=== PATIENT | female | born 1960 ===

== ENCOUNTER 2017-11-20 23:50 | Inpatient (IN) | payer MEDICARE, MEDICAID ==
[2017-11-21 00:01] VITALS: BMI 23.4
--- NOTE | 2017-11-21 01:02 | ED PDOC ---
Arrival/HPI - General Chief Complaint: Back Pain Time Seen by Provider: 11/21/17 00:35 Historian: Patient EM Caveat: Acuity of Condition - History of Present Illness Narrative History of Present Illness (Text): 11/21/17 00:51 57 yo F with PMH of high cholesterol, hypothyroidism, and hepatitis C (known, untreated), presents complaining of back pain x2 days. She reports right sided back pain, 10/10 in severity, started two days ago, woke her up from sleep, radiates to back of right leg to the knee, worsening since onset. Patient reports she has never had this pain before. [place] [facility] [place] she received "a shot and two tylenol" which did not help. Patient has difficulty walking due to the pain. She denies focal weakness/numbness, urinary incontinence, bowel incontinence. No particular exacerbating or remitting factors. Time/Duration: < week Symptom Onset: Sudden Symptom Course: Worsening Quality: Other ("feels like it is going to pop out") Severity Level: 10 Activities at Onset: Rest Past Medical History - Provider Review Nursing Documentation Reviewed: Yes - Travel History Have you recently traveled outside [place] w/in the past 3 mons?: No - Patient History Narrative Patient History: High cholesterol Hypothyroidism Prior intranasal heroin use, now on methadone with [facility] Hepatitis C, known untreated 2 years ago, patient was admitted somewhere where she received a blood transfusion, "then had kidney failure, then was in a coma for 3 days" - Infectious Disease Hx of Infectious Diseases: None - Tetanus Immunization Tetanus Immunization: Unknown - Cardiac Hx Cardiac Disorders: No Hx Hyperlipemia: Yes - Pulmonary Hx Respiratory Disorders: No - Neurological Hx Neurological Disorder: No - HEENT Hx HEENT Disorder: No - Renal Hx Renal Disorder: Yes - Hematological/Oncological Hx Hepatitis C: Yes (untreated) - Integumentary Hx Dermatological Disorder: No - Musculoskeletal/Rheumatological Hx Back Pain: No - Gastrointestinal Other/Comment: abdominal hernia - Genitourinary/Gynecological Hx Genitourinary Disorders: No - Psychiatric Hx Psychophysiologic Disorder: No Hx Substance Use: Yes (currently takes methadone) - Surgical History Hx Abdominal Aortic Aneurysm Repair: No Family/Social History - Physician Review Nursing Documentation Reviewed: Yes Family/Social History: Unknown Family HX Smoking Status: Light Smoker < 10 Cigarettes Daily Hx Alcohol Use: Yes Frequency of alcohol use: Socially Hx Substance Use: Yes (currently takes methadone) Allergies/Home Meds Allergies/Adverse Reactions: Allergies No Known Allergies Allergy (Verified 11/21/17 00:08) Home Medications: Home Meds Medication Instructions Recorded Confirmed Unobtainable 11/21/17 11/21/17 Review of Systems - Physician Review All systems were reviewed & negative as marked: Yes - Review of Systems Systems not reviewed;Unavailable: Acuity of Condition Constitutional: Normal Eyes: Normal ENT: Normal Respiratory: Normal Cardiovascular: Normal Gastrointestinal: Normal. absent: Stool Changes, Constipation, Diarrhea Genitourinary Female: Normal Musculoskeletal: Back Pain Skin: Normal Neurological: Normal. absent: Focal Weakness Endocrine: Normal Hemo/Lymphatic: Normal Psychiatric: Normal Physical Exam - Physical Exam Physical Exam Limitations: Clinical Condition Vital Signs Reviewed: Yes Vital Signs Temp Pulse Resp BP Pulse Ox 11/21/17 04:22 88 18 122/88 98 11/21/17 00:09 97.9 F 76 16 183/97 H 98 Temperature: Afebrile Blood Pressure: Hypertensive Pulse: Regular Respiratory Rate: Normal Appearance: Positive for: Non-Toxic, Unkept, Uncomfortable Pain Distress: Severe Mental Status: Positive for: Alert and Oriented X 3 - Systems Exam Head: Present: Atraumatic, Normocephalic Pupils: Present: PERRL Extroacular Muscles: Present: EOMI Conjunctiva: Present: Normal Mouth: Present: Moist Mucous Membranes Neck: Present: Normal Range of Motion Respiratory/Chest: Present: Clear to Auscultation, Good Air Exchange. No: Respiratory Distress Cardiovascular: Present: Regular Rate and Rhythm, Normal S1, S2 Abdomen: Present: Distention, Mass/Organomegaly. No: Tenderness, Peritoneal Signs, Rebound, Guarding Back: Present: Normal Inspection, Paraspinal Tenderness, Pain with Leg Raise. No: CVA Tenderness, Midline Tenderness Upper Extremity: Present: Normal Inspection. No: Cyanosis, Edema Lower Extremity: Present: Normal Inspection, Neurovascularly Intact. No: Edema , CALF TENDERNESS Neurological: Present: GCS=15, CN II-XII Intact, Motor Func Grossly Intact, Normal Sensory Function Skin: Present: Warm, Dry, Normal Color Psychiatric: Present: Alert, Oriented x 3, Anxious, Agitated Medical Decision Making ED Course and Treatment: 11/21/17 01:12 Impression: Low back pain Differential Diagnosis included but are not limited to: musculoskeletal low back pain, disc herniation, epidural abscess, fracture Plan: -- Labs -- Flexeril and tylenol for pain; pending labs -- Patient reportedly takes methadone 35mg daily; on [place] [employer], patient noted to take Zolpidem, no other controlled substances on record -- CT lumbar and sacral spine -- Reassess and disposition Prior Visits: None Progress Notes: 11/21/17 02:40 Labs unremarkable, no renal impairment. Ordered toradol 30mg IVP once. No improvement in pain. Patient moaning and shouting constantly, crying, though not tearful. Denies abdominal pain. Cross sectional imaging shows no significant abnormalities of the lumbar/sacral spine or hips to explain current symptoms; remarkable for ascites and mild stranding in anterior and posterior abdominal wall. Patient afebrile, no leukocytosis. Ordered Urinalysis and UDS Ordered percocet 5/325 PO once 11/21/17 04:22 UDS positive for methadone, otherwise negative Called [facility] patient's recent visit. Patient was at [facility] at approximately 0135, with similar complaint. She had received NSAIDs with apparent improvement in her symptoms, and was discharged with PO tylenol. Patient's prior presentation at [facility] [place], for an ultrasound procedure. Patient is not a known frequent visitor to that hospital. Patient continues to complain of severe pain, despite narcotic analgesic. Ordered morphine 4mg IVP once. Will reassess. Urinalysis pending to r/o pyelonephritis. 11/21/17 05:52 Urinalysis significant for trace ketones and large blood. No UTI. Patient continues to have pain, despite morphine administration, though slightly improved; patient slightly more comfortable. Called Dr. Maryam Gustafson for admission for intractable back pain; Dr. Gustafson accepts patient to hospitalist service Reassessment Condition: Re-examined, Worse - Lab Interpretations Lab Results: 11/21/17 00:55 11/21/17 00:55 Lab Results 11/21/17 03:00: Urine Opiates Screen Negative, Urine Methadone Screen Positive H , Ur Barbiturates Screen Negative, Ur Phencyclidine Scrn Negative, Ur Amphetamines Screen Negative, U Benzodiazepines Scrn Negative, U Oth Cocaine Metabols Negative, U Cannabinoids Screen Negative 11/21/17 03:00: Urine Color Yellow, Urine Appearance Sl cloudy, Urine pH 6.0, Ur Specific [place] 1.020, Urine Protein Negative, Urine Glucose (UA) Negative, Urine Ketones Trace H, Urine Blood Large H, Urine Nitrate Negative, Urine Bilirubin Negative, Urine Urobilinogen 0.2, Ur Leukocyte Esterase Negative, Urine RBC 2 - 5, Urine WBC 1 - 3, Ur Epithelial Cells 1 - 3, Urine Bacteria Few 11/21/17 00:55: Sodium 134, Potassium 4.0, Chloride 97 L, Carbon Dioxide 31, Anion Gap 10, BUN 10, Creatinine 0.8, Est GFR ( Amer) > 60, Est GFR (Non- Af Amer) > 60, Random Glucose 107, Calcium 8.0 L, Total Bilirubin 1.5 H, AST 47 H, ALT 17, Alkaline Phosphatase 169 H, Total Protein 7.8, Albumin 2.7 L, Globulin 5.1, Albumin/Globulin Ratio 0.5 L 11/21/17 00:55: PT 18.5 H, INR 1.61 H, APTT 35.6 11/21/17 00:55: WBC 4.6, RBC 4.30, Hgb 12.3, Hct 36.7, MCV 85.3, MCH 28.6, MCHC 33.5, RDW 18.1 H, Plt Count 40 L*, Gran % 65.2, Lymph % (Auto) 21.6 L, [place] % ( Auto) 11.0 H, Eos % (Auto) 1.1 L, Baso % (Auto) 1.1, Gran # 3.03, Lymph # (Auto ) 1.0 L, [place] # (Auto) 0.5, Eos # (Auto) 0.1, Baso # (Auto) 0.05 I have reviewed the lab results: Yes Interpretation: Abnormal lab values - RAD Interpretation Radiology Orders: 11/21/17 00:46 LUMBAR SPINE W/O CONTRAST [CT] Stat PELVIS W/O PO OR IV CONTRAST [CT] Stat - Medication Orders Current Medication Orders: Discontinued Medications Acetaminophen (Tylenol 325mg Tab) 975 mg PO STAT STA Stop: 11/21/17 00:47 Last Admin: 11/21/17 00:56 Dose: 975 mg Cyclobenzaprine HCl (Flexeril) 10 mg PO STAT STA Stop: 11/21/17 00:47 Last Admin: 11/21/17 00:56 Dose: 10 mg Ketorolac Tromethamine (Toradol) 30 mg IVP STAT STA Stop: 11/21/17 01:50 Last Admin: 11/21/17 01:56 Dose: 30 mg MAR Pain Assessment Document 11/21/17 01:56 IT (Rec: 11/21/17 01:58 IT [facility] [id number]) Pain Reassessment Is this a pain reassessment? No Sleep Is patient sleeping during reassessment? No Presence of Pain Presence of Pain Yes Pain Scale Used Pain Scale Used Numeric IVP Administration Document 11/21/17 01:56 IT (Rec: 11/21/17 01:58 IT [id number]) Charges for Administration # of IVP Administrations 1 Morphine Sulfate (Morphine) 4 mg IVP STAT STA Stop: 11/21/17 04:06 Last Admin: 11/21/17 04:21 Dose: 4 mg MAR Pain Assessment Document 11/21/17 04:21 IT (Rec: 11/21/17 04:21 IT [id number]) Pain Reassessment Is this a pain reassessment? No Sleep Is patient sleeping during reassessment? No Presence of Pain Presence of Pain Yes Pain Scale Used Pain Scale Used Numeric IVP Administration Document 11/21/17 04:21 IT (Rec: 11/21/17 04:21 IT [id number]) Charges for Administration # of IVP Administrations 1 Oxycodone/Acetaminophen (Percocet 5/325 Mg Tab) 1 tab PO STAT STA Stop: 11/21/17 02:29 Last Admin: 11/21/17 02:45 Dose: 1 tab MAR Pain Assessment Document 11/21/17 02:45 IT (Rec: 11/21/17 02:46 IT [id number]) Pain Reassessment Is this a pain reassessment? No Sleep Is patient sleeping during reassessment? No Presence of Pain Presence of Pain Yes Pain Scale Used Pain Scale Used Numeric Location Left, Right or Bilateral Bilateral Pain Location Body Site Back Description Description Constant Intensity of Pain at present 9 Disposition/Present on Arrival - Present on Arrival Any Indicators Present on Arrival: No History of DVT/PE: No History of Uncontrolled Diabetes: No Urinary Catheter: No History of Decub. Ulcer: No History Surgical Site Infection Following: None - Disposition Have Diagnosis and Disposition been Completed?: Yes Diagnosis: Intractable back pain, Ascites, Hematuria Disposition: HOSPITALIZED Disposition Time: 06:00 Patient Plan: Observation Condition: STABLE Forms: [employer] ([place])
[2017-11-21 01:10] LABS: BASO # 0.05 K/mm3 (0.0-2.0); BASO % 1.1 % (0.0-3.0); EOS # 0.1 (0.0-0.7); EOS % 1.1 % (1.5-5.0); GRAN # 3.03 (1.4-6.5); GRAN % 65.2 % (50.0-68.0); HEMOGLOBIN 12.3 g/dL (12.0-16.0); LYMPH % 21.6 % (22.0-35.0); MEAN CELL VOLUME 85.3 fl (80.0-105.0); MEAN CORPUSCULAR HEMOGLOBIN 28.6 pg (25.0-35.0); MEAN CORPUSCULAR HGB CONC 33.5 g/dl (31.0-37.0); MONO # 0.5 (0.1-0.6); PLATELET COUNT 40 10^3/uL (120.0-450.0); RED CELL DISTRIBUTION WIDTH 18.1 % (11.5-14.5); WHITE BLOOD COUNT 4.6 10^3/ul (4.5-11.0)
[2017-11-21 01:15] LABS: INR 1.61 (0.93-1.08); PARTIAL THROMBOPLASTIN TIME 35.6 Seconds (25.1-36.5); PROTHROMBIN TIME 18.5 SECONDS (9.4-12.5)
[2017-11-21 01:35] LABS: ALB/GLOB RATIO 0.5 (1.1-1.8); ALBUMIN 2.7 g/dL (3.0-4.8); ALT/SGPT 17 U/L (7-56); AST/SGOT 47 U/L (14-36); BLOOD UREA NITROGEN 10 mg/dL (7-21); GFR AFRICAN-AMERICAN > 60; GFR NON-AFRICAN AMERICAN > 60
--- NOTE | 2017-11-21 02:15 | CT ---
EXAM: CT Abdomen Without Intravenous Contrast EXAM DATE/TIME: 11/21/2017 12:46 AM CLINICAL HISTORY: 57 years old, female; Pain; Low back pain; Additional info: Right sided back pain TECHNIQUE: Axial computed tomography images of the abdomen without intravenous contrast. All CT scans at this facility use one or more dose reduction techniques, viz.: automated exposure control; ma/kV adjustment per patient size (including targeted exams where dose is matched to indication; i.e. head); or iterative reconstruction technique. COMPARISON: No relevant prior studies available. FINDINGS: Liver: Dome of liver not imaged. Lobulated hepatic contour. Gallbladder and bile ducts: Multiple small gallstones. No ductal dilation. Pancreas: Unremarkable. No ductal dilation. Spleen: Splenomegaly despite incomplete imaging of the dome. Adrenals: Unremarkable. No mass. Kidneys and ureters: Unremarkable. No obstructing stones. No hydronephrosis. Stomach and bowel: Unremarkable. No obstruction. No mucosal thickening. Appendix: No findings to suggest acute appendicitis. Intraperitoneal space: Moderate-sized ascites. No free air. Bones/joints: No acute fracture. No dislocation. Soft tissues: Small umbilical hernia containing ascitic fluid. Soft tissue edema. 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 Gastric, esophageal and splenic varices. No abdominal aortic aneurysm. Lymph nodes: Unremarkable. No enlarged lymph nodes. IMPRESSION: 1. Cholelithiasis, no evidence of acute cholecystitis. 2. Cirrhosis and stigmata of portal venous hypertension. Moderate ascites.
--- NOTE | 2017-11-21 02:20 | CT ---
EXAM: CT Pelvis Without Intravenous Contrast CLINICAL HISTORY: 57 years old, female; Pain; Hip pain; Right hip; Additional info: To assess sacral spine (si joints) - back pain TECHNIQUE: Axial computed tomography images of the pelvis without intravenous contrast. All CT scans at this facility use one or more dose reduction techniques, viz.: automated exposure control; ma/kV adjustment per patient size (including targeted exams where dose is matched to indication; i.e. head); or iterative reconstruction technique. Coronal and sagittal reformatted images were created and reviewed. COMPARISON: No relevant prior studies available. FINDINGS: Bones/joints: No acute fracture. Mild degenerative changes of pubic symphysis. Mild facet osteoarthrosis within lower lumbar spine. No dislocation. Soft tissues: Mild skin thickening of anterior abdominal wall. Moderate to extensive stranding within subcutaneous tissues of anterior abdominal wall. Mild stranding within subcutaneous tissues of posterior abdominal wall. Minimal skin thickening of thighs. Mild stranding within subcutaneous tissues of thighs. Vasculature: Mild atherosclerotic disease. Intraperitoneal space: Large amount of free fluid within visualized lower abdomen and pelvis. Reproductive: Probable nabothian cyst. IMPRESSION: 1. No fracture. If hip pain persists, consider MRI to exclude occult fracture/internal derangement. 2. Ascites. Recommend dedicated contrast enhanced abdomen/pelvis CT. 3. Incidental/non-acute findings are described above.
[2017-11-21] MEDS ORDERED: Oxycodone/Acetaminophen 5/325 mg Tab PO STA (02:28)
[2017-11-21 03:34] LABS: PHENCYCLIDINE, UR NEGATIVE (NEGATIVE)
[2017-11-21 03:39] LABS: URINE BILIRUBIN NEGATIVE (NEGATIVE); URINE BLOOD LARGE (NEGATIVE); URINE GLUCOSE (UA) NEGATIVE (NEGATIVE); URINE LEUKOCYTE ESTERASE NEGATIVE Leu/uL (NEGATIVE); URINE PROTEIN NEGATIVE mg/dL (<30 mg/dL); URINE UROBILINOGEN 0.2 E.U./dL (<1 E.U./dL)
[2017-11-21 03:55] LABS: BARBITURATES, UR NEGATIVE (NEGATIVE); BENZODIAZEPINES, UR NEGATIVE (NEGATIVE); OPIATES, UR NEGATIVE (NEGATIVE)
[2017-11-21 04:03] LABS: URINE APPEARANCE SL CLOUDY (CLEAR); URINE COLOR YELLOW (YELLOW)
[2017-11-21 04:04] LABS: URINE BACTERIA FEW (NEG)
--- NOTE | 2017-11-21 07:08 | CP.PCM.HP ---
<Ricki Moreno - Last Filed: 11/21/17 07:01> History of Present Illness - History of Present Illness History of Present Illness: Medicine H/P: Dr. Maryam Gustafson Chief Complaint: Back Pain HPI: 57 year old Female with past medical history of high cholesterol, hypothyroidism , and hepatitis C (known, untreated), presents complaining of back pain x 2 days. She reports right sided back pain, 10/10 in severity, started two days ago , woke her up from sleep, radiates to back of right leg to the knee. Patient reports she has never had this pain before. Per ER physicians Dr. Love and Dr. Rodriguez, she went to [facility] [place], where she received "a shot and two tylenol" which did not help. Patient has difficulty walking due to the pain. Patient denies injury and states that the pain started without any precipitating factors. She denies focal weakness/numbness, urinary incontinence, bowel incontinence. Review of Systems: 12 point ROS obtained and negative except as per HPI Surgical History: Patient denies Medical History: Hyperlipidemia, Hypothyroidism, Hep C untreated Allergies: NKDA Social History: Smokes 1 cigarette a day, quit drinking, quit heroin Home Meds: Patient denies PMD: Patient denies Present on Admission - Present on Admission Any Indicators Present on Admission: No Past Patient History - Infectious Disease Hx of Infectious Diseases: None - Tetanus Immunizations Tetanus Immunization: Unknown - Past Social History Smoking Status: Light Smoker < 10 Cigarettes Daily - CARDIAC Hx Cardiac Disorders: No - PULMONARY Hx Respiratory Disorders: No - NEUROLOGICAL Hx Neurological Disorder: No - HEENT Hx HEENT Problems: No - RENAL Hx Chronic Kidney Disease: Yes - HEMATOLOGICAL/ONCOLOGICAL Hx Hepatitis C: Yes (untreated) - INTEGUMENTARY Hx Dermatological Problems: No - MUSCULOSKELETAL/RHEUMATOLOGICAL Hx Back Pain: No - GASTROINTESTINAL Other/Comment: abdominal hernia - GENITOURINARY/GYNECOLOGICAL Hx Genitourinary Disorders: No - PSYCHIATRIC Hx Psychophysiologic Disorder: No Hx Substance Use: Yes (currently takes methadone) - SURGICAL HISTORY Hx Abdominal Aortic Aneurysm Repair: No Meds Allergies/Adverse Reactions: Allergies Allergy/AdvReac Type Severity Reaction Status Date / Time No Known Allergies Allergy Verified 11/21/17 00:08 Physical Exam - Constitutional Appears: Well - Head Exam Head Exam: ATRAUMATIC, NORMAL INSPECTION, NORMOCEPHALIC - Eye Exam Eye Exam: EOMI, Normal appearance, PERRL Pupil Exam: NORMAL ACCOMODATION, PERRL - ENT Exam ENT Exam: Mucous Membranes Moist, Normal Exam - Neck Exam Neck exam: Positive for: Normal Inspection - Respiratory Exam Respiratory Exam: Clear to Auscultation Bilateral, NORMAL BREATHING PATTERN - Cardiovascular Exam Cardiovascular Exam: REGULAR RHYTHM - GI/Abdominal Exam GI & Abdominal Exam: Normal Bowel Sounds, Soft. absent: Tenderness Additional comments: Non-tender Grossly distended abdomen, no fluid wave - Extremities Exam Extremities exam: Positive for: normal inspection - Back Exam Back exam: NORMAL INSPECTION Additional comments: Straight leg test positive Lumbosacral tenderness - Neurological Exam Neurological exam: Alert, CN II-XII Intact, Normal Gait, Oriented x3, Reflexes Normal - Psychiatric Exam Psychiatric exam: Normal Affect, Normal Mood - Skin Skin Exam: Dry, Intact, Normal Color, Warm Results - Vital Signs Recent Vital Signs: Last Vital Signs Temp 98.1 F 11/21/17 06:37 Pulse 71 11/21/17 06:37 Resp 18 11/21/17 06:37 BP 128/72 11/21/17 06:37 Pulse Ox 98 11/21/17 06:37 - Labs Result Diagrams: 11/21/17 00:55 11/21/17 00:55 Assessment & Plan - Assessment and Plan (Free Text) Assessment: 57 year old female with past medical history pertinent for Hep C presents with back pain that radiates down her right leg of two days' duration. CT Pelvis was obtained as well as CT of the spine in the ED, both of which were unremarkable. UA did show large blood, nephrolithiasis is in the differential. Patient's pain was alleviated only with Percocet, which she got at 2:30 A, and Morphine, which she got at 4A. Patient had been given ACEP, Flexeril, and Toradol up to that point. Patient's abdomen is distended and she has a history of untreated hep C. LFT's mildly elevated with T Bili mildly elevated as well. Patient also has hypothyroidism and hyperlipidemia, self reported. Plan: Intractible Back Pain - Toradol PRN; Consider Flexeril - CT Abdomen, MRI Lumbar Spine, CT R Hip ordered; CT Knee ordered History of Hep C - AFP, Liver ultrasound - GI Consult: Dr. Alvarenga - Hold hepatotoxic medications Transaminitis, likely 2/2 Hep C - as above History of Hypothyroidism - TSH, T3, T4 - Hold levothyroid until labs back History of Hyperlipidemia - Lipid panel - Hold statin 2/2 hepatotoxicity GI/DVT Prophylaxis - Protonix/SCD Diet: Heart Healthy <GustafsonUsha Delano - Last Filed: 11/22/17 05:23> Results - Vital Signs Recent Vital Signs: Last Vital Signs Temp 97.8 F 11/21/17 21:50 Pulse 94 H 11/22/17 01:27 Resp 20 11/21/17 21:50 BP 158/98 H 11/22/17 01:27 Pulse Ox 96 11/21/17 21:50 - Labs Result Diagrams: 11/21/17 00:55 11/21/17 00:55 Labs: Laboratory Results - last 24 hr 11/21/17 11/21/17 11/21/17 07:00 07:00 07:00 Iron TIBC % Saturation Ferritin 53.9 Total Creatine Kinase Triglycerides Cholesterol LDL Cholesterol Direct HDL Cholesterol IgG 3399.8 H IgA 891.9 H IgM 291.4 H Hepatitis A IgM Ab Negative Hep Bs Antigen Negative Hep B Core IgM Ab Negative Hepatitis C Antibody Reactive 11/21/17 11/21/17 11/21/17 07:00 07:45 07:45 Iron 53 TIBC 338 % Saturation 16 L Ferritin Total Creatine Kinase 32 L Triglycerides 79 Cholesterol 105 L LDL Cholesterol Direct 48 HDL Cholesterol 19 L IgG IgA IgM Hepatitis A IgM Ab Hep Bs Antigen Hep B Core IgM Ab Hepatitis C Antibody
[2017-11-21 08:15] LABS: HDL CHOLESTEROL 19 mg/dL (29-60)
[2017-11-21 08:15] LABS: T4 5.4 ug/dL (5.5-11.0)
[2017-11-21 08:25] LABS: LDL CHOLESTEROL 48 mg/dL (0-129)
[2017-11-21 08:29] LABS: T3 0.94 ng/mL (0.97-1.69)
[2017-11-21] MEDS ORDERED: Pneumococcal 23-Valent Vaccine IM ONE (08:39)
[2017-11-21] MEDS: Lidocaine 5% Patch TD SCH (09:36)
--- NOTE | 2017-11-21 11:50 | US ---
HISTORY: history of hep c COMPARISON: None. TECHNIQUE: Sonographic evaluation of the abdomen. FINDINGS: LIVER: Measures 17.1 cm. Diffusely increased echogenicity of the liver parenchyma. Nodular contour. No mass. No intrahepatic biliary dilatation. Findings consistent with hepatic cirrhosis. GALLBLADDER: Cholelithiasis. Minimal nonspecific gallbladder wall thickening. Negative sonographic Xiong sign. COMMON BILE DUCT: Measures 14 mm. This is enlarged. No evidence of choledocholithiasis. PANCREAS: Unremarkable as visualized. No mass. No ductal dilatation. RIGHT KIDNEY: Measures 10.8cm. Normal echogenicity. No calculus, mass, or hydronephrosis. LEFT KIDNEY: Measures 10.1cm. Normal echogenicity. No calculus, mass, or hydronephrosis. SPLEEN: Minimal splenomegaly. AORTA: No aneurysmal dilatation. IVC: Unremarkable. OTHER FINDINGS: Extensive ascites IMPRESSION: Hepatic cirrhosis. Ascites. Cholelithiasis without evidence of cholecystitis. Dilated common bile duct without associated intrahepatic biliary dilatation. Cannot rule out choledocholithiasis. Please correlate with clinical and laboratory evaluation. Mild splenomegaly.
--- NOTE | 2017-11-21 13:30 | CP.PCM.CON ---
<Lucia Golden - Last Filed: 11/21/17 13:22> History of Present Illness - History of Present Illness History of Present Illness: GI Fellow PGY4 Consult Note This is a 57 year old Female with past medical history of high cholesterol, hypothyroidism, and hepatitis C treatment naive presenting with complaints of back pain x 2 days and distended abdomen. She reports right sided back pain, 10/ 10 in severity, started two days ago, woke her up from sleep, radiates to back of right leg to the knee. Patient reports she has never had this pain before. Pt reports she was diagnosed with hep c many years ago but never followed up for treatment. This is the first time her abdomen is distended and she reports epeisodes of confusion at home. She has more than 2BM daily. No prior hx of GI Bleed, EGD/Colonoscopy. ROS: 12 point ROS obtained and negative except as per HPI PMH: As stated in HPI PSH:Patient denies SH: Smokes 1 cigarette a day, quit drinking a few months ago was a heavy drinking, quit heroin a few years ago on methadone FH: Denies fhx of colon cancer Past Patient History - Infectious Disease Hx of Infectious Diseases: None - Tetanus Immunizations Tetanus Immunization: Unknown - Past Social History Smoking Status: Former Smoker - CARDIAC Hx Cardiac Disorders: No - PULMONARY Hx Pneumonia: Yes - NEUROLOGICAL Hx Neurological Disorder: No - HEENT Hx HEENT Problems: No - RENAL Hx Chronic Kidney Disease: Yes - HEMATOLOGICAL/ONCOLOGICAL Hx Hepatitis C: Yes - INTEGUMENTARY Hx Dermatological Problems: No - MUSCULOSKELETAL/RHEUMATOLOGICAL Hx Falls: No - GASTROINTESTINAL Other/Comment: abdominal hernia - GENITOURINARY/GYNECOLOGICAL Hx Genitourinary Disorders: No - PSYCHIATRIC Other/Comment: substance abuse heroin years ago stated by patient. Alchol use last drank one week ago - SURGICAL HISTORY Hx Abdominal Aortic Aneurysm Repair: No Meds Allergies/Adverse Reactions: Allergies Allergy/AdvReac Type Severity Reaction Status Date / Time No Known Allergies Allergy Verified 11/21/17 00:08 - Medications Medications: Current Medications Furosemide (Lasix) 40 mg PO DAILY [facility] Hydralazine HCl (Apresoline) 10 mg IVP Q6 PRN PRN Reason: SBP > 180 and DBP > 100 Ketorolac Tromethamine (Toradol) 30 mg IVP Q6H PRN PRN Reason: Pain, severe (8-10) Last Admin: 11/21/17 09:36 Dose: 30 mg Lactulose (Enulose) 20 gm PO BID [facility] Lidocaine (Lidoderm) 1 ea TD DAILY JOSE J Last Admin: 11/21/17 09:36 Dose: 1 ea Methadone HCl (Methadone) 35 mg PO DAILY [facility] Pantoprazole Sodium (Protonix Ec Tab) 40 mg PO 0600 [facility] Spironolactone (Aldactone) 100 mg PO DAILY [facility] Physical Exam - Constitutional Appears: Non-toxic, No Acute Distress, Cachectic, Chronically Ill - Head Exam Head Exam: ATRAUMATIC, NORMAL INSPECTION, NORMOCEPHALIC - Eye Exam Eye Exam: EOMI, Normal appearance, PERRL Pupil Exam: PERRL - ENT Exam ENT Exam: Mucous Membranes Moist, Normal Exam - Neck Exam Neck exam: Positive for: Full Rom, Normal Inspection - Respiratory Exam Respiratory Exam: Decreased Breath Sounds, Wheezes - Cardiovascular Exam Cardiovascular Exam: REGULAR RHYTHM, +S1, +S2 - GI/Abdominal Exam GI & Abdominal Exam: Distended, Firm, Hypoactive Bowel Sounds, Tenderness Additional comments: ascites - Rectal Exam Rectal Exam: Deferred - Extremities Exam Extremities exam: Positive for: full ROM, normal inspection - Back Exam Back exam: NORMAL INSPECTION - Neurological Exam Neurological exam: Alert, Oriented x3 - Psychiatric Exam Psychiatric exam: Anxious, Normal Affect, Normal Mood - Skin Skin Exam: Dry, Intact, Normal Color, Warm Results - Vital Signs Recent Vital Signs: Last Vital Signs Temp 97.8 F 11/21/17 08:07 Pulse 72 11/21/17 08:07 Resp 20 11/21/17 08:07 BP 162/79 H 11/21/17 10:41 Pulse Ox 98 11/21/17 06:37 - Labs Result Diagrams: 11/21/17 00:55 11/21/17 00:55 Labs: Laboratory Results - last 24 hr 11/21/17 11/21/17 07:45 07:45 Total Creatine Kinase 32 L Triglycerides 79 Cholesterol 105 L LDL Cholesterol Direct 48 HDL Cholesterol 19 L Assessment & Plan - Assessment and Plan (Free Text) Assessment: This is a 57yF presenting with back and abdominal pain and distention. 1. Ascites 2. Hx of Hep C 3. Hx of etoh abuse 4. r/o Cirrhosis 5. Thrombocytopenia 6. Elevated LFTs Plan: -Continue supportive care with pain control and anti-emetics -Avoid narcotics with possible cirrhosis -Clinical and chemical picture of cirrhosis with MELD 16, will order CT Liver Protocol and Abd US duplex to evaluate portal vein patency -Hepatitis and autoimmune serologies pending -Will order diagnostic and therapeutic paracentesis, peritoneal fluid studies ordered to r/o SBP -Will start lasix and spironolactone -Lactulose bid to titrate for 2 BM daily -Pt will need outpt EGD/Colonoscopy as an outpt -Will continue to follow closely <Pratik Alvarenga - Last Filed: 11/21/17 16:16> Meds - Medications Medications: Current Medications Furosemide (Lasix) 40 mg PO DAILY [facility] Last Admin: 11/21/17 14:46 Dose: 40 mg Hydralazine HCl (Apresoline) 10 mg IVP Q6 PRN PRN Reason: SBP > 180 and DBP > 100 Ketorolac Tromethamine (Toradol) 30 mg IVP Q6H PRN PRN Reason: Pain, severe (8-10) Last Admin: 11/21/17 09:36 Dose: 30 mg Lactulose (Enulose) 20 gm PO BID [facility] Lidocaine (Lidoderm) 1 ea TD DAILY [facility] Last Admin: 11/21/17 09:36 Dose: 1 ea Methadone HCl (Methadone) 35 mg PO DAILY [facility] Last Admin: 11/21/17 14:45 Dose: 35 mg Pantoprazole Sodium (Protonix Ec Tab) 40 mg PO 0600 [facility] Spironolactone (Aldactone) 100 mg PO DAILY [facility] Last Admin: 11/21/17 14:46 Dose: 100 mg Results - Vital Signs Recent Vital Signs: Last Vital Signs Temp 97.8 F 11/21/17 08:07 Pulse 72 11/21/17 08:07 Resp 20 11/21/17 08:07 BP 167/87 H 11/21/17 14:46 Pulse Ox 98 11/21/17 06:37 - Labs Result Diagrams: 11/21/17 00:55 11/21/17 00:55 Labs: Laboratory Results - last 24 hr 11/21/17 11/21/17 11/21/17 07:00 07:45 07:45 Iron 53 TIBC 338 % Saturation 16 L Total Creatine Kinase 32 L Triglycerides 79 Cholesterol 105 L LDL Cholesterol Direct 48 HDL Cholesterol 19 L Attending/Attestation - Attestation I have personally seen and examined this patient.: Yes I have fully participated in the care of the patient.: Yes I have reviewed all pertinent clinical information: Yes Notes (Text): 11/21/17 16:05 This is a 57 year old F presenting with back and abdominal pain and new onset abdominal distention in setting of ascites. She states she was told she had HCV few years ago but was treatment naive. She was recently admitted to outside facility. Never had EGD/ colonoscopy. Has history of alcohol abuse and heroin snorting both which she has discontinued. We do not have hepatitis serologies. Will schedule diagnostic and therapeutic tap with IR in am and CTAP with triple phase and abdominal sonogram with dopplers. -Continue supportive care with pain control and anti-emetics -Avoid narcotics with possible cirrhosis MELD 16 -Hepatitis and autoimmune serologies pending -Will start lasix and spironolactone -Lactulose bid to titrate for 2 BM daily -Pt will need outpt EGD/Colonoscopy as an outpt and HCV treatment - low salt diet -Will continue to follow closely
[2017-11-21 14:32] LABS: IRON 53 ug/dL (45-180)
[2017-11-21 14:42] LABS: % IRON SATURATION 16 % (20-55); TOTAL IRON BINDING CAPACITY 338 ug/dL (265-497)
[2017-11-21 17:06] LABS: IMMUNOGLOBULIN M 291.4 mg/dL (40.0-230.0)
[2017-11-21 18:01] LABS: IMMUNOGLOBULIN A 891.9 mg/dL (70.0-400.0); IMMUNOGLOBULIN G 3399.8 mg/dL (700.0-1600.0)
[2017-11-21 18:02] LABS: HEPATITIS B SURFACE AG Negative (NEGATIVE)
[2017-11-21 18:08] LABS: HEPATITIS A IGM NEGATIVE (NEGATIVE); HEPATITIS B CORE AB NEGATIVE (NEGATIVE)
--- NOTE | 2017-11-21 19:54 | CT ---
EXAM: CT Abdomen and Pelvis Without and With Intravenous Contrast EXAM DATE/TIME: 11/21/2017 10:55 AM CLINICAL HISTORY: The patient age is 57 years old and is female; Condition or disease; Ascites Facility exam id and description: Ct liver liver protocol triple phase TECHNIQUE: Axial computed tomography images of the abdomen and pelvis without and with intravenous contrast. All CT scans at this facility use one or more dose reduction techniques, viz.: automated exposure control; ma/kV adjustment per patient size (including targeted exams where dose is matched to indication; i.e. head); or iterative reconstruction technique. CONTRAST: 141 mL of OMNI 350 administered intravenously. COMPARISON: CT - PELVIS W/O CONTRAST 2017-11-21 01:32 FINDINGS: Lung bases: Consolidations and increased interstitial markings are identified within both lower lobes and the right middle lobe. ABDOMEN: Liver: There is increased nodularity of the hepatic contour, consistent with hepatocellular dysfunction or cirrhosis. There is hypodense fatty infiltration of the liver. Gallbladder and bile ducts: The gallbladder is distended with multiple gallstones. Pancreas: There is actually of the pancreas. No ductal dilation. Spleen: Borderline splenomegaly. The spleen measures 12.1 cm in length, borderline for splenomegaly. Adrenals: No mass. Kidneys and ureters: Small foci of hypodensity are identified within the renal cortices, right zygoma. This is consistent with small cystic lesions or areas of parenchymal scarring. There is no hydronephrosis bilaterally. Stomach and bowel: No obstruction. No mucosal thickening. Appendix: The appendix is nondistended. PELVIS: Bladder: No mass. No stones. Reproductive: At the level of the cervix, there is a hypodense probable nabothian cyst measuring 1.1 x 0.9 cm. ABDOMEN and PELVIS: Intraperitoneal space: There is a large amount of abdominal and pelvic ascites. Ascites is contained within small ventral abdominal hernias. Varicosities are visualized within the upper abdomen. Bones/joints: A transitional S1 vertebral body is visualized. Soft tissues: See above. Vasculature: There is atherosclerotic calcification of the abdominal aorta. No abdominal aortic aneurysm. Lymph nodes: No enlarged lymph nodes. IMPRESSION: 1. Consolidations and increased interstitial markings are identified within both lower lobes and the right middle lobe. An infectious etiology is considered. 2. There is increased nodularity of the hepatic contour, consistent with hepatocellular dysfunction or cirrhosis. There is hypodense fatty infiltration of the liver. 3. There is a large amount of abdominal and pelvic ascites. Ascites is contained within small ventral abdominal hernias. 4. The gallbladder is distended with multiple gallstones. Pericholecystic fluid is visualized, likely contributed ascites. Clinical correlation is recommended. 5. At the level of the cervix, there is a stable probable nabothian cyst measuring 1.1 x 0.9 cm. This can be further evaluated with ultrasound. 6. Borderline splenomegaly. Varicosities are visualized within the upper abdomen. 7. Additional CT findings described above.
[2017-11-21 19:58] LABS: HEPATITIS C ANTIBODY REACTIVE (NEGATIVE)
--- NOTE | 2017-11-21 22:47 | CT ---
EXAM: CT Right Lower Extremity Without Intravenous Contrast, Knee EXAM DATE/TIME: 11/21/2017 8:09 PM CLINICAL HISTORY: The patient age is 57 years old and is female; Pain; Knee; Right; Additional info: Right knee pain Facility exam id and description: Ct kneewocnt knee without contrast right TECHNIQUE: Axial computed tomography images of the right knee without intravenous contrast. All CT scans at this facility use one or more dose reduction techniques, viz.: automated exposure control; ma/kV adjustment per patient size (including targeted exams where dose is matched to indication; i.e. head); or iterative reconstruction technique. Coronal and sagittal reformatted images were created and reviewed. COMPARISON: No relevant prior studies available. FINDINGS: Bones/joints: There is no acute fracture or dislocation of the right knee. Minimal fluid is seen within the patellofemoral joint, without significant effusion. Osteopenia. No significant hypertrophic degenerative spurring. Soft tissues: Soft tissue swelling is visualized, most significant involving the medial right thigh. CT is suboptimal for evaluation of ligaments, tendons, and menisci. A tiny Castro's cyst is identified. IMPRESSION: 1. There is no acute fracture or dislocation of the right knee. 2. Soft tissue swelling is visualized, most significant involving the medial right thigh. 3. Incidental/non-acute findings are described above.
[2017-11-22] MEDS: Pantoprazole 40 mg EC Tab PO SCH ×2 (05:50→09:18)
[2017-11-22 06:50] LABS: BASO # 0.06 K/mm3 (0.0-2.0); EOS # 0.1 (0.0-0.7); EOS % 2.1 % (1.5-5.0); GRAN # 3.36 (1.4-6.5); GRAN % 54.6 % (50.0-68.0); HEMOGLOBIN 11.2 g/dL (12.0-16.0); LYMPH # 1.8 (1.2-3.4); LYMPH % 29.1 % (22.0-35.0); MEAN CELL VOLUME 86.7 fl (80.0-105.0); MEAN CORPUSCULAR HEMOGLOBIN 27.7 pg (25.0-35.0); MEAN CORPUSCULAR HGB CONC 31.9 g/dl (31.0-37.0); MONO # 0.8 (0.1-0.6); MONO % 13.2 % (1.0-6.0); RBC 4.05 10^6/uL (3.5-6.1); RED CELL DISTRIBUTION WIDTH 18.8 % (11.5-14.5); WHITE BLOOD COUNT 6.2 10^3/ul (4.5-11.0)
[2017-11-22 07:25] LABS: ALB/GLOB RATIO 0.6 (1.1-1.8); ALBUMIN 2.7 g/dL (3.0-4.8); ALT/SGPT 23 U/L (7-56); AST/SGOT 36 U/L (14-36); BLOOD UREA NITROGEN 14 mg/dL (7-21); CALCIUM 8.2 mg/dL (8.4-10.5); GFR AFRICAN-AMERICAN > 60; GFR NON-AFRICAN AMERICAN 57
[2017-11-22 07:39] LABS: PLATELET COUNT 36 10^3/uL (120.0-450.0)
--- NOTE | 2017-11-22 07:46 | CP.PCM.PN ---
<Michael Chan - Last Filed: 11/22/17 08:49> Subjective - Date & Time of Evaluation Date of Evaluation: 11/22/17 Time of Evaluation: 07:15 - Subjective Subjective: PGY4 GI follow-up Pt seen and examined bedside Still complaining of lower right LE pain and back pain Denies any nausea or vomiting Denies any BRBPR, melena, or hematemesis ROS: 10 point ROS Conducted, neg other than above Objective - Vital Signs/Intake and Output Vital Signs (last 24 hours): Temp Pulse Resp BP Pulse Ox 97.8 F 94 H 20 158/98 H 96 11/21/17 21:50 11/22/17 01:27 11/21/17 21:50 11/22/17 01:27 11/21/17 21:50 Intake and Output: 11/22/17 11/22/17 06:59 18:59 Intake Total 0 Output Total 500 Balance -500 - Medications Medications: Current Medications Furosemide (Lasix) 40 mg PO DAILY [facility] Last Admin: 11/21/17 14:46 Dose: 40 mg Hydralazine HCl (Apresoline) 10 mg IVP Q6 PRN PRN Reason: SBP > 180 and DBP > 100 Ketorolac Tromethamine (Toradol) 30 mg IVP Q6H PRN PRN Reason: Pain, severe (8-10) Last Admin: 11/22/17 06:00 Dose: 30 mg Lactulose (Enulose) 20 gm PO BID [facility] Last Admin: 11/21/17 17:00 Dose: 20 gm Lidocaine (Lidoderm) 1 ea TD DAILY [facility] Last Admin: 11/21/17 09:36 Dose: 1 ea Methadone HCl (Methadone) 35 mg PO DAILY [facility] Last Admin: 11/21/17 14:45 Dose: 35 mg Pantoprazole Sodium (Protonix Ec Tab) 40 mg PO 0600 [facility] Last Admin: 11/22/17 05:50 Dose: Not Given Spironolactone (Aldactone) 100 mg PO DAILY [facility] Last Admin: 11/21/17 14:46 Dose: 100 mg - Labs Labs: 11/22/17 06:15 11/22/17 06:15 PT 18.5 SECONDS (9.4-12.5) H 11/21/17 00:55 INR 1.61 (0.93-1.08) H 11/21/17 00:55 APTT 35.6 Seconds (25.1-36.5) 11/21/17 00:55 - Constitutional Appears: Well, No Acute Distress, Older Than Stated Age - Head Exam Head Exam: ATRAUMATIC, NORMOCEPHALIC - Eye Exam Eye Exam: Normal appearance - ENT Exam ENT Exam: Mucous Membranes Moist, Normal Exam - Neck Exam Neck Exam: Normal Inspection - Respiratory Exam Respiratory Exam: Clear to Ausculation Bilateral, NORMAL BREATHING PATTERN. absent: Rales, Rhonchi, Wheezes, Respiratory Distress - Cardiovascular Exam Cardiovascular Exam: REGULAR RHYTHM, +S1, +S2 - GI/Abdominal Exam GI & Abdominal Exam: Distended, Normal Bowel Sounds, Organomegaly. absent: Guarding, Rigid, Tenderness, Mass, Pulsatile Mass, Rebound Additional comments: + fluid wave - Extremities Exam Extremities Exam: absent: Joint Swelling, Pedal Edema - Neurological Exam Neurological Exam: Alert, Awake, Oriented x3 - Psychiatric Exam Psychiatric exam: Normal Affect, Normal Mood - Skin Skin Exam: Dry, Intact, Normal Color, Warm Assessment and Plan - Assessment and Plan (Free Text) Assessment: This is a 57yF w/ a hx of Hep C, ETOH abuse who presenting with back and abdominal pain and distention. 1. Ascites 2. Hx of Hep C 3. Hx of etoh abuse 4. r/o Cirrhosis 5. Thrombocytopenia 6. Elevated LFTs 7. Cholelithiasis 8. Dilated CBD Plan: -Continue supportive care with pain control and anti-emetics -Avoid narcotics with possible cirrhosis -Clinical and chemical picture of cirrhosis with MELD 16 11/21/17, -Liver Ct revealed cirrhotic liver, no evidence of HCC -Abd u/s revealed: cholelithiasis w/ dilated CBD w/o sig elevated LFTs or abd pain -autoimmune serologies pending -diagnostic and therapeutic paracentesis, peritoneal fluid studies ordered to r/ o SBP -continue lasix and spironolactone -Lactulose bid to titrate for 2 BM daily -Pt will need outpt EGD/Colonoscopy as an outpt -Will continue to follow closely -Will D/W Dr. Cool <Des Cool Y - Last Filed: 11/22/17 09:37> Objective - Vital Signs/Intake and Output Vital Signs (last 24 hours): Temp Pulse Resp BP Pulse Ox 97.8 F 94 H 20 145/80 96 11/21/17 21:50 11/22/17 01:27 11/21/17 21:50 11/22/17 09:11 11/21/17 21:50 Intake and Output: 11/22/17 11/22/17 06:59 18:59 Intake Total 0 Output Total 500 Balance -500 - Medications Medications: Current Medications Furosemide (Lasix) 40 mg PO DAILY [facility] Last Admin: 11/22/17 09:11 Dose: 40 mg Hydralazine HCl (Apresoline) 10 mg IVP Q6 PRN PRN Reason: SBP > 180 and DBP > 100 Ketorolac Tromethamine (Toradol) 30 mg IVP Q6H PRN PRN Reason: Pain, severe (8-10) Last Admin: 11/22/17 06:00 Dose: 30 mg Lactulose (Enulose) 20 gm PO BID [facility] Last Admin: 11/22/17 09:11 Dose: 20 gm Levothyroxine Sodium (Synthroid) 50 mcg PO DAILY [facility] Last Admin: 11/22/17 09:11 Dose: 50 mcg Lidocaine (Lidoderm) 1 ea TD DAILY [facility] Last Admin: 11/22/17 09:11 Dose: 1 ea Methadone HCl (Methadone) 35 mg PO DAILY [facility] Last Admin: 11/22/17 09:14 Dose: 35 mg Pantoprazole Sodium (Protonix Ec Tab) 40 mg PO 0600 [facility] Last Admin: 11/22/17 09:18 Dose: 40 mg Spironolactone (Aldactone) 100 mg PO DAILY [facility] Last Admin: 11/22/17 09:11 Dose: 100 mg - Labs Labs: 11/22/17 06:15 11/22/17 06:15 PT 18.5 SECONDS (9.4-12.5) H 11/21/17 00:55 INR 1.61 (0.93-1.08) H 11/21/17 00:55 APTT 35.6 Seconds (25.1-36.5) 11/21/17 00:55 Attending/Attestation - Attestation I have personally seen and examined this patient.: Yes I have fully participated in the care of the patient.: Yes I have reviewed all pertinent clinical information, including history, physical exam and plan: Yes Notes (Text): 11/22/17 09:33 I have seen and examined patient with GI fellow. No acute events overnight, she continues to endorse right sided hip pain radiating to buttocks but otherwise denies abdominal pain, nausea, vomiting, fever/chills. Tolerating PO diet without difficulty. HCV/ETOH decompensated cirrhosis Ascites Transaminitis - Low sodium diet as tolerated - Patient scheduled for diagnostic/therapeutic paracentesis today, monitor thrombocytopenia and will await ascitic fluid results - CT liver reviewed by me showing no focal hepatic lesions - Continue with diuretic therapy, monitor electrolytes - Continue with lactulose therapy for HE prevention - Continue to monitor LFTs, awaiting autoimmune panel results - Patient would benefit from elective outpatient endoscopic evaluation following medical optimization and workup of liver disease, will continue to monitor patient clinical course
--- NOTE | 2017-11-22 08:40 | CP.PCM.PN ---
<Milvia Higginbotham - Last Filed: 11/22/17 15:17> Subjective - Date & Time of Evaluation Date of Evaluation: 11/22/17 Time of Evaluation: 08:40 - Subjective Subjective: Internal Medicine Progress Note: Patient seen and examined at bedside. Per nursing no acute events overnight. Patient is NPO for paracentesis this afternoon. States that she his having right leg pain that radiates to the right hip. Denies headaches, dizziness, cp, palpitations, sob, urinary symptoms, changes in bowel habits. Objective - Vital Signs/Intake and Output Vital Signs (last 24 hours): Temp Pulse Resp BP Pulse Ox 97.8 F 94 H 20 158/98 H 96 11/21/17 21:50 11/22/17 01:27 11/21/17 21:50 11/22/17 01:27 11/21/17 21:50 Intake and Output: 11/22/17 11/22/17 06:59 18:59 Intake Total 0 Output Total 500 Balance -500 - Medications Medications: Current Medications Furosemide (Lasix) 40 mg PO DAILY [facility] Last Admin: 11/21/17 14:46 Dose: 40 mg Hydralazine HCl (Apresoline) 10 mg IVP Q6 PRN PRN Reason: SBP > 180 and DBP > 100 Ketorolac Tromethamine (Toradol) 30 mg IVP Q6H PRN PRN Reason: Pain, severe (8-10) Last Admin: 11/22/17 06:00 Dose: 30 mg Lactulose (Enulose) 20 gm PO BID [facility] Last Admin: 11/21/17 17:00 Dose: 20 gm Lidocaine (Lidoderm) 1 ea TD DAILY [facility] Last Admin: 11/21/17 09:36 Dose: 1 ea Methadone HCl (Methadone) 35 mg PO DAILY [facility] Last Admin: 11/21/17 14:45 Dose: 35 mg Pantoprazole Sodium (Protonix Ec Tab) 40 mg PO 0600 [facility] Last Admin: 11/22/17 05:50 Dose: Not Given Spironolactone (Aldactone) 100 mg PO DAILY [facility] Last Admin: 11/21/17 14:46 Dose: 100 mg - Labs Labs: 11/22/17 06:15 11/22/17 06:15 PT 18.5 SECONDS (9.4-12.5) H 11/21/17 00:55 INR 1.61 (0.93-1.08) H 11/21/17 00:55 APTT 35.6 Seconds (25.1-36.5) 11/21/17 00:55 - Constitutional Appears: No Acute Distress, Chronically Ill - Head Exam Head Exam: ATRAUMATIC, NORMAL INSPECTION, NORMOCEPHALIC - Eye Exam Eye Exam: EOMI, Normal appearance - ENT Exam ENT Exam: Mucous Membranes Moist - Respiratory Exam Respiratory Exam: NORMAL BREATHING PATTERN. absent: Rales, Rhonchi, Wheezes - Cardiovascular Exam Cardiovascular Exam: REGULAR RHYTHM, +S1, +S2 - GI/Abdominal Exam GI & Abdominal Exam: Distended, Soft, Normal Bowel Sounds. absent: Rigid - Back Exam Additional comments: Lower extremity edema R>L - Neurological Exam Neurological Exam: Alert, Awake, Oriented x3 - Psychiatric Exam Psychiatric exam: Normal Affect, Normal Mood - Skin Skin Exam: Dry, Normal Color, Warm Assessment and Plan - Assessment and Plan (Free Text) Assessment: 57 year old female with past medical history pertinent for Hep C presents with back pain that radiates down her right leg of two days' duration. CT Pelvis was obtained as well as CT of the spine in the ED, both of which were unremarkable. UA did show large blood, nephrolithiasis is in the differential. Patient's pain was alleviated only with Percocet, which she got at 2:30 A, and Morphine, which she got at 4A. Patient had been given ACEP, Flexeril, and Toradol up to that point. Patient's abdomen is distended and she has a history of untreated hep C. LFT's mildly elevated with T Bili mildly elevated as well. Patient also has hypothyroidism and hyperlipidemia, self reported. Plan: Intractable Back Pain/Right lower extremity pain - Toradol PRN, Lidocaine daily - CT pelvis: ascites, nabothian cyst (see full report) - Knee CT showed soft tissue swelling medial right thigh - Lumbar spine CT showed cholelithiasis/cirrhosis, portal venous HTN, ascites - MRI Lumbar Spine pending - F/U venous dopplers History of Untreated Hep C, ETOH abuse with Liver cirrhoiss/ascites - Hep C reactive (patient states that she did not know she had Hep C) - Last drink was 2 months ago, used to drink 3 beers a day - Patient with thrombocytopenia, platelets 36 today, f/u manual count - Lasix 40mg PO daily, Aldactone 100mg PO daily - Continue Lactulose 20gm PO BID - MELD score 16 - Autoimmune serologies pending - Patient is NPO for diagnostic/therapeutic paracentesis today, peritoneal fluid studies ordered to r/o SBP - Abdominal US: hepatic cirrhosis, cholelithiasis, dilated CBD 14mm without evidence of choleducolithiasis - GI Consult: Dr. Alvarenga, aspen appreciated - Hold hepatotoxic medications - Plan will need outpatient EGD/Colonoscopy Transaminitis, likely 2/2 Hep C - as above History of Hypothyroidism -TSH 5.68, Total T3 0.94, T4 5.4 -Synthroid 50mcg PO daily History of Hypertension -Norvasc 10mg PO daily History of Hyperlipidemia - Lipid panel - Hold statin 2/2 hepatotoxicity History of Methadone use -UTOX positive for methadone -Continue Methadone 35mg PO daily GI/DVT Prophylaxis - Protonix/SCD Diet: Heart Healthy <Nancy Oliveira - Last Filed: 11/25/17 13:21> Objective - Vital Signs/Intake and Output Vital Signs (last 24 hours): Temp Pulse Resp BP Pulse Ox 97.9 F 80 18 117/80 93 L 11/24/17 06:00 11/24/17 06:00 11/24/17 06:00 11/24/17 09:04 11/24/17 06:00 - Labs Labs: 11/24/17 06:45 11/24/17 06:45 PT 18.5 SECONDS (9.4-12.5) H 11/21/17 00:55 INR 1.61 (0.93-1.08) H 11/21/17 00:55 APTT 35.6 Seconds (25.1-36.5) 11/21/17 00:55 Attending/Attestation - Attestation I have personally seen and examined this patient.: Yes I have fully participated in the care of the patient.: Yes I have reviewed all pertinent clinical information, including history, physical exam and plan: Yes Notes (Text): 11/25/17 13:15 Medical record note made by the resident after discussion with my direction and input after the patient was personally seen and examined by me. I have reviewed the chart and agree that the record accurately reflects by personal performance of the history, physical exam, data review, and medical decision-making, in the course for the patient. I have also personally directed the plan of care. 57 years old female with PMH of Hep C , drug abuse on methadone was admitted with intractable back pain that radiates down her right leg , CT Pelvis was obtained as well as CT of the spine in the ED, both of which were unremarkable. Patient is also found to have abdomen is distended . Abdominal USG showed liver cirrhosis and ascites.Patient is scheduled for Paracentesis today. Patient pain is better controlled , she has refused MRI of spine. Physical therapy evaluation is pending. Management plan was discussed in detail with patient. Education was provided 11/25/17 13:19
[2017-11-22] MEDS: Lidocaine 5% Patch TD SCH (09:11)
[2017-11-22] MEDS: Levothyroxine 50 MCG TAB PO SCH (09:11)
[2017-11-22 17:29] LABS: BODY FLUID TYPE PERITONEAL/ASCITES
--- NOTE | 2017-11-22 18:56 | US ---
PROCEDURE: Ultrasound guided paracentesis. HISTORY: Chronic hepatitis C. previous alcohol abuse. Cirrhosis with recent onset ascites. Abdominal pain and distension. Needs paracentesis. PHYSICIAN(S): Manav Garcia MD. TECHNIQUE: The relative risks and indications for the procedure were explained to the patient and informed written consent obtained. Sonography of the abdomen was performed in a supine position. This revealed a moderate amount of non-loculated ascites, greatest in the lower abdomen. A puncture site was selected and the area was prepped and draped in the usual sterile fashion. 1% Xylocaine was used to anesthetize the skin and soft tissues. A 7 Romanian paracentesis catheter was trocared into the lower abdomenand 4800 cc of clear straw-colored fluid aspirated. The appropriate labs were sent IMPRESSION: Ultrasound-guided paracentesis in the lower abdomen. 4800 cc of fluid were aspirated. Labs were sent
[2017-11-22 19:20] LABS: BF GROSS APPEARANCE CLEAR (CLEAR)
--- NOTE | 2017-11-22 19:34 | US ---
HISTORY: Leg pain and swelling. Evaluate for DVT PHYSICIAN(S): Manav Garcia MD. TECHNIQUE: Duplex sonography and color-flow Doppler with graded compression were used to evaluate the deep venous systems of both lower extremities. The exam is limited by edema. FINDINGS: The visualized deep venous systems of both lower extremities are sonographically normal and compressible. Normal wave forms and augmentation are seen. There is no sonographic evidence for deep venous thrombosis in the visualized segments of both lower extremities. IMPRESSION: No sonographic evidence for deep venous thrombosis in the visualized segments of both lower extremities.
--- NOTE | 2017-11-22 19:44 | US ---
PROCEDURE: Portal vein duplex ultrasound. CLINICAL HISTORY: Cirrhosis. Deteriorating liver function. Evaluate for portal vein thrombosis. PHYSICIAN(S): Manav Garcia M.D. FINDINGS: Liver parenchyma is heterogeneous and echogenic, consistent with cirrhosis. No obvious mass is seen on the limited images of the parenchyma The extrahepatic portal vein is patent with hepatopetal flow. No sonographic evidence for thrombus or obstruction is seen. The 3 hepatic veins are visualized centrally and patent. The hepatic artery is hypertrophied. There is a small amount of ascites in the upper abdomen. The spleen is enlarged. IMPRESSION: 1. Patent portal vein with hepatopetal flow.
[2017-11-22 19:54] LABS: BODY FLUID MONO/MACROPHAGE 4 % (0-0); BODY FLUID TOTAL COUNT 100 (0-0)
[2017-11-22 22:40] LABS: BODY FLUID RBC 357.5 /uL (0.0-0.0); BODY FLUID WBC 99.6 /uL (0.0-300.0)
[2017-11-23] MEDS: Pantoprazole 40 mg EC Tab PO SCH (06:00)
[2017-11-23 07:09] LABS: BASO # 0.06 K/mm3 (0.0-2.0); BASO % 1.2 % (0.0-3.0); EOS # 0.1 (0.0-0.7); EOS % 2.5 % (1.5-5.0); GRAN # 2.65 (1.4-6.5); GRAN % 51.6 % (50.0-68.0); LYMPH # 1.6 (1.2-3.4); LYMPH % 30.7 % (22.0-35.0); MEAN CELL VOLUME 86.9 fl (80.0-105.0); MEAN CORPUSCULAR HEMOGLOBIN 27.6 pg (25.0-35.0); MEAN CORPUSCULAR HGB CONC 31.8 g/dl (31.0-37.0); MONO # 0.7 (0.1-0.6); PLATELET COUNT 34 10^3/uL (120.0-450.0); RBC 3.98 10^6/uL (3.5-6.1); WHITE BLOOD COUNT 5.1 10^3/ul (4.5-11.0)
[2017-11-23 07:23] LABS: ALB/GLOB RATIO 0.5 (1.1-1.8); ALBUMIN 2.5 g/dL (3.0-4.8); ALT/SGPT 20 U/L (7-56); AST/SGOT 35 U/L (14-36); BLOOD UREA NITROGEN 16 mg/dL (7-21); GFR AFRICAN-AMERICAN > 60; GFR NON-AFRICAN AMERICAN 57
[2017-11-23] MEDS: Levothyroxine 50 MCG TAB PO SCH (09:42)
[2017-11-23] MEDS: Lidocaine 5% Patch TD SCH (09:46)
[2017-11-23] MEDS ORDERED: oxyCODONE 5 mg Immediate Release Tab PO PRN ×2 (10:24→10:29)
[2017-11-23 11:25] VITALS: RESP 18
--- NOTE | 2017-11-23 12:46 | CP.PCM.PN ---
<Michael Chan - Last Filed: 11/23/17 12:46> Subjective - Date & Time of Evaluation Date of Evaluation: 11/23/17 Time of Evaluation: 07:45 - Subjective Subjective: PGY4 GI Follow-up Pt seen and examined bedside No complained Abd pain improved Denies any fever, chills or diaphoresis +BM ROS: 10 point ROS conducted, neg other than above Objective - Vital Signs/Intake and Output Vital Signs (last 24 hours): Temp Pulse Resp BP Pulse Ox 98.4 F 78 18 122/77 93 L 11/23/17 06:00 11/23/17 06:00 11/23/17 06:00 11/23/17 09:44 11/23/17 06:00 Intake and Output: 11/23/17 11/23/17 06:59 18:59 Intake Total 780 Balance 780 - Medications Medications: Current Medications Amlodipine Besylate (Norvasc) 10 mg PO DAILY [facility] Last Admin: 11/23/17 09:44 Dose: 10 mg Cyclobenzaprine HCl (Flexeril) 5 mg PO HS PRN PRN Reason: Muscle spasm Furosemide (Lasix) 40 mg PO DAILY [facility] Last Admin: 11/23/17 09:42 Dose: 40 mg Gabapentin (Neurontin) 100 mg PO BID [facility] PRN Reason: Protocol Last Admin: 11/23/17 09:42 Dose: 100 mg Hydralazine HCl (Apresoline) 10 mg IVP Q6 PRN PRN Reason: SBP > 180 and DBP > 100 Lactulose (Enulose) 20 gm PO BID [facility] Last Admin: 11/23/17 09:41 Dose: 20 gm Levothyroxine Sodium (Synthroid) 50 mcg PO DAILY [facility] Last Admin: 11/23/17 09:42 Dose: 50 mcg Lidocaine (Lidoderm) 1 ea TD DAILY [facility] Last Admin: 11/23/17 09:46 Dose: 1 ea Methadone HCl (Methadone) 35 mg PO DAILY [facility] Last Admin: 11/23/17 09:44 Dose: 35 mg Oxycodone HCl (Oxycodone Immediate Release Tab) 5 mg PO Q12H PRN PRN Reason: Pain, severe (8-10) Pantoprazole Sodium (Protonix Ec Tab) 40 mg PO 0600 [facility] Last Admin: 11/23/17 06:00 Dose: 40 mg Spironolactone (Aldactone) 100 mg PO DAILY [facility] Last Admin: 11/23/17 09:42 Dose: 100 mg - Labs Labs: 11/23/17 06:20 11/23/17 06:20 PT 18.5 SECONDS (9.4-12.5) H 11/21/17 00:55 INR 1.61 (0.93-1.08) H 11/21/17 00:55 APTT 35.6 Seconds (25.1-36.5) 11/21/17 00:55 - Constitutional Appears: Well, No Acute Distress - Head Exam Head Exam: ATRAUMATIC, NORMOCEPHALIC - Eye Exam Eye Exam: Normal appearance - ENT Exam ENT Exam: Mucous Membranes Moist, Normal Exam - Neck Exam Neck Exam: Normal Inspection - Respiratory Exam Respiratory Exam: Clear to Ausculation Bilateral, NORMAL BREATHING PATTERN. absent: Rales, Rhonchi, Wheezes, Respiratory Distress - Cardiovascular Exam Cardiovascular Exam: REGULAR RHYTHM, +S1, +S2 - GI/Abdominal Exam GI & Abdominal Exam: Soft, Normal Bowel Sounds. absent: Distended, Firm, Guarding, Rigid, Tenderness, Hernia, Hyperactive Bowel Sounds, Organomegaly - Extremities Exam Extremities Exam: absent: Joint Swelling, Pedal Edema - Neurological Exam Neurological Exam: Alert, Awake, Oriented x3 - Psychiatric Exam Psychiatric exam: Normal Affect, Normal Mood - Skin Skin Exam: Dry, Intact, Normal Color, Warm Assessment and Plan - Assessment and Plan (Free Text) Assessment: This is a 57yF w/ a hx of Hep C, ETOH abuse who presenting with back and abdominal pain and distention. 1. Ascites 2. Hx of Hep C 3. Hx of etoh abuse 4. r/o Cirrhosis 5. Thrombocytopenia 6. Elevated LFTs 7. Cholelithiasis 8. Dilated CBD Plan: -Continue supportive care with pain control and anti-emetics -Avoid narcotics with possible cirrhosis -Clinical and chemical picture of cirrhosis with MELD 16 11/21/17, -Liver Ct revealed cirrhotic liver, no evidence of HCC -Abd u/s revealed: cholelithiasis w/ dilated CBD w/o sig elevated LFTs or abd pain -autoimmune serologies pending -s/p IR guided paracentesis; 4.8L removed; no sbp, rest of fluid analysis pending -continue lasix 40mg and spironolactone 100mg daily PO as an oupt -Lactulose bid to titrate for 2 BM daily -Pt will need outpt EGD/Colonoscopy as an outpt -Will sign off -D/W Dr. Roger <Jacky Roger - Last Filed: 11/23/17 12:49> Objective - Vital Signs/Intake and Output Vital Signs (last 24 hours): Temp Pulse Resp BP Pulse Ox 98.4 F 78 18 122/77 93 L 11/23/17 06:00 11/23/17 06:00 11/23/17 06:00 11/23/17 09:44 11/23/17 06:00 Intake and Output: 11/23/17 11/23/17 06:59 18:59 Intake Total 780 Balance 780 - Medications Medications: Current Medications Amlodipine Besylate (Norvasc) 10 mg PO DAILY [facility] Last Admin: 11/23/17 09:44 Dose: 10 mg Cyclobenzaprine HCl (Flexeril) 5 mg PO HS PRN PRN Reason: Muscle spasm Furosemide (Lasix) 40 mg PO DAILY [facility] Last Admin: 11/23/17 09:42 Dose: 40 mg Gabapentin (Neurontin) 100 mg PO BID [facility] PRN Reason: Protocol Last Admin: 11/23/17 09:42 Dose: 100 mg Hydralazine HCl (Apresoline) 10 mg IVP Q6 PRN PRN Reason: SBP > 180 and DBP > 100 Lactulose (Enulose) 20 gm PO BID [facility] Last Admin: 11/23/17 09:41 Dose: 20 gm Levothyroxine Sodium (Synthroid) 50 mcg PO DAILY [facility] Last Admin: 11/23/17 09:42 Dose: 50 mcg Lidocaine (Lidoderm) 1 ea TD DAILY [facility] Last Admin: 11/23/17 09:46 Dose: 1 ea Methadone HCl (Methadone) 35 mg PO DAILY [facility] Last Admin: 11/23/17 09:44 Dose: 35 mg Oxycodone HCl (Oxycodone Immediate Release Tab) 5 mg PO Q12H PRN PRN Reason: Pain, severe (8-10) Pantoprazole Sodium (Protonix Ec Tab) 40 mg PO 0600 [facility] Last Admin: 11/23/17 06:00 Dose: 40 mg Spironolactone (Aldactone) 100 mg PO DAILY [facility] Last Admin: 11/23/17 09:42 Dose: 100 mg - Labs Labs: 11/23/17 06:20 11/23/17 06:20 PT 18.5 SECONDS (9.4-12.5) H 11/21/17 00:55 INR 1.61 (0.93-1.08) H 11/21/17 00:55 APTT 35.6 Seconds (25.1-36.5) 11/21/17 00:55 Attending/Attestation - Attestation I have personally seen and examined this patient.: Yes I have fully participated in the care of the patient.: Yes I have reviewed all pertinent clinical information, including history, physical exam and plan: Yes Notes (Text): 11/23/17 12:49 57 year old female with cirrhosis and ascites. S/P Paracentesis. No sbp. Recommend diuretics. Recommend lactulose. Outpatient follow up for further management of chronic liver disease.
--- NOTE | 2017-11-23 13:29 | CP.PCM.PN ---
<Milvia Higginbotham - Last Filed: 11/23/17 13:32> Subjective - Date & Time of Evaluation Date of Evaluation: 11/23/17 Time of Evaluation: 13:27 - Subjective Subjective: Internal Medicine Progress Note: Patient seen and examined at bedside. Patient s/p paracentesis yesterday. 4.8L of fluid removed, fluid studies pending. Still having right leg pain, 10/10 on pain scale. Lower extremities dopplers negative. Offers no other complaints at this time. Denies headaches, dizziness, cp, palpitations, sob, abdominal pain, urinary symptoms, changes in bowel habits. Objective - Vital Signs/Intake and Output Vital Signs (last 24 hours): Temp Pulse Resp BP Pulse Ox 98.4 F 78 18 122/77 93 L 11/23/17 06:00 11/23/17 06:00 11/23/17 06:00 11/23/17 09:44 11/23/17 06:00 Intake and Output: 11/23/17 11/23/17 06:59 18:59 Intake Total 780 Balance 780 - Medications Medications: Current Medications Amlodipine Besylate (Norvasc) 10 mg PO DAILY [facility] Last Admin: 11/23/17 09:44 Dose: 10 mg Cyclobenzaprine HCl (Flexeril) 5 mg PO HS PRN PRN Reason: Muscle spasm Furosemide (Lasix) 40 mg PO DAILY [facility] Last Admin: 11/23/17 09:42 Dose: 40 mg Gabapentin (Neurontin) 100 mg PO BID [facility] PRN Reason: Protocol Last Admin: 11/23/17 12:52 Dose: 100 mg Hydralazine HCl (Apresoline) 10 mg IVP Q6 PRN PRN Reason: SBP > 180 and DBP > 100 Lactulose (Enulose) 20 gm PO BID [facility] Last Admin: 11/23/17 09:41 Dose: 20 gm Levothyroxine Sodium (Synthroid) 50 mcg PO DAILY [facility] Last Admin: 11/23/17 09:42 Dose: 50 mcg Lidocaine (Lidoderm) 1 ea TD DAILY [facility] Last Admin: 11/23/17 09:46 Dose: 1 ea Methadone HCl (Methadone) 35 mg PO DAILY [facility] Last Admin: 11/23/17 09:44 Dose: 35 mg Pantoprazole Sodium (Protonix Ec Tab) 40 mg PO 0600 [facility] Last Admin: 11/23/17 06:00 Dose: 40 mg Spironolactone (Aldactone) 100 mg PO DAILY [facility] Last Admin: 11/23/17 09:42 Dose: 100 mg - Labs Labs: 11/23/17 06:20 11/23/17 06:20 PT 18.5 SECONDS (9.4-12.5) H 11/21/17 00:55 INR 1.61 (0.93-1.08) H 11/21/17 00:55 APTT 35.6 Seconds (25.1-36.5) 11/21/17 00:55 - Additional Findings Additional findings: - Constitutional Appears: Well, No Acute Distress - Head Exam Head Exam: ATRAUMATIC, NORMOCEPHALIC - Eye Exam Eye Exam: Normal appearance - ENT Exam ENT Exam: Mucous Membranes Moist, Normal Exam - Neck Exam Neck Exam: Normal Inspection - Respiratory Exam Respiratory Exam: Clear to Ausculation Bilateral, NORMAL BREATHING PATTERN. absent: Rales, Rhonchi, Wheezes, Respiratory Distress - Cardiovascular Exam Cardiovascular Exam: REGULAR RHYTHM, +S1, +S2 - GI/Abdominal Exam GI & Abdominal Exam: Soft, Normal Bowel Sounds. Dressing saturated with peritoneal fluid, site is clean, no bleeding, changed dressing at the bedside absent: Distended, Firm, Guarding, Rigid, Tenderness, Hernia, Hyperactive Bowel Sounds, Organomegaly - Extremities Exam Extremities Exam: absent: Joint Swelling, Pedal Edema - Neurological Exam Neurological Exam: Alert, Awake, Oriented x3 - Psychiatric Exam Psychiatric exam: Normal Affect, Normal Mood - Skin Skin Exam: Dry, Intact, Normal Color, Warm Assessment and Plan - Assessment and Plan (Free Text) Assessment: 57 year old female with past medical history pertinent for Hep C presents with back pain that radiates down her right leg of two days' duration. CT Pelvis was obtained as well as CT of the spine in the ED, both of which were unremarkable. UA did show large blood, nephrolithiasis is in the differential. Patient's pain was alleviated only with Percocet, which she got at 2:30 A, and Morphine, which she got at 4A. Patient had been given ACEP, Flexeril, and Toradol up to that point. Patient's abdomen is distended and she has a history of untreated hep C. LFT's mildly elevated with T Bili mildly elevated as well. Patient also has hypothyroidism and hyperlipidemia, self reported. Plan: Intractable Back Pain/Right lower extremity pain - Toradol PRN, Lidocaine daily - Added Oxycodone 5mg PO Q12 prn pain - Gabapentin 100mg PO BID - CT pelvis: ascites, nabothian cyst (see full report) - Knee CT showed soft tissue swelling medial right thigh - Lumbar spine CT showed cholelithiasis/cirrhosis, portal venous HTN, ascites - MRI Lumbar Spine ordered, patient refused to go - Lower extremity dopplers negative for DVT - Physical Therapy ordered History of Untreated Hep C, ETOH abuse with Liver cirrhoiss/ascites - Hep C reactive (patient states that she did not know she had Hep C) - Last drink was 2 months ago, used to drink 3 beers a day - Patient with thrombocytopenia, no active signs of bleeding - Lasix 40mg PO daily, Aldactone 100mg PO daily - Continue Lactulose 20gm PO BID - MELD score 16 - Autoimmune serologies pending - F/U fluid studies - Abdominal US: hepatic cirrhosis, cholelithiasis, dilated CBD 14mm without evidence of choleducolithiasis - GI Consult: Dr. Alvarenga, help appreciated - Hold hepatotoxic medications - Plan will need outpatient EGD/Colonoscopy Transaminitis, likely 2/2 Hep C - as above History of Hypothyroidism -TSH 5.68, Total T3 0.94, T4 5.4 -Synthroid 50mcg PO daily History of Hypertension -Norvasc 10mg PO daily History of Hyperlipidemia - Hold statin 2/2 hepatotoxicity History of Methadone use -UTOX positive for methadone -Continue Methadone 35mg PO daily GI/DVT Prophylaxis - Protonix/SCD Diet: Heart Healthy <Nancy Oliveira - Last Filed: 11/25/17 13:23> Objective - Vital Signs/Intake and Output Vital Signs (last 24 hours): Temp Pulse Resp BP Pulse Ox 97.9 F 80 18 117/80 93 L 11/24/17 06:00 11/24/17 06:00 11/24/17 06:00 11/24/17 09:04 11/24/17 06:00 - Labs Labs: 11/24/17 06:45 11/24/17 06:45 PT 18.5 SECONDS (9.4-12.5) H 11/21/17 00:55 INR 1.61 (0.93-1.08) H 04/15/18 00:55 APTT 35.6 Seconds (25.1-36.5) 11/21/17 00:55 Attending/Attestation - Attestation I have personally seen and examined this patient.: Yes I have fully participated in the care of the patient.: Yes I have reviewed all pertinent clinical information, including history, physical exam and plan: Yes Notes (Text): 11/25/17 13:21 Medical record note made by the resident after discussion with my direction and input after the patient was personally seen and examined by me. I have reviewed the chart and agree that the record accurately reflects by personal performance of the history, physical exam, data review, and medical decision-making, in the course for the patient. I have also personally directed the plan of care. 57 years old female with PMH of Hep C , drug abuse on methadone was admitted with intractable back pain that radiates down her right leg , CT Pelvis was obtained as well as CT of the spine in the ED, both of which were unremarkable. Patient was also found to have abdomen is distended . Abdominal USG showed liver cirrhosis and ascites.Patient is SP Paracentesis yesterday, there is no evidence of SBP.Patient is on lasix and aldactone. Patient pain is better controlled , she has refused MRI of spine.Physical therapy has recommended [facility] Management plan was discussed in detail with patient. Education was provided
[2017-11-24] MEDS: Pantoprazole 40 mg EC Tab PO SCH (05:42)
[2017-11-24 07:09] LABS: BASO # 0.07 K/mm3 (0.0-2.0); BASO % 1.4 % (0.0-3.0); EOS # 0.1 (0.0-0.7); EOS % 2.9 % (1.5-5.0); GRAN # 2.09 (1.4-6.5); GRAN % 43.2 % (50.0-68.0); HEMOGLOBIN 10.7 g/dL (12.0-16.0); LYMPH % 40.3 % (22.0-35.0); MEAN CELL VOLUME 86.8 fl (80.0-105.0); MEAN CORPUSCULAR HEMOGLOBIN 27.6 pg (25.0-35.0); MEAN CORPUSCULAR HGB CONC 31.8 g/dl (31.0-37.0); MONO # 0.6 (0.1-0.6); MONO % 12.2 % (1.0-6.0); RBC 3.87 10^6/uL (3.5-6.1); RED CELL DISTRIBUTION WIDTH 19.1 % (11.5-14.5); WHITE BLOOD COUNT 4.8 10^3/ul (4.5-11.0)
[2017-11-24 07:34] LABS: ALB/GLOB RATIO 0.5 (1.1-1.8); ALBUMIN 2.2 g/dL (3.0-4.8); ALT/SGPT 28 U/L (7-56); AST/SGOT 29 U/L (14-36); BLOOD UREA NITROGEN 15 mg/dL (7-21); CALCIUM 7.9 mg/dL (8.4-10.5); GFR AFRICAN-AMERICAN > 60; GFR NON-AFRICAN AMERICAN 57
[2017-11-24 07:41] LABS: PLATELET COUNT 29 10^3/uL (120.0-450.0)
[2017-11-24 08:25] LABS: CERULOPLASMIN 36 mg/dL (18-53)
[2017-11-24 09:01] VITALS: BP 117/80; PULSE 80; TEMP 97.9; O2SAT 93
[2017-11-24] MEDS: Levothyroxine 50 MCG TAB PO SCH (09:03)
[2017-11-24] MEDS: Lidocaine 5% Patch TD SCH (09:03)
--- NOTE | 2017-11-24 09:50 | CP.PCM.DIS ---
<Milvia Higginbotham - Last Filed: 11/24/17 14:51> Provider - Provider Date of Admission: 11/22/17 08:47 Attending physician: Nancy Oliveira MD Primary care physician: NO PRIMARY CARE PROVIDER Consults: GI: Lyle SCHREIBER: Jose Time Spent in preparation of Discharge (in minutes): 32 Hospital Course - Lab Results Lab Results: Micro Results 11/22/17 17:15 Ascitic Fluid Body Fluid Culture - Preliminary NO GROWTH AFTER 24 HOURS Most Recent Lab Values WBC 4.8 10^3/ul (4.5-11.0) 11/24/17 06:45 RBC 3.87 10^6/uL (3.5-6.1) 11/24/17 06:45 Hgb 10.7 g/dL (12.0-16.0) L 11/24/17 06:45 Hct 33.6 % (36.0-48.0) L 11/24/17 06:45 MCV 86.8 fl (80.0-105.0) 11/24/17 06:45 MCH 27.6 pg (25.0-35.0) 11/24/17 06:45 MCHC 31.8 g/dl (31.0-37.0) 11/24/17 06:45 RDW 19.1 % (11.5-14.5) H 11/24/17 06:45 Plt Count 29 10^3/uL (120.0-450.0) L* 11/24/17 06:45 Manual Plt Count 42 K/mm3 (120-450) L* 11/24/17 07:30 Gran % 43.2 % (50.0-68.0) L 11/24/17 06:45 Lymph % (Auto) 40.3 % (22.0-35.0) H 11/24/17 06:45 [place] % (Auto) 12.2 % (1.0-6.0) H 11/24/17 06:45 Eos % (Auto) 2.9 % (1.5-5.0) 11/24/17 06:45 Baso % (Auto) 1.4 % (0.0-3.0) 11/24/17 06:45 Gran # 2.09 (1.4-6.5) 11/24/17 06:45 Lymph # (Auto) 2.0 (1.2-3.4) 11/24/17 06:45 [place] # (Auto) 0.6 (0.1-0.6) 11/24/17 06:45 Eos # (Auto) 0.1 (0.0-0.7) 11/24/17 06:45 Baso # (Auto) 0.07 K/mm3 (0.0-2.0) 11/24/17 06:45 PT 18.5 SECONDS (9.4-12.5) H 11/21/17 00:55 INR 1.61 (0.93-1.08) H 11/21/17 00:55 APTT 35.6 Seconds (25.1-36.5) 11/21/17 00:55 Sodium 135 mmol/L (132-148) 11/24/17 06:45 Potassium 3.9 mmol/L (3.6-5.0) 11/24/17 06:45 Chloride 103 mmol/L (98-107) 11/24/17 06:45 Carbon Dioxide 29 mmol/L (21-33) 11/24/17 06:45 Anion Gap 7 (10-20) L 11/24/17 06:45 BUN 15 mg/dL (7-21) 11/24/17 06:45 Creatinine 1.0 mg/dl (0.7-1.2) 04 06:45 Est GFR ( Amer) > 60 11/24/17 06:45 Est GFR (Non-Af Amer) 57 11/24/17 06:45 Random Glucose 114 mg/dL (70-110) H 11/24/17 06:45 Calcium 7.9 mg/dL (8.4-10.5) L 11/24/17 06:45 Iron 53 ug/dL (45-180) 11/21/17 07:00 TIBC 338 ug/dL (265-497) 11/21/17 07:00 % Saturation 16 % (20-55) L 11/21/17 07:00 Ferritin 53.9 ng/mL 11/21/17 07:00 Total Bilirubin 1.3 mg/dL (0.2-1.3) 11/24/17 06:45 AST 29 U/L (14-36) 11/24/17 06:45 ALT 28 U/L (7-56) 11/24/17 06:45 Alkaline Phosphatase 99 U/L (38-126) 11/24/17 06:45 Lactate Dehydrogenase 382 U/L (333-699) 11/23/17 06:20 Total Creatine Kinase 32 U/L (35-230) L 11/21/17 07:45 Total Protein 6.4 g/dL (5.8-8.3) 11/24/17 06:45 Albumin 2.2 g/dL (3.0-4.8) L 11/24/17 06:45 Globulin 4.2 gm/dL 11/24/17 06:45 Albumin/Globulin Ratio 0.5 (1.1-1.8) L 11/24/17 06:45 Ceruloplasmin 36 mg/dL (18-53) 11/22/17 06:15 Triglycerides 79 mg/dL (35-160) 11/21/17 07:45 Cholesterol 105 mg/dL (130-200) L 11/21/17 07:45 LDL Cholesterol Direct 48 mg/dL (0-129) 11/21/17 07:45 HDL Cholesterol 19 mg/dL (29-60) L 11/21/17 07:45 Alpha Fetoprotein 1.4 ng/mL (0.0-7.5) 11/21/17 00:55 Thyroxine (T4) 5.4 ug/dL (5.5-11.0) L 11/21/17 01:50 Total T3 0.94 ng/mL (0.97-1.69) L 11/21/17 01:50 TSH 3rd Generation 5.68 mIU/mL (0.46-4.68) H 11/21/17 01:50 Urine Color Yellow (YELLOW) 11/21/17 03:00 Urine Appearance Sl cloudy (CLEAR) 11/21/17 03:00 Urine pH 6.0 (4.7-8.0) 11/21/17 03:00 Ur Specific [place] 1.020 (1.005-1.035) 11/21/17 03:00 Urine Protein Negative mg/dL (<30 mg/dL) 11/21/17 03:00 Urine Glucose (UA) Negative mg/dL (NEGATIVE) 11/21/17 03:00 Urine Ketones Trace mg/dL (NEGATIVE) H 11/21/17 03:00 Urine Blood Large (NEGATIVE) H 11/21/17 03:00 Urine Nitrate Negative (NEGATIVE) 11/21/17 03:00 Urine Bilirubin Negative (NEGATIVE) 11/21/17 03:00 Urine Urobilinogen 0.2 E.U./dL (<1 E.U./dL) 11/21/17 03:00 Ur Leukocyte Esterase Negative Ross/uL (NEGATIVE) 11/21/17 03:00 Urine RBC 2 - 5 /hpf (0-2) 11/21/17 03:00 Urine WBC 1 - 3 /hpf (0-6) 11/21/17 03:00 Ur Epithelial Cells 1 - 3 /hpf (0-5) 11/21/17 03:00 Urine Bacteria Few (NEG) 11/21/17 03:00 Fluid Source Peritoneal/ascites 11/22/17 17:15 Fluid Appearance Clear (CLEAR) 11/22/17 17:15 Fluid WBC 99.6 /uL (0.0-300.0) 11/22/17 17:15 Fluid RBC 357.5 /uL (0.0-0.0) H 11/22/17 17:15 Fluid Tot Cell Count 100 (0-0) H 11/22/17 17:15 Fluid Neutrophils 32.0 % (0-0) H 11/22/17 17:15 Fluid Lymphocytes 64.0 % (0-0) H 11/22/17 17:15 Fld Monocyte/Macrophag 4 % (0-0) H 11/22/17 17:15 Fluid Comment Yellow 11/22/17 17:15 Urine Opiates Screen Negative (NEGATIVE) 11/21/17 03:00 Urine Methadone Screen Positive (NEGATIVE) H 11/21/17 03:00 Ur Barbiturates Screen Negative (NEGATIVE) 11/21/17 03:00 Ur Phencyclidine Scrn Negative (NEGATIVE) 11/21/17 03:00 Ur Amphetamines Screen Negative (NEGATIVE) 11/21/17 03:00 U Benzodiazepines Scrn Negative (NEGATIVE) 11/21/17 03:00 U Oth Cocaine Metabols Negative (NEGATIVE) 11/21/17 03:00 U Cannabinoids Screen Negative (NEGATIVE) 11/21/17 03:00 IgG 3399.8 mg/dL (700.0-1600.0) H 11/21/17 07:00 IgA 891.9 mg/dL (70.0-400.0) H 11/21/17 07:00 IgM 291.4 mg/dL (40.0-230.0) H 11/21/17 07:00 Hepatitis A IgM Ab Negative (NEGATIVE) 11/21/17 07:00 Hep Bs Antigen Negative (NEGATIVE) 11/21/17 07:00 Hep B Core IgM Ab Negative (NEGATIVE) 11/21/17 07:00 Hepatitis C Antibody Reactive (NEGATIVE) 11/21/17 07:00 - Hospital Course Hospital Course: History of Present Illness: Patient is a 57 year old Female with past medical history of high cholesterol, hypothyroidism, and hepatitis C (known, untreated), presents complaining of back pain x 2 days. She reports right sided back pain, 10/10 in severity, started two days ago, woke her up from sleep, radiates to back of right leg to the knee. Patient reports she has never had this pain before. Per ER physicians Dr. Love and Dr. Rodriguez, she went to [facility] yesterday, where she received "a shot and two tylenol" which did not help. Patient has difficulty walking due to the pain. Patient denies injury and states that the pain started without any precipitating factors. She denies focal weakness/numbness, urinary incontinence , bowel incontinence. Hospital Course: Patient was admitted to Med/Surg. Lumbar CT showed cholelithiasis, no evidence of acute cholecytsitis, cirrhosis and stigmata or portal venous hypertension. Moderate ascites. Pelvic CT showed no acute fracture, ascites (see full report) . GI was on consult. CT Liver showed increased nodularity of the hepatic contour , consistent with hepatocellular dysfunction or cirrhosis. Hypodense fatty infiltration. Large amount of pelvic/abdominal ascites. Distended with multiple gallstones. Pericholecystic fluid (see full report). Patient was started on Lasix, Aldactone and lactulose. Abdominal US showed Ascites, cholelithiasis. IR was consulted for paracentesis. 4.8L of straw colored fluid was removed. Patient tolerated the procedure well. Fluid analysis did not show SBP. Autoimmune serologies still pending. Patient with thrombocytopenia, likely secondary to liver disease. For low back pain and right leg pain, MRI was ordered however patient refused this test. She was started on Flexeril with some improvement in symptom. Patient was seen by physical therapy and rehab was recommended to the patient. Patient refused rehab and wants to go home. She has no focal/neurologic deficits. Medically stable, will discharge home at this time. Patient advised that she will need to follow up with PMD and GI upon discharge. She was also advised to obstain from alcohol. Please keep low salt diet with daily fluid restriction (1.5L) and daily weights. Discharge Medications: Lactulose 20gm BID Lasix 40mg PO daily Spironalactone 100mg PO daily Flexeril 5mg PO BID Lidoderm patch 5% daily Discharge Exam - Head Exam Head Exam: ATRAUMATIC, NORMOCEPHALIC - Eye Exam Eye Exam: EOMI, Normal appearance Pupil Exam: NORMAL ACCOMODATION - ENT Exam ENT Exam: Mucous Membranes Moist - Respiratory Exam Respiratory Exam: Clear to PA & Lateral, NORMAL BREATHING PATTERN, UNREMARKABLE. absent: Decreased Breath Sounds, Rales, Rhonchi, Wheezes, Respiratory Distress - Cardiovascular Exam Cardiovascular Exam: REGULAR RHYTHM, +S1, +S2 - GI/Abdominal Exam GI & Abdominal Exam: Distended, Normal Bowel Sounds, Soft. absent: Guarding, Rebound, Rigid Additional comments: dressing with peritoneal drainage - Extremities Exam Extremities exam: normal inspection, pedal pulses present - Neurological Exam Neurological exam: Alert, Oriented x3 - Psychiatric Exam Psychiatric exam: Normal Affect, Normal Mood - Skin Skin Exam: Dry, Normal Color, Warm Discharge Plan - Discharge Medications Prescriptions: Cyclobenzaprine [Flexeril] 5 mg PO BID #20 tab Furosemide [Lasix] 40 mg PO DAILY #30 tab Lactulose [Enulose] 20 gm PO BID 30 Days #1800 ml Lidocaine 5% [Lidoderm] 1 patch TP DAILY PRN #14 patch PRN Reason: Pain, Moderate (4-7) Spironolactone [Aldactone] 100 mg PO DAILY #30 tablet traMADol [Ultram] 25 mg PO BID PRN #10 tab PRN Reason: Pain, Severe (8-10) - Follow Up Plan Condition: STABLE Disposition: HOME/ ROUTINE Instructions: How to Prevent Surgical Site Infections, Drug Abuse and Drug Addiction (DC), Abdominal Paracentesis (DC), Back Pain (GEN) Additional Instructions: 1. Patient is medically cleared for discharge home 2. Please continue medications as prescribed 3. Please follow up with GI and PMD within 1 week 4. You will need EGD/Colonoscopy outpatient 5. Please maintain low salt diet, daily fluid restriction (1.5L), daily weights 6. If having any worsening of symptoms, return to nearest Emergency Dept. Referrals: Pratik Alvarenga MD [Medical Doctor] - PCP,NO [Primary Care Provider] - <Nancy Oliveira - Last Filed: 11/25/17 13:26> Provider - Provider Date of Admission: 11/22/17 08:47 Attending physician: Nancy Oliveira MD Primary care physician: NO PRIMARY CARE PROVIDER Hospital Course - Lab Results Lab Results: Micro Results 11/22/17 17:15 Ascitic Fluid Anaerobic Culture - Final NO ANAEROBES ISOLATED. 11/22/17 17:15 Ascitic Fluid Body Fluid Culture - Preliminary NO GROWTH AFTER 2 DAYS Most Recent Lab Values WBC 4.8 10^3/ul (4.5-11.0) 11/24/17 06:45 RBC 3.87 10^6/uL (3.5-6.1) 11/24/17 06:45 Hgb 10.7 g/dL (12.0-16.0) L 11/24/17 06:45 Hct 33.6 % (36.0-48.0) L 11/24/17 06:45 MCV 86.8 fl (80.0-105.0) 11/24/17 06:45 MCH 27.6 pg (25.0-35.0) 11/24/17 06:45 MCHC 31.8 g/dl (31.0-37.0) 11/24/17 06:45 RDW 19.1 % (11.5-14.5) H 11/24/17 06:45 Plt Count 29 10^3/uL (120.0-450.0) L* 11/24/17 06:45 Manual Plt Count 42 K/mm3 (120-450) L* 11/24/17 07:30 Gran % 43.2 % (50.0-68.0) L 11/24/17 06:45 Lymph % (Auto) 40.3 % (22.0-35.0) H 11/24/17 06:45 [place] % (Auto) 12.2 % (1.0-6.0) H 11/24/17 06:45 Eos % (Auto) 2.9 % (1.5-5.0) 11/24/17 06:45 Baso % (Auto) 1.4 % (0.0-3.0) 11/24/17 06:45 Gran # 2.09 (1.4-6.5) 11/24/17 06:45 Lymph # (Auto) 2.0 (1.2-3.4) 11/24/17 06:45 [place] # (Auto) 0.6 (0.1-0.6) 11/24/17 06:45 Eos # (Auto) 0.1 (0.0-0.7) 11/24/17 06:45 Baso # (Auto) 0.07 K/mm3 (0.0-2.0) 11/24/17 06:45 PT 18.5 SECONDS (9.4-12.5) H 11/21/17 00:55 INR 1.61 (0.93-1.08) H 11/21/17 00:55 APTT 35.6 Seconds (25.1-36.5) 11/21/17 00:55 Sodium 135 mmol/L (132-148) 11/24/17 06:45 Potassium 3.9 mmol/L (3.6-5.0) 11/24/17 06:45 Chloride 103 mmol/L (98-107) 11/24/17 06:45 Carbon Dioxide 29 mmol/L (21-33) 11/24/17 06:45 Anion Gap 7 (10-20) L 11/24/17 06:45 BUN 15 mg/dL (7-21) 11/24/17 06:45 Creatinine 1.0 mg/dl (0.7-1.2) 11/24/17 06:45 Est GFR ( Amer) > 60 11/24/17 06:45 Est GFR (Non-Af Amer) 57 11/24/17 06:45 Random Glucose 114 mg/dL (70-110) H 11/24/17 06:45 Calcium 7.9 mg/dL (8.4-10.5) L 11/24/17 06:45 Iron 53 ug/dL (45-180) 11/21/17 07:00 TIBC 338 ug/dL (265-497) 11/21/17 07:00 % Saturation 16 % (20-55) L 11/21/17 07:00 Ferritin 53.9 ng/mL 11/21/17 07:00 Total Bilirubin 1.3 mg/dL (0.2-1.3) 11/24/17 06:45 AST 29 U/L (14-36) 11/24/17 06:45 ALT 28 U/L (7-56) 11/24/17 06:45 Alkaline Phosphatase 99 U/L (38-126) 11/24/17 06:45 Lactate Dehydrogenase 382 U/L (333-699) 11/23/17 06:20 Total Creatine Kinase 32 U/L (35-230) L 11/21/17 07:45 Total Protein 6.4 g/dL (5.8-8.3) 11/24/17 06:45 Albumin 2.2 g/dL (3.0-4.8) L 11/24/17 06:45 Globulin 4.2 gm/dL 11/24/17 06:45 Albumin/Globulin Ratio 0.5 (1.1-1.8) L 11/24/17 06:45 Ceruloplasmin 36 mg/dL (18-53) 11/22/17 06:15 Triglycerides 79 mg/dL (35-160) 11/21/17 07:45 Cholesterol 105 mg/dL (130-200) L 11/21/17 07:45 LDL Cholesterol Direct 48 mg/dL (0-129) 11/21/17 07:45 HDL Cholesterol 19 mg/dL (29-60) L 11/21/17 07:45 Alpha Fetoprotein 1.4 ng/mL (0.0-7.5) 11/21/17 00:55 Thyroxine (T4) 5.4 ug/dL (5.5-11.0) L 11/21/17 01:50 Total T3 0.94 ng/mL (0.97-1.69) L 11/21/17 01:50 TSH 3rd Generation 5.68 mIU/mL (0.46-4.68) H 11/21/17 01:50 Urine Color Yellow (YELLOW) 11/21/17 03:00 Urine Appearance Sl cloudy (CLEAR) 11/21/17 03:00 Urine pH 6.0 (4.7-8.0) 11/21/17 03:00 Ur Specific [place] 1.020 (1.005-1.035) 11/21/17 03:00 Urine Protein Negative mg/dL (<30 mg/dL) 11/21/17 03:00 Urine Glucose (UA) Negative mg/dL (NEGATIVE) 11/21/17 03:00 Urine Ketones Trace mg/dL (NEGATIVE) H 11/21/17 03:00 Urine Blood Large (NEGATIVE) H 11/21/17 03:00 Urine Nitrate Negative (NEGATIVE) 11/21/17 03:00 Urine Bilirubin Negative (NEGATIVE) 11/21/17 03:00 Urine Urobilinogen 0.2 E.U./dL (<1 E.U./dL) 11/21/17 03:00 Ur Leukocyte Esterase Negative Ross/uL (NEGATIVE) 11/21/17 03:00 Urine RBC 2 - 5 /hpf (0-2) 11/21/17 03:00 Urine WBC 1 - 3 /hpf (0-6) 11/21/17 03:00 Ur Epithelial Cells 1 - 3 /hpf (0-5) 11/21/17 03:00 Urine Bacteria Few (NEG) 11/21/17 03:00 Fluid Source Peritoneal/ascites 11/22/17 17:15 Fluid Appearance Clear (CLEAR) 11/22/17 17:15 Fluid WBC 99.6 /uL (0.0-300.0) 11/22/17 17:15 Fluid RBC 357.5 /uL (0.0-0.0) H 11/22/17 17:15 Fluid Tot Cell Count 100 (0-0) H 11/22/17 17:15 Fluid Neutrophils 32.0 % (0-0) H 11/22/17 17:15 Fluid Lymphocytes 64.0 % (0-0) H 11/22/17 17:15 Fld Monocyte/Macrophag 4 % (0-0) H 11/22/17 17:15 Fluid Comment Yellow 11/22/17 17:15 Urine Opiates Screen Negative (NEGATIVE) 11/21/17 03:00 Urine Methadone Screen Positive (NEGATIVE) H 11/21/17 03:00 Ur Barbiturates Screen Negative (NEGATIVE) 11/21/17 03:00 Ur Phencyclidine Scrn Negative (NEGATIVE) 11/21/17 03:00 Ur Amphetamines Screen Negative (NEGATIVE) 11/21/17 03:00 U Benzodiazepines Scrn Negative (NEGATIVE) 11/21/17 03:00 U Oth Cocaine Metabols Negative (NEGATIVE) 11/21/17 03:00 U Cannabinoids Screen Negative (NEGATIVE) 11/21/17 03:00 IgG 3399.8 mg/dL (700.0-1600.0) H 11/21/17 07:00 IgA 891.9 mg/dL (70.0-400.0) H 11/21/17 07:00 IgM 291.4 mg/dL (40.0-230.0) H 11/21/17 07:00 SMOOTH Screen Negative (Negative) 11/22/17 06:15 SMOOTH Titer TEST NOT PERFORMED 11/22/17 06:15 SMOOTH Titer 2 TEST NOT PERFORMED 11/22/17 06:15 SMOOTH Pattern TEST NOT PERFORMED 11/22/17 06:15 SMOOTH Pattern 2 TEST NOT PERFORMED 11/22/17 06:15 Smooth Muscle Ab Titer 1:20 Titer (< 1:20) H 11/22/17 06:15 Anti-Smooth Muscle Ab Positive (Negative) H 11/22/17 06:15 Liver/Kid Microsomes Ab <=20.0 U (<=20.0) 11/22/17 06:15 Hepatitis A IgM Ab Negative (NEGATIVE) 11/21/17 07:00 Hep Bs Antigen Negative (NEGATIVE) 11/21/17 07:00 Hep B Core IgM Ab Negative (NEGATIVE) 11/21/17 07:00 Hepatitis C Antibody Reactive (NEGATIVE) 11/21/17 07:00 Attending/Attestation - Attestation I have personally seen and examined this patient.: Yes I have fully participated in the care of the patient.: Yes I have reviewed all pertinent clinical information, including history, physical exam and plan: Yes Notes (Text): 11/25/17 13:24 Medical record note made by the resident after discussion with my direction and input after the patient was personally seen and examined by me. I have reviewed the chart and agree that the record accurately reflects by personal performance of the history, physical exam, data review, and medical decision-making, in the course for the patient. I have also personally directed the plan of care. 57 years old female with PMH of Hep C , drug abuse on methadone was admitted with intractable back pain that radiates down her right leg , CT Pelvis was obtained as well as CT of the spine in the ED, both of which were unremarkable. Patient was also found to have abdomen is distended . Abdominal USG showed liver cirrhosis and ascites.Patient is SP Paracentesis , there is no evidence of SBP.Patient is on lasix and aldactone.The need of compliance with medication and fluid and dietary restriction was discussed in detail. Patient pain is better controlled , she has refused MRI of spine.Physical therapy has recommended [facility] but patient has refused to go to [facility].She will be discharged home with home physical therapy . Management plan was discussed in detail with patient. Education was provided DISCHARGE DIAGNOSIS Intractable Back Pain Ascites, Chronic liver disease.
[2017-11-25 17:57] LABS: LDH PERITONEAL FLUID 65 U/L (<63); TOTAL PROTEIN PERITONEAL FLUID <3.0 g/dL
== END 2017-11-24 17:31 | disposition home or self-care (01) | DRG 434 ==
LOC: ED 23:50 → ERH 11-21 06:02 → 5RNO 11-21 07:16 → OBSVTOIN 11-22 08:47
PROVIDERS: ADMIT Internal Medicine; ATTEND Internal Medicine
PROC: 0W9G3ZZ Drainage of Peritoneal Cavity, Percutaneous Approach (ICD-10-PCS; principal; 2017-11-22 15:30)
DX: K70.31 Alcoholic cirrhosis of liver with ascites (principal); E78.00 Pure hypercholesterolemia, unspecified; M54.5 Low back pain; B19.20 Unspecified viral hepatitis C without hepatic coma; F10.10 Alcohol abuse, uncomplicated; E03.9 Hypothyroidism, unspecified; K80.20 Calculus of gallbladder without cholecystitis without obstruction; D69.59 Other secondary thrombocytopenia; M79.604 Pain in right leg; I10 Essential (primary) hypertension; R26.2 Difficulty in walking, not elsewhere classified

== ENCOUNTER 2018-01-17 10:49 | Day surgery (SDC) | payer MEDICARE, MEDICAID ==
[2018-01-14 10:49] VITALS: BMI 21.3
[2018-01-17] MEDS ORDERED: Lidocaine 1% Inj (20ml) ONE (11:51)
[2018-01-17] MEDS ORDERED: Propofol 10 mg/ml Inj (20 ML) ONE (11:51)
[2018-01-17] MEDS ORDERED: Sodium Chloride 0.9% 1,000 ML IV SCH (12:30)
[2018-01-17 13:10] VITALS: BP 140/80; PULSE 78; RESP 19; TEMP 97.5; O2SAT 95
== END 2018-01-17 14:02 | disposition home or self-care (01) ==
LOC: ENDO 10:49
PROVIDERS: ATTEND Internal Medicine Gastroenterology
DX: Z12.11 Encounter for screening for malignant neoplasm of colon (principal); D12.5 Benign neoplasm of sigmoid colon; K64.8 Other hemorrhoids; K74.60 Unspecified cirrhosis of liver; R18.8 Other ascites
CPT/HCPCS: 45380; 88305; J2704; J7030; J7040

== ENCOUNTER 2018-01-20 12:12 | Day surgery (SDC) | payer MEDICARE, MEDICAID ==
[2018-01-14 10:49] VITALS: BMI 21.3
[2018-01-20 12:44] LABS: BASO # 0.06 K/mm3 (0.0-2.0); EOS # 0.2 (0.0-0.7); EOS % 2.6 % (1.5-5.0); GRAN # 3.24 (1.4-6.5); GRAN % 56.3 % (50.0-68.0); HEMOGLOBIN 12.2 g/dL (12.0-16.0); LYMPH # 1.4 (1.2-3.4); LYMPH % 24.5 % (22.0-35.0); MEAN CELL VOLUME 86.4 fl (80.0-105.0); MEAN CORPUSCULAR HEMOGLOBIN 28.6 pg (25.0-35.0); MEAN CORPUSCULAR HGB CONC 33.2 g/dl (31.0-37.0); MONO # 0.9 (0.1-0.6); MONO % 15.6 % (1.0-6.0); RBC 4.26 10^6/uL (3.5-6.1); RED CELL DISTRIBUTION WIDTH 17.2 % (11.5-14.5); WHITE BLOOD COUNT 5.8 10^3/ul (4.5-11.0)
[2018-01-20 12:51] LABS: INR 1.56 (0.93-1.08); PARTIAL THROMBOPLASTIN TIME 34.8 Seconds (25.1-36.5); PROTHROMBIN TIME 18.1 SECONDS (9.4-12.5)
[2018-01-20 12:52] VITALS: RESP 20; O2SAT 92
[2018-01-20 12:53] LABS: PLATELET COUNT 33 10^3/uL (120.0-450.0)
[2018-01-20 12:59] LABS: BLOOD UREA NITROGEN 11 mg/dL (7-21); CALCIUM 8.7 mg/dL (8.4-10.5); GFR AFRICAN-AMERICAN > 60; GFR NON-AFRICAN AMERICAN > 60
[2018-01-20 15:42] VITALS: BP 131/91; PULSE 89; TEMP 98
--- NOTE | 2018-01-20 18:14 | US ---
PROCEDURE: Ultrasound guided paracentesis. HISTORY: Hep C and alcoholic cirrhosis. Recurrent ascites with abdominal pain and distension. Needs therapeutic paracentesis. PHYSICIAN(S): Manav Garcia MD. TECHNIQUE: The relative risks and indications for the procedure were explained to the patient and informed written consent obtained. Sonography of the abdomen was performed in a supine position. This revealed a small to moderate amount of non-loculated ascites, greatest in the lower abdomen. A puncture site was selected and the area was prepped and draped in the usual sterile fashion. 1% Xylocaine was used to anesthetize the skin and soft tissues. A 7 [place] paracentesis catheter was trocared into the lower abdomenand 1700 cc of clear, straw-colored fluid aspirated. No labs were sent IMPRESSION: Ultrasound-guided paracentesis in the lower abdomen. 1700 cc of clear straw-colored fluid were aspirated
== END 2018-01-20 16:20 | disposition home or self-care (01) ==
LOC: OPSURG 12:12
PROVIDERS: ATTEND Radiology Vascular & Interventional Radiology
DX: K70.31 Alcoholic cirrhosis of liver with ascites (principal); B19.20 Unspecified viral hepatitis C without hepatic coma

== ENCOUNTER 2018-01-26 23:07 | Inpatient (IN) | payer MEDICARE, MEDICAID ==
[2018-01-26 23:13] VITALS: BMI 23.4
[2018-01-26] MEDS ORDERED: Morphine 2 mg/ml ISec IVP PRN (23:24)
[2018-01-26] MEDS ORDERED: Sodium Chloride 0.9% 1,000 ML IV SCH (23:30)
--- NOTE | 2018-01-26 23:36 | ED PDOC ---
Arrival/HPI - General Chief Complaint: Abdominal Pain Time Seen by Provider: 01/26/18 23:12 Historian: Patient - History of Present Illness Narrative History of Present Illness (Text): 01/26/18 23:36 57 year old female, with past medical history of high cholesterol, hypothyroidism, and hepatitis C (known, untreated), presents to the Emergency department complaining of generalized abdominal discomfort since 3 pm today. Patient informs worsening pain prompting her to present to the Emergency department. Patient denies similar symptoms in the past or recent change in diet. Patient denies any fever, chills, nausea, vomiting, diarrhea, chest pain, shortness of breath or any other complaints. Patient presents to the Emergency department for medical evaluation. Time/Duration: Other (3pm) Symptom Onset: Gradual Symptom Course: Unchanged Quality: Aching Activities at Onset: Light Context: Home Past Medical History - Provider Review Nursing Documentation Reviewed: Yes - Infectious Disease Hx of Infectious Diseases: None - Tetanus Immunization Tetanus Immunization: Unknown - Cardiac Hx Pacemaker: No - Pulmonary Hx Pneumonia: Yes - Neurological Hx Neurological Disorder: No - HEENT Hx HEENT Disorder: No - Renal Hx Renal Disorder: Yes - Endocrine/Metabolic Hx Hypothyroidism: Yes - Hematological/Oncological Hx Blood Transfusions: Yes Hx Blood Transfusion Reaction: No - Integumentary Hx Dermatological Disorder: No - Musculoskeletal/Rheumatological Hx Musculoskeletal Disorders: No - Gastrointestinal Other/Comment: abdominal hernia - Genitourinary/Gynecological Hx Genitourinary Disorders: No - Psychiatric Hx Emotional Abuse: No Hx Physical Abuse: No Hx Substance Use: Yes (currently takes methadone 35mg) - Surgical History Hx Abdominal Aortic Aneurysm Repair: No - Anesthesia Hx Anesthesia: No Hx Anesthesia Reactions: No Hx Malignant Hyperthermia: No - Suicidal Assessment Feels Threatened In Home Enviroment: No Family/Social History - Physician Review Nursing Documentation Reviewed: Yes Family/Social History: No Known Family HX Smoking Status: Former Smoker Hx Alcohol Use: Yes Hx Substance Use: Yes (currently takes methadone 35mg) Allergies/Home Meds Allergies/Adverse Reactions: Allergies No Known Allergies Allergy (Verified 01/26/18 23:15) Home Medications: Home Meds Medication Instructions Recorded Confirmed Methadone 35 mg PO DAILY 11/21/17 01/26/18 Zolpidem Tartrate [Ambien] 10 mg PO HS PRN 11/22/17 01/26/18 amLODIPine [Norvasc] 10 mg PO DAILY 11/22/17 01/26/18 Lactulose [Enulose] 10 gm PO DAILY 01/10/18 01/26/18 Albuterol 0.083% [Albuterol 0.083% 2.05 mg IH PRN PRN 01/17/18 01/26/18 Inhal Carole (2.5 mg/3 ml) UD] Review of Systems - Physician Review All systems were reviewed & negative as marked: Yes - Review of Systems Constitutional: Normal. absent: Fevers Eyes: Normal ENT: Normal Respiratory: Normal. absent: SOB Cardiovascular: Normal. absent: Chest Pain Gastrointestinal: Abdominal Pain. absent: Diarrhea, Nausea, Vomiting Genitourinary Female: Normal Musculoskeletal: Normal Skin: Normal Neurological: Normal Endocrine: Normal Hemo/Lymphatic: Normal Psychiatric: Normal Physical Exam Vital Signs Reviewed: Yes Vital Signs Temp Pulse Resp BP Pulse Ox 01/27/18 04:40 95 01/27/18 02:28 99 H 28 H 131/70 95 01/27/18 00:02 99.2 F 102 H 18 135/74 96 Temperature: Afebrile Blood Pressure: Normal Pulse: Regular Respiratory Rate: Normal Appearance: Positive for: Well-Appearing, Non-Toxic, Comfortable Pain Distress: None Mental Status: Positive for: Alert and Oriented X 3 - Systems Exam Head: Present: Atraumatic, Normocephalic Pupils: Present: PERRL Extroacular Muscles: Present: EOMI Conjunctiva: Present: Normal Mouth: Present: Moist Mucous Membranes Neck: Present: Normal Range of Motion Respiratory/Chest: Present: Clear to Auscultation, Good Air Exchange. No: Respiratory Distress, Accessory Muscle Use Cardiovascular: Present: Regular Rate and Rhythm, Normal S1, S2. No: Murmurs Abdomen: Present: Tenderness (Tenderness on all four quadrants,), Normal Bowel Sounds. No: Distention, Peritoneal Signs Back: Present: Normal Inspection Upper Extremity: Present: Normal Inspection. No: Cyanosis, Edema Lower Extremity: Present: Normal Inspection. No: Edema Neurological: Present: GCS=15, CN II-XII Intact, Speech Normal Skin: Present: Warm, Dry, Normal Color. No: Rashes Psychiatric: Present: Alert, Oriented x 3, Normal Insight, Normal Concentration Medical Decision Making ED Course and Treatment: 01/26/18 23:23 Impression: 57 year old female presents to the ED for generalized abdominal pain. Plan: --VBG -- CT of Abomen/Pelvis -- Labs -- EKG -- Morphine -- IV Fluids -- Zofran -- Urinalysis -- Reassess and disposition Prior Visits: Notes and results from previous visits were reviewed. Progress Notes: 01/27/18 01:03 CT of Abdomen/Pelvis reviewed by radiologist, shows: IMPRESSION: 1. Bibasilar right middle lobe and lingular nonspecific infiltrates and consolidation are present, consistent with atelectasis or pneumonia versus aspiration pneumonia. 2. Gallbladder distention with multiple calcified gallstones gallbladder wall prominence and pericholecystic fluid. 3. End stage liver disease with ascites varices as described. Correlation with internal medicine /gastroenterology history evaluation and further workup or followup as recommended by patient's clinical data. case discussed with medical records clerk and dr fong - Lab Interpretations Lab Results: 01/26/18 23:34 01/26/18 23:34 Lab Results 01/26/18 23:34: Phosphorus 3.1, Magnesium 1.6 L 01/26/18 23:34: Sodium 129 L, Chloride 95 L, Potassium 4.6, Carbon Dioxide 20 L , Anion Gap 19, BUN 13, Creatinine 0.8, Est GFR ( Amer) > 60, Est GFR ( Non-Af Amer) > 60, Random Glucose 133 H, Calcium 8.2 L, Total Bilirubin 2.3 H, AST 60 H, ALT 28, Alkaline Phosphatase 133 H, Lactate Dehydrogenase 490, Total Creatine Kinase 57, Troponin I < 0.01, Total Protein 8.5 H, Albumin 3.2, Globulin 5.3, Albumin/Globulin Ratio 0.6 L, Amylase 91, Lipase 66 01/26/18 23:34: pO2 75 H, VBG pH 7.35, VBG pCO2 40.0, VBG HCO3 22.1, VBG Total CO2 23.3, VBG O2 Sat (Calc) 97.4 H, VBG Base Excess -3.3 L, VBG Potassium 4.4, Sodium 126.0 L, Chloride 98.0, Glucose 137 H, Lactate 2.5 H, FiO2 21.0, Venous Blood Potassium 4.4 01/26/18 23:34: PT 17.5 H, INR 1.52 H, APTT 30.8 01/26/18 23:34: WBC 15.5 H D, RBC 3.99, Hgb 11.6 L, Hct 34.0 L, MCV 85.2, MCH 29.1, MCHC 34.1, RDW 17.3 H, Plt Count 56 L, Gran % 80.4 H, Lymph % (Auto) 7.5 L , [place] % (Auto) 11.5 H, Eos % (Auto) 0.1 L, Baso % (Auto) 0.5, Gran # 12.48 H, Lymph # (Auto) 1.2, [place] # (Auto) 1.8 H, Eos # (Auto) 0.0, Baso # (Auto) 0.07 - RAD Interpretation Radiology Orders: 01/26/18 23:23 ABD & PELVIS W/O PO OR IV CONT [CT] Stat [employer]: Radiologist - EKG Interpretation EKG Interpretation (Text): 01/27/18 06:25 sinus tachycardia rate 109 n - Medication Orders Current Medication Orders: Amlodipine Besylate (Norvasc) 10 mg PO DAILY JOSE J Furosemide (Lasix) 40 mg PO DAILY JOSE J Sodium Chloride (Sodium Chloride 0.9%) 1,000 mls @ 80 mls/hr IV .[id number] JOSE J Last Admin: 01/27/18 00:30 Dose: 80 mls/hr eMAR Start Stop Document 01/27/18 00:30 SS (Rec: 01/27/18 00:50 SS [id number]) Intravenous Solution Start Date 01/27/18 Start Time 00:30 Ceftriaxone Sodium (Rocephin 2 Gm Ivpb) 2 gm in 100 mls @ 100 mls/hr IVPB DAILY JOSE J PRN Reason: Protocol Methadone HCl (Methadone) 35 mg PO DAILY [facility] Morphine Sulfate (Morphine) 3 mg IVP Q4H PRN PRN Reason: Pain, moderate (4-7) Last Admin: 01/27/18 04:51 Dose: 3 mg MAR Pain Assessment Document 01/27/18 04:51 KOPPS (Rec: 01/27/18 04:51 KOPPS [id number]) Pain Reassessment Is this a pain reassessment? No Sleep Is patient sleeping during reassessment? No Presence of Pain Presence of Pain Yes Pain Scale Used Pain Scale Used Numeric Location Left, Right or Bilateral Bilateral Upper or Lower Upper Pain Location Body Site Abdomen Description Description Constant Intensity of Pain at present 7 Pain Behavior Moaning Crying Guarding Aggravating Factors ADL's Changing Position Exercise/Activity Alleviating Factors/Management Medication Techniques IVP Administration Document 01/27/18 04:51 KOBENJIES (Rec: 01/27/18 04:51 KOPPS [id number]) Charges for Administration # of IVP Administrations 1 Pantoprazole Sodium (Protonix Inj) 40 mg IVP DAILY JOSE J Spironolactone (Aldactone) 100 mg PO DAILY JOSE J Discontinued Medications Albuterol/Ipratropium (Duoneb 3 Mg/0.5 Mg (3 Ml) Ud) 3 ml IH STAT STA Stop: 01/27/18 03:59 Last Admin: 01/27/18 04:10 Dose: 3 ml Metronidazole (Flagyl) 500 mg in 100 mls @ 100 mls/hr IVPB STAT STA PRN Reason: Protocol Stop: 01/27/18 02:43 Last Admin: 01/27/18 01:54 Dose: 100 mls/hr eMAR Start Stop Document 01/27/18 01:54 SS (Rec: 01/27/18 01:55 SS [id number]) Intravenous Solution Start Date 01/27/18 Start Time 01:55 End Date 01/27/18 End time 02:55 Total Infusion Time 60 Ceftriaxone Sodium (Rocephin 2 Gm Ivpb) 2 gm in 100 mls @ 100 mls/hr IVPB DAILY JOSE J PRN Reason: Protocol Morphine Sulfate (Morphine) 2 mg IVP Q4H PRN PRN Reason: Pain, moderate (4-7) Last Admin: 01/26/18 23:42 Dose: 2 mg MAR Pain Assessment Document 01/26/18 23:42 SS (Rec: 01/26/18 23:47 SS [id number]) Pain Reassessment Is this a pain reassessment? No Presence of Pain Presence of Pain Yes Pain Scale Used Pain Scale Used Numeric IVP Administration Document 01/26/18 23:42 SS (Rec: 01/26/18 23:47 SS [id number]) Charges for Administration # of IVP Administrations 1 Morphine Sulfate (Morphine) 1 mg IVP STAT STA Stop: 01/27/18 02:18 Last Admin: 01/27/18 02:26 Dose: 1 mg MAR Pain Assessment Document 01/27/18 02:26 SS (Rec: 01/27/18 02:27 [id number] Pain Reassessment Is this a pain reassessment? Yes Sleep Is patient sleeping during reassessment? No Presence of Pain Presence of Pain Yes Pain Scale Used Pain Scale Used Numeric Location Left, Right or Bilateral Right Pain Location Body Site Abdomen Description Description Constant Intensity of Pain at present 10 IVP Administration Document 01/27/18 02:26 SS (Rec: 01/27/18 02:27 [id number] Charges for Administration # of IVP Administrations 1 Ondansetron HCl (Zofran Inj) 4 mg IVP STAT STA Stop: 01/26/18 23:25 Last Admin: 01/26/18 23:47 Dose: 4 mg IVP Administration Document 01/26/18 23:47 SS (Rec: 01/26/18 23:47 [id number] Charges for Administration # of IVP Administrations 1 Pantoprazole Sodium (Protonix Inj) 40 mg IVP ONCE STA Stop: 01/27/18 00:23 Last Admin: 01/27/18 00:38 Dose: 40 mg IVP Administration Document 01/27/18 00:38 JMR (Rec: 01/27/18 00:38 JMR [id number]) Charges for Administration # of IVP Administrations 1 - Scribe Statement The provider has reviewed the documentation as recorded by the Scribe Nic Lisa. All medical record entries made by the Scribe were at my direction and personally dictated by me. I have reviewed the chart and agree that the record accurately reflects my personal performance of the history, physical exam, medical decision making, and the department course for this patient. I have also personally directed, reviewed, and agree with the discharge instructions and disposition. Disposition/Present on Arrival - Present on Arrival Any Indicators Present on Arrival: No History of DVT/PE: No History of Uncontrolled Diabetes: No Urinary Catheter: No History of Decub. Ulcer: No History Surgical Site Infection Following: None - Disposition Have Diagnosis and Disposition been Completed?: Yes Diagnosis: Ascites Disposition: HOSPITALIZED Disposition Time: 04:00 Condition: FAIR
[2018-01-26 23:47] LABS: VENOUS BLOOD GAS BASE EXCESS -3.3 mmol/L (0.0-2.0); VENOUS BLOOD GAS PO2 75 mm/Hg (30-55); VENOUS BLOOD PH 7.35 (7.32-7.43)
[2018-01-26 23:55] LABS: BASO # 0.07 K/mm3 (0.0-2.0); BASO % 0.5 % (0.0-3.0); EOS % 0.1 % (1.5-5.0); GRAN # 12.48 (1.4-6.5); GRAN % 80.4 % (50.0-68.0); HEMOGLOBIN 11.6 g/dL (12.0-16.0); LYMPH # 1.2 (1.2-3.4); LYMPH % 7.5 % (22.0-35.0); MEAN CELL VOLUME 85.2 fl (80.0-105.0); MEAN CORPUSCULAR HEMOGLOBIN 29.1 pg (25.0-35.0); MEAN CORPUSCULAR HGB CONC 34.1 g/dl (31.0-37.0); MONO # 1.8 (0.1-0.6); MONO % 11.5 % (1.0-6.0); PLATELET COUNT 56 10^3/uL (120.0-450.0); RBC 3.99 10^6/uL (3.5-6.1); RED CELL DISTRIBUTION WIDTH 17.3 % (11.5-14.5); WHITE BLOOD COUNT 15.5 10^3/ul (4.5-11.0)
[2018-01-27 00:01] LABS: ALB/GLOB RATIO 0.6 (1.1-1.8); ALBUMIN 3.2 g/dL (3.0-4.8); ALT/SGPT 28 U/L (7-56); AMYLASE 91 U/L (35-125); AST/SGOT 60 U/L (14-36); BLOOD UREA NITROGEN 13 mg/dL (7-21); CALCIUM 8.2 mg/dL (8.4-10.5); GFR AFRICAN-AMERICAN > 60; GFR NON-AFRICAN AMERICAN > 60; LIPASE 66 U/L (23-300)
[2018-01-27 00:03] LABS: INR 1.52 (0.93-1.08); PARTIAL THROMBOPLASTIN TIME 30.8 Seconds (25.1-36.5); PROTHROMBIN TIME 17.5 SECONDS (9.4-12.5)
[2018-01-27 00:13] LABS: TROPONIN I < 0.01 ng/mL
[2018-01-27] MEDS ORDERED: metroNIDAZOLE IV 500 mg/100 ml 500 MG/100 ML BAG IVPB STA (01:44)
[2018-01-27] MEDS ORDERED: Morphine 2 mg/ml ISec IVP STA ×2 (02:17→11:07)
--- NOTE | 2018-01-27 02:44 | CP.PCM.HP ---
<Jonnathan Villagomez - Last Filed: 01/27/18 02:39> History of Present Illness - History of Present Illness History of Present Illness: 57 year old female with a past medical history of hypercholesterolemia, hypothyroidism, Heaptitis C and liver cirrhosis who comes in for abdominal distention and right upper quadrant pain since 4 pm. this afternoon. She also reports some shortness of breath in conjunction with the abdominal pain. Of note she recently underwent a Paracentesis by Dr. Manav Garcia and 1900 ml of straw colored fluid was removed. She also is being treated for her Hepatitis C in [facility]. She denies any chest pain, lightheadedness, dizziness, syncopal episodes, vomiting, changes in vision, or any other complaints. Past medical history: hypercholesterolemia, hypothyroidism, Hep C, liver cirrhosis Medications: Folic Acid 1 mg Daily, Furosemide 20mg Daily, Amlodipine 5mg PO Daily, Levothyroxine 50mcg Daily, Spironolactone 100mg PO Daily Past surgical history: Denies Allergies: Denies Social: Smokes 1 cigarette daily since she was 13. Former Heroin Abuse. Takes Methadone 35mg PO daily From [facility] in [place] PMD: Dr. Byrd Present on Admission - Present on Admission Any Indicators Present on Admission: No Review of Systems - Constitutional Constitutional: absent: Chills, Daytime Sleepiness, Headache, Snoring, Weakness - EENT Eyes: absent: Blurred Vision, Discharge, Dry Eye, Loss of Peripheral Vision, Sees Flashes, Loss of Vision Nose/Mouth/Throat: absent: Nasal Congestion, Nose Pain, Halitosis, Mouth Pain, Odynophagia, Facial Pain - Cardiovascular Cardiovascular: Leg Edema. absent: Chest Pain, Diaphoresis, Irregular Heart Rhythm, Palpitations - Respiratory Respiratory: absent: Dyspnea, Hemoptysis, Pain on Inspiration, Change in Mucous Color - Gastrointestinal Gastrointestinal: Abdominal Pain, Constipation. absent: Belching, Change in Stool Character, Cramping, Dyspepsia, Excessive Flatus, Hematochezia, Melena, Nausea, Temesmus, Vomiting - Musculoskeletal Musculoskeletal: absent: Arthralgias - Psychiatric Psychiatric: absent: Hopelessness, Panic Attacks - Endocrine Endocrine: absent: Polydipsia, Polyphagia, Polyuria - Hematologic/Lymphatic Hematologic: absent: Easy Bleeding, Easy Bruising Past Patient History - Infectious Disease Hx of Infectious Diseases: None - Tetanus Immunizations Tetanus Immunization: Unknown - Past Social History Smoking Status: Former Smoker - CARDIAC Hx Pacemaker: No - PULMONARY Hx Pneumonia: Yes - NEUROLOGICAL Hx Neurological Disorder: No - HEENT Hx HEENT Problems: No - RENAL Hx Chronic Kidney Disease: Yes - ENDOCRINE/METABOLIC Hx Hypothyroidism: Yes - HEMATOLOGICAL/ONCOLOGICAL Hx Blood Transfusions: Yes Hx Blood Transfusion Reaction: No - INTEGUMENTARY Hx Dermatological Problems: No - MUSCULOSKELETAL/RHEUMATOLOGICAL Hx Musculoskeletal Disorders: No - GASTROINTESTINAL Other/Comment: abdominal hernia - GENITOURINARY/GYNECOLOGICAL Hx Genitourinary Disorders: No - PSYCHIATRIC Hx Emotional Abuse: No Hx Physical Abuse: No Hx Substance Use: Yes (currently takes methadone 35mg) - SURGICAL HISTORY Hx Abdominal Aortic Aneurysm Repair: No - ANESTHESIA Hx Anesthesia: No Hx Anesthesia Reactions: No Hx Malignant Hyperthermia: No Meds Allergies/Adverse Reactions: Allergies Allergy/AdvReac Type Severity Reaction Status Date / Time No Known Allergies Allergy Verified 01/26/18 23:15 Physical Exam - Head Exam Head Exam: ATRAUMATIC, NORMAL INSPECTION, NORMOCEPHALIC - Eye Exam Eye Exam: EOMI, Normal appearance, PERRL Pupil Exam: NORMAL ACCOMODATION - ENT Exam ENT Exam: Mucous Membranes Moist, Normal Exam, Normal Oropharynx - Respiratory Exam Respiratory Exam: Clear to Auscultation Bilateral, NORMAL BREATHING PATTERN. absent: Chest Wall Tenderness, Prolonged Expiratory Phase, Respiratory Distress - Cardiovascular Exam Cardiovascular Exam: REGULAR RHYTHM, +S1, +S2 - GI/Abdominal Exam GI & Abdominal Exam: Distended, Firm, Tenderness. absent: Hypoactive Bowel Sounds, Pulsatile Mass - Back Exam Back exam: NORMAL INSPECTION. absent: CVA tenderness (L), CVA tenderness (R), paraspinal tenderness - Neurological Exam Neurological exam: Alert, CN II-XII Intact, Oriented x3 - Psychiatric Exam Psychiatric exam: Normal Affect, Normal Mood - Skin Skin Exam: Dry, Intact Results - Vital Signs Recent Vital Signs: Last Vital Signs Temp 99.2 F 01/27/18 00:02 Pulse 99 H 01/27/18 02:28 Resp 28 H 01/27/18 02:28 BP 131/70 01/27/18 02:28 Pulse Ox 95 01/27/18 02:28 - Labs Result Diagrams: 01/26/18 23:34 01/26/18 23:34 Labs: Laboratory Results - last 24 hr 01/26/18 01/26/18 01/26/18 23:34 23:34 23:34 WBC 15.5 H D RBC 3.99 Hgb 11.6 L Hct 34.0 L MCV 85.2 MCH 29.1 MCHC 34.1 RDW 17.3 H Plt Count 56 L Gran % 80.4 H Lymph % (Auto) 7.5 L [place] % (Auto) 11.5 H Eos % (Auto) 0.1 L Baso % (Auto) 0.5 Gran # 12.48 H Lymph # (Auto) 1.2 [place] # (Auto) 1.8 H Eos # (Auto) 0.0 Baso # (Auto) 0.07 PT 17.5 H INR 1.52 H APTT 30.8 pO2 75 H VBG pH 7.35 VBG pCO2 40.0 VBG HCO3 22.1 VBG Total CO2 23.3 VBG O2 Sat (Calc) 97.4 H VBG Base Excess -3.3 L VBG Potassium 4.4 Sodium 126.0 L Chloride 98.0 Glucose 137 H Lactate 2.5 H FiO2 21.0 Potassium Carbon Dioxide Anion Gap BUN Creatinine Est GFR ( Amer) Est GFR (Non-Af Amer) Random Glucose Calcium Total Bilirubin AST ALT Alkaline Phosphatase Lactate Dehydrogenase Total Creatine Kinase Troponin I Total Protein Albumin Globulin Albumin/Globulin Ratio Amylase Lipase Venous Blood Potassium 4.4 01/26/18 23:34 WBC RBC Hgb Hct MCV MCH MCHC RDW Plt Count Gran % Lymph % (Auto) [place] % (Auto) Eos % (Auto) Baso % (Auto) Gran # Lymph # (Auto) [place] # (Auto) Eos # (Auto) Baso # (Auto) PT INR APTT pO2 VBG pH VBG pCO2 VBG HCO3 VBG Total CO2 VBG O2 Sat (Calc) VBG Base Excess VBG Potassium Sodium 129 L Chloride 95 L Glucose Lactate FiO2 Potassium 4.6 Carbon Dioxide 20 L Anion Gap 19 BUN 13 Creatinine 0.8 Est GFR ( Amer) > 60 Est GFR (Non-Af Amer) > 60 Random Glucose 133 H Calcium 8.2 L Total Bilirubin 2.3 H AST 60 H ALT 28 Alkaline Phosphatase 133 H Lactate Dehydrogenase 490 Total Creatine Kinase 57 Troponin I < 0.01 Total Protein 8.5 H Albumin 3.2 Globulin 5.3 Albumin/Globulin Ratio 0.6 L Amylase 91 Lipase 66 Venous Blood Potassium Assessment & Plan - Assessment and Plan (Free Text) Assessment: 57 year old female with a past medical history of liver cirrhosis, hep c, hypothyroidism being admitted for abdominal distention. Plan: 1. Abdominal distention SBP vs. constipation vs ascites -Patient recently tapped by Manav Garcia and 1900ml of fluid taken out. -IR consulted. Help appreciated -IV Rocephin and Flagyl -IV morphine for pain management 2. Lower right leg swelling -L/E duplex ordered. Will f/u with results. 3. hx of hypothyroidism -Restart home medications 4. hx of hypercholesterolemia -Confirm name and dosage in the A.M. and restart home medications 5. Hx of Hep C -Being followed by GI specialist in [facility]. PPX Protonix SCD's <Regulo Lindsey - Last Filed: 01/27/18 06:48> Results - Vital Signs Recent Vital Signs: Last Vital Signs Temp 97.8 F 01/27/18 05:56 Pulse 92 H 01/27/18 05:56 Resp 19 01/27/18 05:56 BP 108/51 L 01/27/18 05:56 Pulse Ox 93 L 01/27/18 05:56 - Labs Result Diagrams: 01/26/18 23:34 01/26/18 23:34 Labs: Laboratory Results - last 24 hr 01/27/18 04:08 pO2 234 H VBG pH 7.42 VBG pCO2 32.0 L VBG HCO3 20.8 L VBG Total CO2 21.8 L VBG O2 Sat (Calc) 100.5 H VBG Base Excess -2.8 L VBG Potassium 4.9 Sodium 124.0 L Chloride 96.0 L Glucose 142 H Lactate 2.0 FiO2 21.0 Venous Blood Potassium 4.9 Attending/Attestation - Attestation I have personally seen and examined this patient.: Yes I have fully participated in the care of the patient.: Yes I have reviewed all pertinent clinical information: Yes Notes (Text): Patient seen and examined with the residents. Agree with above. Abdominal pain r/o SBP given her Chronic Hep C and liver disease - started on Rocephin 2g IV IR for abdominal paracentesis and will send for ascitic fluid assessment and SAAG Afebrile, HD stable. Tele monitoring Further diagnostics and/or intervention as hospital course progresses 01/27/18 06:47
[2018-01-27] MEDS ORDERED: Albuterol-Ipratrop 3 mg / 0.5 (3 ml) UD IH STA ×2 (03:58→09:58)
[2018-01-27 04:50] LABS: VENOUS BLOOD GAS BASE EXCESS -2.8 mmol/L (0.0-2.0); VENOUS BLOOD GAS PO2 234 mm/Hg (30-55); VENOUS BLOOD PH 7.42 (7.32-7.43)
[2018-01-27] MEDS: Morphine 4 mg/ml ISec IVP PRN ×5 (04:51→20:14)
[2018-01-27] MEDS: cefTRIAXone 2 GM IN NS 2 GM/100 ML BAG IVPB SCH ×2 (08:52→10:09)
--- NOTE | 2018-01-27 08:52 | CT ---
PROCEDURE: CT Abdomen and Pelvis without intravenous contrast HISTORY: abd pain COMPARISON: None. TECHNIQUE: Without contrast.. Contrast dose: 0 Radiation dose: Total exam DLP = 299.23 mGy-cm. This CT exam was performed using one or more of the following dose reduction techniques: Automated exposure control, adjustment of the mA and/or kV according to patient size, and/or use of iterative reconstruction technique. FINDINGS: LOWER THORAX: Mild patchy opacities in both lower lobes. Nonspecific. Infiltrate versus atelectasis. Subsegmental atelectasis in lingular segment left upper lobe. LIVER: :Liver significant for nodular contour consistent with hepatic cirrhosis. Normal size. No biliary dilatation. GALLBLADDER AND BILE DUCTS: Cholelithiasis. No mural thickening. Mild pericholecystic fluid indistinguishable from generalized ascites. PANCREAS: Unremarkable. No gross lesion or ductal dilatation. SPLEEN: Unremarkable. ADRENALS: Unremarkable. No mass. KIDNEYS AND URETERS: Unremarkable. No hydronephrosis. No solid mass. VASCULATURE: Mild varices left upper quadrant. BOWEL: Unremarkable. No obstruction. No gross mural thickening. APPENDIX: Not identified PERITONEUM: Generalized ascites. No pneumoperitoneum. Two small umbilical/ periumbilical hernias containing only ascites fluid. LYMPH NODES: Unremarkable. No enlarged lymph nodes. BLADDER: Unremarkable. REPRODUCTIVE: Normal uterus BONES: No acute fracture. OTHER FINDINGS: None. IMPRESSION: Hepatic cirrhosis. Generalized ascites. Patchy opacities in both lower lobes possibly pneumonia versus atelectasis. Please correlate clinically. Follow-up advised. Cholelithiasis without definite evidence of cholecystitis. Consider evaluation with ultrasound if clinically warranted. Two small umbilical/ periumbilical hernias containing only ascites fluid. No additional abnormality. Preliminary interpretation of this examination was reported by [employer] [facility] at 1:21 a.m. on 01/27/2018. There is concurrence of this report with the preliminary interpretation.
--- NOTE | 2018-01-27 09:12 | US ---
PROCEDURE: Right lower extremity venous US HISTORY: Leg pain and swelling. Evaluate for DVT. PHYSICIAN(S): Manav Garcia M.D. TECHNIQUE: Duplex sonography and color-flow Doppler with graded compression were used to evaluate the deep venous system of the right lower extremity. FINDINGS: The visualized deep venous system of the right lower extremity is sonographically normal and compressible. Normal waveforms and augmentation are seen. There is no sonographic evidence for deep venous thrombosis in the visualized segments of the right lower extremity. IMPRESSION: 1. No sonographic evidence for deep venous thrombosis in the visualized segments of the right lower extremity.
[2018-01-27 09:13] LABS: PH,URINE 5.5 (4.7-8.0); URINE BILIRUBIN NEGATIVE (NEGATIVE); URINE BLOOD TRACE-INTACT (NEGATIVE); URINE COLOR YELLOW (YELLOW); URINE GLUCOSE (UA) NEGATIVE (NEGATIVE); URINE LEUKOCYTE ESTERASE SMALL Leu/uL (NEGATIVE); URINE PROTEIN NEGATIVE mg/dL (<30 mg/dL)
[2018-01-27 09:14] LABS: URINE APPEARANCE SL CLOUDY (CLEAR)
[2018-01-27 09:17] LABS: URINE BACTERIA MANY (NEG)
[2018-01-27 09:32] LABS: VENOUS BLOOD GAS BASE EXCESS 0.5 mmol/L (0.0-2.0); VENOUS BLOOD GAS PO2 140 mm/Hg (30-55)
[2018-01-27 09:39] LABS: PHENCYCLIDINE, UR NEGATIVE (NEGATIVE)
[2018-01-27 09:46] LABS: BARBITURATES, UR NEGATIVE (NEGATIVE); BENZODIAZEPINES, UR NEGATIVE (NEGATIVE); OPIATES, UR POSITIVE (NEGATIVE)
[2018-01-27] MEDS ORDERED: Albuterol-Ipratrop 3 mg / 0.5 (3 ml) UD IH PRN (09:58)
[2018-01-27] MEDS ORDERED: cefTRIAXone 1 gm 1 GM/100 ML BAG IVPB SCH (10:00)
[2018-01-27] MEDS ORDERED: cefTRIAXone 2 GM IN NS 2 GM/100 ML BAG IVPB SCH (10:00)
--- NOTE | 2018-01-27 10:22 | RAD ---
HISTORY: r/o pna COMPARISON: Earlier CT study FINDINGS: LUNGS: Patchy infiltrates are seen in both lung bases. The upper lung armstrong are clear PLEURA: No significant pleural effusion identified, no pneumothorax apparent. CARDIOVASCULAR: Normal. OSSEOUS STRUCTURES: No significant abnormalities. VISUALIZED UPPER ABDOMEN: Normal. OTHER FINDINGS: None. IMPRESSION: Patchy infiltrates at both lung bases
--- NOTE | 2018-01-27 11:24 | CARD ---
APPROVED REPORT EKG Measurement Heart [id number] <Conclusion> Sinus tachycardia Otherwise normal ECG
[2018-01-27] MEDS ORDERED: Piperacillin/Tazobact 3.375 gm 100 ML IVPB SCH (12:00)
[2018-01-27] MEDS: Albuterol-Ipratrop 3 mg / 0.5 (3 ml) UD IH SCH ×2 (13:09→20:57)
[2018-01-27 13:48] LABS: BASO # 0.05 K/mm3 (0.0-2.0); BASO % 0.3 % (0.0-3.0); EOS % 0.2 % (1.5-5.0); GRAN # 12.15 (1.4-6.5); GRAN % 81.3 % (50.0-68.0); LYMPH % 6.7 % (22.0-35.0); MEAN CELL VOLUME 85.6 fl (80.0-105.0); MEAN CORPUSCULAR HEMOGLOBIN 28.7 pg (25.0-35.0); MEAN CORPUSCULAR HGB CONC 33.5 g/dl (31.0-37.0); MONO # 1.7 (0.1-0.6); MONO % 11.5 % (1.0-6.0); RBC 3.83 10^6/uL (3.5-6.1); RED CELL DISTRIBUTION WIDTH 17.2 % (11.5-14.5)
[2018-01-27 13:57] LABS: ALBUMIN 3.1 g/dL (3.0-4.8); BLOOD UREA NITROGEN 12 mg/dL (7-21); CALCIUM 8.4 mg/dL (8.4-10.5); GFR AFRICAN-AMERICAN > 60; GFR NON-AFRICAN AMERICAN > 60
[2018-01-27 13:58] LABS: ALB/GLOB RATIO 0.7 (1.1-1.8); ALT/SGPT 30 U/L (7-56); AST/SGOT 48 U/L (14-36)
[2018-01-27 14:12] LABS: PLATELET COUNT 39 10^3/uL (120.0-450.0)
--- NOTE | 2018-01-27 14:48 | RAD ---
HISTORY: increased SOB COMPARISON: Earlier same day TECHNIQUE: Chest PA and lateral FINDINGS: LUNGS: Minimal bibasilar infiltrates are seen which partially obscure the diaphragmatic borders. PLEURA: No significant pleural effusion identified. No pneumothorax apparent. CARDIOVASCULAR: Normal. OSSEOUS STRUCTURES: No significant abnormalities. VISUALIZED UPPER ABDOMEN: Normal. OTHER FINDINGS: None. IMPRESSION: Minimal bibasilar infiltrates are seen which partially obscure the diaphragmatic borders.
[2018-01-27] MEDS ORDERED: Albuterol-Ipratrop 3 mg / 0.5 (3 ml) UD IH SCH (15:45)
[2018-01-27] MEDS: metroNIDAZOLE IV 500 mg/100 ml 500 MG/100 ML BAG IVPB SCH ×2 (16:07→22:32)
--- NOTE | 2018-01-27 16:15 | US ---
HISTORY: abdominal distention COMPARISON: None. TECHNIQUE: Sonographic evaluation of the abdomen. FINDINGS: LIVER: Measures 19.2 cm. Diffusely increased echogenicity of the liver parenchyma. Nodular contour consistent with hepatic cirrhosis. No mass. No intrahepatic biliary ductal dilatation. GALLBLADDER: Cholelithiasis. Mural thickening up to 5 mm common nonspecific. No pericholecystic fluid. Negative sonographic Xiong sign. Findings equivocal for cholecystitis. COMMON BILE DUCT: Measures 2 mm. No stones. No dilatation. PANCREAS: Unremarkable as visualized. No mass. No ductal dilatation. RIGHT KIDNEY: Measures 10.8cm. Normal echogenicity. No calculus, mass, or hydronephrosis. LEFT KIDNEY: Measures 10.7cm. Normal echogenicity. No calculus, mass, or hydronephrosis. SPLEEN: Normal in size and contour. No mass. AORTA: No aneurysmal dilatation. IVC: Unremarkable. OTHER FINDINGS: Generalized ascites. IMPRESSION: Fatty infiltration of the liver. Hepatic cirrhosis. Ascites. Cholelithiasis with mural thickening of the gallbladder, nonspecific for cholecystitis.
[2018-01-27 16:45] LABS: BODY FLUID TYPE PERITONEAL/ASCITES
[2018-01-27 17:43] LABS: BODY FLUID TOTAL COUNT 100 (0-0)
[2018-01-27] MEDS: Azithromycin 500MG/NS 250ml 500 MG/250 ML BAG IVPB SCH (17:51)
[2018-01-27] MEDS: POLYETHYLENE GLYCOL 3350 17 GM/Dose PACKET PO SCH (18:01)
[2018-01-27] MEDS: Simethicone 40 mg/0.6 ml Liquid (30 ml) PO SCH (18:01)
[2018-01-27 18:07] LABS: BF GROSS APPEARANCE SL CLOUDY (CLEAR)
[2018-01-28] MEDS: Morphine 4 mg/ml ISec IVP PRN ×6 (00:21→23:06)
[2018-01-28] MEDS: Albuterol-Ipratrop 3 mg / 0.5 (3 ml) UD IH SCH ×5 (02:33→23:11)
[2018-01-28] MEDS: metroNIDAZOLE IV 500 mg/100 ml 500 MG/100 ML BAG IVPB SCH (05:02)
[2018-01-28 06:27] LABS: BASO # 0.02 K/mm3 (0.0-2.0); BASO % 0.1 % (0.0-3.0); EOS # 0.1 (0.0-0.7); EOS % 0.8 % (1.5-5.0); GRAN # 11.68 (1.4-6.5); GRAN % 81.8 % (50.0-68.0); HEMOGLOBIN 10.4 g/dL (12.0-16.0); LYMPH # 1.2 (1.2-3.4); LYMPH % 8.6 % (22.0-35.0); MEAN CELL VOLUME 86.9 fl (80.0-105.0); MEAN CORPUSCULAR HEMOGLOBIN 28.4 pg (25.0-35.0); MEAN CORPUSCULAR HGB CONC 32.7 g/dl (31.0-37.0); MONO # 1.3 (0.1-0.6); MONO % 8.7 % (1.0-6.0); RBC 3.66 10^6/uL (3.5-6.1); RED CELL DISTRIBUTION WIDTH 17.3 % (11.5-14.5); WHITE BLOOD COUNT 14.3 10^3/ul (4.5-11.0)
[2018-01-28 06:49] LABS: PLATELET COUNT 37 10^3/uL (120.0-450.0)
[2018-01-28 06:52] LABS: ALB/GLOB RATIO 0.6 (1.1-1.8); ALBUMIN 2.5 g/dL (3.0-4.8); ALT/SGPT 31 U/L (7-56); AST/SGOT 36 U/L (14-36); BLOOD UREA NITROGEN 13 mg/dL (7-21); CALCIUM 8.3 mg/dL (8.4-10.5); GFR AFRICAN-AMERICAN > 60; GFR NON-AFRICAN AMERICAN > 60
[2018-01-28] MEDS ORDERED: Lactulose 10 gm/15 ml (Rectal Use) PR SCH (10:00)
[2018-01-28] MEDS: cefTRIAXone 2 GM IN NS 2 GM/100 ML BAG IVPB SCH (10:20)
[2018-01-28] MEDS: POLYETHYLENE GLYCOL 3350 17 GM/Dose PACKET PO SCH ×2 (10:22→19:11)
[2018-01-28] MEDS: guaiFENesin 200 mg/10 ml Syrup UD PO PRN ×2 (10:45→20:21)
[2018-01-28] MEDS: Simethicone 40 mg/0.6 ml Liquid (30 ml) PO SCH ×5 (11:39→23:05)
[2018-01-28] MEDS: Azithromycin 500MG/NS 250ml 500 MG/250 ML BAG IVPB SCH (11:40)
--- NOTE | 2018-01-28 12:22 | CP.PCM.PN ---
<Gael Reddy - Last Filed: 01/28/18 12:27> Subjective - Date & Time of Evaluation Date of Evaluation: 01/28/18 Time of Evaluation: 07:00 - Subjective Subjective: Patient seen and examined at bedside in no acute distress. She states she slept the best today than she ever has in a long time. Denies abdominal pain, nausea, vomiting, diarrhea, fevers, chills, chest pain, shortness of breath. Objective - Vital Signs/Intake and Output Vital Signs (last 24 hours): Temp Pulse Resp BP Pulse Ox 97.5 F L 109 H 20 110/70 97 01/28/18 11:42 01/28/18 11:42 01/28/18 11:42 01/28/18 11:42 01/28/18 05:59 Intake and Output: 01/28/18 01/28/18 06:59 18:59 Intake Total 440 Output Total 1450 Balance -1010 - Medications Medications: Current Medications Albuterol/Ipratropium (Duoneb 3 Mg/0.5 Mg (3 Ml) Ud) 3 ml IH Q2H PRN PRN Reason: Shortness of Breath Albuterol/Ipratropium (Duoneb 3 Mg/0.5 Mg (3 Ml) Ud) 3 ml IH [id number] [facility] Amlodipine Besylate (Norvasc) 10 mg PO DAILY [facility] Last Admin: 01/28/18 10:20 Dose: 10 mg Furosemide (Lasix) 40 mg PO DAILY [facility] Last Admin: 01/28/18 10:20 Dose: 40 mg Guaifenesin (Robitussin) 200 mg PO Q4H PRN PRN Reason: Cough and congestion Last Admin: 01/28/18 10:45 Dose: 200 mg Ceftriaxone Sodium (Rocephin 2 Gm Ivpb) 2 gm in 100 mls @ 100 mls/hr IVPB DAILY JOSE J PRN Reason: Protocol Last Admin: 01/28/18 10:20 Dose: 100 mls/hr Azithromycin (Zithromax 500mg In Ns) 500 mg in 250 mls @ 167 mls/hr IVPB DAILY JOSE J PRN Reason: Protocol Last Admin: 01/28/18 11:40 Dose: 167 mls/hr Lactulose (Generlac) 10 gm HI DAILY JOSE J Methadone HCl (Methadone) 35 mg PO DAILY [facility] Last Admin: 01/28/18 10:21 Dose: 35 mg Morphine Sulfate (Morphine) 3 mg IVP Q4H PRN PRN Reason: Pain, moderate (4-7) Last Admin: 01/28/18 08:30 Dose: 3 mg Polyethylene Glycol (Miralax) 17 gm PO BID [facility] Last Admin: 01/28/18 10:22 Dose: Not Given Simethicone (Mylicon Liq) 40 mg PO QID [facility] Last Admin: 01/28/18 11:39 Dose: 40 mg Spironolactone (Aldactone) 100 mg PO DAILY [facility] Last Admin: 01/28/18 10:19 Dose: 100 mg Vitamin B Complex/Vit C/Folic Acid (Nephro-Rimma) 1 tab PO 0800 [facility] - Labs Labs: 01/28/18 05:45 01/28/18 05:45 PT 17.5 SECONDS (9.4-12.5) H 01/26/18 23:34 INR 1.52 (0.93-1.08) H 01/26/18 23:34 APTT 30.8 Seconds (25.1-36.5) 01/26/18 23:34 - Head Exam Head Exam: ATRAUMATIC, NORMAL INSPECTION, NORMOCEPHALIC - Eye Exam Eye Exam: EOMI, Normal appearance - ENT Exam ENT Exam: Mucous Membranes Moist - Respiratory Exam Respiratory Exam: Clear to Ausculation Bilateral, NORMAL BREATHING PATTERN. absent: Rhonchi, Wheezes - Cardiovascular Exam Cardiovascular Exam: REGULAR RHYTHM, +S1, +S2 - GI/Abdominal Exam GI & Abdominal Exam: Soft, Normal Bowel Sounds - Extremities Exam Extremities Exam: Normal Inspection - Back Exam Back Exam: NORMAL INSPECTION - Neurological Exam Neurological Exam: Alert, Awake, Oriented x3 - Psychiatric Exam Psychiatric exam: Normal Affect, Normal Mood - Skin Skin Exam: Normal Color, Warm Assessment and Plan - Assessment and Plan (Free Text) Assessment: 57 year old female with a past medical history of liver cirrhosis, hep c, hypothyroidism being admitted for abdominal distention. Plan: Abdominal distention SBP vs. constipation vs ascites -Parecentesis yesterday relieved 1300ml of fluid. -IV Rocephin and azithromycin -IV morphine for pain management Bibasilar lung infiltrates -Continue with antibiotics -Continue with duonebs Lower right leg swelling -L/E duplex ordered; negative hx of hypothyroidism -Restart home medications hx of hypercholesterolemia -lipid panel ordered for a.m. Methadone use -Confirmed dosage of 35 mg daily with [facility] Hx of Hep C -[place] [facility] [place] PPX Protonix SCD's <ArtiEmile - Last Filed: 01/28/18 16:47> Objective - Vital Signs/Intake and Output Vital Signs (last 24 hours): Temp Pulse Resp BP Pulse Ox 97.5 F L 109 H 20 110/70 97 01/28/18 11:42 01/28/18 11:42 01/28/18 11:42 01/28/18 11:42 01/28/18 05:59 Intake and Output: 01/28/18 01/28/18 06:59 18:59 Intake Total 440 300 Output Total 1450 600 Balance -1010 -300 - Medications Medications: Current Medications Albuterol/Ipratropium (Duoneb 3 Mg/0.5 Mg (3 Ml) Ud) 3 ml IH Q2H PRN PRN Reason: Shortness of Breath Albuterol/Ipratropium (Duoneb 3 Mg/0.5 Mg (3 Ml) Ud) 3 ml IH [id number] [facility] Last Admin: 01/28/18 14:53 Dose: 3 ml Amlodipine Besylate (Norvasc) 10 mg PO DAILY JOSE J Last Admin: 01/28/18 10:20 Dose: 10 mg Furosemide (Lasix) 40 mg PO DAILY JOSE J Last Admin: 01/28/18 10:20 Dose: 40 mg Guaifenesin (Robitussin) 200 mg PO Q4H PRN PRN Reason: Cough and congestion Last Admin: 01/28/18 10:45 Dose: 200 mg Ceftriaxone Sodium (Rocephin 2 Gm Ivpb) 2 gm in 100 mls @ 100 mls/hr IVPB DAILY JOSE J PRN Reason: Protocol Last Admin: 01/28/18 10:20 Dose: 100 mls/hr Azithromycin (Zithromax 500mg In Ns) 500 mg in 250 mls @ 167 mls/hr IVPB DAILY JOSE J PRN Reason: Protocol Last Admin: 01/28/18 11:40 Dose: 167 mls/hr Lactulose (Generlac) 10 gm HI DAILY JOSE J Last Admin: 01/28/18 12:28 Dose: Not Given Methadone HCl (Methadone) 35 mg PO DAILY [facility] Last Admin: 01/28/18 10:21 Dose: 35 mg Morphine Sulfate (Morphine) 3 mg IVP Q4H PRN PRN Reason: Pain, moderate (4-7) Last Admin: 01/28/18 13:16 Dose: 3 mg Polyethylene Glycol (Miralax) 17 gm PO BID [facility] Last Admin: 01/28/18 10:22 Dose: Not Given Simethicone (Mylicon Liq) 40 mg PO QID [facility] Last Admin: 01/28/18 11:39 Dose: 40 mg Spironolactone (Aldactone) 100 mg PO DAILY [facility] Last Admin: 01/28/18 10:19 Dose: 100 mg Vitamin B Complex/Vit C/Folic Acid (Nephro-Rimma) 1 tab PO 0800 [facility] - Labs Labs: 01/28/18 05:45 01/28/18 05:45 PT 17.5 SECONDS (9.4-12.5) H 01/26/18 23:34 INR 1.52 (0.93-1.08) H 01/26/18 23:34 APTT 30.8 Seconds (25.1-36.5) 01/26/18 23:34 Attending/Attestation - Attestation I have personally seen and examined this patient.: Yes I have fully participated in the care of the patient.: Yes I have reviewed all pertinent clinical information, including history, physical exam and plan: Yes Notes (Text): COPD exacerbation Oxygen medically necesary for patients with low oxygen saturation. At risk for readmission and respiratory distress.
--- NOTE | 2018-01-28 17:24 | US ---
PROCEDURE: Ultrasound guided paracentesis. HISTORY: Recurrent ascites with abdominal pain and distension. Needs paracentesis. PHYSICIAN(S): Manav Garcia MD. TECHNIQUE: The relative risks and indications for the procedure were explained to the patient and informed written consent obtained. Sonography of the abdomen was performed in a supine position. This revealed a small amount of non-loculated ascites, greatest in the right lower quadrant. A puncture site was selected and the area was prepped and draped in the usual sterile fashion. 1% Xylocaine was used to anesthetize the skin and soft tissues. A 7 [place] paracentesis catheter was trocared into the right lower quadrantand 1300 cc of kirstin fluid aspirated. Cell count and cultures were sent. IMPRESSION: Ultrasound-guided paracentesis in the right lower quadrant. 1300 cc of fluid were aspirated. Cell count and cultures were sent.
[2018-01-28] MEDS: Multivitamin Vitamin B Complex (Nephro-Vite) Tab PO SCH (19:11)
[2018-01-29] MEDS: Albuterol-Ipratrop 3 mg / 0.5 (3 ml) UD IH SCH ×5 (04:14→19:31)
[2018-01-29] MEDS: Morphine 4 mg/ml ISec IVP PRN ×2 (04:23→15:33)
[2018-01-29] MEDS: guaiFENesin 200 mg/10 ml Syrup UD PO PRN ×3 (04:25→21:46)
[2018-01-29 06:24] VITALS: O2SAT 94
[2018-01-29 06:55] LABS: BASO # 0.05 K/mm3 (0.0-2.0); BASO % 0.5 % (0.0-3.0); EOS # 0.1 (0.0-0.7); EOS % 1.3 % (1.5-5.0); GRAN # 6.14 (1.4-6.5); GRAN % 63.9 % (50.0-68.0); HEMOGLOBIN 10.6 g/dL (12.0-16.0); LYMPH # 1.9 (1.2-3.4); LYMPH % 19.5 % (22.0-35.0); MEAN CELL VOLUME 87.3 fl (80.0-105.0); MEAN CORPUSCULAR HEMOGLOBIN 28.7 pg (25.0-35.0); MEAN CORPUSCULAR HGB CONC 32.9 g/dl (31.0-37.0); MONO # 1.4 (0.1-0.6); MONO % 14.8 % (1.0-6.0); RBC 3.69 10^6/uL (3.5-6.1); RED CELL DISTRIBUTION WIDTH 18.2 % (11.5-14.5); WHITE BLOOD COUNT 9.6 10^3/ul (4.5-11.0)
[2018-01-29 07:09] LABS: HDL CHOLESTEROL 14 mg/dL (29-60)
[2018-01-29 07:19] LABS: LDL CHOLESTEROL 43 mg/dL (0-129)
[2018-01-29 07:20] LABS: ALB/GLOB RATIO 0.6 (1.1-1.8); ALBUMIN 2.6 g/dL (3.0-4.8); ALT/SGPT 30 U/L (7-56); AST/SGOT 39 U/L (14-36); BLOOD UREA NITROGEN 14 mg/dL (7-21); CALCIUM 8.4 mg/dL (8.4-10.5); GFR AFRICAN-AMERICAN > 60; GFR NON-AFRICAN AMERICAN > 60
[2018-01-29 07:43] LABS: PLATELET COUNT 42 10^3/uL (120.0-450.0)
[2018-01-29] MEDS: Multivitamin Vitamin B Complex (Nephro-Vite) Tab PO SCH (08:30)
[2018-01-29] MEDS: POLYETHYLENE GLYCOL 3350 17 GM/Dose PACKET PO SCH ×2 (10:33→17:59)
[2018-01-29] MEDS: Simethicone 40 mg/0.6 ml Liquid (30 ml) PO SCH ×3 (10:33→17:59)
[2018-01-29] MEDS: cefTRIAXone 2 GM IN NS 2 GM/100 ML BAG IVPB SCH (10:34)
[2018-01-29] MEDS: Azithromycin 500MG/NS 250ml 500 MG/250 ML BAG IVPB SCH (10:35)
[2018-01-29 12:29] VITALS: RESP 20; TEMP 98.2
--- NOTE | 2018-01-29 16:47 | CP.PCM.DIS ---
<IvanKj - Last Filed: 01/29/18 21:46> Provider - Provider Date of Admission: 01/27/18 01:45 Attending physician: Nancy Oliveira MD Primary care physician: Oneal Byrd MD Consults: IR Time Spent in preparation of Discharge (in minutes): 75 Diagnosis - Discharge Diagnosis (1) Pneumonia Status: Acute (2) Ascites Status: Acute Hospital Course - Lab Results Lab Results: Micro Results 01/27/18 16:35 Other: Please Indicate Fungal Culture - Preliminary 01/27/18 16:35 Ascitic Fluid Anaerobic Culture - Final NO ANAEROBES ISOLATED. 01/27/18 16:35 Ascitic Fluid Body Fluid Culture - Preliminary NO GROWTH AFTER 2 DAYS 01/27/18 16:49 Sputum Gram Stain - Final 01/27/18 16:49 Sputum Sputum Culture - Final NORMAL SAPROPHYTIC REYNA Most Recent Lab Values WBC 9.6 10^3/ul (4.5-11.0) D 01/29/18 06:00 RBC 3.69 10^6/uL (3.5-6.1) 01/29/18 06:00 Hgb 10.6 g/dL (12.0-16.0) L 01/29/18 06:00 Hct 32.2 % (36.0-48.0) L 01/29/18 06:00 MCV 87.3 fl (80.0-105.0) 01/29/18 06:00 MCH 28.7 pg (25.0-35.0) 01/29/18 06:00 MCHC 32.9 g/dl (31.0-37.0) 01/29/18 06:00 RDW 18.2 % (11.5-14.5) H 01/29/18 06:00 Plt Count 42 10^3/uL (120.0-450.0) L* 01/29/18 06:00 Gran % 63.9 % (50.0-68.0) 01/29/18 06:00 Lymph % (Auto) 19.5 % (22.0-35.0) L 01/29/18 06:00 [place] % (Auto) 14.8 % (1.0-6.0) H 01/29/18 06:00 Eos % (Auto) 1.3 % (1.5-5.0) L 01/29/18 06:00 Baso % (Auto) 0.5 % (0.0-3.0) 01/29/18 06:00 Gran # 6.14 (1.4-6.5) 01/29/18 06:00 Lymph # (Auto) 1.9 (1.2-3.4) 01/29/18 06:00 [place] # (Auto) 1.4 (0.1-0.6) H 01/29/18 06:00 Eos # (Auto) 0.1 (0.0-0.7) 01/29/18 06:00 Baso # (Auto) 0.05 K/mm3 (0.0-2.0) 01/29/18 06:00 PT 17.5 SECONDS (9.4-12.5) H 01/26/18 23:34 INR 1.52 (0.93-1.08) H 01/26/18 23:34 APTT 30.8 Seconds (25.1-36.5) 01/26/18 23:34 pO2 140 mm/Hg (30-55) H 01/27/18 09:15 VBG pH 7.40 (7.32-7.43) 01/27/18 09:15 VBG pCO2 41.0 (40-60) 01/27/18 09:15 VBG HCO3 25.4 mmol/l (21-28) 01/27/18 09:15 VBG Total CO2 26.7 mmol.L (22-28) 01/27/18 09:15 VBG O2 Sat (Calc) 99.9 % (40-65) H 01/27/18 09:15 VBG Base Excess 0.5 mmol/L (0.0-2.0) 01/27/18 09:15 VBG Potassium 4.4 mmol/L (3.6-5.2) 01/27/18 09:15 Sodium 127.0 mmol/L (132-148) L 01/27/18 09:15 Chloride 96.0 mmol/L (98-107) L 01/27/18 09:15 Glucose 154 mg/dl (65-105) H 01/27/18 09:15 Lactate 1.3 mmol/L (0.7-2.1) 01/27/18 09:15 FiO2 21.0 % 01/27/18 09:15 Sodium 134 mmol/L (132-148) 01/29/18 06:00 Potassium 3.9 mmol/L (3.6-5.0) 01/29/18 06:00 Chloride 99 mmol/L (98-107) 01/29/18 06:00 Carbon Dioxide 28 mmol/L (21-33) 01/29/18 06:00 Anion Gap 12 (10-20) 01/29/18 06:00 BUN 14 mg/dL (7-21) 01/29/18 06:00 Creatinine 0.7 mg/dl (0.7-1.2) 01/29/18 06:00 Est GFR ( Amer) > 60 01/29/18 06:00 Est GFR (Non-Af Amer) > 60 01/29/18 06:00 Random Glucose 99 mg/dL (70-110) 01/29/18 06:00 Calcium 8.4 mg/dL (8.4-10.5) 01/29/18 06:00 Phosphorus 3.1 mg/dL (2.5-4.5) 01/26/18 23:34 Magnesium 1.6 mg/dL (1.7-2.2) L 01/26/18 23:34 Total Bilirubin 1.6 mg/dL (0.2-1.3) H 01/29/18 06:00 Direct Bilirubin 0.8 mg/dL (0.0-0.4) H 01/28/18 06:30 AST 39 U/L (14-36) H 01/29/18 06:00 ALT 30 U/L (7-56) 01/29/18 06:00 Alkaline Phosphatase 115 U/L (38-126) 01/29/18 06:00 Lactate Dehydrogenase 490 U/L (333-699) 01/26/18 23:34 Total Creatine Kinase 57 U/L (35-230) 01/26/18 23:34 Troponin I < 0.01 ng/mL 01/26/18 23:34 Total Protein 6.9 g/dL (5.8-8.3) 01/29/18 06:00 Albumin 2.6 g/dL (3.0-4.8) L 01/29/18 06:00 Globulin 4.3 gm/dL 01/29/18 06:00 Albumin/Globulin Ratio 0.6 (1.1-1.8) L 01/29/18 06:00 Triglycerides 58 mg/dL (35-160) 01/29/18 06:00 Cholesterol 79 mg/dL (130-200) L 01/29/18 06:00 LDL Cholesterol Direct 43 mg/dL (0-129) 01/29/18 06:00 HDL Cholesterol 14 mg/dL (29-60) L 01/29/18 06:00 Amylase 91 U/L (35-125) 01/26/18 23:34 Lipase 66 U/L (23-300) 01/26/18 23:34 Venous Blood Potassium 4.4 mmol/L (3.6-5.2) 01/27/18 09:15 Urine Color Yellow (YELLOW) 01/27/18 09:01 Urine Appearance Sl cloudy (CLEAR) 01/27/18 09:01 Urine pH 5.5 (4.7-8.0) 01/27/18 09:01 Ur Specific [place] 1.010 (1.005-1.035) 01/27/18 09:01 Urine Protein Negative mg/dL (<30 mg/dL) 01/27/18 09:01 Urine Glucose (UA) Negative mg/dL (NEGATIVE) 01/27/18 09:01 Urine Ketones Negative mg/dL (NEGATIVE) 01/27/18 09:01 Urine Blood Trace-intact (NEGATIVE) H 01/27/18 09:01 Urine Nitrate Negative (NEGATIVE) 01/27/18 09:01 Urine Bilirubin Negative (NEGATIVE) 01/27/18 09:01 Urine Urobilinogen 1.0 E.U./dL (<1 E.U./dL) H 01/27/18 09:01 Ur Leukocyte Esterase Small Ross/uL (NEGATIVE) H 01/27/18 09:01 Urine RBC 1 - 3 /hpf (0-2) 01/27/18 09:01 Urine WBC 10 - 15 /hpf (0-6) 01/27/18 09:01 Ur Epithelial Cells 1 - 3 /hpf (0-5) 01/27/18 09:01 Urine Bacteria Many (NEG) 01/27/18 09:01 Fluid Source Peritoneal/ascites 01/27/18 16:35 Fluid Appearance Sl cloudy (CLEAR) 01/27/18 16:35 Fluid WBC 333.0 /uL (0.0-300.0) H 01/27/18 16:35 Fluid RBC 968.0 /uL (0.0-0.0) H 01/27/18 16:35 Fluid Tot Cell Count 100 (0-0) H 01/27/18 16:35 Fluid Neutrophils 22.2 % (0-0) H 01/27/18 16:35 Fluid Lymphocytes 77.8 % (0-0) H 01/27/18 16:35 Fld Monocyte/Macrophag TEST NOT PERFORMED 01/27/18 16:35 Fluid Comment Yellow 01/27/18 16:35 Urine Opiates Screen Positive (NEGATIVE) H 01/27/18 09:01 Urine Methadone Screen Positive (NEGATIVE) H 01/27/18 09:01 Ur Barbiturates Screen Negative (NEGATIVE) 01/27/18 09:01 Ur Phencyclidine Scrn Negative (NEGATIVE) 01/27/18 09:01 Ur Amphetamines Screen Negative (NEGATIVE) 01/27/18 09:01 U Benzodiazepines Scrn Negative (NEGATIVE) 01/27/18 09:01 U Oth Cocaine Metabols Negative (NEGATIVE) 01/27/18 09:01 U Cannabinoids Screen Negative (NEGATIVE) 01/27/18 09:01 - Hospital Course Hospital Course: 57 year old female with a past medical history of hypercholesterolemia, hypothyroidism, Heaptitis C and liver cirrhosis who comes in for abdominal distention and right upper quadrant pain since 4 pm. this afternoon. She also reports some shortness of breath in conjunction with the abdominal pain. She was treated for community acquired pneumonia and for ascites. She had a paracentesis with significant improvement in her abdominal pain, as well as her dyspnea. She started a course of antibiotics, and was treated with nebulized breathing treatments. Today, she feels significantly better overall, though still has some shortness of breath. She denies abdominal pain, nausea, vomiting, fever, chills, diarrhea , constipation. She will be given prescription to complete a course of antibiotics. She is to follow up with her PMD and envelope folder. All medications were reviewed. She verbalized understanding and agreement with the plan, and discharged home. Discharge Exam - Head Exam Head Exam: ATRAUMATIC, NORMAL INSPECTION, NORMOCEPHALIC - Eye Exam Eye Exam: EOMI, Normal appearance - ENT Exam ENT Exam: Mucous Membranes Moist - Respiratory Exam Respiratory Exam: Rhonchi (diffuse), Wheezes (diffuse) - Cardiovascular Exam Cardiovascular Exam: Tachycardia, RRR, +S1, +S2 - GI/Abdominal Exam GI & Abdominal Exam: Distended, Soft. absent: Firm, Guarding, Tenderness - Extremities Exam Extremities exam: normal inspection - Neurological Exam Neurological exam: Alert, Oriented x3 - Psychiatric Exam Psychiatric exam: Normal Affect, Normal Mood - Skin Skin Exam: Dry, Intact, Normal Color Discharge Plan - Discharge Medications Prescriptions: Albuterol 0.083% [Albuterol 0.083% Inhal Carole (2.5 mg/3 ml) UD] 2.05 mg IH PRN PRN 30 Days neb PRN Reason: Shortness Of Breath amLODIPine [Norvasc] 10 mg PO DAILY #30 tab Furosemide [Lasix] 40 mg PO DAILY #30 tab Lactulose [Enulose] 20 gm PO DAILY 30 Days solution Moxifloxacin [Avelox] 400 mg PO DAILY #3 tab Spironolactone [Aldactone] 100 mg PO DAILY #30 tablet Vitamin B Complex/Vit C/Folic [Nephro-Rimma] 1 tab PO 0800 #30 tab - Follow Up Plan Condition: FAIR Disposition: HOME/ ROUTINE Instructions: Exacerbation of COPD (DC), Breathing Exercises Additional Instructions: Follow up with your PMD within one week Follow up with your envelope folder Dr. Alvarenga within one week Continue to take the antibiotics for 3 more days, even if you feel better Continue all other medications as prescribed Return to the ER for any new or worsening concerns Referrals: Pratik Alvarenga MD [Medical Doctor] - Oneal Byrd MD [Primary Care Provider] - <Juan J Torres - Last Filed: 01/29/18 23:06> Provider - Provider Date of Admission: 01/27/18 01:45 Attending physician: Nancy Oliveira MD Primary care physician: Oneal Byrd MD Hospital Course - Lab Results Lab Results: Micro Results 01/27/18 16:35 Other: Please Indicate Fungal Culture - Preliminary 01/27/18 16:35 Ascitic Fluid Anaerobic Culture - Final NO ANAEROBES ISOLATED. 01/27/18 16:35 Ascitic Fluid Body Fluid Culture - Preliminary NO GROWTH AFTER 2 DAYS 06/21/18 16:49 Sputum Gram Stain - Final 01/27/18 16:49 Sputum Sputum Culture - Final NORMAL SAPROPHYTIC REYNA Most Recent Lab Values WBC 9.6 10^3/ul (4.5-11.0) D 01/29/18 06:00 RBC 3.69 10^6/uL (3.5-6.1) 01/29/18 06:00 Hgb 10.6 g/dL (12.0-16.0) L 01/29/18 06:00 Hct 32.2 % (36.0-48.0) L 01/29/18 06:00 MCV 87.3 fl (80.0-105.0) 01/29/18 06:00 MCH 28.7 pg (25.0-35.0) 01/29/18 06:00 MCHC 32.9 g/dl (31.0-37.0) 01/29/18 06:00 RDW 18.2 % (11.5-14.5) H 01/29/18 06:00 Plt Count 42 10^3/uL (120.0-450.0) L* 01/29/18 06:00 Gran % 63.9 % (50.0-68.0) 01/29/18 06:00 Lymph % (Auto) 19.5 % (22.0-35.0) L 01/29/18 06:00 [place] % (Auto) 14.8 % (1.0-6.0) H 01/29/18 06:00 Eos % (Auto) 1.3 % (1.5-5.0) L 01/29/18 06:00 Baso % (Auto) 0.5 % (0.0-3.0) 01/29/18 06:00 Gran # 6.14 (1.4-6.5) 01/29/18 06:00 Lymph # (Auto) 1.9 (1.2-3.4) 01/29/18 06:00 [place] # (Auto) 1.4 (0.1-0.6) H 01/29/18 06:00 Eos # (Auto) 0.1 (0.0-0.7) 01/29/18 06:00 Baso # (Auto) 0.05 K/mm3 (0.0-2.0) 01/29/18 06:00 PT 17.5 SECONDS (9.4-12.5) H 01/26/18 23:34 INR 1.52 (0.93-1.08) H 01/26/18 23:34 APTT 30.8 Seconds (25.1-36.5) 01/26/18 23:34 pO2 140 mm/Hg (30-55) H 01/27/18 09:15 VBG pH 7.40 (7.32-7.43) 01/27/18 09:15 VBG pCO2 41.0 (40-60) 01/27/18 09:15 VBG HCO3 25.4 mmol/l (21-28) 01/27/18 09:15 VBG Total CO2 26.7 mmol.L (22-28) 01/27/18 09:15 VBG O2 Sat (Calc) 99.9 % (40-65) H 01/27/18 09:15 VBG Base Excess 0.5 mmol/L (0.0-2.0) 01/27/18 09:15 VBG Potassium 4.4 mmol/L (3.6-5.2) 01/27/18 09:15 Sodium 127.0 mmol/L (132-148) L 01/27/18 09:15 Chloride 96.0 mmol/L (98-107) L 01/27/18 09:15 Glucose 154 mg/dl (65-105) H 01/27/18 09:15 Lactate 1.3 mmol/L (0.7-2.1) 01/27/18 09:15 FiO2 21.0 % 01/27/18 09:15 Sodium 134 mmol/L (132-148) 01/29/18 06:00 Potassium 3.9 mmol/L (3.6-5.0) 01/29/18 06:00 Chloride 99 mmol/L (98-107) 01/29/18 06:00 Carbon Dioxide 28 mmol/L (21-33) 01/29/18 06:00 Anion Gap 12 (10-20) 01/29/18 06:00 BUN 14 mg/dL (7-21) 01/29/18 06:00 Creatinine 0.7 mg/dl (0.7-1.2) 01/29/18 06:00 Est GFR ( Amer) > 60 01/29/18 06:00 Est GFR (Non-Af Amer) > 60 01/29/18 06:00 Random Glucose 99 mg/dL (70-110) 01/29/18 06:00 Calcium 8.4 mg/dL (8.4-10.5) 01/29/18 06:00 Phosphorus 3.1 mg/dL (2.5-4.5) 01/26/18 23:34 Magnesium 1.6 mg/dL (1.7-2.2) L 01/26/18 23:34 Total Bilirubin 1.6 mg/dL (0.2-1.3) H 01/29/18 06:00 Direct Bilirubin 0.8 mg/dL (0.0-0.4) H 01/28/18 06:30 AST 39 U/L (14-36) H 01/29/18 06:00 ALT 30 U/L (7-56) 01/29/18 06:00 Alkaline Phosphatase 115 U/L (38-126) 01/29/18 06:00 Lactate Dehydrogenase 490 U/L (333-699) 01/26/18 23:34 Total Creatine Kinase 57 U/L (35-230) 01/26/18 23:34 Troponin I < 0.01 ng/mL 01/26/18 23:34 Total Protein 6.9 g/dL (5.8-8.3) 01/29/18 06:00 Albumin 2.6 g/dL (3.0-4.8) L 01/29/18 06:00 Globulin 4.3 gm/dL 01/29/18 06:00 Albumin/Globulin Ratio 0.6 (1.1-1.8) L 01/29/18 06:00 Triglycerides 58 mg/dL (35-160) 01/29/18 06:00 Cholesterol 79 mg/dL (130-200) L 01/29/18 06:00 LDL Cholesterol Direct 43 mg/dL (0-129) 01/29/18 06:00 HDL Cholesterol 14 mg/dL (29-60) L 01/29/18 06:00 Amylase 91 U/L (35-125) 01/26/18 23:34 Lipase 66 U/L (23-300) 01/26/18 23:34 Venous Blood Potassium 4.4 mmol/L (3.6-5.2) 01/27/18 09:15 Urine Color Yellow (YELLOW) 01/27/18 09:01 Urine Appearance Sl cloudy (CLEAR) 01/27/18 09:01 Urine pH 5.5 (4.7-8.0) 01/27/18 09:01 Ur Specific [place] 1.010 (1.005-1.035) 01/27/18 09:01 Urine Protein Negative mg/dL (<30 mg/dL) 01/27/18 09:01 Urine Glucose (UA) Negative mg/dL (NEGATIVE) 01/27/18 09:01 Urine Ketones Negative mg/dL (NEGATIVE) 01/27/18 09:01 Urine Blood Trace-intact (NEGATIVE) H 01/27/18 09:01 Urine Nitrate Negative (NEGATIVE) 01/27/18 09:01 Urine Bilirubin Negative (NEGATIVE) 01/27/18 09:01 Urine Urobilinogen 1.0 E.U./dL (<1 E.U./dL) H 01/27/18 09:01 Ur Leukocyte Esterase Small Ross/uL (NEGATIVE) H 01/27/18 09:01 Urine RBC 1 - 3 /hpf (0-2) 01/27/18 09:01 Urine WBC 10 - 15 /hpf (0-6) 01/27/18 09:01 Ur Epithelial Cells 1 - 3 /hpf (0-5) 01/27/18 09:01 Urine Bacteria Many (NEG) 01/27/18 09:01 Fluid Source Peritoneal/ascites 01/27/18 16:35 Fluid Appearance Sl cloudy (CLEAR) 01/27/18 16:35 Fluid WBC 333.0 /uL (0.0-300.0) H 01/27/18 16:35 Fluid RBC 968.0 /uL (0.0-0.0) H 01/27/18 16:35 Fluid Tot Cell Count 100 (0-0) H 01/27/18 16:35 Fluid Neutrophils 22.2 % (0-0) H 01/27/18 16:35 Fluid Lymphocytes 77.8 % (0-0) H 01/27/18 16:35 Fld Monocyte/Macrophag TEST NOT PERFORMED 01/27/18 16:35 Fluid Comment Yellow 01/27/18 16:35 Urine Opiates Screen Positive (NEGATIVE) H 01/27/18 09:01 Urine Methadone Screen Positive (NEGATIVE) H 01/27/18 09:01 Ur Barbiturates Screen Negative (NEGATIVE) 01/27/18 09:01 Ur Phencyclidine Scrn Negative (NEGATIVE) 01/27/18 09:01 Ur Amphetamines Screen Negative (NEGATIVE) 01/27/18 09:01 U Benzodiazepines Scrn Negative (NEGATIVE) 01/27/18 09:01 U Oth Cocaine Metabols Negative (NEGATIVE) 01/27/18 09:01 U Cannabinoids Screen Negative (NEGATIVE) 01/27/18 09:01 Attending/Attestation - Attestation I have personally seen and examined this patient.: Yes I have fully participated in the care of the patient.: Yes I have reviewed all pertinent clinical information, including history, physical exam and plan: Yes
[2018-01-29 17:36] VITALS: BP 149/82
[2018-01-29 18:37] VITALS: PULSE 118
== END 2018-01-29 23:02 | disposition home or self-care (01) | DRG 432 ==
LOC: ED 23:07 → ERH 01-27 01:45 → 2RNO 01-27 04:40
PROVIDERS: ADMIT Internal Medicine; ATTEND Internal Medicine
PROC: 0W9G3ZX Drainage of Peritoneal Cavity, Percutaneous Approach, Diagnostic (ICD-10-PCS; principal; 2018-01-28)
DX: K74.60 Unspecified cirrhosis of liver (principal); J18.9 Pneumonia, unspecified organism; J44.1 Chronic obstructive pulmonary disease with (acute) exacerbation; J44.0 Chronic obstructive pulmonary disease with (acute) lower respiratory infection; R18.8 Other ascites; F11.20 Opioid dependence, uncomplicated; B18.2 Chronic viral hepatitis C; E78.00 Pure hypercholesterolemia, unspecified; E03.9 Hypothyroidism, unspecified; F17.210 Nicotine dependence, cigarettes, uncomplicated

== ENCOUNTER 2018-02-14 11:09 | Day surgery (SDC) | payer MEDICARE, MEDICAID ==
[2018-02-14 11:48] VITALS: BMI 23.4
[2018-02-14] MEDS ORDERED: Propofol 10 mg/ml Inj (20 ML) ONE (14:02)
[2018-02-14] MEDS ORDERED: Sodium Chloride 0.9% 1,000 ML IV SCH (14:30)
[2018-02-14 14:35] VITALS: O2SAT 99
[2018-02-14 15:21] VITALS: BP 132/76; PULSE 77; RESP 18; TEMP 98.3
--- NOTE | 2018-02-17 15:21 | CP.SDSHP ---
Same Day Surgery H & P - History Proposed Procedure: EGD Pre-Op Diagnosis: Dyspepsia - Allergies Allergies: Allergies No Known Allergies Allergy (Verified 01/26/18 23:15) - Physical Exam Mental Status: Alert & Oriented x3 Heart: WNL Lungs: WNL GI: WNL - Impression Impression: proceed with EGD Pt. Evaluated Today:Candidate for Anesthesia & Procedure: Yes Short Stay Discharge - Short Stay Discharge Admitting Diagnosis/Reason for Visit: K74.60 Disposition: HOME/ ROUTINE Referrals: Oneal Byrd MD [Primary Care Provider] -
== END 2018-02-14 14:53 | disposition home or self-care (01) ==
LOC: ENDO 11:09
PROVIDERS: ATTEND Internal Medicine Gastroenterology
DX: K74.60 Unspecified cirrhosis of liver (principal); K20.9 Esophagitis, unspecified; K76.6 Portal hypertension; K31.89 Other diseases of stomach and duodenum; B18.2 Chronic viral hepatitis C; R18.8 Other ascites; K29.50 Unspecified chronic gastritis without bleeding
CPT/HCPCS: 36415; 36430; 43239; 85025; 85610; 85730; 86850; 86900; 88305; 88342; J2001; J2704; J7030; J7040; P9037

== ENCOUNTER 2018-02-20 07:54 | Inpatient (IN) | payer MEDICARE, MEDICAID ==
--- NOTE | 2018-02-20 08:25 | ED PDOC ---
Arrival/HPI - General Historian: Patient - History of Present Illness Time/Duration: 4-6 hours Symptom Onset: Sudden Symptom Course: Unchanged Activities at Onset: Rest Context: Home <Gerardo Artis - Last Filed: 02/20/18 14:55> <Beatris Katz - Last Filed: 02/21/18 07:32> - General Chief Complaint: Abdominal Pain Time Seen by Provider: 02/20/18 07:55 - History of Present Illness Narrative History of Present Illness (Text): 02/20/18 08:21 This is a 57 year old female with PMH of COPD, Hep C, hypothyroidism, liver cirrhosis and ESLD presenting to the ER via EMS for abdominal fluid leakage that began this morning. Patient sates as she got up from bed to use the restroom she noticed fluid coming out of her umbilicus. She denies similar episode in the past. She denies any physical complaint at this time including CP , SOB, fevers, nausea, vomiting, abdominal pain, urinary symptoms, recent travel and sick contacts at home. She states she is compliant with her medications. She has an appointment at the [facility] tomorrow concerning her liver. Endoscopy done last week showed no varices and moderate portal hypertensive gastropathy, and CT abd/pelvis done last month showed ESLD, ascites, and gallbladder distension with calcified gallstones. (Gerardo Artis) Past Medical History - Provider Review Nursing Documentation Reviewed: Yes - Infectious Disease Hx of Infectious Diseases: None - Tetanus Immunization Tetanus Immunization: Unknown - Reproductive Menopause: Yes - Cardiac Hx Pacemaker: No - Pulmonary Hx Pneumonia: Yes - Neurological Hx Neurological Disorder: No - HEENT Hx HEENT Disorder: No - Renal Hx Renal Disorder: Yes - Endocrine/Metabolic Hx Hypothyroidism: Yes - Hematological/Oncological Hx Blood Transfusions: Yes Hx Blood Transfusion Reaction: No - Integumentary Hx Dermatological Disorder: No - Musculoskeletal/Rheumatological Hx Musculoskeletal Disorders: No - Gastrointestinal Other/Comment: abdominal hernia - Genitourinary/Gynecological Hx Genitourinary Disorders: No - Psychiatric Hx Emotional Abuse: No Hx Physical Abuse: No Hx Substance Use: Yes (currently takes methadone 35mg) - Surgical History Other/Comment: paracenthesis - Anesthesia Hx Anesthesia Reactions: No Hx Malignant Hyperthermia: No - Suicidal Assessment Feels Threatened In Home Enviroment: No <Gerardo Artis - Last Filed: 02/20/18 14:55> Family/Social History - Physician Review Nursing Documentation Reviewed: Yes Family/Social History: Unknown Family HX Smoking Status: Former Smoker Hx Alcohol Use: Yes (2 1/2-3 MONTHS AGO) Hx Substance Use: Yes (currently takes methadone 35mg) <Gerardo Artis - Last Filed: 02/20/18 14:55> Allergies/Home Meds <Gerardo Artis - Last Filed: 02/20/18 14:55> <Beatris Katz - Last Filed: 02/21/18 07:32> Allergies/Adverse Reactions: Allergies No Known Allergies Allergy (Verified 01/26/18 23:15) Home Medications: Home Meds Medication Instructions Recorded Confirmed Methadone 35 mg PO DAILY 11/21/17 02/14/18 traMADol [Ultram] 50 mg PO Q8H PRN 02/04/18 02/14/18 Review of Systems - Physician Review All systems were reviewed & negative as marked: Yes - Review of Systems Constitutional: Normal. absent: Fevers Eyes: Normal ENT: Normal Respiratory: Normal. absent: SOB Cardiovascular: Normal. absent: Chest Pain, Palpitations Gastrointestinal: Normal. absent: Abdominal Pain, Diarrhea, Nausea, Vomiting, Hematochezia, Hematemesis Genitourinary Female: Normal. absent: Dysuria, Frequency, Hematuria, Vaginal Bleeding Musculoskeletal: Normal Skin: Normal Neurological: Normal Endocrine: Normal Hemo/Lymphatic: Normal Psychiatric: Normal <Gerardo Artis - Last Filed: 02/20/18 14:55> Physical Exam Vital Signs Reviewed: Yes Temperature: Afebrile Blood Pressure: Normal Pulse: Regular Respiratory Rate: Normal Appearance: Positive for: Well-Appearing, Non-Toxic, Comfortable Pain Distress: None Mental Status: Positive for: Alert and Oriented X 3 - Systems Exam Head: Present: Atraumatic, Normocephalic Pupils: Present: PERRL Extroacular Muscles: Present: EOMI Conjunctiva: Present: Normal Mouth: Present: Moist Mucous Membranes Neck: Present: Normal Range of Motion Respiratory/Chest: Present: Clear to Auscultation, Good Air Exchange. No: Respiratory Distress, Accessory Muscle Use Cardiovascular: Present: Regular Rate and Rhythm, Normal S1, S2. No: Murmurs Abdomen: Present: Distention, Normal Bowel Sounds, Other (pressurized fluid leaking from umbilicus ). No: Tenderness, Peritoneal Signs, Rebound, Guarding Back: Present: Normal Inspection Upper Extremity: Present: Normal Inspection. No: Cyanosis, Edema Lower Extremity: Present: Edema, NORMAL PULSES, Swelling. No: CALF TENDERNESS Neurological: Present: Speech Normal, Motor Func Grossly Intact, Normal Sensory Function Skin: Present: Warm, Dry, Normal Color. No: Rashes Psychiatric: Present: Alert, Oriented x 3, Normal Insight, Normal Concentration <Gerardo Artis - Last Filed: 02/20/18 14:55> Vital Signs Temp Pulse Resp BP Pulse Ox 02/20/18 13:22 75 19 106/70 97 02/20/18 11:50 71 17 115/73 96 02/20/18 09:57 90 19 114/75 96 02/20/18 07:59 97.6 F 84 18 116/74 93 L Medical Decision Making <Gerardo Artis - Last Filed: 02/20/18 14:55> <Beatris Katz - Last Filed: 02/21/18 07:32> ED Course and Treatment: 02/20/18 08:35 Impression: This is a 57 year old female with PMH of COPD, Hep C, hypothyroidism , liver cirrhosis and ESLD presenting to the ER via EMS for abdominal fluid leakage that began this morning. Differential not limited to: Ascites vs. umbilicul hernia communication vs abdominal fistula Plan: -CBC, CMP -PT/PTT -CT abd/pelvis Progress: 02/20/18 10:33 Patient is resting comfortably, vitals are stable, afebrile. Platelets are 35, similar to baseline in past. 02/20/18 11:[address]: Moderate ascites. There are two small umbilical periumbilical hernias containing ascites fluid. There is no bowel herniation. Cirrhosis. Gallstones. (Gerardo Artis) Patient seen and evaluated with medical aide. On my examination patient has umbilical hernias noted, one is noted to be protruding, tender and erythematous with CLEAR constant drainage from umbilicus. Her abdomen is distended but patient states "it's not worse than usual". She denies fevers or chills. Currently denies chest pain or shortness of breath. No bleeding reported. Dressing applied however drainage constant. She is CV stable. Drainage suspected to be ascitic fluids. IV antibiotics initiated. Abdomen is nontender with serial exams. Will admit for possible umbilical cellulitis, and for surgery consultation regarding drainage. (Beatris Katz) - Lab Interpretations Lab Results: 02/20/18 09:08 02/20/18 09:08 Lab Results 02/20/18 09:08: Sodium 136, Potassium 4.4, Chloride 103, Carbon Dioxide 26, Anion Gap 11, BUN 7, Creatinine 0.6 L, Est GFR ( Amer) > 60, Est GFR (Non -Af Amer) > 60, Random Glucose 111 H, Calcium 8.2 L, Total Bilirubin 1.3, AST 43 H, ALT 15, Alkaline Phosphatase 138 H, Total Protein 7.2, Albumin 2.8 L, Globulin 4.4, Albumin/Globulin Ratio 0.6 L 02/20/18 09:08: PT 17.1 H, INR 1.48 H, APTT 34.8 02/20/18 09:08: WBC 3.8 L D, RBC 3.90, Hgb 11.2 L, Hct 33.6 L, MCV 86.2, MCH 28.7, MCHC 33.3, RDW 17.2 H, Plt Count 35 L*, Gran % 50.8, Lymph % (Auto) 26.1, Morrill % (Auto) 17.6 H, Eos % (Auto) 2.6, Baso % (Auto) 2.9, Gran # 1.93, Lymph # (Auto) 1.0 L, Morrill # (Auto) 0.7 H, Eos # (Auto) 0.1, Baso # (Auto) 0.11, Platelet Evaluation Low - RAD Interpretation Radiology Orders: 02/20/18 08:33 ABDOMEN & PELVIS [ABD & PELVIS W/O PO OR IV CONT] [CT] Stat 02/20/18 08:49 CHEST ONE VIEW [RAD] Stat - Medication Orders Current Medication Orders: Albuterol/Ipratropium (Duoneb 3 Mg/0.5 Mg (3 Ml) Ud) 3 ml IH [id number] JOSE J Last Admin: 02/21/18 07:16 Dose: 3 ml Amlodipine Besylate (Norvasc) 10 mg PO DAILY JOSE J Furosemide (Lasix) 40 mg PO DAILY JOSE J Spironolactone (Aldactone) 100 mg PO DAILY [facility] Vitamin B Complex/Vit C/Folic Acid (Nephro-Rimma) 1 tab PO 0800 JOSE J Discontinued Medications Benzonatate (Tessalon Perles) 100 mg PO ONCE ONE Stop: 02/20/18 20:25 Last Admin: 02/20/18 20:35 Dose: 100 mg Guaifenesin (Mucinex La) 600 mg PO ONCE ONE Stop: 02/20/18 20:26 Last Admin: 02/20/18 20:35 Dose: 600 mg Ceftriaxone Sodium (Rocephin 1 Gram Ivpb) 1 gm in 100 mls @ 200 mls/hr IVPB ONCE STA PRN Reason: Protocol Stop: 02/20/18 13:38 Last Admin: 02/20/18 13:38 Dose: 200 mls/hr eMAR Start Stop Document 02/20/18 13:38 MR (Rec: 02/20/18 13:39 MR [id number]) Intravenous Solution Start Date 02/20/18 Start Time 13:39 End Date 02/20/18 End time 14:09 Total Infusion Time 30 Piperacillin Sod/Tazobactam Sod (Zosyn 3.375 In Ns 100ml) 100 mls @ 200 mls/hr IVPB Q6 JOSE J PRN Reason: Protocol Stop: 02/21/18 00:29 Last Admin: 02/20/18 23:46 Dose: 200 mls/hr eMAR Start Stop Document 02/20/18 23:46 BN (Rec: 02/20/18 23:46 BN [id number]) Intravenous Solution Start Date 02/20/18 Start Time 23:46 - PA / [employer] / Resident Statement SUJIT has reviewed & agrees with the documentation as recorded. SUJIT has examined the patient and agrees with the treatment plan. <Gerardo Artis - Last Filed: 02/20/18 14:55> Disposition/Present on Arrival - Present on Arrival History of DVT/PE: No History of Uncontrolled Diabetes: No Urinary Catheter: No History of Decub. Ulcer: No History Surgical Site Infection Following: None <Gerardo Artis - Last Filed: 02/20/18 14:55> - Present on Arrival Any Indicators Present on Arrival: No - Disposition Have Diagnosis and Disposition been Completed?: Yes Disposition Time: 11:00 Patient Plan: Admission <Beatris Katz - Last Filed: 02/21/18 07:32> - Disposition Diagnosis: Umbilical hernia, Cellulitis, umbilical, Ascites Disposition: HOME/ ROUTINE Condition: FAIR
[2018-02-20 10:23] LABS: BASO # 0.11 K/mm3 (0.0-2.0); BASO % 2.9 % (0.0-3.0); EOS # 0.1 (0.0-0.7); EOS % 2.6 % (1.5-5.0); GRAN # 1.93 (1.4-6.5); GRAN % 50.8 % (50.0-68.0); HEMOGLOBIN 11.2 g/dL (12.0-16.0); LYMPH % 26.1 % (22.0-35.0); MEAN CELL VOLUME 86.2 fl (80.0-105.0); MEAN CORPUSCULAR HEMOGLOBIN 28.7 pg (25.0-35.0); MEAN CORPUSCULAR HGB CONC 33.3 g/dl (31.0-37.0); MONO # 0.7 (0.1-0.6); MONO % 17.6 % (1.0-6.0); RED CELL DISTRIBUTION WIDTH 17.2 % (11.5-14.5); WHITE BLOOD COUNT 3.8 10^3/ul (4.5-11.0)
[2018-02-20 10:26] LABS: INR 1.48 (0.93-1.08); PARTIAL THROMBOPLASTIN TIME 34.8 Seconds (25.1-36.5); PROTHROMBIN TIME 17.1 SECONDS (9.4-12.5)
[2018-02-20 10:31] LABS: PLATELET COUNT 35 10^3/uL (120.0-450.0)
--- NOTE | 2018-02-20 10:38 | CT ---
Date of service: 02/20/2018 PROCEDURE: CT Abdomen and Pelvis without intravenous contrast HISTORY: evaluate umbilical hernia COMPARISON: 01/27/2018 TECHNIQUE: Without contrast.. Contrast dose: Radiation dose: Total exam DLP = 311 mGy-cm. This CT exam was performed using one or more of the following dose reduction techniques: Automated exposure control, adjustment of the mA and/or kV according to patient size, and/or use of iterative reconstruction technique. FINDINGS: LOWER THORAX: Unremarkable. LIVER: There is cirrhosis with moderate ascites GALLBLADDER AND BILE DUCTS: Multiple gallstones PANCREAS: Unremarkable. No gross lesion or ductal dilatation. SPLEEN: Unremarkable. ADRENALS: Unremarkable. No mass. KIDNEYS AND URETERS: Unremarkable. No hydronephrosis. No solid mass. VASCULATURE: Unremarkable. No aortic aneurysm. BOWEL: Unremarkable. No obstruction. No gross mural thickening. APPENDIX: Unremarkable. Normal appendix. PERITONEUM: Moderate ascites. There are 2 small separate umbilical periumbilical hernias containing ascites fluid. There is no bowel herniation LYMPH NODES: Unremarkable. No enlarged lymph nodes. BLADDER: Unremarkable. REPRODUCTIVE: Unremarkable. BONES: No acute fracture. OTHER FINDINGS: None. IMPRESSION: Moderate ascites. There are 2 small separate umbilical periumbilical hernias containing ascites fluid. There is no bowel herniation Cirrhosis Gallstones
[2018-02-20 10:41] LABS: ALB/GLOB RATIO 0.6 (1.1-1.8); ALBUMIN 2.8 g/dL (3.0-4.8); ALT/SGPT 15 U/L (7-56); AST/SGOT 43 U/L (14-36); BLOOD UREA NITROGEN 7 mg/dL (7-21); CALCIUM 8.2 mg/dL (8.4-10.5); GFR AFRICAN-AMERICAN > 60; GFR NON-AFRICAN AMERICAN > 60
[2018-02-20 11:07] LABS: PLATELET ESTIMATE LOW (NORMAL)
--- NOTE | 2018-02-20 12:37 | RAD ---
Date of service: 02/20/2018 PROCEDURE: CHEST RADIOGRAPH, 1 VIEW HISTORY: sob COMPARISON: 01/27/2018 FINDINGS: LUNGS: Clear. PLEURA: No pneumothorax or pleural fluid seen. CARDIOVASCULAR: Normal. OSSEOUS STRUCTURES: No significant abnormalities. VISUALIZED UPPER ABDOMEN: Normal. OTHER FINDINGS: None. IMPRESSION: No active disease.
[2018-02-20] MEDS ORDERED: cefTRIAXone 1 gm 1 GM/100 ML BAG IVPB STA (13:09)
--- NOTE | 2018-02-20 14:02 | CP.PCM.HP ---
<DustinKings - Last Filed: 02/20/18 15:09> History of Present Illness - History of Present Illness History of Present Illness: [facility] Resident- H and P for Hospitalist Service Subjective: CC: Abdominal fluid leakage HPI: Patient is a 57 year old female with a past medical history of hypercholesterolemia, hypothyroidism, Heaptitis C and liver cirrhosis who presents for evaluation and treatment of nonbloody leakage from her umbilical hernia. States she noticed the leakage this morning. Admits to saturating her clothing. Denies any provoking event. No associated abdominal pain, nausea, vomiting, diarrhea, constipation. Admits to having endoscopy completed last week which is endorsed to reveal moderate portal hypertensive gastropathy, and a CT abd/pelvis completed last month revealing ESLD, ascites, and gallbladder distension with calcified gallstones. Further denies fever, chills, chest pain, shortness of breath, and urinary symptoms. Past medical history: hypercholesterolemia, hypothyroidism, Hep C, liver cirrhosis Past surgical history: Denies Allergies: Denies Family History- denies GI cancers Social: Smokes 1 cigarette daily since she was 13. Former Heroin Abuse. Takes Methadone 35mg PO daily From [facility] in [place] Medications: please see MAR PMD: Dr. Byrd Pharmacy: Patient cannot recall at time of admission 12 point negative except as indicated in HPI Physical Examination: - Constitutional Appears: Well, No Acute Distress - Head Exam Head Exam: ATRAUMATIC, NORMAL INSPECTION - Eye Exam Eye Exam: Normal appearance, EOMI, no scleral icterus - ENT Exam ENT Exam: Mucous Membranes Dry - Respiratory Exam Respiratory Exam: Expiratory Wheezing bilateral lower lobes - Cardiovascular Exam Cardiovascular Exam: REGULAR RATE AND RHYTHM, +S1, +S2 - GI/Abdominal Exam GI & Abdominal Exam: Distended, umbilical hernia with persistent nonbloody, straw colored fluid discharge, erythematous skin surrounding hernia, no guarding , no rebound tenderness, + fluid wave - Extremities Exam Extremities Exam: Edema bilateral lower extremities - Neurological Exam Neurological Exam: Alert, Awake, Oriented x 3, responds to verbal stimuli, answers questions appropriately, follows commands, and moves extremities past midline - Skin Skin Exam: Dry, Jaundice, Warm, Spider Angiomas on chest, chronic dermatitis changes on lower extremities 2/2 edema Assessment and Plan: Patient is a 57 year old female with a past medical history of hypercholesterolemia, hypothyroidism, Heaptitis C and liver cirrhosis who was admitted for evaluation and treatment of leakage from her umbilical hernia. In the Ed the patient was given ceftriaxone and completed a CT of abdomen and pelvis which revealed moderate ascites, 2 small separate umbilical periumbilical hernias containing ascites fluid, no bowel herniation, cirrhosis, and gallstones. Umbical/Periumbilical Hernia - general surgery consulted- appreciate recommendations Cellutlic Changes Around Hernia - given rocephin in ED - zosyn - demaracate affected area- monitor for spread Hepatitis C/ ESLD/ Ascities - continue home lasix and spironolactone - no need to paracentesis at this time due to self drainage through umbilical hernia - follow up with [facility] appt upon discharge - MELD on admission is 13- associated with 6.0% Estimated 3-Month Mortality - Maddrey's Discriminant Function for Alcoholic Hepatitis 22.5 points; > 32 points indicates poor prognosis and patient may benefit from glucocorticoid therapy Asymptomatic Anemia - hemoglobin reviewed, trended, and appreciated- at baseline - will continue to monitor via CBC Thrombocytopenia - platelets reviewed, trended, and appreciated- at baseline - no acute signs of bleeding- no need to transfusion at this time - continue to monitor via CBC Leukopenia - no fevers, no chills - will monitor closely via CBC Prophylaxis - DVT ppx- scds - GI ppx- not indicated Patient seen, case reviewed with, and plan approved by attending physician, Dr. Ferreira. Present on Admission - Present on Admission Any Indicators Present on Admission: No Past Patient History - Infectious Disease Hx of Infectious Diseases: None - Tetanus Immunizations Tetanus Immunization: Unknown - Past Social History Smoking Status: Former Smoker - CARDIAC Hx Pacemaker: No - PULMONARY Hx Pneumonia: Yes - NEUROLOGICAL Hx Neurological Disorder: No - HEENT Hx HEENT Problems: No - RENAL Hx Chronic Kidney Disease: Yes - ENDOCRINE/METABOLIC Hx Hypothyroidism: Yes - HEMATOLOGICAL/ONCOLOGICAL Hx Blood Transfusions: Yes Hx Blood Transfusion Reaction: No - INTEGUMENTARY Hx Dermatological Problems: No - MUSCULOSKELETAL/RHEUMATOLOGICAL Hx Musculoskeletal Disorders: No - GASTROINTESTINAL Other/Comment: abdominal hernia - GENITOURINARY/GYNECOLOGICAL Hx Genitourinary Disorders: No - PSYCHIATRIC Hx Emotional Abuse: No Hx Physical Abuse: No Hx Substance Use: Yes (currently takes methadone 35mg) - SURGICAL HISTORY Other/Comment: paracenthesis - ANESTHESIA Hx Anesthesia Reactions: No Hx Malignant Hyperthermia: No Meds Home Medications: Home Medication List Medication Instructions Recorded Confirmed Type Albuterol 0.083% [Albuterol 3 ml IH Q6H 30 Days neb 02/25/18 Rx Sulfate 3 Ml] Allergies/Adverse Reactions: Allergies Allergy/AdvReac Type Severity Reaction Status Date / Time No Known Allergies Allergy Verified 01/26/18 23:15 Results - Vital Signs Recent Vital Signs: Last Vital Signs Temp 97.6 F 02/20/18 07:59 Pulse 75 02/20/18 13:22 Resp 19 02/20/18 13:22 BP 106/70 02/20/18 13:22 Pulse Ox 97 02/20/18 13:22 - Labs Result Diagrams: 02/20/18 09:08 02/20/18 09:08 <Ann Ferreira - Last Filed: 02/28/18 07:59> Results - Vital Signs Recent Vital Signs: Last Vital Signs Temp 97.8 F 02/25/18 08:52 Pulse 74 02/25/18 10:00 Resp 20 02/25/18 08:52 BP 119/68 02/25/18 09:35 Pulse Ox 100 02/25/18 08:52 - Labs Result Diagrams: 02/25/18 06:30 02/25/18 06:30 Attending/Attestation - Attestation I have personally seen and examined this patient.: Yes I have fully participated in the care of the patient.: Yes I have reviewed all pertinent clinical information: Yes Notes (Text): 02/28/18 07:55 Attending note; Patient seen and examined with resident in ER. Patient is a 57 year old female with a past medical history of hypercholesterolemia, hypothyroidism, Heaptitis C and liver cirrhosis, recurrent ascites is admitted for the evaluation and treatment of nonbloody leakageof ascitic fluid from her umbilical hernia. Mild erythema noted in the skin area. Patient was evaluated by surgery. Will follow-up with plan. Patient is afebrile and nontoxic. Started on IV Zosyn. Monitor closely. Pancytopenia; chronic .secondary to advanced liver disease. Monitor closely. No active bleeding. Patient with a history of hep C and cirrhosis and recurrent ascites. Needs follow-up with [facility]. 02/28/18 07:59
--- NOTE | 2018-02-20 15:42 | CP.PCM.CON ---
<Alissa Johnson - Last Filed: 02/20/18 22:12> History of Present Illness - History of Present Illness History of Present Illness: Patient is a 57 year old female with a past medical history of hypercholesterolemia, hypothyroidism, Hepatitis C and liver cirrhosis with ascites who presents c/o pressurized non-bloody serous fluid discharge from her umbilical hernia. The patient denies any abdominal pain, n/v, f/c. She states that the fluid began to come out this morning and has been constant since then. She states that if possible she would like to be able to make her appointment at [facility] tomorrow morning. PMH: COPD, Hep C, liver Cirrhosis, HLD, hypothyroidism PSH: none Allergies: NKDA Social: smoker, former heroin abuse (on methadone) Review of Systems - Review of Systems All systems: reviewed and no additional remarkable complaints except Review of Systems: as per HPI Past Patient History - Infectious Disease Hx of Infectious Diseases: None - Tetanus Immunizations Tetanus Immunization: Unknown - Past Social History Smoking Status: Former Smoker - CARDIAC Hx Pacemaker: No - PULMONARY Hx Pneumonia: Yes - NEUROLOGICAL Hx Neurological Disorder: No - HEENT Hx HEENT Problems: No - RENAL Hx Chronic Kidney Disease: Yes - ENDOCRINE/METABOLIC Hx Hypothyroidism: Yes - HEMATOLOGICAL/ONCOLOGICAL Hx Blood Transfusions: Yes Hx Blood Transfusion Reaction: No - INTEGUMENTARY Hx Dermatological Problems: No - MUSCULOSKELETAL/RHEUMATOLOGICAL Hx Musculoskeletal Disorders: No - GASTROINTESTINAL Other/Comment: abdominal hernia - GENITOURINARY/GYNECOLOGICAL Hx Genitourinary Disorders: No - PSYCHIATRIC Hx Emotional Abuse: No Hx Physical Abuse: No Hx Substance Use: Yes (currently takes methadone 35mg) - SURGICAL HISTORY Other/Comment: paracenthesis - ANESTHESIA Hx Anesthesia Reactions: No Hx Malignant Hyperthermia: No Meds Allergies/Adverse Reactions: Allergies Allergy/AdvReac Type Severity Reaction Status Date / Time No Known Allergies Allergy Verified 01/26/18 23:15 - Medications Medications: Current Medications Albuterol/Ipratropium (Duoneb 3 Mg/0.5 Mg (3 Ml) Ud) 3 ml IH [id number] JOSE J Amlodipine Besylate (Norvasc) 10 mg PO DAILY JOSE J Furosemide (Lasix) 40 mg PO DAILY JOSE J Piperacillin Sod/Tazobactam Sod (Zosyn 3.375 In Ns 100ml) 100 mls @ 200 mls/hr IVPB Q6 JOSE J PRN Reason: Protocol Stop: 02/21/18 00:29 Spironolactone (Aldactone) 100 mg PO DAILY [facility] Vitamin B Complex/Vit C/Folic Acid (Nephro-Rimma) 1 tab PO 0800 [facility] Physical Exam - Constitutional Appears: No Acute Distress, Cachectic, Chronically Ill - ENT Exam ENT Exam: Mucous Membranes Moist - Respiratory Exam Respiratory Exam: Wheezes, NORMAL BREATHING PATTERN - GI/Abdominal Exam GI & Abdominal Exam: Distended, Hernia, Soft. absent: Firm, Guarding, Mass, Rebound, Rigid, Tenderness Additional comments: enlarged veins consistent with liver cirrhosis are present, copious serous fluid is spurting from the surface of the hernia - Extremities Exam Extremities exam: Positive for: tenderness, pedal pulses present. Negative for : calf tenderness, pedal edema - Neurological Exam Neurological exam: Alert, Oriented x3 - Psychiatric Exam Psychiatric exam: Normal Affect, Normal Mood - Skin Skin Exam: Dry, Erythema, Intact, Warm Additional comments: lower extremeties bilaterally have increasing erythema distally, patient is mildly jaundiced with yellowing of sclera and inferior tongue surface Results - Vital Signs Recent Vital Signs: Last Vital Signs Temp 97.6 F 02/20/18 07:59 Pulse 75 02/20/18 13:22 Resp 19 02/20/18 13:22 BP 106/70 02/20/18 13:22 Pulse Ox 97 02/20/18 13:22 - Labs Result Diagrams: 02/20/18 09:08 02/20/18 09:08 Assessment & Plan - Assessment and Plan (Free Text) Assessment: 57 yr old female with ascites 2/2 liver cirrhosis with umbilical hernia fluid discharge Plan: - CT shows fluid filled hernia with no involvement of the bowel - Patient is experiencing no pain on exam and hernia is easily reducible - Place colostomy device over umbilical hernia to collect output - will plan to stitch opening closed when fluid output ceases. -Discussed plan with Dr. Jocy Smith, PGY 1 <Greg Sandra - Last Filed: 02/27/18 18:38> Results - Vital Signs Recent Vital Signs: Last Vital Signs Temp 97.8 F 02/25/18 08:52 Pulse 74 02/25/18 10:00 Resp 20 02/25/18 08:52 BP 119/68 02/25/18 09:35 Pulse Ox 100 02/25/18 08:52 - Labs Result Diagrams: 02/25/18 06:30 02/25/18 06:30 Attending/Attestation - Attestation I have personally seen and examined this patient.: Yes I have fully participated in the care of the patient.: Yes I have reviewed all pertinent clinical information: Yes Notes (Text): Pt was seen and examined at bedside Agree with above note and assessment Pt with Ascites with leak from open wound on umbilical hernia Labs and radiology reviewed Ass : Ascites and Open wound with leakage Plan : Paracentasis IV antibiotics Place stitch on wound after paracentasis f.u with Liver transplant center in [facility] Plan d.w pt in detail Risk and benefit explained in detail.
[2018-02-20 15:46] VITALS: BMI 25.4
[2018-02-20] MEDS: Piperacillin/Tazobact 3.375 gm 100 ML IVPB SCH ×2 (18:18→23:46)
[2018-02-20] MEDS ORDERED: guaiFENesin 600 mg ER Tab PO ONE (20:25)
[2018-02-20] MEDS: Albuterol-Ipratrop 3 mg / 0.5 (3 ml) UD IH SCH (20:35)
[2018-02-21] MEDS: Albuterol-Ipratrop 3 mg / 0.5 (3 ml) UD IH SCH ×4 (01:24→19:47)
[2018-02-21 07:20] LABS: BASO # 0.06 K/mm3 (0.0-2.0); BASO % 1.5 % (0.0-3.0); EOS # 0.1 (0.0-0.7); EOS % 3.4 % (1.5-5.0); GRAN # 2.21 (1.4-6.5); GRAN % 54.3 % (50.0-68.0); HEMOGLOBIN 10.5 g/dL (12.0-16.0); LYMPH # 1.2 (1.2-3.4); LYMPH % 28.3 % (22.0-35.0); MEAN CELL VOLUME 86.9 fl (80.0-105.0); MEAN CORPUSCULAR HEMOGLOBIN 28.1 pg (25.0-35.0); MEAN CORPUSCULAR HGB CONC 32.3 g/dl (31.0-37.0); MONO # 0.5 (0.1-0.6); MONO % 12.5 % (1.0-6.0); RBC 3.74 10^6/uL (3.5-6.1); RED CELL DISTRIBUTION WIDTH 17.2 % (11.5-14.5); WHITE BLOOD COUNT 4.1 10^3/ul (4.5-11.0)
[2018-02-21 07:22] LABS: ALB/GLOB RATIO 0.6 (1.1-1.8); ALBUMIN 2.3 g/dL (3.0-4.8); ALT/SGPT 16 U/L (7-56); AST/SGOT 30 U/L (14-36); BLOOD UREA NITROGEN 9 mg/dL (7-21); CALCIUM 8.1 mg/dL (8.4-10.5); GFR AFRICAN-AMERICAN > 60; GFR NON-AFRICAN AMERICAN > 60
[2018-02-21 07:39] LABS: PLATELET COUNT 28 10^3/uL (120.0-450.0)
[2018-02-21] MEDS: Multivitamin Vitamin B Complex (Nephro-Vite) Tab PO SCH (09:16)
--- NOTE | 2018-02-21 13:31 | CP.PCM.PN ---
Addendum entered and electronically signed by Kings Chan DO 02/21/18 13:55: Hx of COPD - clinically improved - continue with duonebs [id number] Hx of HTN - continue with amlodipine with holding parameters Original Note: <Kings Chan - Last Filed: 02/21/18 13:13> Subjective - Date & Time of Evaluation Date of Evaluation: 02/21/18 Time of Evaluation: 10:00 - Subjective Subjective: Subjective: Patient seen and examined at bedside. Resting comfortably in bed. No acute overnight events. Continues to experience nonbloody straw colored discharge from umbillical hernia. Estimates 4 full bags were drained since it was placed yesterday evening. Offers no new complaints at this time. Denies fever, chills, chest pain, shortness of breath, abdominal pain, nausea, vomiting, diarrhea, constipation, and urinary symptoms. 12 Point ROS negative except as indicated in HPI Physical Examination: - Constitutional Appears: Well, No Acute Distress - Head Exam Head Exam: ATRAUMATIC, NORMAL INSPECTION - Eye Exam Eye Exam: Normal appearance, EOMI, no scleral icterus - ENT Exam ENT Exam: Mucous Membranes Dry - Respiratory Exam Respiratory Exam: Expiratory Wheezing bilateral lower lobes - Cardiovascular Exam Cardiovascular Exam: REGULAR RATE AND RHYTHM, +S1, +S2 - GI/Abdominal Exam GI & Abdominal Exam: Distended, umbilical hernia with persistent nonbloody, straw colored fluid discharge, no guarding, no rebound tenderness, + fluid wave , colostomy bag surrounding umbilical hernia is in proper position - Extremities Exam Extremities Exam: Edema bilateral lower extremities - Neurological Exam Neurological Exam: Alert, Awake, Oriented x 3, responds to verbal stimuli, answers questions appropriately, follows commands, and moves extremities past midline - Skin Skin Exam: Dry, Jaundice, Warm, Spider Angiomas on chest, chronic dermatitis changes on lower extremities 2/2 edema Assessment and Plan: Patient is a 57 year old female with a past medical history of hypercholesterolemia, hypothyroidism, Heaptitis C and liver cirrhosis who was admitted for evaluation and treatment of leakage from her umbilical hernia. In the Ed the patient was given ceftriaxone and completed a CT of abdomen and pelvis which revealed moderate ascites, 2 small separate umbilical periumbilical hernias containing ascites fluid, no bowel herniation, cirrhosis, and gallstones. Umbical/Periumbilical Hernia - general surgery consulted- appreciate recommendations - recommendations include having paracentesis performed by IR followed by potential hernia repair vs. suturing Cellutlic Changes Around Hernia - c/w zosyn - demaracate affected area- monitor for spread Hepatitis C/ ESLD/ Ascities - continue home lasix and spironolactone - paracentesis to be performed by IR Asymptomatic Anemia - hemoglobin reviewed, trended, and appreciated- at baseline - will continue to monitor via CBC Thrombocytopenia - platelets reviewed, trended, and appreciated- at baseline - no acute signs of bleeding- no need to transfusion at this time - continue to monitor via CBC Leukopenia - no fevers, no chills - will monitor closely via CBC Prophylaxis - DVT ppx- scds - GI ppx- not indicated Patient seen, case reviewed with, and plan approved by attending physician, Dr. Chan. Objective - Vital Signs/Intake and Output Vital Signs (last 24 hours): Temp Pulse Resp BP Pulse Ox 98.2 F 95 H 18 113/77 94 L 02/21/18 06:00 02/21/18 06:00 02/21/18 06:00 02/21/18 09:16 02/21/18 06:00 Intake and Output: 02/21/18 02/21/18 06:59 18:59 Intake Total 640 Balance 640 - Medications Medications: Current Medications Albuterol/Ipratropium (Duoneb 3 Mg/0.5 Mg (3 Ml) Ud) 3 ml IH [id number] [facility] Last Admin: 02/21/18 07:16 Dose: 3 ml Amlodipine Besylate (Norvasc) 10 mg PO DAILY [facility] Last Admin: 02/21/18 09:16 Dose: 10 mg Furosemide (Lasix) 40 mg PO DAILY [facility] Last Admin: 02/21/18 09:16 Dose: 40 mg Spironolactone (Aldactone) 100 mg PO DAILY [facility] Last Admin: 02/21/18 09:15 Dose: 100 mg Vitamin B Complex/Vit C/Folic Acid (Nephro-Rimma) 1 tab PO 0800 [facility] Last Admin: 02/21/18 09:16 Dose: 1 tab - Labs Labs: 02/21/18 06:15 02/21/18 06:15 PT 17.1 SECONDS (9.4-12.5) H 02/20/18 09:08 INR 1.48 (0.93-1.08) H 02/20/18 09:08 APTT 34.8 Seconds (25.1-36.5) 02/20/18 09:08 <Fide Chan R - Last Filed: 02/21/18 16:08> Objective - Vital Signs/Intake and Output Vital Signs (last 24 hours): Temp Pulse Resp BP Pulse Ox 98.2 F 98 H 20 116/69 98 02/21/18 14:00 02/21/18 14:00 02/21/18 14:00 02/21/18 14:00 02/21/18 14:00 Intake and Output: 02/21/18 02/21/18 06:59 18:59 Intake Total 640 640 Balance 640 640 - Medications Medications: Current Medications Albuterol/Ipratropium (Duoneb 3 Mg/0.5 Mg (3 Ml) Ud) 3 ml IH [id number] [facility] Last Admin: 02/21/18 13:27 Dose: 3 ml Amlodipine Besylate (Norvasc) 10 mg PO DAILY [facility] Last Admin: 02/21/18 09:16 Dose: 10 mg Benzonatate (Tessalon Perles) 100 mg PO TID PRN PRN Reason: Cough Furosemide (Lasix) 40 mg PO DAILY [facility] Last Admin: 02/21/18 09:16 Dose: 40 mg Piperacillin Sod/Tazobactam Sod (Zosyn 3.375 In Ns 100ml) 100 mls @ 200 mls/hr IVPB Q6 JOSE J PRN Reason: Protocol Stop: 02/22/18 00:29 Lactulose (Enulose) 20 gm PO [facility] Spironolactone (Aldactone) 100 mg PO DAILY [facility] Last Admin: 02/21/18 09:15 Dose: 100 mg Vitamin B Complex/Vit C/Folic Acid (Nephro-Rimma) 1 tab PO 0800 [facility] Last Admin: 02/21/18 09:16 Dose: 1 tab - Labs Labs: 02/21/18 06:15 02/21/18 06:15 PT 17.1 SECONDS (9.4-12.5) H 02/20/18 09:08 INR 1.48 (0.93-1.08) H 02/20/18 09:08 APTT 34.8 Seconds (25.1-36.5) 02/20/18 09:08 Attending/Attestation - Attestation I have personally seen and examined this patient.: Yes I have fully participated in the care of the patient.: Yes I have reviewed all pertinent clinical information, including history, physical exam and plan: Yes Notes (Text): Patient seen and examined by me at 10:40AM with resident. Patient is new to me. Case discussed with Dr. Garcia. Case including HPI, physical exam, and physical assessment and plan discussed with resident. Agree with above with following additions/corrections. Patient is a 57-year-old female with past medical history significant for hypercholesterolemia, hypothyroidism, hepatitis C, liver cirrhosis, hypertension , and COPD that presented to the emergency room with leakage of abdominal fluid. Patient states that she is feeling about the same as she did on admission. Complains of some upper abdominal pain secondary to coughing. States she is having a lot of drainage from the abdominal umbilical hernia site. Patient denies chest pain. Patient denies any new shortness of breath and states that she is on home oxygen. No nausea or vomiting. No fevers or chills. No headaches or dizziness. No dysuria. Physical exam: Gen: Awake and alert sitting lying in bed in no acute distress HEENT: Normocephalic atraumatic, extraocular muscles intact, pupils equal reactive, positive mild scleral icterus, no pharyngeal erythema or exudate appreciated, neck is supple. Cardiovascular: Normal rhythm, normal S1-S2. No murmurs, rubs, or gallops appreciated Pulmonary: Normal respiratory effort. No rhonchi, rales or wheezing appreciated. Gastrointestinal: Soft, mild upper quadrant tenderness, positive distention, positive yellow fluid output from umbilical hernia site into ostomy bag, positive bowel sounds all 4 quadrants, no guarding Musculoskeletal: Moves all extremities, positive bilateral lower extremity pitting edema (chronic per patient) Central nervous system: AAO 3 Dermatologic: Skin warm and dry, positive bilateral lower extremity chronic skin color changes Assessment and plan: Patient is a 57-year-old female with past medical history significant for hypercholesterolemia, hypothyroidism, hepatitis C, liver cirrhosis, hypertension, and COPD that presented to the emergency room with leakage of abdominal fluid. 1. Ascitic drainage from umbilical hernia. Surgery following, recommendations appreciated. IR consult at for drainage of ascites. Possible suture once distention and drainage improves per surgical team. Continue with ostomy bag for now. 2. Cellulitis around the umbilical hernia site. Continue Zosyn for now. Monitor for improvement 3. End-stage liver disease with ascites secondary to chronic hepatitis C. Patient to follow-up with [facility] upon discharge with liver specialist. IR consulted for drainage of ascites. Continue Lasix and spironolactone. Continue home lactulose. 4. Pancytopenia. Likely secondary to end-stage liver disease. Platelets downtrending. No signs of active bleeding. Continue to monitor for now. 5. History of hypertension. Continue home Norvasc 6. History of COPD. Continue nebulizer treatments. Continue O2 via nasal cannula as needed 7. DVT prophylaxis. Pharmacological anticoagulation contraindicated secondary to thrombocytopenia. Continue with SCDs. Case was discussed in detail with the patient and chief medical director at bedside regarding current diagnosis and treatment plan
--- NOTE | 2018-02-21 15:42 | CP.PCM.PN ---
<Lyly Baer - Last Filed: 02/21/18 15:38> Subjective - Date & Time of Evaluation Date of Evaluation: 02/21/18 Time of Evaluation: 07:00 - Subjective Subjective: Surgery: Dr. Sandra Pt seen and examined. No acute overnight events. Continues to have spontaneous ascitic output from umbilical hernia. Denies abdominal pain or any other symptoms. Denies N/V, F/C. Objective - Vital Signs/Intake and Output Vital Signs (last 24 hours): Temp Pulse Resp BP Pulse Ox 98.2 F 98 H 20 116/69 98 02/21/18 14:00 02/21/18 14:00 02/21/18 14:00 02/21/18 14:00 02/21/18 14:00 Intake and Output: 02/21/18 02/21/18 06:59 18:59 Intake Total 640 640 Balance 640 640 - Medications Medications: Current Medications Albuterol/Ipratropium (Duoneb 3 Mg/0.5 Mg (3 Ml) Ud) 3 ml IH [id number] [facility] Last Admin: 02/21/18 13:27 Dose: 3 ml Amlodipine Besylate (Norvasc) 10 mg PO DAILY [facility] Last Admin: 02/21/18 09:16 Dose: 10 mg Benzonatate (Tessalon Perles) 100 mg PO TID PRN PRN Reason: Cough Furosemide (Lasix) 40 mg PO DAILY [facility] Last Admin: 02/21/18 09:16 Dose: 40 mg Piperacillin Sod/Tazobactam Sod (Zosyn 3.375 In Ns 100ml) 100 mls @ 200 mls/hr IVPB Q6 JOSE J PRN Reason: Protocol Stop: 02/22/18 00:29 Lactulose (Enulose) 20 gm PO HS [facility] Spironolactone (Aldactone) 100 mg PO DAILY [facility] Last Admin: 02/21/18 09:15 Dose: 100 mg Vitamin B Complex/Vit C/Folic Acid (Nephro-Rimma) 1 tab PO 0800 [facility] Last Admin: 02/21/18 09:16 Dose: 1 tab - Labs Labs: 02/21/18 06:15 02/21/18 06:15 PT 17.1 SECONDS (9.4-12.5) H 02/20/18 09:08 INR 1.48 (0.93-1.08) H 02/20/18 09:08 APTT 34.8 Seconds (25.1-36.5) 02/20/18 09:08 - Constitutional Appears: Well, No Acute Distress - Head Exam Head Exam: ATRAUMATIC, NORMOCEPHALIC - Eye Exam Eye Exam: Normal appearance - ENT Exam ENT Exam: Mucous Membranes Moist - Respiratory Exam Respiratory Exam: NORMAL BREATHING PATTERN - Cardiovascular Exam Cardiovascular Exam: RRR - GI/Abdominal Exam GI & Abdominal Exam: Distended, Soft. absent: Tenderness Additional comments: umbilical hernia with ostomy bag in place, clear ascitic fluid in bag - Extremities Exam Extremities Exam: absent: Tenderness - Neurological Exam Neurological Exam: Alert, Awake, Oriented x3 - Skin Skin Exam: Dry, Warm Assessment and Plan - Assessment and Plan (Free Text) Assessment: 57F with spontanoeous ascitic drainage from umbilical hernia Plan: - continue to monitor drainage - will place a suture over the umbilicus once abdominal distention & output is decreased - recommend IR eval for possible paracentesis to reduce spontaneous drainage - d/w Dr. Jocy Baer <Greg Sandra B - Last Filed: 02/27/18 18:57> Objective - Vital Signs/Intake and Output Vital Signs (last 24 hours): Temp Pulse Resp BP Pulse Ox 97.8 F 74 20 119/68 100 02/25/18 08:52 02/25/18 10:00 02/25/18 08:52 02/25/18 09:35 02/25/18 08:52 - Labs Labs: 02/25/18 06:30 02/25/18 06:30 PT 17.1 SECONDS (9.4-12.5) H 02/20/18 09:08 INR 1.48 (0.93-1.08) H 02/20/18 09:08 APTT 34.8 Seconds (25.1-36.5) 02/20/18 09:08 Attending/Attestation - Attestation I have fully participated in the care of the patient.: Yes I have reviewed all pertinent clinical information, including history, physical exam and plan: Yes Notes (Text): Pt ascitic fluid leak from umbilical hernia open wound Paracentasis today C.w current mx IV antibiotics Plan d.w pt in detail
[2018-02-21] MEDS: Piperacillin/Tazobact 3.375 gm 100 ML IVPB SCH (17:10)
[2018-02-21] MEDS ORDERED: guaiFENesin 600 mg ER Tab PO ONE (19:53)
[2018-02-22] MEDS: Piperacillin/Tazobact 3.375 gm 100 ML IVPB SCH (00:31)
[2018-02-22] MEDS: Albuterol-Ipratrop 3 mg / 0.5 (3 ml) UD IH SCH ×4 (02:32→19:46)
[2018-02-22 07:13] LABS: ALB/GLOB RATIO 0.6 (1.1-1.8); ALBUMIN 2.2 g/dL (3.0-4.8); ALT/SGPT 24 U/L (7-56); AST/SGOT 36 U/L (14-36); BLOOD UREA NITROGEN 12 mg/dL (7-21); CALCIUM 7.8 mg/dL (8.4-10.5); GFR AFRICAN-AMERICAN > 60; GFR NON-AFRICAN AMERICAN > 60
[2018-02-22 07:21] LABS: BASO # 0.04 K/mm3 (0.0-2.0); BASO % 1.1 % (0.0-3.0); EOS # 0.1 (0.0-0.7); EOS % 3.8 % (1.5-5.0); GRAN # 1.72 (1.4-6.5); GRAN % 46.4 % (50.0-68.0); HEMOGLOBIN 10.8 g/dL (12.0-16.0); LYMPH # 1.3 (1.2-3.4); LYMPH % 35.7 % (22.0-35.0); MEAN CELL VOLUME 87.4 fl (80.0-105.0); MEAN CORPUSCULAR HEMOGLOBIN 28.3 pg (25.0-35.0); MEAN CORPUSCULAR HGB CONC 32.4 g/dl (31.0-37.0); MONO # 0.5 (0.1-0.6); RBC 3.81 10^6/uL (3.5-6.1); RED CELL DISTRIBUTION WIDTH 17.4 % (11.5-14.5); WHITE BLOOD COUNT 3.7 10^3/ul (4.5-11.0)
[2018-02-22 07:26] LABS: PLATELET COUNT 32 10^3/uL (120.0-450.0)
--- NOTE | 2018-02-22 08:44 | CP.PCM.PN ---
Subjective - Date & Time of Evaluation Date of Evaluation: 02/22/18 Time of Evaluation: 08:41 - Subjective Subjective: General surgery progress note for Dr. Sandra Patient seen and examined this am. No acute events overnight per nursing,. Ascitic fluid output from umbilical hernia continues to be collected in ostomy appliance. Patient denies any abdominal pain, N/V,F/C. Objective - Vital Signs/Intake and Output Vital Signs (last 24 hours): Temp Pulse Resp BP Pulse Ox 98.3 F 97 H 18 118/77 98 02/22/18 06:00 02/22/18 06:00 02/22/18 06:00 02/22/18 06:00 02/22/18 06:00 Intake and Output: 02/22/18 02/22/18 06:59 18:59 Intake Total 360 Output Total 600 850 Balance -240 -850 - Medications Medications: Current Medications Albuterol/Ipratropium (Duoneb 3 Mg/0.5 Mg (3 Ml) Ud) 3 ml IH [id number] [facility] Last Admin: 02/22/18 07:13 Dose: 3 ml Amlodipine Besylate (Norvasc) 10 mg PO DAILY [facility] Last Admin: 02/21/18 09:16 Dose: 10 mg Benzonatate (Tessalon Perles) 100 mg PO TID PRN PRN Reason: Cough Last Admin: 02/22/18 08:07 Dose: 100 mg Furosemide (Lasix) 40 mg PO DAILY [facility] Last Admin: 02/21/18 09:16 Dose: 40 mg Lactulose (Enulose) 20 gm PO HS [facility] Last Admin: 02/21/18 21:47 Dose: 20 gm Spironolactone (Aldactone) 100 mg PO DAILY [facility] Last Admin: 02/21/18 09:15 Dose: 100 mg Vitamin B Complex/Vit C/Folic Acid (Nephro-Rimma) 1 tab PO 0800 [facility] Last Admin: 02/21/18 09:16 Dose: 1 tab - Labs Labs: 02/22/18 06:10 02/22/18 06:10 PT 17.1 SECONDS (9.4-12.5) H 02/20/18 09:08 INR 1.48 (0.93-1.08) H 02/20/18 09:08 APTT 34.8 Seconds (25.1-36.5) 02/20/18 09:08 - Constitutional Appears: Well, Non-toxic, Older Than Stated Age, Cachectic, Chronically Ill - Head Exam Head Exam: ATRAUMATIC, NORMOCEPHALIC - Eye Exam Additional comments: mild scleral icterus - ENT Exam ENT Exam: Mucous Membranes Moist - Respiratory Exam Respiratory Exam: NORMAL BREATHING PATTERN - GI/Abdominal Exam GI & Abdominal Exam: Distended, Soft, Hernia. absent: Guarding, Rigid, Tenderness, Rebound - Extremities Exam Extremities Exam: absent: Calf Tenderness, Pedal Edema - Neurological Exam Neurological Exam: Alert, Awake, Oriented x3 - Skin Skin Exam: Dry, Intact, Normal Color, Warm Additional comments: superficial abdominal veins are less prominent than on admission Assessment and Plan - Assessment and Plan (Free Text) Assessment: 60 yr old female with spontaneous ascitic fluid output from umbilical hernia Plan: - will continue to monitor drainage output - will place suture to close opening when drainage decreases - will follow up results of IR paracentesis -all further recs per Dr. Jocy Smith, PGY 1
[2018-02-22 08:47] LABS: PLATELET ESTIMATE LOW (NORMAL)
[2018-02-22] MEDS: Multivitamin Vitamin B Complex (Nephro-Vite) Tab PO SCH (09:13)
--- NOTE | 2018-02-22 20:49 | CP.PCM.PN ---
<Blas Orosco - Last Filed: 02/22/18 20:43> Subjective - Date & Time of Evaluation Date of Evaluation: 02/22/18 Time of Evaluation: 20:43 - Subjective Subjective: Blas Orosco PGY1 - Personal Injury Legal Assistant - Medicine Progress Note Patient was seen and evaluated at bedside this morning. Patient is doing well today, with no complaints overnight. Patient reports no bowel movement since admission, however she was able to pass more gas today. Patient reports continued clear yellow fluid leakage from umbilical hernia into ostomy bag. Patient says nurse will have to replace these bags a few times per day. Patient is tolerating diet without issue. Patient otherwise denies dizziness, fever, chills, shortness of breath, chest pain, nausea, vomiting and/or abdominal pain. Objective - Vital Signs/Intake and Output Vital Signs (last 24 hours): Temp Pulse Resp BP Pulse Ox 98 F 116 H 18 112/76 98 02/22/18 17:12 02/22/18 17:12 02/22/18 06:00 02/22/18 17:12 02/22/18 06:00 Intake and Output: 02/22/18 02/23/18 18:59 06:59 Output Total 850 1974 Balance -850 -1974 - Medications Medications: Current Medications Albuterol/Ipratropium (Duoneb 3 Mg/0.5 Mg (3 Ml) Ud) 3 ml IH [id number] [facility] Last Admin: 02/22/18 19:46 Dose: 3 ml Amlodipine Besylate (Norvasc) 10 mg PO DAILY [facility] Last Admin: 02/22/18 09:13 Dose: 10 mg Benzonatate (Tessalon Perles) 100 mg PO TID PRN PRN Reason: Cough Last Admin: 02/22/18 08:07 Dose: 100 mg Furosemide (Lasix) 40 mg PO DAILY [facility] Last Admin: 02/22/18 09:12 Dose: 40 mg Lactulose (Enulose) 20 gm PO HS [facility] Last Admin: 02/21/18 21:47 Dose: 20 gm Spironolactone (Aldactone) 100 mg PO DAILY [facility] Last Admin: 02/22/18 09:13 Dose: 100 mg Vitamin B Complex/Vit C/Folic Acid (Nephro-Rimma) 1 tab PO 0800 [facility] Last Admin: 02/22/18 09:13 Dose: 1 tab - Labs Labs: 02/22/18 06:10 02/22/18 06:10 PT 17.1 SECONDS (9.4-12.5) H 02/20/18 09:08 INR 1.48 (0.93-1.08) H 02/20/18 09:08 APTT 34.8 Seconds (25.1-36.5) 02/20/18 09:08 - Constitutional Appears: Well, Non-toxic, No Acute Distress - Head Exam Head Exam: ATRAUMATIC, NORMAL INSPECTION, NORMOCEPHALIC - Eye Exam Eye Exam: EOMI, Normal appearance. absent: Conjunctival injection, Scleral icterus - ENT Exam ENT Exam: Mucous Membranes Moist, Normal Exam - Neck Exam Neck Exam: Full ROM, Normal Inspection - Respiratory Exam Respiratory Exam: Clear to Ausculation Bilateral, NORMAL BREATHING PATTERN - Cardiovascular Exam Cardiovascular Exam: REGULAR RHYTHM. absent: Diastolic murmur, Gallop, JVD - GI/Abdominal Exam GI & Abdominal Exam: Distended, Soft, Hernia (ostomy bag attached to umbilical hernia with clear yellowish liquid. ), Normal Bowel Sounds. absent: Guarding, Tenderness - Extremities Exam Extremities Exam: absent: Calf Tenderness Additional comments: +1 pitting edema in bilateral lower extremities - Back Exam Back Exam: Full ROM, NORMAL INSPECTION - Neurological Exam Neurological Exam: Alert, Awake, Oriented x3 - Psychiatric Exam Psychiatric exam: Normal Affect, Normal Mood - Skin Skin Exam: Abrasion (dime-sized eschar on right lower extremity ), Dry, Intact, Warm. absent: Normal Color (Jaundiced with spider angiomas noted on chest) Assessment and Plan - Assessment and Plan (Free Text) Assessment: 57 year old female with a past medical history of hypercholesterolemia, hypothyroidism, Heaptitis C and liver cirrhosis who was admitted for evaluation and treatment of leakage from her umbilical hernia. CT of abdomen and pelvis which revealed moderate ascites, 2 small separate umbilical periumbilical hernias containing ascites fluid, no bowel herniation, cirrhosis, and gallstones. Umbical/Periumbilical Hernia - Pending paracentesis performed by IR followed by potential hernia repair vs. suturing, per surgery recommendations - IR consulted, recommendations appreciated - General surgery consulted, recommendations appreciated Tachycardia - Likely secondary to albuterol nebulizer - Place on portable tele for close monitor Cellutlic Changes Around Hernia, improved - Zosyn IVPB Q6 x2 bags, completed - Continue to monitor demaracated affected area for spread Hepatitis C/ESLD/ Ascities - Pending paracentesis to be performed by IR - Lower extremity doppler from 11/21/17: negative for DVT bilaterally - Continue home lasix and spironolactone - Continue Lactulose 20g PO HS JOSE J - Continue nephro-Vit Asymptomatic Anemia - Hemoglobin trending upward - Continue to monitor via CBC Thrombocytopenia, trending upward - Platelets reviewed, trended, and appreciated- at baseline - No acute signs of bleeding- no need to transfusion at this time - Continue to monitor via CBC Leukopenia - No fevers, no chills - Will monitor closely via CBC History of COPD, clinically improved - Continue Duonebs [id number] - Start Benzonatate PO TID PRN - Continue with Respiratory Therapist treatments History of Hypertension - Continue amlodipine, follow holding parameters - Continue to monitor DVT/ GI Prophylaxis - SCDs - GI ppx, not indicated Patient seen and case discussed with Attending Physician, Simi Ricardo PGY1 <Fide Chan R - Last Filed: 02/23/18 08:11> Objective - Vital Signs/Intake and Output Vital Signs (last 24 hours): Temp Pulse Resp BP Pulse Ox 98.3 F 85 19 124/84 97 02/22/18 22:00 02/23/18 06:00 02/22/18 22:00 02/22/18 22:00 02/22/18 22:00 Intake and Output: 02/23/18 02/23/18 06:59 18:59 Intake Total 460 Output Total 2225 Balance -1765 - Medications Medications: Current Medications Albuterol/Ipratropium (Duoneb 3 Mg/0.5 Mg (3 Ml) Ud) 3 ml IH [id number] [facility] Last Admin: 02/23/18 07:44 Dose: 3 ml Amlodipine Besylate (Norvasc) 10 mg PO DAILY [facility] Last Admin: 02/22/18 09:13 Dose: 10 mg Benzonatate (Tessalon Perles) 100 mg PO TID PRN PRN Reason: Cough Last Admin: 02/22/18 08:07 Dose: 100 mg Furosemide (Lasix) 40 mg PO DAILY [facility] Last Admin: 02/22/18 09:12 Dose: 40 mg Magnesium Sulfate/Dextrose (Magnesium Sulfate 1 Gm/100 Ml D5w) 1 gm in 100 mls @ 100 mls/hr IVPB ONCE ONE Stop: 02/23/18 09:03 Lactulose (Enulose) 20 gm PO HS [facility] Last Admin: 02/22/18 21:06 Dose: 20 gm Levalbuterol HCl (Xopenex) 0.63 mg IH [id number] PRN PRN Reason: Shortness of Breath Spironolactone (Aldactone) 100 mg PO DAILY [facility] Last Admin: 02/22/18 09:13 Dose: 100 mg Vitamin B Complex/Vit C/Folic Acid (Nephro-Rimma) 1 tab PO 0800 [facility] Last Admin: 02/22/18 09:13 Dose: 1 tab - Labs Labs: 02/23/18 07:30 02/22/18 22:11 PT 17.1 SECONDS (9.4-12.5) H 02/20/18 09:08 INR 1.48 (0.93-1.08) H 02/20/18 09:08 APTT 34.8 Seconds (25.1-36.5) 02/20/18 09:08 Attending/Attestation - Attestation I have personally seen and examined this patient.: Yes I have fully participated in the care of the patient.: Yes I have reviewed all pertinent clinical information, including history, physical exam and plan: Yes Notes (Text): Patient seen and examined by me at 11:05AM with resident 02/22/18. Case including HPI, physical exam, and physical assessment and plan discussed with resident. Agree with above with following additions/corrections. Patient states she feels ok. Feels the same as she did at admission. Still with a lot of drainage from the abdominal umbilical hernia site. NO abdominal pain today. Patient denies chest pain or shortness of breath. No nausea or vomiting. No fevers or chills. No headaches or dizziness. No dysuria. Physical exam: Gen: Awake and alert sitting lying in bed in no acute distress HEENT: Normocephalic atraumatic. Extraocular muscles intact, pupils equal reactive. Mild scleral icterus. No pharyngeal erythema or exudate appreciated. Neck is supple. Cardiovascular: Normal rhythm, normal S1-S2. No murmurs, rubs, or gallops appreciated Pulmonary: Normal respiratory effort. No rhonchi, rales or wheezing appreciated. Gastrointestinal: Soft, nontender, positive distention, positive yellow fluid output from umbilical hernia site into ostomy bag, positive bowel sounds all 4 quadrants, no guarding Musculoskeletal: Moves all extremities, positive bilateral lower extremity pitting edema (chronic per patient) Central nervous system: AAO 3 Dermatologic: Skin warm and dry, positive bilateral lower extremity chronic skin color changes Assessment and plan: Patient is a 57-year-old female with past medical history significant for hypercholesterolemia, hypothyroidism, hepatitis C, liver cirrhosis, hypertension, and COPD that presented to the emergency room with leakage of abdominal fluid. 1. Ascitic drainage from umbilical hernia. Surgery following, recommendations appreciated. Patient for paracentesis today. Possible suture once distention and drainage improves per surgical team. Continue with ostomy bag for now. 2. Cellulitis around the umbilical hernia site. Continue Zosyn for now. Continue to monitor. 3. End-stage liver disease with ascites secondary to chronic hepatitis C. Patient to follow-up with [facility] upon discharge with liver specialist. IR consulted for paracentesis. Continue Lasix and spironolactone. Continue home lactulose. 4. Pancytopenia. Likely secondary to end-stage liver disease. Platelets stabilized. No signs of active bleeding. Continue to monitor for now. 5. History of hypertension. Continue home Norvasc 6. History of COPD. Continue nebulizer treatments. Continue O2 via nasal cannula as needed 7. Sinus tachycardia. Likely secondary to nebulizer treatments. Monitor on tele for now. 8. DVT prophylaxis. Pharmacological anticoagulation contraindicated secondary to thrombocytopenia. Continue with SCDs. Case was discussed in detail with the patient and medical driver at bedside regarding current diagnosis and tyra
[2018-02-22] MEDS ORDERED: guaiFENesin-Codeine 100-10mg/5ml Syrup (5 ml) UD PO ONE (20:58)
[2018-02-22] MEDS ORDERED: Sodium Chloride 0.9% 1,000 ML IV ONE (22:13)
[2018-02-22 22:18] LABS: BASO # 0.06 K/mm3 (0.0-2.0); BASO % 0.7 % (0.0-3.0); EOS # 0.1 (0.0-0.7); EOS % 0.9 % (1.5-5.0); GRAN % 78.7 % (50.0-68.0); HEMOGLOBIN 11.6 g/dL (12.0-16.0); LYMPH # 0.9 (1.2-3.4); LYMPH % 10.7 % (22.0-35.0); MEAN CELL VOLUME 86.7 fl (80.0-105.0); MEAN CORPUSCULAR HEMOGLOBIN 28.5 pg (25.0-35.0); MEAN CORPUSCULAR HGB CONC 32.9 g/dl (31.0-37.0); MONO # 0.8 (0.1-0.6); RBC 4.07 10^6/uL (3.5-6.1); WHITE BLOOD COUNT 8.5 10^3/ul (4.5-11.0)
[2018-02-22 22:27] LABS: PLATELET COUNT 34 10^3/uL (120.0-450.0)
[2018-02-22 22:31] LABS: BLOOD UREA NITROGEN 13 mg/dL (7-21); CALCIUM 7.8 mg/dL (8.4-10.5); GFR AFRICAN-AMERICAN > 60; GFR NON-AFRICAN AMERICAN > 60
[2018-02-22 22:46] LABS: T4 5.6 ug/dL (5.5-11.0)
[2018-02-23] MEDS: Albuterol-Ipratrop 3 mg / 0.5 (3 ml) UD IH SCH ×2 (01:04→07:44)
--- NOTE | 2018-02-23 05:59 | CP.PCM.PN ---
<Blas Orosco - Last Filed: 02/23/18 16:49> Subjective - Date & Time of Evaluation Date of Evaluation: 02/23/18 Time of Evaluation: 05:58 - Subjective Subjective: Blas Orosco PYG1 -- Motorcycle Maker -- Medicine Progress Note Patient was seen at bedside this morning. Patient reports continued drainage of serous fluid from umbilical hernia into ostomy bag. Patient was able to tolerate dinner without issue, and admits to small bowel movement, but admits to being constipated. Patient says she had some cough with mucus production last night, improved with her breathing treatment. Patient was able to get out of bed without issue. ROS otherwise unremarkable for fever, chills, diarrhea, chest pain, palpitations, nausea, vomiting, headache, and/or shortness of breath. Objective - Vital Signs/Intake and Output Vital Signs (last 24 hours): Temp Pulse Resp BP Pulse Ox 98.3 F 113 H 19 124/84 97 02/22/18 22:00 02/22/18 22:00 02/22/18 22:00 02/22/18 22:00 02/22/18 22:00 Intake and Output: 02/22/18 02/23/18 18:59 06:59 Intake Total 460 Output Total 850 8138 Balance -850 -1762 - Medications Medications: Current Medications Albuterol/Ipratropium (Duoneb 3 Mg/0.5 Mg (3 Ml) Ud) 3 ml IH [id number] [facility] Last Admin: 02/23/18 01:04 Dose: 3 ml Amlodipine Besylate (Norvasc) 10 mg PO DAILY [facility] Last Admin: 02/22/18 09:13 Dose: 10 mg Benzonatate (Tessalon Perles) 100 mg PO TID PRN PRN Reason: Cough Last Admin: 02/22/18 08:07 Dose: 100 mg Furosemide (Lasix) 40 mg PO DAILY [facility] Last Admin: 02/22/18 09:12 Dose: 40 mg Lactulose (Enulose) 20 gm PO HS [facility] Last Admin: 02/22/18 21:06 Dose: 20 gm Levalbuterol HCl (Xopenex) 0.63 mg IH [id number] PRN PRN Reason: Shortness of Breath Spironolactone (Aldactone) 100 mg PO DAILY [facility] Last Admin: 02/22/18 09:13 Dose: 100 mg Vitamin B Complex/Vit C/Folic Acid (Nephro-Rimma) 1 tab PO 0800 [facility] Last Admin: 02/22/18 09:13 Dose: 1 tab - Labs Labs: 02/22/18 22:11 02/22/18 22:11 PT 17.1 SECONDS (9.4-12.5) H 02/20/18 09:08 INR 1.48 (0.93-1.08) H 02/20/18 09:08 APTT 34.8 Seconds (25.1-36.5) 02/20/18 09:08 - Constitutional Appears: Non-toxic, No Acute Distress - Head Exam Head Exam: ATRAUMATIC, NORMAL INSPECTION, NORMOCEPHALIC - Eye Exam Eye Exam: Normal appearance. absent: Scleral icterus - ENT Exam ENT Exam: Mucous Membranes Moist, Normal Exam - Neck Exam Neck Exam: Full ROM, Normal Inspection. absent: Lymphadenopathy - Respiratory Exam Respiratory Exam: Clear to Ausculation Bilateral, NORMAL BREATHING PATTERN. absent: Wheezes, Respiratory Distress - Cardiovascular Exam Cardiovascular Exam: RRR. absent: Tachycardia, Diastolic murmur, Gallop, Irregular Rhythm, Murmur - GI/Abdominal Exam GI & Abdominal Exam: Firm, Hernia (umbilical hernia with ostomy bag filled with yellow clear drainage. No erythema. No abraisions. ), Normal Bowel Sounds. absent: Tenderness - Extremities Exam Extremities Exam: absent: Tenderness (+1 pitting edema in lower extremities bilaterally ) - Back Exam Back Exam: NORMAL INSPECTION. absent: tenderness - Neurological Exam Neurological Exam: Alert, Awake, CN II-XII Intact, Normal Gait, Oriented x3 - Psychiatric Exam Psychiatric exam: Normal Affect, Normal Mood - Skin Skin Exam: Dry, Intact, Normal Color (No jaundice), Warm Additional comments: Spider angiomas appreciated on chest Assessment and Plan - Assessment and Plan (Free Text) Assessment: Assessment: 57 year old female with a past medical history of hypercholesterolemia, hypothyroidism, Heaptitis C and liver cirrhosis who was admitted for evaluation and treatment of leakage from her umbilical hernia. CT of abdomen and pelvis which revealed moderate ascites, 2 small separate umbilical periumbilical hernias containing ascites fluid, no bowel herniation, cirrhosis, and gallstones. Umbical/periumbilical hernia with ascitic fluid drainage secondary to ESLD secondary to Hepatitis C - Pending paracentesis scheduled, to be performed by IR - Placement of suture following paracentesis, per general surgery - Lower extremity doppler from 11/21/17: negative for DVT bilaterally - Continue home lasix and spironolactone - Continue Lactulose 20g PO HS JOSE J - Continue nephro-Vit - General surgery and IR consulted, recommendations appreciated Cellutlic Changes Around Hernia, resolved - Zosyn IVPB Q6 x2 bags, completed - Continue to monitor demaracated affected area for spread Tachycardia, resolved - Likely secondary to duoneb - Discontinued duoneb - Start Xopenex - Continue to monitor via remote tele History of COPD, clinically improved - Discontinue duobeb - Start Xopenex - Continue Benzonatate Asymptomatic Anemia, improved - Likely anemia of chronic disease - Continue to monitor via CBC Thrombocytopenia - Platelets are stable, at baseline - Continue to monitor via CBC Leukopenia, resolved - Continue to monitor History of Hypertension - Continue amlodipine, follow holding parameters - Continue to monitor DVT/ GI Prophylaxis - SCDs - GI ppx, not indicated Patient seen and case discussed with Attending Physician, Simi Ricardo PGY1 <Fide Chan R - Last Filed: 02/24/18 07:33> Objective - Vital Signs/Intake and Output Vital Signs (last 24 hours): Temp Pulse Resp BP Pulse Ox 97.3 F L 97 H 19 114/77 94 L 02/23/18 18:00 02/24/18 06:00 02/23/18 18:00 02/23/18 18:00 02/23/18 18:00 Intake and Output: 02/24/18 02/24/18 06:59 18:59 Intake Total 80 Output Total 672 Balance -592 - Medications Medications: Current Medications Amlodipine Besylate (Norvasc) 10 mg PO DAILY [facility] Last Admin: 02/23/18 09:25 Dose: 10 mg Benzonatate (Tessalon Perles) 100 mg PO TID PRN PRN Reason: Cough Last Admin: 02/22/18 08:07 Dose: 100 mg Docusate Sodium (Colace) 100 mg PO BID [facility] Last Admin: 02/23/18 17:33 Dose: 100 mg Furosemide (Lasix) 40 mg PO DAILY [facility] Last Admin: 02/23/18 09:23 Dose: 40 mg Guaifenesin/Dextromethorphan (Mucinex-Dm 600-30 Mg) 1 tab PO BID [facility] Last Admin: 02/23/18 19:30 Dose: 1 tab Lactulose (Enulose) 20 gm PO HS [facility] Last Admin: 02/23/18 21:15 Dose: 20 gm Levalbuterol HCl (Xopenex) 0.63 mg IH [id number] PRN PRN Reason: Shortness of Breath Last Admin: 02/23/18 22:22 Dose: 0.63 mg Spironolactone (Aldactone) 100 mg PO DAILY [facility] Last Admin: 02/23/18 09:22 Dose: 100 mg Vitamin B Complex/Vit C/Folic Acid (Nephro-Rimma) 1 tab PO 0800 [facility] Last Admin: 02/23/18 08:37 Dose: 1 tab - Labs Labs: 02/24/18 06:00 02/24/18 06:00 PT 17.1 SECONDS (9.4-12.5) H 02/20/18 09:08 INR 1.48 (0.93-1.08) H 02/20/18 09:08 APTT 34.8 Seconds (25.1-36.5) 02/20/18 09:08 Attending/Attestation - Attestation I have personally seen and examined this patient.: Yes I have fully participated in the care of the patient.: Yes I have reviewed all pertinent clinical information, including history, physical exam and plan: Yes Notes (Text): Patient seen and examined by me at 11:25AM with resident 02/23/18. Case including HPI, physical exam, and physical assessment and plan discussed with resident. Agree with above with following additions/corrections. Patient states she is feeling a little better today. Complains of not having a bowel movement. But states she did have a "very small bowel movement last night. " States she had some abdominal cramping yesterday when she felt like she needed to have a bowel movement. Patient denies chest pain or shortness of breath. No nausea or vomiting. No fevers or chills. No headaches or dizziness. No dysuria. Physical exam: Gen: Awake and alert sitting lying in bed in no acute distress HEENT: Normocephalic atraumatic. Extraocular muscles intact, pupils equal reactive. No scleral icterus. No pharyngeal erythema or exudate appreciated. Neck is supple. Cardiovascular: Normal rhythm, normal S1-S2. No murmurs, rubs, or gallops appreciated Pulmonary: Normal respiratory effort. No rhonchi, rales or wheezing appreciated. Gastrointestinal: Soft, nontender, positive distention, positive yellow fluid output from umbilical hernia site into ostomy bag, positive bowel sounds all 4 quadrants, no guarding Musculoskeletal: Moves all extremities, positive bilateral lower extremity pitting edema (chronic per patient) Central nervous system: AAO 3 Dermatologic: Skin warm and dry, positive bilateral lower extremity chronic skin color changes Assessment and plan: Patient is a 57-year-old female with past medical history significant for hypercholesterolemia, hypothyroidism, hepatitis C, liver cirrhosis, hypertension, and COPD that presented to the emergency room with leakage of abdominal fluid. 1. Ascitic drainage from umbilical hernia. Surgery following, recommendations appreciated. Unable to get paracentesis yesterday. Patient for paracentesis today. Possible suture once distention and drainage improves per surgical team. Continue with ostomy bag for now. 2. Cellulitis around the umbilical hernia site. Continue Zosyn. Continue to monitor. 3. End-stage liver disease with ascites secondary to chronic hepatitis C. Patient to follow-up with [facility] upon discharge with liver specialist. For paracentesis today. Continue Lasix and spironolactone. Continue home lactulose. 4. Pancytopenia. Likely secondary to end-stage liver disease. Stable. No signs of active bleeding. Continue to monitor for now. 5. History of hypertension. Continue home Norvasc 6. History of COPD. Continue nebulizer treatments. Continue O2 via nasal cannula as needed 7. Sinus tachycardia. Likely secondary to nebulizer treatments. Continue to monitor. 8. DVT prophylaxis. Pharmacological anticoagulation contraindicated secondary to thrombocytopenia. Continue with SCDs. Case was discussed in detail with the patient and medical accounts receivable specialist at bedside regarding current diagnosis and treatment plan.
[2018-02-23] MEDS ORDERED: POLYETHYLENE GLYCOL 3350 17 GM/Dose PACKET PO ONE (06:20)
[2018-02-23 07:59] LABS: BASO # 0.06 K/mm3 (0.0-2.0); BASO % 1.1 % (0.0-3.0); EOS # 0.2 (0.0-0.7); EOS % 3.6 % (1.5-5.0); GRAN # 2.92 (1.4-6.5); GRAN % 52.2 % (50.0-68.0); HEMOGLOBIN 10.9 g/dL (12.0-16.0); LYMPH # 1.8 (1.2-3.4); LYMPH % 31.8 % (22.0-35.0); MEAN CELL VOLUME 87.3 fl (80.0-105.0); MEAN CORPUSCULAR HEMOGLOBIN 28.3 pg (25.0-35.0); MEAN CORPUSCULAR HGB CONC 32.4 g/dl (31.0-37.0); MONO # 0.6 (0.1-0.6); MONO % 11.3 % (1.0-6.0); RBC 3.85 10^6/uL (3.5-6.1); WHITE BLOOD COUNT 5.6 10^3/ul (4.5-11.0)
[2018-02-23 08:03] LABS: PLATELET COUNT 33 10^3/uL (120.0-450.0)
[2018-02-23] MEDS ORDERED: Magnesium Sulfate 1 gm in D5W 1 GM/100 ML BAG IVPB ONE (08:04)
[2018-02-23 08:15] LABS: ALB/GLOB RATIO 0.6 (1.1-1.8); ALBUMIN 2.2 g/dL (3.0-4.8); ALT/SGPT 25 U/L (7-56); AST/SGOT 43 U/L (14-36); BLOOD UREA NITROGEN 12 mg/dL (7-21); CALCIUM 7.6 mg/dL (8.4-10.5); GFR AFRICAN-AMERICAN > 60; GFR NON-AFRICAN AMERICAN > 60
[2018-02-23] MEDS: Multivitamin Vitamin B Complex (Nephro-Vite) Tab PO SCH (08:37)
--- NOTE | 2018-02-23 12:15 | CARD ---
APPROVED REPORT Date of service: 02/22/2018 EKG Measurement Heart [id number] <Conclusion> Sinus tachycardia Otherwise normal ECG
--- NOTE | 2018-02-23 12:28 | CP.PCM.PN ---
Subjective - Date & Time of Evaluation Date of Evaluation: 02/23/18 Time of Evaluation: 12:25 - Subjective Subjective: General Surgery Progress Note for: Dr. Sandra Pt seen and examined this morning at bedside. Umbilical hernia site is continuing to drain and being collected in an ostomy bag. She denies any fevers , chills abd pain, nausea, or vomiting. She denies any acute overnight events. Objective - Vital Signs/Intake and Output Vital Signs (last 24 hours): Temp Pulse Resp BP Pulse Ox 98.3 F 85 19 119/62 97 02/22/18 22:00 02/23/18 06:00 02/22/18 22:00 02/23/18 09:25 02/22/18 22:00 Intake and Output: 02/23/18 02/23/18 06:59 18:59 Intake Total 460 Output Total 2225 Balance -1765 - Medications Medications: Current Medications Amlodipine Besylate (Norvasc) 10 mg PO DAILY [facility] Last Admin: 02/23/18 09:25 Dose: 10 mg Benzonatate (Tessalon Perles) 100 mg PO TID PRN PRN Reason: Cough Last Admin: 02/22/18 08:07 Dose: 100 mg Furosemide (Lasix) 40 mg PO DAILY [facility] Last Admin: 02/23/18 09:23 Dose: 40 mg Lactulose (Enulose) 20 gm PO HS [facility] Last Admin: 02/22/18 21:06 Dose: 20 gm Levalbuterol HCl (Xopenex) 0.63 mg IH [id number] PRN PRN Reason: Shortness of Breath Spironolactone (Aldactone) 100 mg PO DAILY [facility] Last Admin: 02/23/18 09:22 Dose: 100 mg Vitamin B Complex/Vit C/Folic Acid (Nephro-Rimma) 1 tab PO 0800 [facility] Last Admin: 02/23/18 08:37 Dose: 1 tab - Labs Labs: 02/23/18 07:30 02/23/18 07:30 PT 17.1 SECONDS (9.4-12.5) H 02/20/18 09:08 INR 1.48 (0.93-1.08) H 02/20/18 09:08 APTT 34.8 Seconds (25.1-36.5) 02/20/18 09:08 - Constitutional Appears: Well, Non-toxic, No Acute Distress - Head Exam Head Exam: ATRAUMATIC, NORMOCEPHALIC - Eye Exam Eye Exam: EOMI, Scleral icterus (mild) - Respiratory Exam Respiratory Exam: Clear to Ausculation Bilateral, NORMAL BREATHING PATTERN. absent: Accessory Muscle Use, Decreased Breath Sounds, Respiratory Distress - Cardiovascular Exam Cardiovascular Exam: REGULAR RHYTHM, +S1, +S2 - GI/Abdominal Exam GI & Abdominal Exam: Distended, Soft, Hernia (umbilical). absent: Firm, Guarding, Rigid Additional comments: Umbilical hernia has a small wound in the skin currently draining clear yellow fluid. - Neurological Exam Neurological Exam: Alert, Awake, Oriented x3 - Psychiatric Exam Psychiatric exam: Normal Affect, Normal Mood - Skin Skin Exam: Dry, Intact, Normal Color, Warm Assessment and Plan - Assessment and Plan (Free Text) Assessment: 60 yr old female with spontaneous ascitic fluid output from umbilical hernia Plan: - Will go for Paracentesis in the PM - f/u paracentesis report - figure 8 suture to close wound after pt returns from procedure - Further recs per Dr. Sandra
[2018-02-23] MEDS: guaiFENesin-DM 600-30 mg ER Tab PO SCH (19:30)
--- NOTE | 2018-02-23 20:36 | US ---
PROCEDURE: Limited abdominal ultrasound HISTORY: Ascites with abdominal pain PHYSICIAN(S): Manav Garcia MD. TECHNIQUE: Sonography of the abdomen was performed in all 4 quadrants. No significant ascites was appreciated No paracentesis was performed. IMPRESSION: No significant ascites appreciated on 4 quadrant limited abdominal ultrasound
[2018-02-23] MEDS: Levalbuterol 0.63 MG/3 ML Inhal Soln UD IH PRN (22:22)
[2018-02-23] MEDS ORDERED: Oxycodone/Acetaminophen 5/325 mg Tab PO ONE (22:31)
[2018-02-24] MEDS ORDERED: Alum-Mag Hydrox-Simethicone Susp (30 mL) PO ONE (02:13)
--- NOTE | 2018-02-24 06:26 | CP.PCM.PN ---
Subjective - Date & Time of Evaluation Date of Evaluation: 02/24/18 Time of Evaluation: 06:22 - Subjective Subjective: Blas Orosco PYG1 -- [place] -- Medicine Progress Note Patient was seen at bedside this morning. Patient reports continued drainage of serous fluid from umbilical hernia into ostomy bag. Per patient, umbilical hernia started to feel itchy and looked "reddish," as of last night. Patient was able to tolerate dinner without issue, and admits to large bowel movement, and no longer complains of constipation. Patient reports continued cough with mucus production last night. Patient was able to get out of bed without issue. ROS otherwise unremarkable for fever, chills, diarrhea, chest pain, palpitations , nausea, vomiting, headache, and/or shortness of breath. Objective - Vital Signs/Intake and Output Vital Signs (last 24 hours): Temp Pulse Resp BP Pulse Ox 97.3 F L 105 H 19 114/77 94 L 02/23/18 18:00 02/24/18 01:45 02/23/18 18:00 02/23/18 18:00 02/23/18 18:00 Intake and Output: 02/23/18 02/24/18 18:59 06:59 Output Total 350 Balance -350 - Medications Medications: Current Medications Amlodipine Besylate (Norvasc) 10 mg PO DAILY [facility] Last Admin: 02/23/18 09:25 Dose: 10 mg Benzonatate (Tessalon Perles) 100 mg PO TID PRN PRN Reason: Cough Last Admin: 02/22/18 08:07 Dose: 100 mg Docusate Sodium (Colace) 100 mg PO BID [facility] Last Admin: 02/23/18 17:33 Dose: 100 mg Furosemide (Lasix) 40 mg PO DAILY [facility] Last Admin: 02/23/18 09:23 Dose: 40 mg Guaifenesin/Dextromethorphan (Mucinex-Dm 600-30 Mg) 1 tab PO BID [facility] Last Admin: 02/23/18 19:30 Dose: 1 tab Lactulose (Enulose) 20 gm PO HS [facility] Last Admin: 02/23/18 21:15 Dose: 20 gm Levalbuterol HCl (Xopenex) 0.63 mg IH [id number] PRN PRN Reason: Shortness of Breath Last Admin: 07/18/18 22:22 Dose: 0.63 mg Spironolactone (Aldactone) 100 mg PO DAILY [facility] Last Admin: 02/23/18 09:22 Dose: 100 mg Vitamin B Complex/Vit C/Folic Acid (Nephro-Rimma) 1 tab PO 0800 [facility] Last Admin: 02/23/18 08:37 Dose: 1 tab - Labs Labs: 02/23/18 07:30 02/23/18 07:30 PT 17.1 SECONDS (9.4-12.5) H 02/20/18 09:08 INR 1.48 (0.93-1.08) H 02/20/18 09:08 APTT 34.8 Seconds (25.1-36.5) 02/20/18 09:08 - Constitutional Appears: Non-toxic, No Acute Distress - Head Exam Head Exam: ATRAUMATIC, NORMAL INSPECTION, NORMOCEPHALIC - Eye Exam Eye Exam: Normal appearance, PERRL Pupil Exam: NORMAL ACCOMODATION - ENT Exam ENT Exam: Mucous Membranes Moist, Normal Exam - Neck Exam Neck Exam: Full ROM, Normal Inspection. absent: Lymphadenopathy - Respiratory Exam Respiratory Exam: Wheezes (bilaterally in upper lung armstrong ), NORMAL BREATHING PATTERN. absent: Clear to Ausculation Bilateral - Cardiovascular Exam Cardiovascular Exam: RRR. absent: Diastolic murmur, Gallop Additional comments: spider angiomas appreciated on chest - GI/Abdominal Exam GI & Abdominal Exam: Hernia (site of hernia erythematous. No puss or exudate. Ostomy attached to hernia draining serous fluid ), Normal Bowel Sounds. absent : Distended, Guarding, Rigid, Tenderness - Extremities Exam Extremities Exam: Pedal Edema (left lower extremity with +1 pitting edema. Right lower extremity with +1 pitting edema.). absent: Tenderness - Back Exam Back Exam: NORMAL INSPECTION. absent: tenderness - Neurological Exam Neurological Exam: Alert, Awake, Normal Gait, Oriented x3 - Psychiatric Exam Psychiatric exam: Normal Affect, Normal Mood - Skin Skin Exam: Dry, Intact (No jaundice appreciated), Normal Color, Warm Assessment and Plan - Assessment and Plan (Free Text) Assessment: Assessment: 57 year old female with a past medical history of hypercholesterolemia, hypothyroidism, Heaptitis C and liver cirrhosis who was admitted for evaluation and treatment of leakage from her umbilical hernia. CT of abdomen and pelvis which revealed moderate ascites, 2 small separate umbilical periumbilical hernias containing ascites fluid, no bowel herniation, cirrhosis, and gallstones. Umbical/periumbilical hernia with ascitic fluid drainage secondary to ESLD secondary to Hepatitis C - No paracentesis was performed due to no significant ascites appreciated on 4 quadrant limited abdominal ultrasound, per IR - Follow up with general surgery regarding suture placement - Lower extremity doppler from 11/21/17: negative for DVT bilaterally - Continue home Lasix and spironolactone - Continue Lactulose 20g PO HS JOSE J - Continue nephro-Vit - General surgery and IR consulted, recommendations appreciated Hyponatremia - Likely secondary to dehydration - 500ml IV at 75mls/hr started - Monitor Productive cough secondary to COPD - Start Mucinex - Continue Xopenex - Continue Benzonatate Cellutlic Changes Around Hernia - Zosyn IVPB Q6 x2 bags, completed - Monitor demaracated affected area for spread Constipation, resolved - Discontinued Colace - Discontinued Miralax Tachycardia, resolved - Likely secondary to duoneb - Continue Xopenex - Continue to monitor via remote tele Asymptomatic Anemia, improved - Likely anemia of chronic disease - Continue to monitor via CBC History of thrombocytopenia - Platelets are stable, at baseline - Continue to monitor via CBC Leukopenia, resolved - Continue to monitor History of Hypertension - Continue amlodipine, follow holding parameters - Continue to monitor DVT/ GI Prophylaxis - SCDs - GI ppx, not indicated Patient seen and case discussed with Attending Physician, Dr. Dustin Mreino D.O. Blas Orosco PGY1
[2018-02-24 06:39] LABS: BASO # 0.08 K/mm3 (0.0-2.0); BASO % 1.3 % (0.0-3.0); EOS # 0.3 (0.0-0.7); EOS % 4.1 % (1.5-5.0); GRAN # 3.79 (1.4-6.5); GRAN % 60.2 % (50.0-68.0); HEMOGLOBIN 11.1 g/dL (12.0-16.0); LYMPH # 1.5 (1.2-3.4); LYMPH % 24.4 % (22.0-35.0); MEAN CELL VOLUME 85.6 fl (80.0-105.0); MEAN CORPUSCULAR HGB CONC 32.6 g/dl (31.0-37.0); MONO # 0.6 (0.1-0.6); RBC 3.97 10^6/uL (3.5-6.1); RED CELL DISTRIBUTION WIDTH 16.6 % (11.5-14.5); WHITE BLOOD COUNT 6.3 10^3/ul (4.5-11.0)
[2018-02-24 06:53] LABS: ALB/GLOB RATIO 0.6 (1.1-1.8); ALBUMIN 2.4 g/dL (3.0-4.8); ALT/SGPT 33 U/L (7-56); AST/SGOT 58 U/L (14-36); BLOOD UREA NITROGEN 14 mg/dL (7-21); CALCIUM 7.9 mg/dL (8.4-10.5); GFR AFRICAN-AMERICAN > 60; GFR NON-AFRICAN AMERICAN > 60; PLATELET COUNT 31 10^3/uL (120.0-450.0)
[2018-02-24] MEDS: Multivitamin Vitamin B Complex (Nephro-Vite) Tab PO SCH (08:22)
[2018-02-24] MEDS: guaiFENesin-DM 600-30 mg ER Tab PO SCH ×2 (09:33→17:29)
[2018-02-24] MEDS ORDERED: Sodium Chloride 0.9% 500 ML IV SCH (10:00)
--- NOTE | 2018-02-24 10:01 | CP.PCM.PN ---
Subjective - Date & Time of Evaluation Date of Evaluation: 02/24/18 Time of Evaluation: 09:58 - Subjective Subjective: General Surgery Progress Note for: Dr. Sandra Pt seen and examined this morning at bedside. Ascitic fluid continues to drain from umbilical hernia. She denies any fevers, chills abd pain, nausea, or vomiting. She denies any acute overnight events. Was supposed to go to IR for paracentesis but there was not enough abdominal fluid on US so paracentesis was put on hold at this time. Objective - Vital Signs/Intake and Output Vital Signs (last 24 hours): Temp Pulse Resp BP Pulse Ox 98 F 89 20 132/72 94 L 02/24/18 06:00 02/24/18 06:00 02/24/18 06:00 02/24/18 09:33 02/24/18 06:00 Intake and Output: 02/24/18 02/24/18 06:59 18:59 Intake Total 80 Output Total 672 Balance -592 - Medications Medications: Current Medications Amlodipine Besylate (Norvasc) 10 mg PO DAILY [facility] Last Admin: 02/24/18 09:33 Dose: 10 mg Benzonatate (Tessalon Perles) 100 mg PO TID PRN PRN Reason: Cough Last Admin: 02/22/18 08:07 Dose: 100 mg Furosemide (Lasix) 40 mg PO DAILY [facility] Last Admin: 02/24/18 09:33 Dose: 40 mg Guaifenesin/Dextromethorphan (Mucinex-Dm 600-30 Mg) 1 tab PO BID [facility] Last Admin: 02/24/18 09:33 Dose: 1 tab Lactulose (Enulose) 20 gm PO HS [facility] Last Admin: 02/23/18 21:15 Dose: 20 gm Levalbuterol HCl (Xopenex) 0.63 mg IH [id number] PRN PRN Reason: Shortness of Breath Last Admin: 02/23/18 22:22 Dose: 0.63 mg Ondansetron HCl (Zofran Inj) 4 mg IVP Q6H PRN PRN Reason: Nausea/Vomiting Last Admin: 02/24/18 08:22 Dose: 4 mg Spironolactone (Aldactone) 100 mg PO DAILY [facility] Last Admin: 02/24/18 09:33 Dose: 100 mg Vitamin B Complex/Vit C/Folic Acid (Nephro-Rimma) 1 tab PO 0800 JOSE J Last Admin: 02/24/18 08:22 Dose: 1 tab - Labs Labs: 02/24/18 06:00 02/24/18 06:00 PT 17.1 SECONDS (9.4-12.5) H 02/20/18 09:08 INR 1.48 (0.93-1.08) H 02/20/18 09:08 APTT 34.8 Seconds (25.1-36.5) 02/20/18 09:08 - Constitutional Appears: Well, Non-toxic, No Acute Distress - Head Exam Head Exam: ATRAUMATIC, NORMOCEPHALIC - Eye Exam Eye Exam: EOMI, Scleral icterus (mild) - Respiratory Exam Respiratory Exam: NORMAL BREATHING PATTERN. absent: Accessory Muscle Use, Respiratory Distress - Cardiovascular Exam Cardiovascular Exam: +S1, +S2 - GI/Abdominal Exam GI & Abdominal Exam: Distended (improving from previous exam), Soft, Normal Bowel Sounds. absent: Firm, Guarding, Rigid, Tenderness, Rebound Additional comments: Umbilical hernia has a small wound in the skin currently draining straw colored fluid. - Neurological Exam Neurological Exam: Alert, Awake, Oriented x3 - Psychiatric Exam Psychiatric exam: Normal Affect, Normal Mood - Skin Skin Exam: Dry, Intact, Normal Color, Warm Additional comments: Except for where noted above. Assessment and Plan - Assessment and Plan (Free Text) Assessment: 60yo F with spontaneous ascitic fluid output from umbilical hernia Plan: - Figure 8 stitch placed in small umbilical hernia opening - No further surgical intervention indicated at this time - Re-consult as needed - Discussed with Dr. Sandra
[2018-02-24] MEDS ORDERED: Lidocaine/Prilocaine 2.5%-2.5% Cream(30 gm) TOP STA (16:03)
[2018-02-24] MEDS: Levalbuterol 0.63 MG/3 ML Inhal Soln UD IH PRN (17:37)
[2018-02-25 06:59] LABS: BASO # 0.07 K/mm3 (0.0-2.0); EOS # 0.2 (0.0-0.7); EOS % 3.3 % (1.5-5.0); GRAN # 4.35 (1.4-6.5); GRAN % 62.7 % (50.0-68.0); HEMOGLOBIN 11.9 g/dL (12.0-16.0); LYMPH # 1.7 (1.2-3.4); LYMPH % 23.9 % (22.0-35.0); MEAN CELL VOLUME 85.5 fl (80.0-105.0); MEAN CORPUSCULAR HEMOGLOBIN 28.2 pg (25.0-35.0); MONO # 0.6 (0.1-0.6); MONO % 9.1 % (1.0-6.0); RBC 4.22 10^6/uL (3.5-6.1); RED CELL DISTRIBUTION WIDTH 16.4 % (11.5-14.5); WHITE BLOOD COUNT 6.9 10^3/ul (4.5-11.0)
[2018-02-25 07:15] LABS: ALB/GLOB RATIO 0.6 (1.1-1.8); ALBUMIN 2.5 g/dL (3.0-4.8); ALT/SGPT 42 U/L (7-56); AST/SGOT 82 U/L (14-36); BLOOD UREA NITROGEN 14 mg/dL (7-21); CALCIUM 8.1 mg/dL (8.4-10.5); GFR AFRICAN-AMERICAN > 60; GFR NON-AFRICAN AMERICAN 57
[2018-02-25 07:32] LABS: PLATELET COUNT 29 10^3/uL (120.0-450.0)
[2018-02-25 08:54] VITALS: BP 119/68; RESP 20; TEMP 97.8; O2SAT 100
[2018-02-25] MEDS: guaiFENesin-DM 600-30 mg ER Tab PO SCH (09:34)
[2018-02-25] MEDS: Multivitamin Vitamin B Complex (Nephro-Vite) Tab PO SCH (09:35)
[2018-02-25 09:43] LABS: PLATELET ESTIMATE 41 (NORMAL)
[2018-02-25] MEDS ORDERED: Enoxaparin 40 mg Syringe SC SCH (10:00)
[2018-02-25 11:18] VITALS: PULSE 74
--- NOTE | 2018-02-25 21:51 | CP.PCM.DIS ---
<Blas Orosco - Last Filed: 02/26/18 12:44> Provider - Provider Date of Admission: 02/20/18 13:10 Attending physician: Fide Chan DO Primary care physician: Dr. Byrd Consults: Surgery: Dr. Sandra Interventional Radiology: Dr. Garcia Time Spent in preparation of Discharge (in minutes): 45 Diagnosis - Discharge Diagnosis (1) Ascites Status: Chronic (2) Cellulitis, umbilical Status: Resolved (3) Umbilical hernia Status: Chronic Hospital Course - Lab Results Lab Results: Micro Results 02/20/18 13:42 Blood Blood Culture - Final NO GROWTH AFTER 5 DAYS 02/20/18 13:42 Blood Gram Stain - Final TEST NOT PERFORMED 02/20/18 13:23 Blood Blood Culture - Final NO GROWTH AFTER 5 DAYS 02/20/18 13:23 Blood Gram Stain - Final TEST NOT PERFORMED Most Recent Lab Values WBC 6.9 10^3/ul (4.5-11.0) 02/25/18 06:30 RBC 4.22 10^6/uL (3.5-6.1) 02/25/18 06:30 Hgb 11.9 g/dL (12.0-16.0) L 02/25/18 06:30 Hct 36.1 % (36.0-48.0) 02/25/18 06:30 MCV 85.5 fl (80.0-105.0) 02/25/18 06:30 MCH 28.2 pg (25.0-35.0) 02/25/18 06:30 MCHC 33.0 g/dl (31.0-37.0) 02/25/18 06:30 RDW 16.4 % (11.5-14.5) H 02/25/18 06:30 Plt Count 29 10^3/uL (120.0-450.0) L* 02/25/18 06:30 Manual Plt Count 41 K/mm3 (120-450) L* 02/25/18 08:50 Gran % 62.7 % (50.0-68.0) 02/25/18 06:30 Lymph % (Auto) 23.9 % (22.0-35.0) 02/25/18 06:30 [place] % (Auto) 9.1 % (1.0-6.0) H 02/25/18 06:30 Eos % (Auto) 3.3 % (1.5-5.0) 02/25/18 06:30 Baso % (Auto) 1.0 % (0.0-3.0) 02/25/18 06:30 Gran # 4.35 (1.4-6.5) 02/25/18 06:30 Lymph # (Auto) 1.7 (1.2-3.4) 02/25/18 06:30 [place] # (Auto) 0.6 (0.1-0.6) 02/25/18 06:30 Eos # (Auto) 0.2 (0.0-0.7) 02/25/18 06:30 Baso # (Auto) 0.07 K/mm3 (0.0-2.0) 02/25/18 06:30 Platelet Evaluation 41 (NORMAL) 02/25/18 06:30 PT 17.1 SECONDS (9.4-12.5) H 02/20/18 09:08 INR 1.48 (0.93-1.08) H 02/20/18 09:08 APTT 34.8 Seconds (25.1-36.5) 02/20/18 09:08 Sodium 129 mmol/L (132-148) L 02/25/18 06:30 Potassium 4.5 mmol/L (3.6-5.0) 02/25/18 06:30 Chloride 96 mmol/L (98-107) L 02/25/18 06:30 Carbon Dioxide 27 mmol/L (21-33) 02/25/18 06:30 Anion Gap 11 (10-20) 02/25/18 06:30 BUN 14 mg/dL (7-21) 02/25/18 06:30 Creatinine 1.0 mg/dl (0.7-1.2) 02/25/18 06:30 Est GFR ( Amer) > 60 02/25/18 06:30 Est GFR (Non-Af Amer) 57 02/25/18 06:30 Random Glucose 89 mg/dL (70-110) 02/25/18 06:30 Calcium 8.1 mg/dL (8.4-10.5) L 02/25/18 06:30 Phosphorus 3.6 mg/dL (2.5-4.5) 02/21/18 06:15 Magnesium 1.7 mg/dL (1.7-2.2) 02/24/18 06:00 Total Bilirubin 1.3 mg/dL (0.2-1.3) 02/25/18 06:30 AST 82 U/L (14-36) H D 02/25/18 06:30 ALT 42 U/L (7-56) 02/25/18 06:30 Alkaline Phosphatase 191 U/L (38-126) H D 02/25/18 06:30 Total Protein 7.0 g/dL (5.8-8.3) 02/25/18 06:30 Albumin 2.5 g/dL (3.0-4.8) L 02/25/18 06:30 Globulin 4.5 gm/dL 02/25/18 06:30 Albumin/Globulin Ratio 0.6 (1.1-1.8) L 02/25/18 06:30 Thyroxine (T4) 5.6 ug/dL (5.5-11.0) 02/22/18 22:11 TSH 3rd Generation 4.66 mIU/mL (0.46-4.68) 02/22/18 22:11 - Hospital Course Hospital Course: Blas Orosco D.O. PGY1 -- Discharge Summary Hospital Course 57 year old female with a past medical history of hypercholesterolemia, history of heroin abuse, hypothyroidism, Heaptitis C, and liver cirrhosis presents to the [facility] for nonbloody leakage from her umbilica hernia. Patient was subsequently admitted for admitted for evaluation and treatment of leakage from her umbilical hernia. CT of abdomen and pelvis was obtained, and revealed moderate ascites, 2 small separate umbilical periumbilical hernias containing ascites fluid, no bowel herniation, cirrhosis, and gallstones. Ostomy bag was placed and was replaced routinely to remove ascitic fluid. General Surgery was consulted, and recommended paracentesis prior to suture closure of the umbilical hernia site. Interventional Radiology (IR) was consulted. Abdominal ultrasound was obtained, and showed no significant ascites on 4 quadrant limited abdominal ultrasound, thus paracentesis was not performed, per IR recommendation. Thus, surgery closed the hernia site via suture and applied dressing to the site. On day of discharge patient denied any drainage or leakage from hernia site, and the dressing was dry and in tact. Patient was instructed to remove the dressing the following day and to follow-up with primary care physician for suture removal in 10 days, as per surgery recommendation. Of note, the patient complained of rash in the hernia site. The affected area was demarcated and observed for spread. Patient was treated for suspected cellulitis with antibiotics. On the day of discharge, the patient denied pain and/or irritation to umbilical hernia. Per surgery's report, the cellulitic changes have resolved. Patient was found to have chronic lower extremity edema. However, patient was asymptomatic, and lower extremity doppler from 11/21/2017 showed no DVT bilaterally. Thus, patient was continued on home meds with no further workup indicated at this time. Patient is to continue with home Lasix, Spironolactone, nephro-Vit, and Lactulose. Furthermore, the patient was diagnosed with hyponatremia likely secondary to dehydration. Patient was treated with 500ml IV at 75mls/hr, lasix were held for 2 days. On the day of discharge, hyponatremia resolved. Patient was instructed to hold dose of lasix for 1 day. Patient has history of thrombocytopenia. Platelets were monitored with daily CBC, and remained stable and at baseline. Patient has history of hypertension. Patient's blood pressure was monitored, and home meds were continued with holding parameters. Patient also complained of productive cough and sore throat likely secondary to underlying COPD secondary to history of smoking tobacco. Patient was started on duonebs, mucinex, and benzonatate. However, the patient was found to be tachycardic after treatment with duonebs. Thus, patient was placed on telemetry for monitoring. Duonebs were discontinued, and the patient was started on xopenex, which was well-tolerated. Patient is to follow-up with primary care physician as in out-patient to evaluate baseline with pulmonary function tests. On the day of discharge, the patient denied any serous drainage and/or puss from umbilical hernia. Ostomy bag was removed, and sutures were in tact. Patient denied any pain and had no complaints. Patient was able to tolerate dinner and have a bowel movement without issue. Patient was cleared by IR and general surgery for discharge to home with follow-up for suture removal in 10 days. Discharge Medications: Albuterol 3ml IH Q6H Amlodipine 10mg PO Daily Furosemide 40mg PO Daily Enulose 20mg PO Daily Methadone 35mg PO Daily Aldactone 100mg PO Daily Tramadol 50mg PO Q8H Multivitamin (Vitamin B complex, vitamin C, folic acid) 1 tab PO 0800 Patient seen and evaluated with Attending Physician César Ricardo PGY1 Discharge Exam - Head Exam Head Exam: ATRAUMATIC, NORMAL INSPECTION, NORMOCEPHALIC - Eye Exam Eye Exam: EOMI, Normal appearance. absent: Scleral icterus - ENT Exam ENT Exam: Mucous Membranes Moist, Normal Exam - Neck Exam Neck exam: Full Rom, Normal Inspection - Respiratory Exam Respiratory Exam: Wheezes ((bilaterally in upper lung armstrong) ), NORMAL BREATHING PATTERN - Cardiovascular Exam Cardiovascular Exam: RRR. absent: Diastolic murmur, Gallop, Rubs Additional comments: spider angiomas appreciated on chest - GI/Abdominal Exam GI & Abdominal Exam: Hernia (umbilical hernia appreciated with no erythema, puss , and/or discharge. ), Normal Bowel Sounds, Soft, Unremarkable. absent: Distended, Rebound, Rigid, Tenderness - Extremities Exam Extremities exam: pedal edema (bilateral lower extremities with +1 pitting edema , greater on the right. ) - Back Exam Back exam: NORMAL INSPECTION. absent: tenderness - Neurological Exam Neurological exam: Alert, CN II-XII Intact, Normal Gait, Oriented x3 - Psychiatric Exam Psychiatric exam: Normal Affect, Normal Mood - Skin Skin Exam: Dry, Intact, Normal Color (no jaundice appreciated on inspection ) Discharge Plan - Discharge Medications Prescriptions: Albuterol 0.083% [Albuterol Sulfate 3 Ml] 3 ml IH Q6H 30 Days neb - Follow Up Plan Condition: FAIR Disposition: HOME/ ROUTINE Instructions: Fluid in the Belly (Ascites), Umbilical Hernia, Adult, Cellulitis (DC), Cellulitis (GEN), Open Herniorrhaphy (DC), Laparoscopic Herniorrhaphy (DC), Inguinal Hernia (DC), Back Pain (GEN) Additional Instructions: - Follow up with Dr. Byrd on 02/28/18; you will need repeat blood work for your low sodium - May remove bandage tomorrow - Follow up with Dr. Byrd to remove suture in 10 days - Hold Lasix until 02/27/18 - Resume all other home medications as prescribed - Proceed to ED if symptoms return - Please make sure to follow up at [facility] for your liver Referrals: Saniya Byrd MD [Non-Staff] - <Fide Chan - Last Filed: 02/26/18 14:46> Provider - Provider Date of Admission: 02/20/18 13:10 Attending physician: Fide Chan, DO Hospital Course - Lab Results Lab Results: Micro Results 02/20/18 13:42 Blood Blood Culture - Final NO GROWTH AFTER 5 DAYS 02/20/18 13:42 Blood Gram Stain - Final TEST NOT PERFORMED 02/20/18 13:23 Blood Blood Culture - Final NO GROWTH AFTER 5 DAYS 02/20/18 13:23 Blood Gram Stain - Final TEST NOT PERFORMED Most Recent Lab Values WBC 6.9 10^3/ul (4.5-11.0) 02/25/18 06:30 RBC 4.22 10^6/uL (3.5-6.1) 02/25/18 06:30 Hgb 11.9 g/dL (12.0-16.0) L 02/25/18 06:30 Hct 36.1 % (36.0-48.0) 02/25/18 06:30 MCV 85.5 fl (80.0-105.0) 02/25/18 06:30 MCH 28.2 pg (25.0-35.0) 02/25/18 06:30 MCHC 33.0 g/dl (31.0-37.0) 02/25/18 06:30 RDW 16.4 % (11.5-14.5) H 02/25/18 06:30 Plt Count 29 10^3/uL (120.0-450.0) L* 02/25/18 06:30 Manual Plt Count 41 K/mm3 (120-450) L* 02/25/18 08:50 Gran % 62.7 % (50.0-68.0) 02/25/18 06:30 Lymph % (Auto) 23.9 % (22.0-35.0) 02/25/18 06:30 [place] % (Auto) 9.1 % (1.0-6.0) H 02/25/18 06:30 Eos % (Auto) 3.3 % (1.5-5.0) 02/25/18 06:30 Baso % (Auto) 1.0 % (0.0-3.0) 02/25/18 06:30 Gran # 4.35 (1.4-6.5) 02/25/18 06:30 Lymph # (Auto) 1.7 (1.2-3.4) 02/25/18 06:30 [place] # (Auto) 0.6 (0.1-0.6) 02/25/18 06:30 Eos # (Auto) 0.2 (0.0-0.7) 02/25/18 06:30 Baso # (Auto) 0.07 K/mm3 (0.0-2.0) 02/25/18 06:30 Platelet Evaluation 41 (NORMAL) 02/25/18 06:30 PT 17.1 SECONDS (9.4-12.5) H 02/20/18 09:08 INR 1.48 (0.93-1.08) H 02/20/18 09:08 APTT 34.8 Seconds (25.1-36.5) 02/20/18 09:08 Sodium 129 mmol/L (132-148) L 02/25/18 06:30 Potassium 4.5 mmol/L (3.6-5.0) 02/25/18 06:30 Chloride 96 mmol/L (98-107) L 02/25/18 06:30 Carbon Dioxide 27 mmol/L (21-33) 02/25/18 06:30 Anion Gap 11 (10-20) 02/25/18 06:30 BUN 14 mg/dL (7-21) 02/25/18 06:30 Creatinine 1.0 mg/dl (0.7-1.2) 02/25/18 06:30 Est GFR ( Amer) > 60 02/25/18 06:30 Est GFR (Non-Af Amer) 57 02/25/18 06:30 Random Glucose 89 mg/dL (70-110) 02/25/18 06:30 Calcium 8.1 mg/dL (8.4-10.5) L 02/25/18 06:30 Phosphorus 3.6 mg/dL (2.5-4.5) 02/21/18 06:15 Magnesium 1.7 mg/dL (1.7-2.2) 02/24/18 06:00 Total Bilirubin 1.3 mg/dL (0.2-1.3) 02/25/18 06:30 AST 82 U/L (14-36) H D 02/25/18 06:30 ALT 42 U/L (7-56) 02/25/18 06:30 Alkaline Phosphatase 191 U/L (38-126) H D 02/25/18 06:30 Total Protein 7.0 g/dL (5.8-8.3) 02/25/18 06:30 Albumin 2.5 g/dL (3.0-4.8) L 02/25/18 06:30 Globulin 4.5 gm/dL 02/25/18 06:30 Albumin/Globulin Ratio 0.6 (1.1-1.8) L 02/25/18 06:30 Thyroxine (T4) 5.6 ug/dL (5.5-11.0) 02/22/18 22:11 TSH 3rd Generation 4.66 mIU/mL (0.46-4.68) 02/22/18 22:11 Attending/Attestation - Attestation I have personally seen and examined this patient.: Yes I have fully participated in the care of the patient.: Yes I have reviewed all pertinent clinical information, including history, physical exam and plan: Yes Notes (Text): Patient seen and examined by me with resident at 09:50AM 02/25/18. Case including discharge plan discussed with resident. Agree with above with following additions/corrections Patient is a 57-year-old female with past medical history significant for hypercholesterolemia, hypothyroidism, hepatitis C, liver cirrhosis, hypertension , and COPD that presented to the emergency room with leakage of abdominal fluid from umbilical hernia. Please see dictated H&P for further details. Patient admitted to the hospital with umbilical hernia leakage, cellulitic changes around the hernia, hepatitis C, end-stage liver disease, ascites, asymptomatic anemia, thrombocytopenia, and leukopenia. Surgery was consulted. It was recommended that patient be sent to interventional radiology for drainage of ascites. Ostomy bag was placed over the umbilical hernia and fluid output was monitored. Patient continued to have leakage. Patient was seen by interventional radiology Paracentesis ultrasound showed no significant ascites on 4 quadrants limited abdominal ultrasound. No paracentesis was done. Surgical team placed a [id number] stitch in the small umbilical hernia opening. Fluid output resolved. Patient was cleared for discharge by surgical team. CT abdomen and pelvis per radiologist on admission showed moderate ascites, 2 small separate umbilical Conner umbilical hernias containing ascitic fluid, no bowel herniation, cirrhosis, and gallstones. Patient was initially treated with Zosyn for possible cellulitic changes around the hernia. This resolved. Patient was initially pancytopenic likely secondary to liver disease. Leukopenia resolved. H&H stable. Thrombocytopenia stable. Patient was continued on Lasix and spironolactone for end-stage liver disease with ascites secondary to chronic hepatitis C. Patient stated that she is following up with [facility] liver specialist upon discharge. She was also continued on home lactulose. She was continued on Norvasc for hypertension. Patient was continued on nebulizer treatments and O2 via nasal cannula for history of COPD. Patient was also found to have episodes of tachycardia secondary to use of albuterol nebulizer treatments. Patient also had constipation and was given MiraLAX. Patient then developed diarrhea which resolved. She was also found to have hypernatremia likely secondary to lactulose and Lasix. Patient was advised to hold Lasix for 2 days and to increase by mouth intake. Patient was advised to have repeat blood work done as an outpatient. Patient was doing well. Cleared for discharge by all consultants. Patient was discharged home. On day of discharge, patient was feeling well. No abdominal pain, nausea or vomiting. Patient having regular bowel movements. No diarrhea No headaches or dizziness. No fevers or chills. No dysuria. No chest pain or shortness of breath. Physical exam: Gen: Awake and alert lying in bed in no acute distress HEENT: Normocephalic atraumatic. Extraocular muscles intact, pupils equal reactive. Oropharynx is pink and moist, no pharyngeal erythema or exudate appreciated. Neck is supple. Cardiovascular: Normal rhythm, normal S1-S2. No murmurs, rubs or gallops appreciated Pulmonary: Normal respiratory effort. No rhonchi, rales or wheezing appreciated. Gastrointestinal: Soft, mildly distended, nontender, positive bowel sounds all 4 quadrants, no guarding. Dressing clean, dry, and intact Musculoskeletal: Normal range of motion all extremities, no calf tenderness, no CVA tenderness Central nervous system: AAO X 3, cranial nerves II through XII grossly intact, 5 /5 muscle strength all extremities Dermatologic: Skin warm and dry Please see chart for full details. Follow up instructions. Patient to follow-up with her primary care doctor Dr. Byrd on 02/28/2018. Patient will need repeat blood work for low sodium. Patient may remove Bandage tomorrow as per surgical team. Patient to have sutures removed in 10 days with her primary care doctor per surgical team. Patient to hold Lasix until 02/27/2018. Resume all other home medications. Patient to follow-up with [facility] for liver cirrhosis. Patient given written instructions. All instructions explained to the patient in detail. Patient both understand and agree to all instructions. Time spent in discharging the patient including chart review, medication reconciliation, discussion with the patient, medical laboratory specialist, consultants, and nursing staff was approximately 40 minutes.
== END 2018-02-25 13:02 | disposition home or self-care (01) | DRG 394 ==
LOC: ED 07:54 → ERH 13:10 → 5RNO 15:01 → 3RSO 02-22 21:44
PROVIDERS: ADMIT Internal Medicine; ATTEND Hospitalist
DX: K42.9 Umbilical hernia without obstruction or gangrene (principal); L03.316 Cellulitis of umbilicus; R18.8 Other ascites; D61.818 Other pancytopenia; E87.1 Hypo-osmolality and hyponatremia; F11.20 Opioid dependence, uncomplicated; E86.0 Dehydration; B18.2 Chronic viral hepatitis C; D63.8 Anemia in other chronic diseases classified elsewhere; E03.9 Hypothyroidism, unspecified; I12.9 Hypertensive chronic kidney disease with stage 1 through stage 4 chronic kidney disease, or unspecified chronic kidney disease; J44.9 Chronic obstructive pulmonary disease, unspecified; K74.60 Unspecified cirrhosis of liver; K80.20 Calculus of gallbladder without cholecystitis without obstruction; F17.210 Nicotine dependence, cigarettes, uncomplicated; E78.5 Hyperlipidemia, unspecified; K72.90 Hepatic failure, unspecified without coma; E78.00 Pure hypercholesterolemia, unspecified; K59.00 Constipation, unspecified; N18.9 Chronic kidney disease, unspecified; R00.0 Tachycardia, unspecified; Z87.01 Personal history of pneumonia (recurrent)

== ENCOUNTER 2018-11-28 13:14 | Inpatient (IN) | payer MEDICARE, MEDICAID ==
[2018-11-28 13:15] VITALS: BMI 24.7
[2018-11-28] MEDS ORDERED: Albuterol-Ipratrop 3 mg / 0.5 (3 ml) UD IH STA (14:00)
[2018-11-28] MEDS ORDERED: Magnesium Sulfate 1 gm in D5W 1 GM/100 ML BAG IVPB ONE (14:02)
--- NOTE | 2018-11-28 14:32 | ED PDOC ---
Arrival/HPI - General Chief Complaint: Shortness Of Breath Historian: Patient - History of Present Illness Narrative History of Present Illness (Text): 11/28/18 14:28 58 year old F with pmh of COPD, hypercholesterolemia, heroin abuse, hypothyroidism, Hepatitis C, and liver cirrhosis presents with chief complaint of shortness of breath w/cough x2days. Patient also mentions fever and chills yesterday but not currently. Patient is on 02 5L at home. Patient denies any headache, dizziness, chest pain, dyspnea on exertion, cough, abdominal pain, nausea, vomiting, diarrhea, back pain, neck pain, or any other complaint. Time/Duration: < week Symptom Onset: Sudden Symptom Course: Unchanged Activities at Onset: Light Context: Home Past Medical History - Infectious Disease Hx of Infectious Diseases: None - Tetanus Immunization Tetanus Immunization: Unknown - Reproductive Menopause: Yes - Cardiac Hx Pacemaker: No - Pulmonary Hx Respiratory Disorders: Yes Hx Pneumonia: Yes - Neurological Hx Neurological Disorder: No - HEENT Hx HEENT Disorder: No - Renal Hx Renal Disorder: Yes - Endocrine/Metabolic Hx Endocrine Disorders: Yes Hx Hypothyroidism: Yes - Hematological/Oncological Hx Blood Disorders: Yes Hx Blood Transfusions: Yes - Integumentary Hx Dermatological Disorder: No - Musculoskeletal/Rheumatological Hx Musculoskeletal Disorders: No - Gastrointestinal Hx Gastrointestinal Disorders: Yes Other/Comment: abdominal hernia. ascites. liver problems - Genitourinary/Gynecological Hx Genitourinary Disorders: Yes Hx Hematuria: Yes - Psychiatric Hx Substance Use: Yes (OPIATES) - Surgical History Other/Comment: paracenthesis - Anesthesia Hx Anesthesia: Yes - Suicidal Assessment Feels Threatened In Home Enviroment: No Family/Social History Smoking Status: Former Smoker Hx Alcohol Use: Yes Hx Substance Use: Yes (OPIATES) Allergies/Home Meds Allergies/Adverse Reactions: Allergies No Known Allergies Allergy (Verified 11/28/18 13:30) Home Medications: Home Meds Medication Instructions Recorded Confirmed Methadone 35 mg PO DAILY 11/21/17 04/16/18 Calcium Carbonate/Vitamin D3 1 tab PO BID 04/16/18 04/16/18 [[place] 500-Vit D3 200 Tablet] Carvedilol [Coreg] 1 tab PO BID 04/16/18 04/16/18 Colestipol HCl [Colestid] 2 tab PO DAILY 04/16/18 04/16/18 Hydroxyzine HCl 0.5 tab PO TID 04/16/18 04/16/18 Levothyroxine [Synthroid] 1 tab PO DAILY 04/16/18 04/16/18 Omeprazole 1 cap PO DAILY 04/16/18 04/16/18 Spironolactone [Aldactone] 50 mg PO DAILY 04/16/18 04/16/18 Thiamine [Vitamin B1 Tab] 100 mg PO DAILY 04/16/18 04/16/18 Review of Systems - Physician Review All systems were reviewed & negative as marked: Yes - Review of Systems Constitutional: absent: Fevers Respiratory: SOB, Cough. absent: Wheezing Cardiovascular: absent: Chest Pain, Palpitations Gastrointestinal: absent: Abdominal Pain, Diarrhea, Nausea, Vomiting Musculoskeletal: absent: Arthralgias, Back Pain, Neck Pain Skin: absent: Rash Neurological: absent: Headache, Dizziness Physical Exam Vital Signs Reviewed: Yes Vital Signs Resp Pulse Ox 11/28/18 14:05 20 95 Temperature: Afebrile Blood Pressure: Normal Pulse: Tachycardic Respiratory Rate: Normal Appearance: Positive for: Well-Appearing, Non-Toxic, Comfortable Pain Distress: Mild Mental Status: Positive for: Alert and Oriented X 3 - Systems Exam Head: Present: Atraumatic, Normocephalic Pupils: Present: PERRL Extroacular Muscles: Present: EOMI Conjunctiva: Present: Normal Mouth: Present: Moist Mucous Membranes Neck: Present: Normal Range of Motion Respiratory/Chest: Present: Decreased Breath Sounds (b/l), Tachypneic. No: Respiratory Distress, Accessory Muscle Use, Wheezes Cardiovascular: Present: Regular Rate and Rhythm, Normal S1, S2. No: Murmurs Abdomen: Present: Distention. No: Tenderness, Peritoneal Signs Back: Present: Normal Inspection Upper Extremity: Present: Normal Inspection. No: Cyanosis, Edema Lower Extremity: Present: Normal Inspection. No: Edema Neurological: Present: GCS=15, CN II-XII Intact, Speech Normal Skin: Present: Warm, Dry, Normal Color. No: Rashes Psychiatric: Present: Alert, Oriented x 3, Normal Insight, Normal Concentration Medical Decision Making ED Course and Treatment: 11/28/18 14:32 Impression: 58 year old F presents with chief complaint of shortness of breath w/cough x2days. Patient is on 02 5L at home. Plan: -- Labs -- EKG -- Duoneb -- Solu-Medrol -- Reassess and disposition Prior Visits: Notes and results from previous visits were reviewed. Patient was last seen in the emergency department on Progress Notes: - RAD Interpretation Narrative RAD Interpretations (Text): 11/28/18 15:55 Chest X-ray No active disease 11/28/18 18:18 Abdomen Ultra sound Appearance consistent with cirrhosis with nodular hepatic contour evident. Echogenic liver may be seen in setting of hepatic parenchymal disease or fatty infiltration. Mild to moderate abdominal ascites. Cholelithiasis. Radiology Orders: 11/28/18 14:01 CHEST PORTABLE [RAD] Stat Fnp: Radiologist - EKG Interpretation EKG Interpretation (Text): 11/28/18 13:57 EKG shows Sinus Tachycardia at 105 BPM with PACS present, No ST elevations Interpreted by ED Physician: Yes Type: 12 lead EKG - Medication Orders Current Medication Orders: Magnesium Sulfate/Dextrose (Magnesium Sulfate 1 Gm/100 Ml D5w) 1 gm in 100 mls @ 100 mls/hr IVPB ONCE ONE Stop: 11/28/18 15:01 Discontinued Medications Albuterol/Ipratropium (Duoneb 3 Mg/0.5 Mg (3 Ml) Ud) 3 ml IH STAT STA Stop: 11/28/18 14:01 Methylprednisolone (Solu-Medrol) 125 mg IVP STAT STA Stop: 11/28/18 14:01 - Scribe Statement The provider has reviewed the documentation as recorded by the Monica Dumont All medical record entries made by the [place] were at my direction and personally dictated by me. I have reviewed the chart and agree that the record accurately reflects my personal performance of the history, physical exam, medical decision making, and the department course for this patient. I have also personally directed, reviewed, and agree with the discharge instructions and disposition. Disposition/Present on Arrival - Present on Arrival History of DVT/PE: No History of Uncontrolled Diabetes: No Urinary Catheter: No History of Decub. Ulcer: No History Surgical Site Infection Following: None - Disposition
[2018-11-28 14:44] LABS: BASO # 0.05 K/mm3 (0.0-2.0); BASO % 0.2 % (0.0-3.0); EOS % 0.1 % (1.5-5.0); HEMOGLOBIN 11.6 g/dL (12.0-16.0); LYMPH # 1.3 (1.2-3.4); LYMPH % 5.7 % (22.0-35.0); MEAN CELL VOLUME 78.3 fl (80.0-105.0); MEAN CORPUSCULAR HEMOGLOBIN 24.2 pg (25.0-35.0); MEAN CORPUSCULAR HGB CONC 30.9 g/dl (31.0-37.0); MONO # 2.7 (0.1-0.6); MONO % 11.8 % (1.0-6.0); RBC 4.79 10^6/uL (3.5-6.1); RED CELL DISTRIBUTION WIDTH 18.9 % (11.5-14.5); WHITE BLOOD COUNT 22.7 10^3/uL (4.5-11.0)
[2018-11-28 14:46] LABS: VENOUS BLOOD GAS BASE EXCESS 1.2 mmol/L (0.0-2.0); VENOUS BLOOD GAS PO2 28 mm/Hg (30-55); VENOUS BLOOD PH 7.35 (7.32-7.43)
[2018-11-28 14:48] LABS: PLATELET COUNT 47 10^3/uL (120.0-450.0)
[2018-11-28 14:58] LABS: ALB/GLOB RATIO 0.8 (1.1-1.8); ALBUMIN 3.5 g/dL (3.0-4.8); ALT/SGPT 10 U/L (7-56); AST/SGOT 36 U/L (14-36); BLOOD UREA NITROGEN 10 mg/dL (7-21); CALCIUM 8.3 mg/dL (8.4-10.5); GFR NON-AFRICAN AMERICAN > 60
[2018-11-28] MEDS: Albuterol-Ipratrop 3 mg / 0.5 (3 ml) UD IH SCH ×4 (15:05→19:50)
[2018-11-28 15:27] LABS: INR 1.65; PARTIAL THROMBOPLASTIN TIME 32.8 Seconds (26.9-38.3); PROTHROMBIN TIME 18.3 SECONDS (9.4-12.5)
--- NOTE | 2018-11-28 15:48 | RAD ---
Date of service: 11/28/2018 HISTORY: sob COMPARISON: 02/20/2018 TECHNIQUE: 1 view obtained. FINDINGS: LUNGS: No active pulmonary disease. PLEURA: No significant pleural effusion identified, no pneumothorax apparent. CARDIOVASCULAR: No aortic atherosclerotic calcification present. Normal cardiac size. No pulmonary vascular congestion. OSSEOUS STRUCTURES: No significant abnormalities. VISUALIZED UPPER ABDOMEN: Normal. OTHER FINDINGS: None. IMPRESSION: No active disease.
[2018-11-28] MEDS ORDERED: cefTRIAXone 1 gm 1 GM/100 ML BAG IVPB STA (16:08)
--- NOTE | 2018-11-28 17:44 | US ---
HISTORY: h/o cirrhosis w/ascites COMPARISON: CT abdomen and pelvis without contrast performed 02/20/18 TECHNIQUE: Sonographic evaluation of the abdomen. FINDINGS: LIVER: Nodular hepatic contour. Measures 17.4 cm in sagittal dimension. Echogenic liver may be seen in setting of hepatic parenchymal disease or fatty infiltration. No focal hepatic mass identified. The main portal vein appears patent with normal directional flow. No intrahepatic bile duct dilatation. Mild to moderate abdominal ascites. GALLBLADDER: Gallstones. No gallbladder wall thickening. Negative sonographic Xiong's sign as assessed by the product engineer. COMMON BILE DUCT: Measures approximately 1.9 cm. PANCREAS: Not well visualized. RIGHT KIDNEY: Measures 9.7 x 3.7 x 5.3 cm. No obstructing calculus or hydronephrosis identified. LEFT KIDNEY: Measures 10.4 x 4.7 x 5.5 cm. No obstructing calculus or hydronephrosis identified. SPLEEN: Measures approximately 14.0 cm. AORTA: Limited views appear unremarkable. IVC: Limited views appear unremarkable. OTHER FINDINGS: None. IMPRESSION: Appearance consistent with cirrhosis with nodular hepatic contour evident. Echogenic liver may be seen in setting of hepatic parenchymal disease or fatty infiltration. Mild to moderate abdominal ascites. Cholelithiasis.
[2018-11-28 18:26] LABS: VENOUS BLOOD GAS BASE EXCESS 0.3 mmol/L (0.0-2.0); VENOUS BLOOD GAS PO2 122 mm/Hg (30-55); VENOUS BLOOD PH 7.37 (7.32-7.43)
--- NOTE | 2018-11-28 18:58 | CP.PCM.HP ---
<Andrew Velasco - Last Filed: 11/28/18 22:46> History of Present Illness - History of Present Illness History of Present Illness: HISTORY & PHYSICAL FOR HOSPITALIST SERVICE- DR. FIDE Velasco PGY1 58 y/o F with PMHx of liver cirrhosis s/p paracentesis (few months ago at [facility]), Hep C, COPD on home 5L O2, hx ETOH abuse, HLD presents to ED with complaints of cough with productive clear sputum, congestion and shortness of breath for the past 2 days with associated chest tightness 2/2 cough, fevers, and chills. She reports taking "Vicks formula 44" OTC without relief. She also reports non-specific headaches over the past 2 days. She denies sick contacts, myalgia, fevers, chills. She reports she has noticed her abdomen growing larger and her shortness of breath has been associated with these symptoms. She has been following a aml analyst [facility] for liver care and reports she is on the transplant list. PMH: liver cirrhosis, Hep C, ETOH abuse, hypercholesterolemia, hypothyroidism, PSH: R lumpectomy, b/l inguinal hernia repair All: Denies FH: Mother: Hepatitis (doesn't know which type), Father: Heart disease SH: Smokes 1 cigarette daily since she was 13. Former Heroin Abuse. Takes Methadone 35mg PO daily From [facility] in [place] PMD: Dr. Byrd Meds: Hydroxyzine 25mg 1 tab Q8h, Famotidine 20mg bid, furosemide 20mg qd ,levothyroxine 50 mcg qd (confirmed with pharmacy) Pharmacy: [address] Present on Admission - Present on Admission Any Indicators Present on Admission: No Review of Systems - Review of Systems Review of Systems: per HPI Past Patient History - Infectious Disease Hx of Infectious Diseases: None - Tetanus Immunizations Tetanus Immunization: Unknown - Past Social History Smoking Status: Former Smoker - CARDIAC Hx Pacemaker: No - PULMONARY Hx Respiratory Disorders: Yes Hx Pneumonia: Yes - NEUROLOGICAL Hx Neurological Disorder: No - HEENT Hx HEENT Problems: No - RENAL Hx Chronic Kidney Disease: Yes - ENDOCRINE/METABOLIC Hx Endocrine Disorders: Yes Hx Hypothyroidism: Yes - HEMATOLOGICAL/ONCOLOGICAL Hx Blood Disorders: Yes Hx Blood Transfusions: Yes - INTEGUMENTARY Hx Dermatological Problems: No - MUSCULOSKELETAL/RHEUMATOLOGICAL Hx Musculoskeletal Disorders: No - GASTROINTESTINAL Hx Gastrointestinal Disorders: Yes Other/Comment: abdominal hernia. ascites. liver problems - GENITOURINARY/GYNECOLOGICAL Hx Genitourinary Disorders: Yes Hx Hematuria: Yes - PSYCHIATRIC Hx Substance Use: Yes (OPIATES) - SURGICAL HISTORY Other/Comment: paracenthesis - ANESTHESIA Hx Anesthesia: Yes Meds Allergies/Adverse Reactions: Allergies Allergy/AdvReac Type Severity Reaction Status Date / Time No Known Allergies Allergy Verified 11/28/18 13:30 Physical Exam - Constitutional Appears: Well, Non-toxic, Chronically Ill - Head Exam Head Exam: NORMAL INSPECTION, NORMOCEPHALIC - Eye Exam Eye Exam: Scleral icterus Pupil Exam: PERRL - ENT Exam ENT Exam: Mucous Membranes Moist, Normal Exam - Neck Exam Neck exam: Positive for: Normal Inspection - Respiratory Exam Respiratory Exam: Rhonchi, NORMAL BREATHING PATTERN - Cardiovascular Exam Cardiovascular Exam: REGULAR RHYTHM, +S1, +S2 - GI/Abdominal Exam GI & Abdominal Exam: Distended. absent: Firm, Guarding, Rebound, Rigid Additional comments: caput medusae noted - Extremities Exam Extremities exam: Positive for: normal inspection. Negative for: calf tenderness - Back Exam Back exam: NORMAL INSPECTION - Neurological Exam Neurological exam: Alert, Oriented x3 - Psychiatric Exam Psychiatric exam: Normal Affect, Normal Mood - Skin Skin Exam: Warm Additional comments: telangiectasias noted on chest, face, abdomen Jaundice noted on arms Results - Vital Signs Recent Vital Signs: Last Vital Signs Temp Pulse 95 H 11/28/18 18:13 Resp 19 11/28/18 18:13 BP 116/56 L 11/28/18 18:13 Pulse Ox 91 L 11/28/18 18:13 - Labs Result Diagrams: 11/28/18 14:30 11/28/18 14:30 Labs: Laboratory Results - last 24 hr 11/28/18 11/28/18 11/28/18 14:30 14:30 14:30 WBC 22.7 H RBC 4.79 Hgb 11.6 L Hct 37.5 MCV 78.3 L D MCH 24.2 L MCHC 30.9 L RDW 18.9 H Plt Count 47 L* Neut % (Auto) 82.2 H Lymph % (Auto) 5.7 L [place] % (Auto) 11.8 H Eos % (Auto) 0.1 L Baso % (Auto) 0.2 Lymph # (Auto) 1.3 [place] # (Auto) 2.7 H Eos # (Auto) 0.0 Baso # (Auto) 0.05 Absolute Neuts (auto) 18.68 H PT 18.3 H INR 1.65 APTT 32.8 pO2 VBG pH VBG pCO2 VBG HCO3 VBG Total CO2 VBG O2 Sat (Calc) VBG Base Excess VBG Potassium Glucose Lactate FiO2 Crit Value Called To Crit Value Called By Blood Gas Notified Time Sodium 136 Potassium 3.9 Chloride 98 Carbon Dioxide 26 Anion Gap 16 BUN 10 Creatinine 0.8 Est GFR ( Amer) > 60 Est GFR (Non-Af Amer) > 60 Random Glucose 91 Calcium 8.3 L Magnesium 1.6 L Total Bilirubin 1.4 H AST 36 D ALT 10 Alkaline Phosphatase 155 H Total Protein 7.9 Albumin 3.5 Globulin 4.4 Albumin/Globulin Ratio 0.8 L Venous Blood Potassium 11/28/18 11/28/18 14:35 18:20 WBC RBC Hgb Hct MCV MCH MCHC RDW Plt Count Neut % (Auto) Lymph % (Auto) [place] % (Auto) Eos % (Auto) Baso % (Auto) Lymph # (Auto) [place] # (Auto) Eos # (Auto) Baso # (Auto) Absolute Neuts (auto) PT INR APTT pO2 28 L 122 H VBG pH 7.35 7.37 VBG pCO2 50.0 45.0 VBG HCO3 27.6 26.0 VBG Total CO2 29.1 H 27.4 VBG O2 Sat (Calc) 53.5 100.1 H VBG Base Excess 1.2 0.3 VBG Potassium 3.9 4.1 Glucose 92 148 H Lactate 3.5 H 2.4 H FiO2 21.0 21.0 Crit Value Called To Briana russ pocahontas Crit Value Called By [facility] Blood Gas Notified Time 1445 1825 Sodium 134.0 132.0 Potassium Chloride 98.0 98.0 Carbon Dioxide Anion Gap BUN Creatinine Est GFR ( Amer) Est GFR (Non-Af Amer) Random Glucose Calcium Magnesium Total Bilirubin AST ALT Alkaline Phosphatase Total Protein Albumin Globulin Albumin/Globulin Ratio Venous Blood Potassium 3.9 4.1 Assessment & Plan - Assessment and Plan (Free Text) Assessment: 58 y/o F with PMHx of liver cirrhosis s/p paracentesis (few months ago at [facility]), Hep C, hx ETOH abuse, COPD on 5L home O2, HLD Plan: Sepsis HR >90 + WBC>12k + suspected URI. Lactate 3.5 --> 2.4 Started on empiric rocephin/azithro in ED, will continue f/u blood/sputum cultures ID consulted Bronchitis/URI CXR 11/28: No active disease In ED: received rocephin 1gm/Azithro, Solumedrol 125mg IVP, MgSO4, Duoneb, Toradol continue empiric rocephin/azithromycin start solumedrol [id number] start Duoneb Q6SCH, Q2PRN, Budesonide 0.5mg start mucinex/hydroxyzine Ascites 2/2 cirrhosis 2/2 ETOH/Hepatitis C Abdomen distended, caput medusae noted. Abdomen U/S 11/28: Appearance consistent with cirrhosis with nodular hepatic contour evident. Echogenic liver may be seen in setting of hepatic parenchymal disease or fatty infiltration. Mild to moderate abdominal ascites. Cholelithiasis. ?Autoimmune hepatitis, (+) Anti-smooth muscle Ab in past Continue aldactone:furosemide 100:40, 50mmg Abdomen doesn't appear acute Cover empirically for SBP with rocephin, will increase to 2g if signs of SBP f/u am ammonia ID consulted: COPD exacerbation/thrombocytopenia IR consulted: paracentesis GI consulted: Cirrhosis/ascites Chronic Thrombocytopenia Likely 2/2 underlying cirrhosis Will f/u manual count Avoid hepatotoxic medications Hypomagnesemia Repleted in ED f/u in am DVT/GI: SCD/protonix Case reviewed with attending physician, Dr. Fide Velasco PGY1 <Fide Chan R - Last Filed: 11/29/18 14:10> Results - Vital Signs Recent Vital Signs: Last Vital Signs Temp 97.4 F L 11/29/18 08:02 Pulse 66 11/29/18 08:02 Resp 18 11/29/18 08:02 BP 137/90 11/29/18 09:48 Pulse Ox 95 11/29/18 08:02 - Labs Result Diagrams: 11/29/18 06:05 11/29/18 06:05 Labs: Laboratory Results - last 24 hr 11/28/18 11/28/18 11/28/18 14:30 14:30 14:30 WBC 22.7 H RBC 4.79 Hgb 11.6 L Hct 37.5 MCV 78.3 L D MCH 24.2 L MCHC 30.9 L RDW 18.9 H Plt Count 47 L* Manual Plt Count Neut % (Auto) 82.2 H Lymph % (Auto) 5.7 L [place] % (Auto) 11.8 H Eos % (Auto) 0.1 L Baso % (Auto) 0.2 Lymph # (Auto) 1.3 [place] # (Auto) 2.7 H Eos # (Auto) 0.0 Baso # (Auto) 0.05 Absolute Neuts (auto) 18.68 H Retic Count PT 18.3 H INR 1.65 APTT 32.8 pO2 VBG pH VBG pCO2 VBG HCO3 VBG Total CO2 VBG O2 Sat (Calc) VBG Base Excess VBG Potassium Glucose Lactate FiO2 Crit Value Called To Crit Value Called By Blood Gas Notified Time Sodium 136 Potassium 3.9 Chloride 98 Carbon Dioxide 26 Anion Gap 16 BUN 10 Creatinine 0.8 Est GFR ( Amer) > 60 Est GFR (Non-Af Amer) > 60 Random Glucose 91 Hemoglobin A1c Calcium 8.3 L Phosphorus Magnesium 1.6 L Iron TIBC % Saturation Total Bilirubin 1.4 H AST 36 D ALT 10 Alkaline Phosphatase 155 H Ammonia Total Protein 7.9 Albumin 3.5 Globulin 4.4 Albumin/Globulin Ratio 0.8 L Triglycerides Cholesterol LDL Cholesterol Direct HDL Cholesterol Procalcitonin Free T4 TSH 3rd Generation Venous Blood Potassium Urine Color Urine Appearance Urine pH Ur Specific [place] Urine Protein Urine Glucose (UA) Urine Ketones Urine Blood Urine Nitrate Urine Bilirubin Urine Urobilinogen Ur Leukocyte Esterase Urine RBC Urine WBC Ur Epithelial Cells Urine Bacteria Ur L.pneumophila Ag 11/28/18 11/28/18 11/28/18 14:35 18:20 23:17 WBC RBC Hgb Hct MCV MCH MCHC RDW Plt Count Manual Plt Count Neut % (Auto) Lymph % (Auto) [place] % (Auto) Eos % (Auto) Baso % (Auto) Lymph # (Auto) [place] # (Auto) Eos # (Auto) Baso # (Auto) Absolute Neuts (auto) Retic Count PT INR APTT pO2 28 L 122 H VBG pH 7.35 7.37 VBG pCO2 50.0 45.0 VBG HCO3 27.6 26.0 VBG Total CO2 29.1 H 27.4 VBG O2 Sat (Calc) 53.5 100.1 H VBG Base Excess 1.2 0.3 VBG Potassium 3.9 4.1 Glucose 92 148 H Lactate 3.5 H 2.4 H FiO2 21.0 21.0 Crit Value Called To Briana russ pocahontas Crit Value Called By [address] [place] [address] Blood Gas Notified Time 1445 1825 Sodium 134.0 132.0 Potassium Chloride 98.0 98.0 Carbon Dioxide Anion Gap BUN Creatinine Est GFR ( Amer) Est GFR (Non-Af Amer) Random Glucose Hemoglobin A1c Calcium Phosphorus Magnesium Iron TIBC % Saturation Total Bilirubin AST ALT Alkaline Phosphatase Ammonia Total Protein Albumin Globulin Albumin/Globulin Ratio Triglycerides Cholesterol LDL Cholesterol Direct HDL Cholesterol Procalcitonin Free T4 TSH 3rd Generation Venous Blood Potassium 3.9 4.1 Urine Color Yellow Urine Appearance Clear Urine pH 6.0 Ur Specific [place] >= 1.030 Urine Protein Trace H Urine Glucose (UA) Negative Urine Ketones Negative Urine Blood Small H Urine Nitrate Negative Urine Bilirubin Negative Urine Urobilinogen 0.2 Ur Leukocyte Esterase Trace H Urine RBC 0 - 2 Urine WBC 2 - 5 Ur Epithelial Cells 3 - 4 Urine Bacteria Small Ur L.pneumophila Ag 11/28/18 11/29/18 11/29/18 23:17 05:40 05:40 WBC RBC Hgb Hct MCV MCH MCHC RDW Plt Count Manual Plt Count Neut % (Auto) Lymph % (Auto) [place] % (Auto) Eos % (Auto) Baso % (Auto) Lymph # (Auto) [place] # (Auto) Eos # (Auto) Baso # (Auto) Absolute Neuts (auto) Retic Count PT INR APTT pO2 38 VBG pH 7.38 VBG pCO2 50.0 VBG HCO3 29.6 H VBG Total CO2 31.1 H VBG O2 Sat (Calc) 70.4 H VBG Base Excess 3.4 H VBG Potassium 4.2 Glucose 119 H Lactate 1.9 FiO2 21.0 Crit Value Called To Crit Value Called By Blood Gas Notified Time Sodium 134.0 Potassium Chloride 100.0 Carbon Dioxide Anion Gap BUN Creatinine Est GFR ( Amer) Est GFR (Non-Af Amer) Random Glucose Hemoglobin A1c Calcium Phosphorus Magnesium Iron TIBC % Saturation Total Bilirubin AST ALT Alkaline Phosphatase Ammonia 21 Total Protein Albumin Globulin Albumin/Globulin Ratio Triglycerides Cholesterol LDL Cholesterol Direct HDL Cholesterol Procalcitonin Free T4 TSH 3rd Generation Venous Blood Potassium 4.2 Urine Color Urine Appearance Urine pH Ur Specific [place] Urine Protein Urine Glucose (UA) Urine Ketones Urine Blood Urine Nitrate Urine Bilirubin Urine Urobilinogen Ur Leukocyte Esterase Urine RBC Urine WBC Ur Epithelial Cells Urine Bacteria Ur L.pneumophila Ag Negative 11/29/18 11/29/18 11/29/18 06:05 06:05 06:05 WBC RBC Hgb Hct MCV MCH MCHC RDW Plt Count Manual Plt Count Neut % (Auto) Lymph % (Auto) [place] % (Auto) Eos % (Auto) Baso % (Auto) Lymph # (Auto) [place] # (Auto) Eos # (Auto) Baso # (Auto) Absolute Neuts (auto) Retic Count PT INR APTT pO2 VBG pH VBG pCO2 VBG HCO3 VBG Total CO2 VBG O2 Sat (Calc) VBG Base Excess VBG Potassium Glucose Lactate FiO2 Crit Value Called To Crit Value Called By Blood Gas Notified Time Sodium 134 Potassium 4.4 Chloride 99 Carbon Dioxide 30 Anion Gap 9 L BUN 16 Creatinine 0.8 Est GFR ( Amer) > 60 Est GFR (Non-Af Amer) > 60 Random Glucose 118 H Hemoglobin A1c 5.2 Calcium 8.5 Phosphorus 2.8 Magnesium 2.3 H Iron TIBC % Saturation Total Bilirubin 0.9 AST 27 ALT 11 Alkaline Phosphatase 122 Ammonia Total Protein 7.0 Albumin 2.9 L Globulin 4.0 Albumin/Globulin Ratio 0.7 L Triglycerides 58 Cholesterol 52 L LDL Cholesterol Direct < 30 HDL Cholesterol 19 L Procalcitonin Free T4 TSH 3rd Generation 0.35 L Venous Blood Potassium Urine Color Urine Appearance Urine pH Ur Specific [place] Urine Protein Urine Glucose (UA) Urine Ketones Urine Blood Urine Nitrate Urine Bilirubin Urine Urobilinogen Ur Leukocyte Esterase Urine RBC Urine WBC Ur Epithelial Cells Urine Bacteria Ur L.pneumophila Ag 11/29/18 11/29/18 11/29/18 06:05 06:05 06:05 WBC 12.7 H D RBC 4.29 Hgb 10.2 L Hct 33.0 L MCV 76.9 L MCH 23.8 L MCHC 30.9 L RDW 18.8 H Plt Count 33 L* Manual Plt Count Neut % (Auto) 86.6 H Lymph % (Auto) 5.5 L [place] % (Auto) 7.8 H Eos % (Auto) 0.0 L Baso % (Auto) 0.1 Lymph # (Auto) 0.7 L [place] # (Auto) 1.0 H Eos # (Auto) 0.0 Baso # (Auto) 0.01 Absolute Neuts (auto) 10.97 H Retic Count PT 21.2 H INR 1.88 APTT 34.3 pO2 VBG pH VBG pCO2 VBG HCO3 VBG Total CO2 VBG O2 Sat (Calc) VBG Base Excess VBG Potassium Glucose Lactate FiO2 Crit Value Called To Crit Value Called By Blood Gas Notified Time Sodium Potassium Chloride Carbon Dioxide Anion Gap BUN Creatinine Est GFR ( Amer) Est GFR (Non-Af Amer) Random Glucose Hemoglobin A1c Calcium Phosphorus Magnesium Iron TIBC % Saturation Total Bilirubin AST ALT Alkaline Phosphatase Ammonia Total Protein Albumin Globulin Albumin/Globulin Ratio Triglycerides Cholesterol LDL Cholesterol Direct HDL Cholesterol Procalcitonin 0.20 Free T4 TSH 3rd Generation Venous Blood Potassium Urine Color Urine Appearance Urine pH Ur Specific [place] Urine Protein Urine Glucose (UA) Urine Ketones Urine Blood Urine Nitrate Urine Bilirubin Urine Urobilinogen Ur Leukocyte Esterase Urine RBC Urine WBC Ur Epithelial Cells Urine Bacteria Ur L.pneumophila Ag 11/29/18 11/29/18 11/29/18 10:30 10:30 10:30 WBC RBC Hgb Hct MCV MCH MCHC RDW Plt Count Manual Plt Count 42 L* Neut % (Auto) Lymph % (Auto) [place] % (Auto) Eos % (Auto) Baso % (Auto) Lymph # (Auto) [place] # (Auto) Eos # (Auto) Baso # (Auto) Absolute Neuts (auto) Retic Count 2.06 H PT INR APTT pO2 VBG pH VBG pCO2 VBG HCO3 VBG Total CO2 VBG O2 Sat (Calc) VBG Base Excess VBG Potassium Glucose Lactate FiO2 Crit Value Called To Crit Value Called By Blood Gas Notified Time Sodium Potassium Chloride Carbon Dioxide Anion Gap BUN Creatinine Est GFR ( Amer) Est GFR (Non-Af Amer) Random Glucose Hemoglobin A1c Calcium Phosphorus Magnesium Iron 24 L TIBC 371 % Saturation 6 L Total Bilirubin AST ALT Alkaline Phosphatase Ammonia Total Protein Albumin Globulin Albumin/Globulin Ratio Triglycerides Cholesterol LDL Cholesterol Direct HDL Cholesterol Procalcitonin Free T4 1.02 TSH 3rd Generation Venous Blood Potassium Urine Color Urine Appearance Urine pH Ur Specific [place] Urine Protein Urine Glucose (UA) Urine Ketones Urine Blood Urine Nitrate Urine Bilirubin Urine Urobilinogen Ur Leukocyte Esterase Urine RBC Urine WBC Ur Epithelial Cells Urine Bacteria Ur L.pneumophila Ag Attending/Attestation - Attestation I have personally seen and examined this patient.: Yes I have fully participated in the care of the patient.: Yes I have reviewed all pertinent clinical information: Yes Notes (Text): Patient seen and examined by me with resident at approximately at 4:40PM on 11/28/18 in the emergency room. Case including HPI, physical exam, and assessment and plan discussed with resident. Agree with above with following additions/corrections. Patient is a 58-year-old female past medical history significant for liver cirrhosis, hepatitis C, ascites with previous paracentesis, COPD on home oxygen at bedtime, alcohol abuse, tobacco abuse, drug abuse on methadone, hypertension, hypothyroidism, and hyperlipidemia that presented to the emergency room with cough and shortness of breath. Patient states that his been coughing for approximately 2 days and has associated chest pain with the coughing. He states that she had a fever one day prior but is unsure what the temperature was. She states that she is coughing up "clear phlegm." She tried an [id number] medication for colds called "Formula 44." She states that the medication did not help her. She states that she also has an associated headache when coughing. Patient states that she has also been feeling more short of breath recently. She states that she feels short of breath at rest and with exertion. She does use 3 L of home oxygen at night. She states that she tried her inhalers at home with no relief. Patient states that her abdomen "feels a little bit greater than normal." Patient states that she follows at [facility] in [place], [place] for her liver cirrhosis. She states that she is supposed to be scheduled for a paracentesis soon. Patient denies any nausea, vomiting, or abdominal pain. No dysuria. No diarrhea or constipation. No dizziness or change in vision. 12 point review of systems reviewed by me. Please see above HPI, all other systems are negative. Family history: Mother and had hepatitis. Father of heart disease. Physical exam: General: Awake and alert lying in bed in no acute distress HEENT: Normocephalic, atraumatic. Extraocular muscles intact. Pupils equal and reactive, no scleral icterus. Oropharynx pink and moist. No pharyngeal erythema or exudate appreciated. Neck supple. Cardiovascular: Regular rhythm. Normal S1 and S2. No murmurs, rubs, or gallops appreciated Pulmonary: Normal respiratory effort. Decreased breath sounds. No rhonchi, rales, or wheezing appreciated Gastrointestinal: Soft, Nontender. Positive distention. Positive bowel sounds all 4 quadrants. No guarding. Musculoskeletal: Moves all extremities. No calf tenderness. No edema appreciated. Central nervous system: AAO x3. No focal deficits appreciated. Dermatologic: Skin warm and dry. Assessment and plan: Patient is a 58-year-old female past medical history sig nificant for liver cirrhosis, hepatitis C, ascites with previous paracentesis, COPD on home oxygen at bedtime, alcohol abuse, tobacco abuse, drug abuse on methadone, hypertension, hypothyroidism, and hyperlipidemia that presented to the emergency room with cough and shortness of breath. 1. Sepsis. Possible bronchitis. Rule out pneumonia. Rule out SBP. Tachycardic. Positive leukocytosis. Lactic acid 3.5 Continue Rocephin and Zithromax. ID consulted, follow up recommendations. Blood cultures pending. Chest xray per radiologist showed no active disease. Abdominal ultrasound per radiologist lynne wed appearance consistent with cirrhosis with nodular hepatic contour evident, echogenic liver may be seen in setting of hepatic parenchymal disease or fatty infiltration, mild to moderate abdominal ascites, cholelithiasis. 2. Ascites. Liver cirrhosis. History of alcohol abuse and Hepatitis C. Patient follows with [facility] in [place], [place]. GI consulted, pending recommendations. IR consulted for paracentesis. Abdominal ultrasound as above. Continue home aldactone and lasix 3. COPD exacerbation. Counseled on tobacco cessation. Placed on O2 via nasal cannula. Started on nebulizer treatments and pulmicort. Placed on solumedrol. Placed on mucinex for cough. 4. Chronic thrombocytopenia. Secondary to liver cirrhosis. No signs of acute bleeding. Monitor for now. 5. Tobacco abuse. Counseled at length on cessation. 6. Drug abuse. Patient on Methadone. Will call [facility] in AM for confirmation. 7. GI/DVT prophylaxis. Pepcid/SCDS Case was discussed in detail with the patient regarding current diagnosis and treatment plan. All questions answered.
[2018-11-28] MEDS: Budesonide 0.5 mg/2 ml Inhal Susp UD IH SCH (19:50)
[2018-11-28] MEDS ORDERED: Arformoterol 15 mcg/2 ml Inh Sol IH SCH (20:00)
[2018-11-28] MEDS: MethylPREDNISolone 40 mg Vial IVP SCH (22:10)
[2018-11-28] MEDS: levoFLOXacin 500 mg in D5W 500 MG/100 ML BAG IVPB SCH (22:14)
[2018-11-28] MEDS: Meropenem IV 1 gm in NS 1 GM/50 ML BAG IVPB SCH (22:19)
[2018-11-28] MEDS: Vancomycin 1gm in NS 250ml 1 GM/250 ML BAG IVPB SCH (22:20)
[2018-11-29 00:36] LABS: URINE BILIRUBIN NEGATIVE (NEGATIVE); URINE BLOOD SMALL (NEGATIVE); URINE GLUCOSE (UA) NEGATIVE (NEGATIVE); URINE LEUKOCYTE ESTERASE TRACE Leu/uL (NEGATIVE); URINE PROTEIN TRACE mg/dL (<30 mg/dL); URINE UROBILINOGEN 0.2 E.U./dL (<1 E.U./dL)
[2018-11-29] MEDS ORDERED: Pneumococcal 23-Valent Vaccine IM ONE (00:45)
[2018-11-29 00:47] LABS: URINE APPEARANCE CLEAR (CLEAR); URINE COLOR YELLOW (YELLOW)
[2018-11-29] MEDS: Albuterol-Ipratrop 3 mg / 0.5 (3 ml) UD IH SCH ×4 (01:28→19:16)
[2018-11-29 01:33] LABS: URINE BACTERIA SMALL /hpf; URINE RBC 0 - 2 /hpf (0-2)
--- NOTE | 2018-11-29 06:07 | CON ---
DATE: 11/28/2018 CHIEF COMPLAINT: Cough and shortness of breath x2 days' duration. HISTORY OF PRESENT ILLNESS: This is a 58-year-old female, with past medical history of hepatitis C; alcohol abuse; chronic obstructive lung disease with chronic respiratory failure, on home O2 therapy; history of liver cirrhosis; and hyperlipidemia, who is admitted also with cough, shortness of breath x2 days' duration and low-grade fevers and chills. The cough is productive, yellowish in color. REVIEW OF SYSTEMS: Review of systems is performed. There is no headache, no dizziness. There is no chest pain. There is no abdominal pain, diarrhea, or constipation. No nausea or vomiting. No dysuria or frequency. PAST MEDICAL HISTORY: Significant for hypothyroidism; chronic respiratory failure, on home O2 therapy; COPD; liver cirrhosis; hepatitis C; alcohol abuse; hyperlipidemia. PAST SURGICAL HISTORY: Significant for paracentesis, right lobectomy, and bilateral inguinal hernia repair. MEDICATIONS AT HOME: Include methadone, Coreg, hydroxyzine, Synthroid, omeprazole. ALLERGIES: THE PATIENT HAS NO KNOWN ALLERGIES. PHYSICAL EXAMINATION: GENERAL: The patient is in bed, appearing chronically ill, debilitated, end stage. VITAL SIGNS: No temperature is available at this time, no temperature is documented in the emergency room by nursing staff. Chart at this time heart rate of 95, respiratory rate of 20, blood pressure is 116/56. HEENT: Unremarkable. NECK: Supple. LUNGS: Decreased breath sounds. HEART: Normal S1, S2. ABDOMEN: Soft, nontender. No rebound or guarding. No masses. LABORATORY DATA: Reveals a white count of 22,000, hemoglobin of 11. Chemistries reveal the patient's BUN is 10, creatinine of 0.8. Microbiology is pending. The patient had a chest x-ray, which reveals to be negative. The patient had an abdominal ultrasound, which shows [id number] abdominal ascites. History and physical examination is reviewed, also lacking temperature. ASSESSMENT: A 58-year-old female with liver cirrhosis, status post paracentesis in the past; hepatitis C; alcohol abuse; chronic obstructive pulmonary disease; hyperlipidemia, presenting with cough and shortness of breath, leukocytosis, tachycardia, however, a negative chest x-ray. systemic inflammatory response syndrome. Must rule out a healthcare-associated pneumonia versus spontaneous bacterial peritonitis. We will order a CAT scan of the chest to rule out an infiltrate and start the patient on vancomycin, meropenem, and Levaquin. The patient's QTc is 459. Pending blood cultures, sputum cultures, nasal MRSA screen, HIV because of her age, and pending initial workup, urine for legionella, procalcitonin, pancultures, and imaging, we will make further recommendations. Malcolm Nelson MD
[2018-11-29] MEDS: Meropenem IV 1 gm in NS 1 GM/50 ML BAG IVPB SCH ×3 (06:10→22:16)
[2018-11-29 06:21] LABS: VENOUS BLOOD GAS BASE EXCESS 3.4 mmol/L (0.0-2.0); VENOUS BLOOD GAS PO2 38 mm/Hg (30-55); VENOUS BLOOD PH 7.38 (7.32-7.43)
[2018-11-29 06:24] LABS: INR 1.88; PARTIAL THROMBOPLASTIN TIME 34.3 Seconds (26.9-38.3); PROTHROMBIN TIME 21.2 SECONDS (9.4-12.5)
[2018-11-29 06:56] LABS: BASO # 0.01 K/mm3 (0.0-2.0); BASO % 0.1 % (0.0-3.0); HEMOGLOBIN 10.2 g/dL (12.0-16.0); LYMPH # 0.7 (1.2-3.4); LYMPH % 5.5 % (22.0-35.0); MEAN CELL VOLUME 76.9 fl (80.0-105.0); MEAN CORPUSCULAR HEMOGLOBIN 23.8 pg (25.0-35.0); MEAN CORPUSCULAR HGB CONC 30.9 g/dl (31.0-37.0); MONO % 7.8 % (1.0-6.0); RBC 4.29 10^6/uL (3.5-6.1); RED CELL DISTRIBUTION WIDTH 18.8 % (11.5-14.5); WHITE BLOOD COUNT 12.7 10^3/uL (4.5-11.0)
[2018-11-29 06:59] LABS: PLATELET COUNT 33 10^3/uL (120.0-450.0)
[2018-11-29 07:07] LABS: ALB/GLOB RATIO 0.7 (1.1-1.8); ALBUMIN 2.9 g/dL (3.0-4.8); ALT/SGPT 11 U/L (7-56); AST/SGOT 27 U/L (14-36); BLOOD UREA NITROGEN 16 mg/dL (7-21); CALCIUM 8.5 mg/dL (8.4-10.5); GFR NON-AFRICAN AMERICAN > 60; HDL CHOLESTEROL 19 mg/dL (29-60); LDL CHOLESTEROL < 30 mg/dL (0-129)
--- NOTE | 2018-11-29 08:27 | CARD ---
APPROVED REPORT Date of service: 11/28/2018 EKG Measurement Heart [id number] OR [id number] <Conclusion> Sinus tachycardia with premature atrial complexes Otherwise normal ECG
--- NOTE | 2018-11-29 09:05 | CT ---
Date of service: 11/29/2018 PROCEDURE: CT Chest without contrast HISTORY: r/o infiltrate COMPARISON: None available. TECHNIQUE: Contiguous axial images were obtained through the chest without intravenous contrast enhancement. Sagittal and coronal reconstructions were performed. Radiation dose: Total exam DLP = 284.29 mGy-cm. This CT exam was performed using one or more of the following dose reduction techniques: Automated exposure control, adjustment of the mA and/or kV according to patient size, and/or use of iterative reconstruction technique. FINDINGS: LUNGS: There is a small focal area of consolidation with air bronchograms in the lingular segment of the left upper lobe. Patchy ground-glass densities are seen in the upper lobes bilaterally. Linear scarring can be seen in both lung bases similar to the previous abdominal CT study 02/20/2018 MEDIASTINUM: Unremarkable thoracic aorta. No aneurysm. Normal sized heart. Main pulmonary artery unremarkable. No vascular congestion. No lymphadenopathy. No aortic atherosclerotic calcification. PLEURA: No pleural fluid. No pneumothorax. BONES: No fracture. No destructive lesion. UPPER ABDOMEN: Moderate ascites OTHER FINDINGS: None. IMPRESSION: There is a small focal area of consolidation with air bronchograms in the lingular segment of the left upper lobe. Patchy ground-glass interstitial infiltrate are seen in the upper lobes bilaterally. Linear scarring can be seen in both lung bases similar to the previous abdominal CT study 02/20/2018
[2018-11-29] MEDS: MethylPREDNISolone 40 mg Vial IVP SCH ×2 (09:47→10:58)
[2018-11-29] MEDS: guaiFENesin-DM 600-30 mg ER Tab PO SCH ×2 (09:48→17:52)
[2018-11-29] MEDS: levoFLOXacin 500 mg in D5W 500 MG/100 ML BAG IVPB SCH (09:48)
[2018-11-29] MEDS ORDERED: Azithromycin 250 MG in Sodium Chloride 0.9% 250 ML IVPB SCH (10:00)
[2018-11-29] MEDS ORDERED: cefTRIAXone 1 gm 1 GM/100 ML BAG IVPB SCH (10:00)
[2018-11-29 10:56] LABS: IRON 24 ug/dL (45-180)
[2018-11-29] MEDS: Vancomycin 1gm in NS 250ml 1 GM/250 ML BAG IVPB SCH ×2 (10:59→22:15)
[2018-11-29 11:05] LABS: % IRON SATURATION 6 % (20-55); TOTAL IRON BINDING CAPACITY 371 ug/dL (265-497)
--- NOTE | 2018-11-29 12:04 | CP.PCM.PN ---
<Ja Villalobos - Last Filed: 11/29/18 13:00> Subjective - Date & Time of Evaluation Date of Evaluation: 11/29/18 Time of Evaluation: 12:00 - Subjective Subjective: Ja Villalobos, PGY-1, Internal Medicine Progress Note for Dr. Chan Patient seen and evaluated at bedside. Patient had no acute overnight events. Patient today reports mild chest pain, shortness of breath, cough with yellow sputum, reports mild improvement of abdominal distension but denies abdominal pain, nausea, vomiting, constipation, diarrhea, dysuria, or hematuria. 12-point ROS was unremarkable except for what was mentioned above. Objective - Vital Signs/Intake and Output Vital Signs (last 24 hours): Temp Pulse Resp BP Pulse Ox 97.4 F L 66 18 137/90 95 11/29/18 08:02 11/29/18 08:02 11/29/18 08:02 11/29/18 09:48 11/29/18 08:02 - Medications Medications: Current Medications Albuterol/Ipratropium (Duoneb 3 Mg/0.5 Mg (3 Ml) Ud) 3 ml IH Q2H PRN PRN Reason: Shortness of Breath Albuterol/Ipratropium (Duoneb 3 Mg/0.5 Mg (3 Ml) Ud) 3 ml IH [id number] [facility] Last Admin: 11/29/18 07:58 Dose: Not Given Budesonide (Pulmicort Respules) 0.5 mg IH [id number] [facility] Last Admin: 11/28/18 19:50 Dose: 0.5 mg Docusate Sodium (Colace) 100 mg PO BID [facility] Famotidine (Pepcid) 20 mg PO HS [facility] Last Admin: 11/28/18 22:11 Dose: 20 mg Furosemide (Lasix) 20 mg PO DAILY [facility] Last Admin: 11/29/18 09:48 Dose: 20 mg Guaifenesin/Dextromethorphan (Mucinex-Dm 600-30 Mg) 1 tab PO BID [facility] Last Admin: 11/29/18 09:48 Dose: 1 tab Hydroxyzine HCl (Atarax) 25 mg PO Q6H PRN PRN Reason: Allergy symptoms Levofloxacin/Dextrose (Levaquin 500mg) 500 mg in 100 mls @ 100 mls/hr IVPB DAILY [facility]; Protocol Last Admin: 11/29/18 09:48 Dose: 100 mls/hr Meropenem (Merrem Iv 1 Gm Premix) 1 gm in 50 mls @ 100 mls/hr IVPB Q8 [facility]; Protocol Stop: 12/06/18 22:01 Last Admin: 11/29/18 06:10 Dose: 100 mls/hr Vancomycin HCl (Vancomycin 1gm) 1 gm in 250 mls @ 167 mls/hr IVPB Q12H [facility]; Protocol Stop: 12/07/18 22:01 Last Admin: 11/29/18 10:59 Dose: 167 mls/hr Ibuprofen (Motrin Tab) 400 mg PO Q12H PRN PRN Reason: Headache Methadone HCl (Methadone) 30 mg PO DAILY [facility] Last Admin: 11/29/18 11:08 Dose: 30 mg Methadone HCl (Methadone) 5 mg PO DAILY [facility] Last Admin: 11/29/18 11:08 Dose: 5 mg Methylprednisolone (Solu-Medrol) 20 mg IVP DAILY [facility] Last Admin: 11/29/18 10:58 Dose: Not Given Spironolactone (Aldactone) 25 mg PO BID [facility] Last Admin: 11/29/18 09:49 Dose: 25 mg - Labs Labs: 11/29/18 06:05 11/29/18 06:05 PT 21.2 SECONDS (9.4-12.5) H 11/29/18 06:05 INR 1.88 11/29/18 06:05 APTT 34.3 Seconds (26.9-38.3) 11/29/18 06:05 - Constitutional Appears: Well, Non-toxic, No Acute Distress - Head Exam Head Exam: ATRAUMATIC, NORMAL INSPECTION, NORMOCEPHALIC - Eye Exam Eye Exam: EOMI, PERRL - ENT Exam ENT Exam: Mucous Membranes Moist - Neck Exam Neck Exam: Full ROM - Respiratory Exam Respiratory Exam: Clear to Ausculation Bilateral, NORMAL BREATHING PATTERN - Cardiovascular Exam Cardiovascular Exam: REGULAR RHYTHM, RRR, +S1, +S2 - GI/Abdominal Exam GI & Abdominal Exam: Distended, Soft, Normal Bowel Sounds. absent: Firm, Guarding, Tenderness - Extremities Exam Extremities Exam: Full ROM, Normal Capillary Refill, Normal Inspection - Neurological Exam Neurological Exam: Alert, Awake, CN II-XII Intact, Oriented x3 - Skin Skin Exam: Dry, Intact, Normal Color Assessment and Plan - Assessment and Plan (Free Text) Assessment: 58 year old female with past medical history of liver cirrhosis, hepatitis C, alcohol abuse, hypercholesterolemia, hypothyroidism presented with sepsis 2/2 to upper respiratory infection vs ascites. Plan: Sepsis likely 2/2 to URI vs. SBP -Chest CT 11/29: small focal area of consolidation with air bronchograms in lingular segment of left upper lobe. Patchy ground glass interstitial infiltrate are seen in upper lobes bilaterally. Linear scarring see in both lung bases similar to prior CT -Will follow up blood cultures, sputum culture, nasal MRSA, HIV, urine legionella, procal -Will schedule for paracentesis for diagnostic to evaluate for SBP and for therapeutic purposes to relieve distension -Continue with vancomycin, meropenem, and levaquin. History of Cirrhosis 2/2 Hepatitis C vs. alcohol abuse -Abdominal ultrasound on 11/28 shows appearance consistent with cirrhosis with nodular hepatic contour evident. Echogenic liver may be seen in setting of hepatic parenchymal disease or fatty infiltration. Mild to moderate abdominal ascites. Cholelithiasis. -MELD score: 17 with estimated 6% mortality in 3 months -Though patient had mildly elevated anti-smooth muscle Ab in the past, cirrhosis unlikely due to autoimmune cause. Likely 2/2 to hepatitis C vs. alcohol abuse -Patient currently has abdominal distension on exam likely 2/2 to ascites from cirrhosis. Have consulted Dr. Garcia for diagnostic and therapeutic paracentesis. Will obtain cell count, albumin, LDH for paracentesis. Limited workup as she has close follow up at [facility]. -Continue with aldactone 50 mg and lasix 20 mg daily Chronic Thrombocytopenia -Likely 2/2 to cirrhosis -Manual platelet count today is 42. Baseline platelet count is in 40s. Patient is at baseline -For paracentesis, patient may need platelet value over 50 for lower risk paracentesis. Will follow Dr. Garcia recommendations regarding platelet count. -Avoid hepatotoxic medications Microcytic Anemia -Hgb decreased to 10s from 11s. Baseline in 10s to 11s -Iron decreased at 24, TIBC unremarkable at 371. % saturation decreased at 6 -Will follow up ferritin for further evaluation of anemia. COPD -Continue with NC -Continue with duonebs, pulmicort -Started solumedrol 20 mg daily Former opiod abuse -Will follow up UDS -Started methadone 35 mg daily as confirmed with [facility] Tobacco abuse -Start Nicotine patch -Counseled patient regarding tobacco cessation Hypothyroidism -TSH: 0.35 -Free T4: 1.02 -Will follow up T3 -Started with home levothyroxine DVT prophylaxis: SCD GI prophylaxis: pepcid Patient plan discussed with Dr. Chan <Fide Chan R - Last Filed: 11/30/18 09:14> Objective - Vital Signs/Intake and Output Vital Signs (last 24 hours): Temp Pulse Resp BP Pulse Ox 97.5 F L 78 20 133/72 93 L 11/30/18 06:00 11/30/18 06:00 11/30/18 06:00 11/30/18 06:00 11/30/18 06:00 - Medications Medications: Current Medications Albuterol/Ipratropium (Duoneb 3 Mg/0.5 Mg (3 Ml) Ud) 3 ml IH Q2H PRN PRN Reason: Shortness of Breath Last Admin: 11/29/18 22:15 Dose: 3 ml Albuterol/Ipratropium (Duoneb 3 Mg/0.5 Mg (3 Ml) Ud) 3 ml IH [id number] [facility] Last Admin: 11/30/18 08:04 Dose: 3 ml Budesonide (Pulmicort Respules) 0.5 mg IH [id number] [facility] Last Admin: 11/30/18 08:04 Dose: 0.5 mg Docusate Sodium (Colace) 100 mg PO BID [facility] Last Admin: 11/29/18 17:52 Dose: 100 mg Famotidine (Pepcid) 20 mg PO HS [facility] Last Admin: 11/29/18 22:16 Dose: 20 mg Furosemide (Lasix) 20 mg PO DAILY [facility] Last Admin: 11/29/18 09:48 Dose: 20 mg Guaifenesin/Dextromethorphan (Mucinex-Dm 600-30 Mg) 1 tab PO BID [facility] Last Admin: 11/29/18 17:52 Dose: 1 tab Hydroxyzine HCl (Atarax) 25 mg PO Q6H PRN PRN Reason: Allergy symptoms Meropenem (Merrem Iv 1 Gm Premix) 1 gm in 50 mls @ 100 mls/hr IVPB Q8 [facility]; Protocol Stop: 12/06/18 22:01 Last Admin: 11/30/18 06:33 Dose: 100 mls/hr Vancomycin HCl (Vancomycin 1gm) 1 gm in 250 mls @ 167 mls/hr IVPB Q12H [facility]; Protocol Stop: 12/07/18 22:01 Last Admin: 11/29/18 22:15 Dose: 167 mls/hr Ibuprofen (Motrin Tab) 400 mg PO Q12H PRN PRN Reason: Headache Levofloxacin (Levaquin) 500 mg PO DAILY [facility]; Protocol Stop: 12/05/18 10:01 Levothyroxine Sodium (Synthroid) 50 mcg PO DAILY [facility] Methadone HCl (Methadone) 30 mg PO DAILY [facility] Last Admin: 11/29/18 11:08 Dose: 30 mg Methadone HCl (Methadone) 5 mg PO DAILY [facility] Last Admin: 11/29/18 11:08 Dose: 5 mg Methylprednisolone (Solu-Medrol) 20 mg IVP DAILY [facility] Last Admin: 11/29/18 10:58 Dose: Not Given Nicotine (Nicoderm Cq) 1 patch TD DAILY [facility] Pantoprazole Sodium (Protonix Inj) 40 mg IVP DAILY [facility] Spironolactone (Aldactone) 25 mg PO BID [facility] Last Admin: 11/29/18 17:52 Dose: 25 mg - Labs Labs: 11/30/18 06:00 11/30/18 06:00 PT 17.5 SECONDS (9.4-12.5) H 11/30/18 06:00 INR 1.55 11/30/18 06:00 APTT 30.8 Seconds (26.9-38.3) 11/30/18 06:00 Attending/Attestation - Attestation I have personally seen and examined this patient.: Yes I have fully participated in the care of the patient.: Yes I have reviewed all pertinent clinical information, including history, physical exam and plan: Yes Notes (Text): Patient seen and examined by me with resident at approximately at 10AM on 11/29/18. Case including HPI, physical exam, and assessment and plan discussed with resident. Agree with above with following additions/corrections. Patient is a 58-year-old female past medical history significant for liver cirrhosis, hepatitis C, ascites with previous paracentesis, COPD on home oxygen at bedtime, alcohol abuse, tobacco abuse, drug abuse on methadone, hypertension, hypothyroidism, and hyperlipidemia that presented to the emergency room with cough and shortness of breath. Patient states she is feeling a little better. Shortness of breath has improved. Still coughing. Headache resolved. Patient complains of upper abdominal pain secondary to coughing. No nausea or vomiting. No dizziness or lightheadedness. No fevers or chills. No dysuria. Patient denies having a bowel movement. Physical exam: General: Awake and alert lying in bed in no acute distress HEENT: Normocephalic, atraumatic. Extraocular muscles intact. Pupils equal and reactive, no scleral icterus. Oropharynx pink and moist. No pharyngeal erythema or exudate appreciated. Neck supple. Cardiovascular: Regular rhythm. Normal S1 and S2. No murmurs, rubs, or gallops appreciated Pulmonary: Normal respiratory effort. Decreased breath sounds. No rhonchi, rales, or wheezing appreciated Gastrointestinal: Soft, Mild upper abdominal tenderness. Positive distention. Positive bowel sounds all 4 quadrants. No guarding. Musculoskeletal: Moves all extremities. No calf tenderness. No edema appreciated. Central nervous system: AAO x3. No focal deficits appreciated. Dermatologic: Skin warm and dry. Assessment and plan: Patient is a 58-year-old female past medical history significant for liver cirrhosis, hepatitis C, ascites with previous paracentesis, COPD on home oxygen at bedtime, alcohol abuse, tobacco abuse, drug abuse on methadone, hypertension, hypothyroidism, and hyperlipidemia that presented to the emergency room with cough and shortness of breath. 1. Sepsis. Secondary to community acquired pneumonia. Rule out SBP. Tachycardia resolved. Leukocytosis downtredning. Lactic acid downtrending. ID recommendations appreciated. Continue Merrem, Levaquin, and Vancomycin. Blood cultures with no growth to date. Chest CT per radiologist showed small focal area of consolidation with air bronchograms in the lingular segment of the left upper lobe, patchy groundglass interstitial infiltrate seen in the upper lobes bilaterally, linear scarring can be seen in both lung bases similar to previous abdominal CT on 02/20/2018. Chest xray per radiologist showed no active disease. Abdominal ultrasound per radiologist showed appearance consistent with cirrhosis with nodular hepatic contour evident, echogenic liver may be seen in setting of hepatic parenchymal disease or fatty infiltration, mild to moderate abdominal ascites, cholelithiasis. 2. Ascites. Liver cirrhosis. History of alcohol abuse and Hepatitis C. Patient follows with [facility] in [place], [place]. Continue home aldactone and lasix. IR consulted for paracentesis. GI recommendations appreciated. Abdominal ultrasound as above. 3. Chronic thrombocytopenia. Secondary to liver cirrhosis. No signs of acute bleeding. Continue to monitor for now. 4. COPD exacerbation. Counseled on tobacco cessation. Continue on O2 via nasal cannula. Continue nebulizer treatments and pulmicort. Taper solumedrol. Continue mucinex for cough. 5. Constipation. Started on Colace. Monitor for bowel movement. 6. Hypothyroidism. Continue home synthroid. 7. Tobacco abuse. Counseled at length on cessation. 8. History of drug abuse. Patient on Methadone. Confirmed with [facility] 9. GI/DVT prophylaxis. Pepcid/SCDS Case was discussed in detail with the patient regarding current diagnosis and treatment plan. All questions answered.
--- NOTE | 2018-11-29 12:05 | CP.PCM.APN ---
Subjective - Date & Time of Evaluation Date of Evaluation: 11/29/18 Time of Evaluation: 11:54 - Subjective Subjective: pt seen and examined at bedside, pt complains of cough, states her sob is better than last night and that she is constipated when questioned Review of Systems - EENT Eyes: As Per HPI - Respiratory Respiratory: As Per HPI, Cough Objective - Vital Signs/Intake and Output Vital Signs (last 24 hours): Temp Pulse Resp BP Pulse Ox 97.4 F L 66 18 137/90 95 11/29/18 08:02 11/29/18 08:02 11/29/18 08:02 11/29/18 09:48 11/29/18 08:02 - Medications Medications: Current Medications Albuterol/Ipratropium (Duoneb 3 Mg/0.5 Mg (3 Ml) Ud) 3 ml IH Q2H PRN PRN Reason: Shortness of Breath Albuterol/Ipratropium (Duoneb 3 Mg/0.5 Mg (3 Ml) Ud) 3 ml IH [id number] [facility] Last Admin: 11/29/18 07:58 Dose: Not Given Budesonide (Pulmicort Respules) 0.5 mg IH [id number] [facility] Last Admin: 11/28/18 19:50 Dose: 0.5 mg Docusate Sodium (Colace) 100 mg PO BID [facility] Famotidine (Pepcid) 20 mg PO HS [facility] Last Admin: 11/28/18 22:11 Dose: 20 mg Furosemide (Lasix) 20 mg PO DAILY [facility] Last Admin: 11/29/18 09:48 Dose: 20 mg Guaifenesin/Dextromethorphan (Mucinex-Dm 600-30 Mg) 1 tab PO BID [facility] Last Admin: 11/29/18 09:48 Dose: 1 tab Hydroxyzine HCl (Atarax) 25 mg PO Q6H PRN PRN Reason: Allergy symptoms Levofloxacin/Dextrose (Levaquin 500mg) 500 mg in 100 mls @ 100 mls/hr IVPB DAILY [facility]; Protocol Last Admin: 11/29/18 09:48 Dose: 100 mls/hr Meropenem (Merrem Iv 1 Gm Premix) 1 gm in 50 mls @ 100 mls/hr IVPB Q8 [facility]; Protocol Stop: 12/06/18 22:01 Last Admin: 11/29/18 06:10 Dose: 100 mls/hr Vancomycin HCl (Vancomycin 1gm) 1 gm in 250 mls @ 167 mls/hr IVPB Q12H [facility]; Protocol Stop: 12/07/18 22:01 Last Admin: 11/29/18 10:59 Dose: 167 mls/hr Ibuprofen (Motrin Tab) 400 mg PO Q12H PRN PRN Reason: Headache Methadone HCl (Methadone) 30 mg PO DAILY [facility] Last Admin: 11/29/18 11:08 Dose: 30 mg Methadone HCl (Methadone) 5 mg PO DAILY [facility] Last Admin: 11/29/18 11:08 Dose: 5 mg Methylprednisolone (Solu-Medrol) 20 mg IVP DAILY [facility] Last Admin: 11/29/18 10:58 Dose: Not Given Spironolactone (Aldactone) 25 mg PO BID [facility] Last Admin: 11/29/18 09:49 Dose: 25 mg - Labs Labs: 11/29/18 06:05 11/29/18 06:05 PT 21.2 SECONDS (9.4-12.5) H 11/29/18 06:05 INR 1.88 11/29/18 06:05 APTT 34.3 Seconds (26.9-38.3) 11/29/18 06:05 - Constitutional Appears: No Acute Distress, Chronically Ill - Head Exam Head Exam: ATRAUMATIC, NORMAL INSPECTION - Eye Exam Eye Exam: Normal appearance - Respiratory Exam Respiratory Exam: Decreased Breath Sounds, Rales, NORMAL BREATHING PATTERN - Cardiovascular Exam Cardiovascular Exam: +S1, +S2 - GI/Abdominal Exam GI & Abdominal Exam: Distended, Soft - Neurological Exam Neurological Exam: Alert, Awake, Oriented x3 Additional comments: CLEANING - Skin Skin Exam: Dry, Intact, Normal Color Assessment and Plan - Assessment and Plan (Free Text) Assessment: ITS Impressions Chest X-Ray 11/28/18 14:01 IMPRESSION: No active disease. Abdomen Ultrasound 11/28/18 16:12 IMPRESSION: Appearance consistent with cirrhosis with nodular hepatic contour evident. Echogenic liver may be seen in setting of hepatic parenchymal disease or fatty infiltration. Mild to moderate abdominal ascites. Cholelithiasis. Chest CT 11/29/18 21:53 IMPRESSION: 58 yr old with pnh sig for ETOH, liver cirrhosis, hep C, COPD on home o2 who presented with SOB to the ER. Pt workup reveals patchy inflitrate on CT and left lobe consolidation. Pt is on iV antibiotics with ID consultation. ID recs noted. Pt with noted cirrhosis on ABD US with GI and IR consultations. Ammonia level noted normal. all labs rev'd will continue to follow clinical course. BPCI/TIC - BPCIA/TIC Educated pt/family on BPCIA/CIR/Med to Bed Programs: Yes Flyers given, including [facility] Beneficiary letter: Yes Pt/family verbalized understanding & agreed to program: Yes
[2018-11-29] MEDS: Budesonide 0.5 mg/2 ml Inhal Susp UD IH SCH ×2 (12:31→19:16)
[2018-11-29] MEDS: Albuterol-Ipratrop 3 mg / 0.5 (3 ml) UD IH PRN ×2 (12:31→22:15)
[2018-11-29] MEDS ORDERED: Phytonadione 10 MG in Sodium Chloride 0.9% 50 ML IV ONE (13:05)
--- NOTE | 2018-11-29 15:49 | CP.PCM.CON ---
<Bipin Mckenzie - Last Filed: 11/29/18 15:46> History of Present Illness - History of Present Illness History of Present Illness: PGY4 GI fellow consult note 58-year-old female with a past medical history of hepatitis C cirrhosis (treatment stuart) complicated by ascites, history of alcohol abuse, hyperlipidemia, hypothyroidism, chronic methadone use, COPD on oxygen at baseline presenting with complaint of cough shortness of breath. She states for the last several days she has had worsening cough as well as abdominal distention. He states she has been compliant with a low-sodium diet. She also states that she has been taking her diuretics but cannot tell me the details regarding these medications. She states that her abdominal distention has progressed to the point that it is affecting her breathing and she experiences pain when coughing. She states bowel movements are usually every day and brown but she thinks the last one might have been black. She denies any dysphagia, weight loss, fevers, chills. 12 point review of systems negative other than stated above Medical history: See above. Reportedly follows with [facility] and is listed for transplant. Surgical history: Right lumpectomy, bilateral inguinal hernia repair, umbilical hernia repair Medications: Reviewed in chart Family history: Mother with hepatitis Social history: Current 2 cigarettes per day smoker, denied alcohol use other than one glass of wine at a family member's birthday libertarian in the last few weeks to months, denied illicits Allergies: No known drug allergies Last EGD on file 02/14/18: LA B esophagitis, portal hypertensive gastropathy, H. pylori negative gastritis positive intestinal metaplasia Last colonoscopy on file 01/17/18: Less than 1 cm sigmoid hyperplastic polyp, nonbleeding internal hemorrhoids and friable mucosa Past Patient History - Infectious Disease Hx of Infectious Diseases: None - Tetanus Immunizations Tetanus Immunization: Unknown - Past Social History Smoking Status: Former Smoker - CARDIAC Hx Pacemaker: No - PULMONARY Hx Respiratory Disorders: Yes Hx Pneumonia: Yes - NEUROLOGICAL Hx Neurological Disorder: No - HEENT Hx HEENT Problems: No - RENAL Hx Chronic Kidney Disease: Yes - ENDOCRINE/METABOLIC Hx Endocrine Disorders: Yes Hx Hypothyroidism: Yes - HEMATOLOGICAL/ONCOLOGICAL Hx Blood Disorders: Yes Hx Blood Transfusions: Yes - INTEGUMENTARY Hx Dermatological Problems: No - MUSCULOSKELETAL/RHEUMATOLOGICAL Hx Musculoskeletal Disorders: No - GASTROINTESTINAL Hx Gastrointestinal Disorders: Yes Other/Comment: abdominal hernia. ascites. liver problems - GENITOURINARY/GYNECOLOGICAL Hx Genitourinary Disorders: Yes Hx Hematuria: Yes - PSYCHIATRIC Hx Substance Use: Yes (OPIATES) - SURGICAL HISTORY Other/Comment: paracenthesis - ANESTHESIA Hx Anesthesia: Yes Meds Allergies/Adverse Reactions: Allergies Allergy/AdvReac Type Severity Reaction Status Date / Time No Known Allergies Allergy Verified 11/28/18 13:30 - Medications Medications: Current Medications Albuterol/Ipratropium (Duoneb 3 Mg/0.5 Mg (3 Ml) Ud) 3 ml IH Q2H PRN PRN Reason: Shortness of Breath Last Admin: 11/29/18 12:31 Dose: 3 ml Albuterol/Ipratropium (Duoneb 3 Mg/0.5 Mg (3 Ml) Ud) 3 ml IH [id number] JOSE J Last Admin: 11/29/18 13:17 Dose: Not Given Budesonide (Pulmicort Respules) 0.5 mg IH [id number] JOSE J Last Admin: 11/29/18 12:31 Dose: 0.5 mg Docusate Sodium (Colace) 100 mg PO BID JOSE J Famotidine (Pepcid) 20 mg PO HS JOSE J Last Admin: 11/28/18 22:11 Dose: 20 mg Furosemide (Lasix) 20 mg PO DAILY JOSE J Last Admin: 11/29/18 09:48 Dose: 20 mg Guaifenesin/Dextromethorphan (Mucinex-Dm 600-30 Mg) 1 tab PO BID JOSE J Last Admin: 11/29/18 09:48 Dose: 1 tab Hydroxyzine HCl (Atarax) 25 mg PO Q6H PRN PRN Reason: Allergy symptoms Levofloxacin/Dextrose (Levaquin 500mg) 500 mg in 100 mls @ 100 mls/hr IVPB DAILY JOSE J; Protocol Last Admin: 11/29/18 09:48 Dose: 100 mls/hr Meropenem (Merrem Iv 1 Gm Premix) 1 gm in 50 mls @ 100 mls/hr IVPB Q8 JOSE J; Protocol Stop: 12/06/18 22:01 Last Admin: 11/29/18 15:04 Dose: 100 mls/hr Vancomycin HCl (Vancomycin 1gm) 1 gm in 250 mls @ 167 mls/hr IVPB Q12H JOSE J; Protocol Stop: 12/07/18 22:01 Last Admin: 11/29/18 10:59 Dose: 167 mls/hr Ibuprofen (Motrin Tab) 400 mg PO Q12H PRN PRN Reason: Headache Levothyroxine Sodium (Synthroid) 50 mcg PO DAILY [facility] Methadone HCl (Methadone) 30 mg PO DAILY [facility] Last Admin: 11/29/18 11:08 Dose: 30 mg Methadone HCl (Methadone) 5 mg PO DAILY [facility] Last Admin: 11/29/18 11:08 Dose: 5 mg Methylprednisolone (Solu-Medrol) 20 mg IVP DAILY [facility] Last Admin: 11/29/18 10:58 Dose: Not Given Nicotine (Nicoderm Cq) 1 patch TD DAILY [facility] Spironolactone (Aldactone) 25 mg PO BID [facility] Last Admin: 11/29/18 09:49 Dose: 25 mg Physical Exam - Constitutional Appears: No Acute Distress, Chronically Ill - Head Exam Head Exam: ATRAUMATIC, NORMAL INSPECTION - Eye Exam Eye Exam: EOMI. absent: Scleral icterus - ENT Exam ENT Exam: Mucous Membranes Dry. absent: Mucous Membranes Moist - Respiratory Exam Respiratory Exam: Accessory Muscle Use, Wheezes, NORMAL BREATHING PATTERN - Cardiovascular Exam Cardiovascular Exam: REGULAR RHYTHM, RRR - GI/Abdominal Exam GI & Abdominal Exam: Distended, Normal Bowel Sounds, Soft. absent: Bruit, Diminished Bowel Sounds, Firm, Guarding, Hernia, Organomegaly, Pulsatile Mass, Rebound, Rigid, Tenderness Additional comments: evidence of umbilical hernia surgery, dilated abdominal veins, flank fullness, dull to percussion in lower quadrants and flanks - Extremities Exam Extremities exam: Positive for: normal inspection. Negative for: pedal edema - Neurological Exam Neurological exam: Alert, Oriented x3 Additional comments: no asterixis - Psychiatric Exam Psychiatric exam: Normal Affect, Normal Mood - Skin Skin Exam: Dry, Warm Additional comments: + spider angiomas Results - Vital Signs Recent Vital Signs: Last Vital Signs Temp 97.4 F L 11/29/18 08:02 Pulse 66 11/29/18 08:02 Resp 18 11/29/18 08:02 BP 137/90 11/29/18 09:48 Pulse Ox 95 11/29/18 08:02 - Labs Result Diagrams: 11/29/18 06:05 11/29/18 06:05 Labs: Laboratory Results - last 24 hr 11/28/18 11/28/18 11/28/18 18:20 23:17 23:17 WBC RBC Hgb Hct MCV MCH MCHC RDW Plt Count Manual Plt Count Neut % (Auto) Lymph % (Auto) [place] % (Auto) Eos % (Auto) Baso % (Auto) Lymph # (Auto) [place] # (Auto) Eos # (Auto) Baso # (Auto) Absolute Neuts (auto) Retic Count PT INR APTT pO2 122 H VBG pH 7.37 VBG pCO2 45.0 VBG HCO3 26.0 VBG Total CO2 27.4 VBG O2 Sat (Calc) 100.1 H VBG Base Excess 0.3 VBG Potassium 4.1 Sodium 132.0 Chloride 98.0 Glucose 148 H Lactate 2.4 H FiO2 21.0 Crit Value Called To Travis doty Crit Value Called By [facility] Blood Gas Notified Time 182 Potassium Carbon Dioxide Anion Gap BUN Creatinine Est GFR ( Amer) Est GFR (Non-Af Amer) Random Glucose Hemoglobin A1c Calcium Phosphorus Magnesium Iron TIBC % Saturation Total Bilirubin AST ALT Alkaline Phosphatase Ammonia Total Protein Albumin Globulin Albumin/Globulin Ratio Triglycerides Cholesterol LDL Cholesterol Direct HDL Cholesterol Procalcitonin Free T4 TSH 3rd Generation Venous Blood Potassium 4.1 Urine Color Yellow Urine Appearance Clear Urine pH 6.0 Ur Specific [place] >= 1.030 Urine Protein Trace H Urine Glucose (UA) Negative Urine Ketones Negative Urine Blood Small H Urine Nitrate Negative Urine Bilirubin Negative Urine Urobilinogen 0.2 Ur Leukocyte Esterase Trace H Urine RBC 0 - 2 Urine WBC 2 - 5 Ur Epithelial Cells 3 - 4 Urine Bacteria Small Ur L.pneumophila Ag Negative 11/29/18 11/29/18 11/29/18 05:40 05:40 06:05 WBC RBC Hgb Hct MCV MCH MCHC RDW Plt Count Manual Plt Count Neut % (Auto) Lymph % (Auto) [place] % (Auto) Eos % (Auto) Baso % (Auto) Lymph # (Auto) [place] # (Auto) Eos # (Auto) Baso # (Auto) Absolute Neuts (auto) Retic Count PT INR APTT pO2 38 VBG pH 7.38 VBG pCO2 50.0 VBG HCO3 29.6 H VBG Total CO2 31.1 H VBG O2 Sat (Calc) 70.4 H VBG Base Excess 3.4 H VBG Potassium 4.2 Sodium 134.0 134 Chloride 100.0 99 Glucose 119 H Lactate 1.9 FiO2 21.0 Crit Value Called To Crit Value Called By Blood Gas Notified Time Potassium 4.4 Carbon Dioxide 30 Anion Gap 9 L BUN 16 Creatinine 0.8 Est GFR ( Amer) > 60 Est GFR (Non-Af Amer) > 60 Random Glucose 118 H Hemoglobin A1c Calcium 8.5 Phosphorus 2.8 Magnesium 2.3 H Iron TIBC % Saturation Total Bilirubin 0.9 AST 27 ALT 11 Alkaline Phosphatase 122 Ammonia 21 Total Protein 7.0 Albumin 2.9 L Globulin 4.0 Albumin/Globulin Ratio 0.7 L Triglycerides 58 Cholesterol 52 L LDL Cholesterol Direct < 30 HDL Cholesterol 19 L Procalcitonin Free T4 TSH 3rd Generation Venous Blood Potassium 4.2 Urine Color Urine Appearance Urine pH Ur Specific [place] Urine Protein Urine Glucose (UA) Urine Ketones Urine Blood Urine Nitrate Urine Bilirubin Urine Urobilinogen Ur Leukocyte Esterase Urine RBC Urine WBC Ur Epithelial Cells Urine Bacteria Ur L.pneumophila Ag 11/29/18 11/29/18 11/29/18 06:05 06:05 06:05 WBC RBC Hgb Hct MCV MCH MCHC RDW Plt Count Manual Plt Count Neut % (Auto) Lymph % (Auto) [place] % (Auto) Eos % (Auto) Baso % (Auto) Lymph # (Auto) [place] # (Auto) Eos # (Auto) Baso # (Auto) Absolute Neuts (auto) Retic Count PT INR APTT pO2 VBG pH VBG pCO2 VBG HCO3 VBG Total CO2 VBG O2 Sat (Calc) VBG Base Excess VBG Potassium Sodium Chloride Glucose Lactate FiO2 Crit Value Called To Crit Value Called By Blood Gas Notified Time Potassium Carbon Dioxide Anion Gap BUN Creatinine Est GFR ( Amer) Est GFR (Non-Af Amer) Random Glucose Hemoglobin A1c 5.2 Calcium Phosphorus Magnesium Iron TIBC % Saturation Total Bilirubin AST ALT Alkaline Phosphatase Ammonia Total Protein Albumin Globulin Albumin/Globulin Ratio Triglycerides Cholesterol LDL Cholesterol Direct HDL Cholesterol Procalcitonin 0.20 Free T4 TSH 3rd Generation 0.35 L Venous Blood Potassium Urine Color Urine Appearance Urine pH Ur Specific [place] Urine Protein Urine Glucose (UA) Urine Ketones Urine Blood Urine Nitrate Urine Bilirubin Urine Urobilinogen Ur Leukocyte Esterase Urine RBC Urine WBC Ur Epithelial Cells Urine Bacteria Ur L.pneumophila Ag 11/29/18 11/29/18 11/29/18 06:05 06:05 10:30 WBC 12.7 H D RBC 4.29 Hgb 10.2 L Hct 33.0 L MCV 76.9 L MCH 23.8 L MCHC 30.9 L RDW 18.8 H Plt Count 33 L* Manual Plt Count Neut % (Auto) 86.6 H Lymph % (Auto) 5.5 L [place] % (Auto) 7.8 H Eos % (Auto) 0.0 L Baso % (Auto) 0.1 Lymph # (Auto) 0.7 L [place] # (Auto) 1.0 H Eos # (Auto) 0.0 Baso # (Auto) 0.01 Absolute Neuts (auto) 10.97 H Retic Count PT 21.2 H INR 1.88 APTT 34.3 pO2 VBG pH VBG pCO2 VBG HCO3 VBG Total CO2 VBG O2 Sat (Calc) VBG Base Excess VBG Potassium Sodium Chloride Glucose Lactate FiO2 Crit Value Called To Crit Value Called By Blood Gas Notified Time Potassium Carbon Dioxide Anion Gap BUN Creatinine Est GFR ( Amer) Est GFR (Non-Af Amer) Random Glucose Hemoglobin A1c Calcium Phosphorus Magnesium Iron 24 L TIBC 371 % Saturation 6 L Total Bilirubin AST ALT Alkaline Phosphatase Ammonia Total Protein Albumin Globulin Albumin/Globulin Ratio Triglycerides Cholesterol LDL Cholesterol Direct HDL Cholesterol Procalcitonin Free T4 TSH 3rd Generation Venous Blood Potassium Urine Color Urine Appearance Urine pH Ur Specific [place] Urine Protein Urine Glucose (UA) Urine Ketones Urine Blood Urine Nitrate Urine Bilirubin Urine Urobilinogen Ur Leukocyte Esterase Urine RBC Urine WBC Ur Epithelial Cells Urine Bacteria Ur L.pneumophila Ag 11/29/18 11/29/18 10:30 10:30 WBC RBC Hgb Hct MCV MCH MCHC RDW Plt Count Manual Plt Count 42 L* Neut % (Auto) Lymph % (Auto) [place] % (Auto) Eos % (Auto) Baso % (Auto) Lymph # (Auto) [place] # (Auto) Eos # (Auto) Baso # (Auto) Absolute Neuts (auto) Retic Count 2.06 H PT INR APTT pO2 VBG pH VBG pCO2 VBG HCO3 VBG Total CO2 VBG O2 Sat (Calc) VBG Base Excess VBG Potassium Sodium Chloride Glucose Lactate FiO2 Crit Value Called To Crit Value Called By Blood Gas Notified Time Potassium Carbon Dioxide Anion Gap BUN Creatinine Est GFR ( Amer) Est GFR (Non-Af Amer) Random Glucose Hemoglobin A1c Calcium Phosphorus Magnesium Iron TIBC % Saturation Total Bilirubin AST ALT Alkaline Phosphatase Ammonia Total Protein Albumin Globulin Albumin/Globulin Ratio Triglycerides Cholesterol LDL Cholesterol Direct HDL Cholesterol Procalcitonin Free T4 1.02 TSH 3rd Generation Venous Blood Potassium Urine Color Urine Appearance Urine pH Ur Specific [place] Urine Protein Urine Glucose (UA) Urine Ketones Urine Blood Urine Nitrate Urine Bilirubin Urine Urobilinogen Ur Leukocyte Esterase Urine RBC Urine WBC Ur Epithelial Cells Urine Bacteria Ur L.pneumophila Ag Assessment & Plan - Assessment and Plan (Free Text) Assessment: 58-year-old female with hepatitis C cirrhosis (decompensated with ascites), COPD, methadone, history of alcohol abuse presenting with cough shortness of breath and worsening abdominal distention. # Decompensated Hepatitis C +/- alcoholic cirrhosis: MELDNa score 16 reportedly on transplant list at [facility] Ascites: Patient thinks last paracentesis was months to a year ago, no reported history of SBP on diuretics as outpatient but unclear regarding the details and is supposedly compliant with low sodium diet. Hepatic encephalopathy: None apparent at this time Variceal screening: Last EGD on file from February 2018 with only portal hypertensive gastropathy HCC screening: no mass on ultrasound, but follows at [facility] #Sepsis: Increased WBCs and tachycardia primary team treating for respiratory sources. Plan: Recommend paracentesis with cell count and differential to rule out SBP May need platelet transfusion if desired by interventional radiology Low sodium diet Continue diuretics Vitamin K 10 mg IV once for vitamin K challenge check AFP level Encourage continued alcohol abstinence Patient to follow up with outpatient liver clinic at [facility] Patient discussed with Dr. Cool. Please see attestation for further recommenda tions/changes <Des Cool - Last Filed: 11/29/18 16:11> Meds - Medications Medications: Current Medications Albuterol/Ipratropium (Duoneb 3 Mg/0.5 Mg (3 Ml) Ud) 3 ml IH Q2H PRN PRN Reason: Shortness of Breath Last Admin: 11/29/18 12:31 Dose: 3 ml Albuterol/Ipratropium (Duoneb 3 Mg/0.5 Mg (3 Ml) Ud) 3 ml IH [id number] JOSE J Last Admin: 11/29/18 13:17 Dose: Not Given Budesonide (Pulmicort Respules) 0.5 mg IH [id number] JOSE J Last Admin: 11/29/18 12:31 Dose: 0.5 mg Docusate Sodium (Colace) 100 mg PO BID [facility] Famotidine (Pepcid) 20 mg PO HS [facility] Last Admin: 11/28/18 22:11 Dose: 20 mg Furosemide (Lasix) 20 mg PO DAILY [facility] Last Admin: 11/29/18 09:48 Dose: 20 mg Guaifenesin/Dextromethorphan (Mucinex-Dm 600-30 Mg) 1 tab PO BID [facility] Last Admin: 11/29/18 09:48 Dose: 1 tab Hydroxyzine HCl (Atarax) 25 mg PO Q6H PRN PRN Reason: Allergy symptoms Levofloxacin/Dextrose (Levaquin 500mg) 500 mg in 100 mls @ 100 mls/hr IVPB DAILY [facility]; Protocol Last Admin: 11/29/18 09:48 Dose: 100 mls/hr Meropenem (Merrem Iv 1 Gm Premix) 1 gm in 50 mls @ 100 mls/hr IVPB Q8 JOSE J; Protocol Stop: 12/06/18 22:01 Last Admin: 11/29/18 15:04 Dose: 100 mls/hr Vancomycin HCl (Vancomycin 1gm) 1 gm in 250 mls @ 167 mls/hr IVPB Q12H JOSE J; Protocol Stop: 12/07/18 22:01 Last Admin: 11/29/18 10:59 Dose: 167 mls/hr Ibuprofen (Motrin Tab) 400 mg PO Q12H PRN PRN Reason: Headache Levothyroxine Sodium (Synthroid) 50 mcg PO DAILY [facility] Methadone HCl (Methadone) 30 mg PO DAILY [facility] Last Admin: 11/29/18 11:08 Dose: 30 mg Methadone HCl (Methadone) 5 mg PO DAILY [facility] Last Admin: 11/29/18 11:08 Dose: 5 mg Methylprednisolone (Solu-Medrol) 20 mg IVP DAILY [facility] Last Admin: 11/29/18 10:58 Dose: Not Given Nicotine (Nicoderm Cq) 1 patch TD DAILY [facility] Spironolactone (Aldactone) 25 mg PO BID [facility] Last Admin: 11/29/18 09:49 Dose: 25 mg Results - Vital Signs Recent Vital Signs: Last Vital Signs Temp 97.4 F L 11/29/18 08:02 Pulse 66 11/29/18 08:02 Resp 18 11/29/18 08:02 BP 137/90 11/29/18 09:48 Pulse Ox 95 11/29/18 08:02 - Labs Result Diagrams: 11/29/18 06:05 11/29/18 06:05 Labs: Laboratory Results - last 24 hr 11/28/18 11/28/18 11/28/18 18:20 23:17 23:17 WBC RBC Hgb Hct MCV MCH MCHC RDW Plt Count Manual Plt Count Neut % (Auto) Lymph % (Auto) [place] % (Auto) Eos % (Auto) Baso % (Auto) Lymph # (Auto) [place] # (Auto) Eos # (Auto) Baso # (Auto) Absolute Neuts (auto) Retic Count PT INR APTT pO2 122 H VBG pH 7.37 VBG pCO2 45.0 VBG HCO3 26.0 VBG Total CO2 27.4 VBG O2 Sat (Calc) 100.1 H VBG Base Excess 0.3 VBG Potassium 4.1 Sodium 132.0 Chloride 98.0 Glucose 148 H Lactate 2.4 H FiO2 21.0 Crit Value Called To Travis doty Crit Value Called By [facility] Blood Gas Notified Time 1825 Potassium Carbon Dioxide Anion Gap BUN Creatinine Est GFR ( Amer) Est GFR (Non-Af Amer) Random Glucose Hemoglobin A1c Calcium Phosphorus Magnesium Iron TIBC % Saturation Total Bilirubin AST ALT Alkaline Phosphatase Ammonia Total Protein Albumin Globulin Albumin/Globulin Ratio Triglycerides Cholesterol LDL Cholesterol Direct HDL Cholesterol Procalcitonin Free T4 TSH 3rd Generation Venous Blood Potassium 4.1 Urine Color Yellow Urine Appearance Clear Urine pH 6.0 Ur Specific [place] >= 1.030 Urine Protein Trace H Urine Glucose (UA) Negative Urine Ketones Negative Urine Blood Small H Urine Nitrate Negative Urine Bilirubin Negative Urine Urobilinogen 0.2 Ur Leukocyte Esterase Trace H Urine RBC 0 - 2 Urine WBC 2 - 5 Ur Epithelial Cells 3 - 4 Urine Bacteria Small Ur L.pneumophila Ag Negative 11/29/18 11/29/18 11/29/18 05:40 05:40 06:05 WBC RBC Hgb Hct MCV MCH MCHC RDW Plt Count Manual Plt Count Neut % (Auto) Lymph % (Auto) [place] % (Auto) Eos % (Auto) Baso % (Auto) Lymph # (Auto) [place] # (Auto) Eos # (Auto) Baso # (Auto) Absolute Neuts (auto) Retic Count PT INR APTT pO2 38 VBG pH 7.38 VBG pCO2 50.0 VBG HCO3 29.6 H VBG Total CO2 31.1 H VBG O2 Sat (Calc) 70.4 H VBG Base Excess 3.4 H VBG Potassium 4.2 Sodium 134.0 134 Chloride 100.0 99 Glucose 119 H Lactate 1.9 FiO2 21.0 Crit Value Called To Crit Value Called By Blood Gas Notified Time Potassium 4.4 Carbon Dioxide 30 Anion Gap 9 L BUN 16 Creatinine 0.8 Est GFR ( Amer) > 60 Est GFR (Non-Af Amer) > 60 Random Glucose 118 H Hemoglobin A1c Calcium 8.5 Phosphorus 2.8 Magnesium 2.3 H Iron TIBC % Saturation Total Bilirubin 0.9 AST 27 ALT 11 Alkaline Phosphatase 122 Ammonia 21 Total Protein 7.0 Albumin 2.9 L Globulin 4.0 Albumin/Globulin Ratio 0.7 L Triglycerides 58 Cholesterol 52 L LDL Cholesterol Direct < 30 HDL Cholesterol 19 L Procalcitonin Free T4 TSH 3rd Generation Venous Blood Potassium 4.2 Urine Color Urine Appearance Urine pH Ur Specific [place] Urine Protein Urine Glucose (UA) Urine Ketones Urine Blood Urine Nitrate Urine Bilirubin Urine Urobilinogen Ur Leukocyte Esterase Urine RBC Urine WBC Ur Epithelial Cells Urine Bacteria Ur L.pneumophila Ag 11/29/18 11/29/18 11/29/18 06:05 06:05 06:05 WBC RBC Hgb Hct MCV MCH MCHC RDW Plt Count Manual Plt Count Neut % (Auto) Lymph % (Auto) [place] % (Auto) Eos % (Auto) Baso % (Auto) Lymph # (Auto) [place] # (Auto) Eos # (Auto) Baso # (Auto) Absolute Neuts (auto) Retic Count PT INR APTT pO2 VBG pH VBG pCO2 VBG HCO3 VBG Total CO2 VBG O2 Sat (Calc) VBG Base Excess VBG Potassium Sodium Chloride Glucose Lactate FiO2 Crit Value Called To Crit Value Called By Blood Gas Notified Time Potassium Carbon Dioxide Anion Gap BUN Creatinine Est GFR ( Amer) Est GFR (Non-Af Amer) Random Glucose Hemoglobin A1c 5.2 Calcium Phosphorus Magnesium Iron TIBC % Saturation Total Bilirubin AST ALT Alkaline Phosphatase Ammonia Total Protein Albumin Globulin Albumin/Globulin Ratio Triglycerides Cholesterol LDL Cholesterol Direct HDL Cholesterol Procalcitonin 0.20 Free T4 TSH 3rd Generation 0.35 L Venous Blood Potassium Urine Color Urine Appearance Urine pH Ur Specific [place] Urine Protein Urine Glucose (UA) Urine Ketones Urine Blood Urine Nitrate Urine Bilirubin Urine Urobilinogen Ur Leukocyte Esterase Urine RBC Urine WBC Ur Epithelial Cells Urine Bacteria Ur L.pneumophila Ag 11/29/18 11/29/18 11/29/18 06:05 06:05 10:30 WBC 12.7 H D RBC 4.29 Hgb 10.2 L Hct 33.0 L MCV 76.9 L MCH 23.8 L MCHC 30.9 L RDW 18.8 H Plt Count 33 L* Manual Plt Count Neut % (Auto) 86.6 H Lymph % (Auto) 5.5 L [place] % (Auto) 7.8 H Eos % (Auto) 0.0 L Baso % (Auto) 0.1 Lymph # (Auto) 0.7 L [place] # (Auto) 1.0 H Eos # (Auto) 0.0 Baso # (Auto) 0.01 Absolute Neuts (auto) 10.97 H Retic Count PT 21.2 H INR 1.88 APTT 34.3 pO2 VBG pH VBG pCO2 VBG HCO3 VBG Total CO2 VBG O2 Sat (Calc) VBG Base Excess VBG Potassium Sodium Chloride Glucose Lactate FiO2 Crit Value Called To Crit Value Called By Blood Gas Notified Time Potassium Carbon Dioxide Anion Gap BUN Creatinine Est GFR ( Amer) Est GFR (Non-Af Amer) Random Glucose Hemoglobin A1c Calcium Phosphorus Magnesium Iron 24 L TIBC 371 % Saturation 6 L Total Bilirubin AST ALT Alkaline Phosphatase Ammonia Total Protein Albumin Globulin Albumin/Globulin Ratio Triglycerides Cholesterol LDL Cholesterol Direct HDL Cholesterol Procalcitonin Free T4 TSH 3rd Generation Venous Blood Potassium Urine Color Urine Appearance Urine pH Ur Specific [place] Urine Protein Urine Glucose (UA) Urine Ketones Urine Blood Urine Nitrate Urine Bilirubin Urine Urobilinogen Ur Leukocyte Esterase Urine RBC Urine WBC Ur Epithelial Cells Urine Bacteria Ur L.pneumophila Ag 11/29/18 11/29/18 10:30 10:30 WBC RBC Hgb Hct MCV MCH MCHC RDW Plt Count Manual Plt Count 42 L* Neut % (Auto) Lymph % (Auto) [place] % (Auto) Eos % (Auto) Baso % (Auto) Lymph # (Auto) [place] # (Auto) Eos # (Auto) Baso # (Auto) Absolute Neuts (auto) Retic Count 2.06 H PT INR APTT pO2 VBG pH VBG pCO2 VBG HCO3 VBG Total CO2 VBG O2 Sat (Calc) VBG Base Excess VBG Potassium Sodium Chloride Glucose Lactate FiO2 Crit Value Called To Crit Value Called By Blood Gas Notified Time Potassium Carbon Dioxide Anion Gap BUN Creatinine Est GFR ( Amer) Est GFR (Non-Af Amer) Random Glucose Hemoglobin A1c Calcium Phosphorus Magnesium Iron TIBC % Saturation Total Bilirubin AST ALT Alkaline Phosphatase Ammonia Total Protein Albumin Globulin Albumin/Globulin Ratio Triglycerides Cholesterol LDL Cholesterol Direct HDL Cholesterol Procalcitonin Free T4 1.02 TSH 3rd Generation Venous Blood Potassium Urine Color Urine Appearance Urine pH Ur Specific [place] Urine Protein Urine Glucose (UA) Urine Ketones Urine Blood Urine Nitrate Urine Bilirubin Urine Urobilinogen Ur Leukocyte Esterase Urine RBC Urine WBC Ur Epithelial Cells Urine Bacteria Ur L.pneumophila Ag Attending/Attestation - Attestation I have fully participated in the care of the patient.: Yes I have reviewed all pertinent clinical information: Yes Notes (Text): 11/29/18 16:07 HCV/ETOH decompensated cirrhosis COPD Hypothyroidism Hyperlipidemia Progressive abdominal distention, ascites - Low sodium diet as tolerated - Obtain AFP. Recent abdominal US shows no focal hepatic lesions. - Patient would benefit from diagnostic/therapeutic paracentesis, though will likely require platelet transfusion prior to procedure given significant thrombocytopenia - Continue with diuretic therapy, monitor creatinine - Patient follows with liver transplant team at [facility], though continues to consume ETOH (last drink 3 weeks ago). ETOH abstinence and ongoing liver follow up with team in [place], [place].
--- NOTE | 2018-11-29 16:18 | PN ---
DATE: 11/29/2018 SUBJECTIVE: The patient seen earlier today in 361, bed 2. She is awake and alert. She was sitting up, reading her newspaper. States that she still has a cough, but no abdominal pain. PHYSICAL EXAMINATION: VITAL SIGNS: Temperature is 98, pulse is down to 66, respiratory rate of 20, and blood pressure is 130/70. HEENT: Unremarkable. NECK: Supple. LUNGS: Have decreased breath sounds. HEART: Normal S1 and S2. ABDOMEN: Soft, and nontender. LABORATORY DATA: Laboratory examination reveals the white count has improved from 22,000 down to 12,700, hemoglobin of 10, platelets are down to 42,000, BUN of 16, creatinine of 0.8. The patient's LFTs are normal, alk phos is normal. Microbiology is pending, and the patient had a CAT scan of the chest which reveals consolidation with air bronchograms in the lingular segment of the left upper lobe, patchy ground-glass infiltrates in the upper lobes bilaterally. The patient's chest x-ray from yesterday was reported to be no active disease. ASSESSMENT AND PLAN: This is a 58-year-old female with liver cirrhosis status post paracentesis in the back with hepatitis C, alcohol abuse, chronic obstructive lung disease, hyperlipidemia, presenting with cough, shortness of breath, leukocytosis, tachycardia with 1. Sepsis with healthcare-associated pneumonia based on the CAT scan finding although the initial chest x-ray was reported to be negative. Currently on vancomycin, meropenem, and Levaquin day #2 of antibiotics. Pending procalcitonin, urine Legionella antigen, and nasal methicillin-resistant Staphylococcus aureus screen and sputum culture and blood cultures are all pending. The patient's initial x-ray was reported to be negative, however, CAT scan again was ordered, is positive. We will check on the panculture results, make further recommendation. Overall, the patient is improving, and if full cultures are negative, we will be able to switch to p.o. antibiotics. Malcolm Nelson MD
[2018-11-29 17:27] LABS: FERRITIN 28.7 ng/mL
[2018-11-29 17:57] LABS: FOLATE 7.2 ng/mL
[2018-11-30] MEDS: Albuterol-Ipratrop 3 mg / 0.5 (3 ml) UD IH SCH ×4 (02:45→20:04)
[2018-11-30 06:33] LABS: EOS % 0.1 % (1.5-5.0); LYMPH # 0.9 (1.2-3.4); LYMPH % 6.6 % (22.0-35.0); MEAN CELL VOLUME 77.9 fl (80.0-105.0); MEAN CORPUSCULAR HEMOGLOBIN 23.3 pg (25.0-35.0); MEAN CORPUSCULAR HGB CONC 29.9 g/dl (31.0-37.0); MONO # 1.6 (0.1-0.6); MONO % 11.3 % (1.0-6.0); RBC 4.29 10^6/uL (3.5-6.1); WHITE BLOOD COUNT 14.2 10^3/uL (4.5-11.0)
[2018-11-30] MEDS: Meropenem IV 1 gm in NS 1 GM/50 ML BAG IVPB SCH ×3 (06:33→21:31)
[2018-11-30 06:38] LABS: PLATELET COUNT 43 10^3/uL (120.0-450.0)
[2018-11-30 06:42] LABS: INR 1.55; PARTIAL THROMBOPLASTIN TIME 30.8 Seconds (26.9-38.3); PROTHROMBIN TIME 17.5 SECONDS (9.4-12.5)
[2018-11-30 07:18] LABS: ALB/GLOB RATIO 0.7 (1.1-1.8); ALBUMIN 2.9 g/dL (3.0-4.8); ALT/SGPT 17 U/L (7-56); AST/SGOT 45 U/L (14-36); BLOOD UREA NITROGEN 24 mg/dL (7-21); CALCIUM 8.6 mg/dL (8.4-10.5); GFR NON-AFRICAN AMERICAN > 60
[2018-11-30 07:46] LABS: PLATELET COUNT MANUAL 63 K/mm3 (120-450)
[2018-11-30] MEDS: Budesonide 0.5 mg/2 ml Inhal Susp UD IH SCH ×2 (08:04→20:04)
--- NOTE | 2018-11-30 09:12 | CP.PCM.PN ---
<Ja Villalobos - Last Filed: 11/30/18 12:51> Subjective - Date & Time of Evaluation Date of Evaluation: 11/30/18 Time of Evaluation: 09:04 - Subjective Subjective: Ja Villalobos, PGY-1, Internal Medicine Progress Note for Dr. Chan Patient seen and evaluated at bedside. Patient had no acute overnight events. Patient today reports shortness of breath, cough with yellow sputum, reports abdominal distension but denies abdominal pain, nausea, vomiting, constipation, diarrhea, dysuria, or hematuria. 12-point ROS was unremarkable except for what was mentioned above. Objective - Vital Signs/Intake and Output Vital Signs (last 24 hours): Temp Pulse Resp BP Pulse Ox 97.5 F L 78 20 133/72 93 L 11/30/18 06:00 11/30/18 06:00 11/30/18 06:00 11/30/18 06:00 11/30/18 06:00 - Medications Medications: Current Medications Albuterol/Ipratropium (Duoneb 3 Mg/0.5 Mg (3 Ml) Ud) 3 ml IH Q2H PRN PRN Reason: Shortness of Breath Last Admin: 11/29/18 22:15 Dose: 3 ml Albuterol/Ipratropium (Duoneb 3 Mg/0.5 Mg (3 Ml) Ud) 3 ml [facility] [id number] [facility] Last Admin: 11/30/18 08:04 Dose: 3 ml Budesonide (Pulmicort Respules) 0.5 mg IH [id number] [facility] Last Admin: 11/30/18 08:04 Dose: 0.5 mg Docusate Sodium (Colace) 100 mg PO BID [facility] Last Admin: 11/29/18 17:52 Dose: 100 mg Famotidine (Pepcid) 20 mg PO HS [facility] Last Admin: 11/29/18 22:16 Dose: 20 mg Furosemide (Lasix) 20 mg PO DAILY [facility] Last Admin: 11/29/18 09:48 Dose: 20 mg Guaifenesin/Dextromethorphan (Mucinex-Dm 600-30 Mg) 1 tab PO BID [facility] Last Admin: 11/29/18 17:52 Dose: 1 tab Hydroxyzine HCl (Atarax) 25 mg PO Q6H PRN PRN Reason: Allergy symptoms Meropenem (Merrem Iv 1 Gm Premix) 1 gm in 50 mls @ 100 mls/hr IVPB Q8 JOSE J; Protocol Stop: 12/06/18 22:01 Last Admin: 11/30/18 06:33 Dose: 100 mls/hr Vancomycin HCl (Vancomycin 1gm) 1 gm in 250 mls @ 167 mls/hr IVPB Q12H JOSE J; Protocol Stop: 12/07/18 22:01 Last Admin: 11/29/18 22:15 Dose: 167 mls/hr Ibuprofen (Motrin Tab) 400 mg PO Q12H PRN PRN Reason: Headache Levofloxacin (Levaquin) 500 mg PO DAILY [facility]; Protocol Stop: 12/05/18 10:01 Levothyroxine Sodium (Synthroid) 50 mcg PO DAILY [facility] Methadone HCl (Methadone) 30 mg PO DAILY [facility] Last Admin: 11/29/18 11:08 Dose: 30 mg Methadone HCl (Methadone) 5 mg PO DAILY [facility] Last Admin: 11/29/18 11:08 Dose: 5 mg Methylprednisolone (Solu-Medrol) 20 mg IVP DAILY [facility] Last Admin: 11/29/18 10:58 Dose: Not Given Nicotine (Nicoderm Cq) 1 patch TD DAILY [facility] Pantoprazole Sodium (Protonix Inj) 40 mg IVP DAILY [facility] Spironolactone (Aldactone) 25 mg PO BID [facility] Last Admin: 11/29/18 17:52 Dose: 25 mg - Labs Labs: 11/30/18 06:00 11/30/18 06:00 PT 17.5 SECONDS (9.4-12.5) H 11/30/18 06:00 INR 1.55 11/30/18 06:00 APTT 30.8 Seconds (26.9-38.3) 11/30/18 06:00 - Constitutional Appears: Well, Non-toxic, No Acute Distress - Head Exam Head Exam: ATRAUMATIC, NORMAL INSPECTION, NORMOCEPHALIC - Eye Exam Eye Exam: EOMI, PERRL - ENT Exam ENT Exam: Mucous Membranes Moist - Neck Exam Neck Exam: Full ROM - Respiratory Exam Respiratory Exam: Clear to Ausculation Bilateral, NORMAL BREATHING PATTERN - Cardiovascular Exam Cardiovascular Exam: REGULAR RHYTHM, RRR, +S1, +S2 - GI/Abdominal Exam GI & Abdominal Exam: Distended, Soft, Normal Bowel Sounds. absent: Firm, Guarding, Tenderness - Extremities Exam Extremities Exam: Full ROM, Normal Capillary Refill, Normal Inspection - Neurological Exam Neurological Exam: Alert, Awake, CN II-XII Intact, Oriented x3 - Skin Skin Exam: Dry, Intact, Normal Color Assessment and Plan - Assessment and Plan (Free Text) Assessment: 58 year old female with past medical history of liver cirrhosis, hepatitis C, alcohol abuse, hypercholesterolemia, hypothyroidism presented with sepsis 2/2 to upper respiratory infection Plan: Sepsis likely 2/2 to URI vs. SBP -Chest CT 11/29: small focal area of consolidation with air bronchograms in lingular segment of left upper lobe. Patchy ground glass interstitial infiltrate are seen in upper lobes bilaterally. Linear scarring see in both lung bases similar to prior CT -Blood culture negative for 24 hours -Sputum culture: few gram positive cocci -Urine legionella negative -Procal: 0.2 -HIV: negative -Will follow up nasal MRSA -Paracentesis performed to rule out SBP -Continue with vancomycin, meropenem, and levaquin day 3 History of Cirrhosis 2/2 Hepatitis C vs. alcohol abuse -Abdominal ultrasound on 11/28 shows appearance consistent with cirrhosis with nodular hepatic contour evident. Echogenic liver may be seen in setting of hepatic parenchymal disease or fatty infiltration. Mild to moderate abdominal ascites. Cholelithiasis. -MELD score: 17 with estimated 6% mortality in 3 months -Though patient had mildly elevated anti-smooth muscle Ab in the past, cirrhosis unlikely due to autoimmune cause. Likely 2/2 to hepatitis C vs. alcohol abuse -Patient currently has abdominal distension on exam likely 2/2 to ascites from cirrhosis. -Paracentesis performed today by Dr. Garcia. Will obtain cell count, albumin, LDH for paracentesis. Limited workup as she has close follow up at [facility]. -Continue with aldactone 50 mg and lasix 20 mg daily Chronic Thrombocytopenia -Likely 2/2 to cirrhosis -Manual platelet count was 63. -No platelet transfusion was needed for paracentesis -GI recommends platelet transfusion prior to paracentesis -Avoid hepatotoxic medications Microcytic Anemia -Hgb decreased to 10s from 11s. Baseline in 10s to 11s -Iron decreased at 24, TIBC unremarkable at 371. % saturation decreased at 6 -Ferritin: 28.7 -Started ferrous sulfate COPD -Continue with NC -Continue with duonebs, pulmicort -Continue solumedrol 20 mg daily Former opiod abuse -Will follow up UDS -Continue methadone 35 mg daily as confirmed with [facility] Tobacco abuse -Continue Nicotine patch -Counseled patient regarding tobacco cessation Hypothyroidism -TSH: 0.35 -Free T4: 1.02 -Free T3: 1.92 -Continue with home levothyroxine DVT prophylaxis: SCD GI prophylaxis: pepcid Patient plan discussed with Dr. Chan <Fide Chan - Last Filed: 12/01/18 06:53> Objective - Vital Signs/Intake and Output Vital Signs (last 24 hours): Temp Pulse Resp BP Pulse Ox 97.5 F L 78 20 120/63 93 L 11/30/18 06:00 11/30/18 06:00 11/30/18 06:00 11/30/18 10:36 11/30/18 06:00 Intake and Output: 11/30/18 12/01/18 18:59 06:59 Intake Total 240 Balance 240 - Medications Medications: Current Medications Albuterol/Ipratropium (Duoneb 3 Mg/0.5 Mg (3 Ml) Ud) 3 ml IH Q2H PRN PRN Reason: Shortness of Breath Last Admin: 11/29/18 22:15 Dose: 3 ml Albuterol/Ipratropium (Duoneb 3 Mg/0.5 Mg (3 Ml) Ud) 3 ml IH [id number] [facility] Last Admin: 12/01/18 02:47 Dose: Not Given Budesonide (Pulmicort Respules) 0.5 mg IH [id number] [facility] Last Admin: 11/30/18 20:04 Dose: 0.5 mg Docusate Sodium (Colace) 100 mg PO BID [facility] Last Admin: 11/30/18 17:07 Dose: 100 mg Famotidine (Pepcid) 20 mg PO HS [facility] Last Admin: 11/30/18 21:31 Dose: 20 mg Ferrous Sulfate (Feosol) 324 mg PO TID [facility] Last Admin: 11/30/18 17:07 Dose: 324 mg Furosemide (Lasix) 20 mg PO DAILY [facility] Last Admin: 11/30/18 10:36 Dose: 20 mg Guaifenesin/Dextromethorphan (Mucinex-Dm 600-30 Mg) 1 tab PO BID [facility] Last Admin: 11/30/18 17:07 Dose: 1 tab Hydroxyzine HCl (Atarax) 25 mg PO Q6H PRN PRN Reason: Allergy symptoms Meropenem (Merrem Iv 1 Gm Premix) 1 gm in 50 mls @ 100 mls/hr IVPB Q8 JOSE J; Protocol Stop: 12/06/18 22:01 Last Admin: 12/01/18 05:31 Dose: 100 mls/hr Vancomycin HCl (Vancomycin 1gm) 1 gm in 250 mls @ 167 mls/hr IVPB Q12H JOSE J; Protocol Stop: 12/07/18 22:01 Last Admin: 11/30/18 21:31 Dose: 167 mls/hr Ibuprofen (Motrin Tab) 400 mg PO Q12H PRN PRN Reason: Headache Levofloxacin (Levaquin) 500 mg PO DAILY [facility]; Protocol Stop: 12/05/18 10:01 Last Admin: 11/30/18 10:36 Dose: 500 mg Levothyroxine Sodium (Synthroid) 50 mcg PO DAILY [facility] Last Admin: 11/30/18 10:31 Dose: 50 mcg Methadone HCl (Methadone) 30 mg PO DAILY [facility] Last Admin: 11/30/18 10:35 Dose: 30 mg Methadone HCl (Methadone) 5 mg PO DAILY [facility] Last Admin: 11/30/18 10:31 Dose: 5 mg Methylprednisolone (Solu-Medrol) 20 mg IVP DAILY [facility] Last Admin: 11/30/18 10:32 Dose: 20 mg Nicotine (Nicoderm Cq) 1 patch TD DAILY [facility] Last Admin: 11/30/18 10:37 Dose: Not Given Pantoprazole Sodium (Protonix Inj) 40 mg IVP DAILY [facility] Last Admin: 11/30/18 10:37 Dose: 40 mg Spironolactone (Aldactone) 25 mg PO BID [facility] Last Admin: 11/30/18 17:07 Dose: 25 mg - Labs Labs: 12/01/18 06:00 12/01/18 06:00 PT 19.0 SECONDS (9.4-12.5) H 12/01/18 06:00 INR 1.68 12/01/18 06:00 APTT 29.9 Seconds (26.9-38.3) 12/01/18 06:00 Attending/Attestation - Attestation I have personally seen and examined this patient.: Yes I have fully participated in the care of the patient.: Yes I have reviewed all pertinent clinical information, including history, physical exam and plan: Yes Notes (Text): Patient seen and examined by me with resident at approximately at 10:20AM on 11/30/18. Case including HPI, physical exam, and assessment and plan discussed with resident. Agree with above with following additions/corrections. Patient is a 58-year-old female past medical history significant for liver cirrhosis, hepatitis C, ascites with previous paracentesis, COPD on home oxygen at bedtime, alcohol abuse, tobacco abuse, drug abuse on methadone, hypertension, hypothyroidism, and hyperlipidemia that presented to the emergency room with cough and shortness of breath. Patient states she is feeling ok. Feels her abdomen is getting larger and she is feeling a little more short of breath this morning. Patient states she is still coughing and is now having "yellow brownish phlegm." No nausea or vomiting. No dizziness or lightheadedness. No fevers or chills. No dysuria. Patient states she has not had a bowel movement in several days. Physical exam: General: Awake and alert lying in bed in no acute distress HEENT: Normocephalic, atraumatic. Extraocular muscles intact. Pupils equal and reactive, no scleral icterus. Oropharynx pink and moist. No pharyngeal erythema or exudate appreciated. Neck supple. Cardiovascular: Regular rhythm. Normal S1 and S2. No murmurs, rubs, or gallops appreciated Pulmonary: Normal respiratory effort. Decreased breath sounds. No rhonchi, rales, or wheezing appreciated Gastrointestinal: Soft, Positive generalized abdominal tenderness. Positive distention. Positive bowel sounds all 4 quadrants. No guarding. Musculoskeletal: Moves all extremities. No calf tenderness. No edema appreciated. Central nervous system: AAO x3. No focal deficits appreciated. Dermatologic: Skin warm and dry. Assessment and plan: Patient is a 58-year-old female past medical history significant for liver cirrhosis, hepatitis C, ascites with previous paracentes is, COPD on home oxygen at bedtime, alcohol abuse, tobacco abuse, drug abuse on methadone, hypertension, hypothyroidism, and hyperlipidemia that presented to the emergency room with cough and shortness of breath. 1. Sepsis. Secondary to community acquired pneumonia. Rule out SBP. For paracentesis today. Tachycardia resolved. Leukocytosis uptrended which may be secondary to steroids. Lactic acid downtrending. ID recommendations appreciated. Continue Merrem, Levaquin, and Vancomycin. Blood cultures with no growth to date. Chest CT per radiologist showed small focal area of consolidation with air bronchograms in the lingular segment of the left upper lobe, patchy groundglass interstitial infiltrate seen in the upper lobes bilaterally, linear scarring can be seen in both lung bases similar to previous abdominal CT on 02/20/2018. Chest xray per radiologist showed no active disease. Abdominal ultrasound per radiologist showed appearance consistent with cirrhosis with nodular hepatic contour evident, echogenic liver may be seen in setting of hepatic parenchymal disease or fatty infiltration, mild to moderate abdominal ascites, cholelithiasis. 2. Ascites. Liver cirrhosis. History of alcohol abuse and Hepatitis C. Patient follows with [facility] in [place], [place]. IR consulted, for paracentesis today. Continue home aldactone and lasix. GI recommendations appreciated. Abdominal ultrasound as above. 3. Chronic thrombocytopenia. Secondary to liver cirrhosis. No signs of acute ble eding. Continue to monitor for now. 4. COPD exacerbation. Continue on O2 via nasal cannula. Continue nebulizer treatments and pulmicort. Continue to taper solumedrol. Continue mucinex for cough. Counseled on tobacco cessation. 5. Constipation. Continue Colace. Given lactulose. Continue to monitor for bowel movement. 6. Hypothyroidism. Continue home synthroid. 7. Tobacco abuse. Counseled at length on cessation. Continue nicotine patch. 8. History of drug abuse. Patient on Methadone. Confirmed with [facility] 9. GI/DVT prophylaxis. Pepcid/SCDS Case was discussed in detail with the patient regarding current diagnosis and treatment plan. All questions answered.
[2018-11-30] MEDS: Levothyroxine 50 MCG TAB PO SCH (10:31)
[2018-11-30] MEDS: guaiFENesin-DM 600-30 mg ER Tab PO SCH ×3 (10:32→17:07)
[2018-11-30] MEDS: MethylPREDNISolone 40 mg Vial IVP SCH (10:32)
[2018-11-30] MEDS: levoFLOXacin 500 MG TAB PO SCH (10:36)
[2018-11-30] MEDS: Vancomycin 1gm in NS 250ml 1 GM/250 ML BAG IVPB SCH ×2 (10:37→21:31)
--- NOTE | 2018-11-30 11:30 | CP.PCM.PCO ---
Physician Communication Note - Physician Communication Note Physician Communication Note: pt taken for paracentesis, will follow
[2018-11-30 12:02] LABS: BODY FLUID TYPE PERITONEAL/ASCITES
--- NOTE | 2018-11-30 12:17 | US ---
PROCEDURE: Ultrasound guided paracentesis. HISTORY: Hep C and alcoholic cirrhosis. Recurrent ascites with abdominal pain. Needs diagnostic and therapeutic thoracentesis PHYSICIAN(S): Manav Garcia MD. TECHNIQUE: The relative risks and indications for the procedure were explained to the patient and informed written consent obtained. Sonography of the abdomen was performed in a supine position. This revealed a moderate amount of non-loculated ascites, greatest in the left lower quadrant. A puncture site was selected and the area was prepped and draped in the usual sterile fashion. 1% Xylocaine was used to anesthetize the skin and soft tissues. A 7 Nep[place]e paracentesis catheter was trocared into the left lower quadrant and 2200 cc of clear straw-colored fluid aspirated. The appropriate labs were sent IMPRESSION: Ultrasound-guided paracentesis in the left lower quadrant. 2200 cc of clear straw-colored fluid was aspirated. The appropriate labs were sent
[2018-11-30 12:35] LABS: BF GROSS APPEARANCE CLEAR (CLEAR)
[2018-11-30 12:36] LABS: BODY FLUID TOTAL COUNT 100 (0-0)
--- NOTE | 2018-11-30 22:47 | PN ---
DATE: 11/30/2018 SUBJECTIVE: The patient is in bed in no acute distress, nontoxic. PHYSICAL EXAMINATION VITAL SIGNS: Temperature is 97, blood pressure is 120/60, respiratory rate of 18. HEENT: Unremarkable. NECK: Supple. LUNGS: Have decreased breath sounds. HEART: Normal S1, S2. ABDOMEN: Soft, nontender. LABORATORY EXAMINATION: Reveals a white count of 14,000, hemoglobin of 10. Chemistries reveals a BUN of 24, creatinine of 0.9 and procalcitonin 0.2 and urinalysis is noted and microbiology is reviewed. Acetic fluid culture is pending. Sputum culture is pending. Urine culture is negative. Blood cultures are no growth at 48 hours. REVIEW OF ORDERS: Reveals the patient to be on p.o. Levaquin, IV meropenem and Iv vancomycin. The peritoneal fluid is 319, WBC with 20% polys, 80% lymphocytic . HIV test is negative. Urine Legionella antigen is negative. creatinine 0.9. ASSESSMENT AND PLAN: This is a 58-year-old female with liver cirrhosis status post paracentesis, hepatitis C, alcohol abuse, chronic obstructive lung disease, hyperlipidemia, presenting with cough, shortness of breath. Sepsis with healthcare-associated pneumonia and positive CT scan, on vancomycin, meropenem, and Levaquin day #3, awaiting for the cultures of the sputum and peritoneal fluid and we will follow with you. Malcolm Nelson MD
[2018-12-01] MEDS: Albuterol-Ipratrop 3 mg / 0.5 (3 ml) UD IH SCH ×4 (02:47→21:52)
[2018-12-01] MEDS: Meropenem IV 1 gm in NS 1 GM/50 ML BAG IVPB SCH ×2 (05:31→13:17)
[2018-12-01 06:23] LABS: BASO # 0.01 K/mm3 (0.0-2.0); BASO % 0.1 % (0.0-3.0); EOS % 0.1 % (1.5-5.0); HEMOGLOBIN 10.9 g/dL (12.0-16.0); LYMPH # 1.1 (1.2-3.4); LYMPH % 10.5 % (22.0-35.0); MEAN CELL VOLUME 78.8 fl (80.0-105.0); MEAN CORPUSCULAR HEMOGLOBIN 23.5 pg (25.0-35.0); MEAN CORPUSCULAR HGB CONC 29.9 g/dl (31.0-37.0); MONO # 1.5 (0.1-0.6); MONO % 14.1 % (1.0-6.0); RBC 4.63 10^6/uL (3.5-6.1); RED CELL DISTRIBUTION WIDTH 18.9 % (11.5-14.5); WHITE BLOOD COUNT 10.3 10^3/uL (4.5-11.0)
[2018-12-01 06:31] LABS: INR 1.68; PARTIAL THROMBOPLASTIN TIME 29.9 Seconds (26.9-38.3); PLATELET COUNT 42 10^3/uL (120.0-450.0)
[2018-12-01 06:37] LABS: ALB/GLOB RATIO 0.7 (1.1-1.8); ALBUMIN 3.1 g/dL (3.0-4.8); ALT/SGPT 34 U/L (7-56); AST/SGOT 69 U/L (14-36); BLOOD UREA NITROGEN 25 mg/dL (7-21); CALCIUM 8.9 mg/dL (8.4-10.5); GFR NON-AFRICAN AMERICAN > 60
[2018-12-01] MEDS: Budesonide 0.5 mg/2 ml Inhal Susp UD IH SCH ×2 (08:10→21:52)
--- NOTE | 2018-12-01 09:12 | CP.PCM.DIS ---
Provider - Provider Date of Admission: 11/28/18 16:13 Attending physician: Fide Chan DO Primary care physician: NEDA FAMILY PROVIDER Consults: 11/28/18 17:23 Gastroenterology Consult Routine Comment: Consulting Provider: Des Cool Consulting Physician: Des Cool Reason for Consult: Liver cirrhosis/ascites Infectious Disease Consult Routine Comment: Consulting Provider: Malcolm Nelson Consulting Physician: Malcolm Nelson Reason for Consult: COPD exac/thrombocytopenia Physician Consult Routine Comment: Consulting Provider: Manav Garcia Consulting Physician: Manav Garcia Reason for Consult: Paracentesis 11/29/18 00:44 Transition In Care/Readmission Reduction Routine Comment: Physician Instructions: Reason For Exam: COPD exacerbation Time Spent in preparation of Discharge (in minutes): 60 Hospital Course - Lab Results Lab Results: Micro Results 11/29/18 06:28 Naris MRSA Culture (Admit) - Final MRSA NOT DETECTED 11/28/18 23:17 Urine,Clean Catch Urine Culture - Final No Growth (<1,000 CFU/ML) 11/28/18 17:16 Blood-Venous Blood Culture - Preliminary NO GROWTH AFTER 48 HOURS 11/30/18 11:50 Ascitic Fluid Gram Stain - Final 11/28/18 14:30 Blood-Venous Blood Culture - Preliminary NO GROWTH AFTER 48 HOURS 11/29/18 06:28 Sputum Gram Stain - Final Most Recent Lab Values WBC 10.3 10^3/uL (4.5-11.0) D 12/01/18 06:00 RBC 4.63 10^6/uL (3.5-6.1) 12/01/18 06:00 Hgb 10.9 g/dL (12.0-16.0) L 12/01/18 06:00 Hct 36.5 % (36.0-48.0) 12/01/18 06:00 MCV 78.8 fl (80.0-105.0) L 12/01/18 06:00 MCH 23.5 pg (25.0-35.0) L 12/01/18 06:00 MCHC 29.9 g/dl (31.0-37.0) L 12/01/18 06:00 RDW 18.9 % (11.5-14.5) H 12/01/18 06:00 Plt Count 42 10^3/uL (120.0-450.0) L* 12/01/18 06:00 Manual Plt Count 63 K/mm3 (120-450) L 11/30/18 06:00 Neut % (Auto) 75.2 % (50.0-68.0) H 12/01/18 06:00 Lymph % (Auto) 10.5 % (22.0-35.0) L 12/01/18 06:00 Bertie % (Auto) 14.1 % (1.0-6.0) H 12/01/18 06:00 Eos % (Auto) 0.1 % (1.5-5.0) L 12/01/18 06:00 Baso % (Auto) 0.1 % (0.0-3.0) 12/01/18 06:00 Lymph # (Auto) 1.1 (1.2-3.4) L 12/01/18 06:00 Bertie # (Auto) 1.5 (0.1-0.6) H 12/01/18 06:00 Eos # (Auto) 0.0 (0.0-0.7) 12/01/18 06:00 Baso # (Auto) 0.01 K/mm3 (0.0-2.0) 12/01/18 06:00 Absolute Neuts (auto) 7.77 (1.4-6.5) H 12/01/18 06:00 Retic Count 2.06 % (0.5-1.5) H 11/29/18 10:30 PT 19.0 SECONDS (9.4-12.5) H 12/01/18 06:00 INR 1.68 12/01/18 06:00 APTT 29.9 Seconds (26.9-38.3) 12/01/18 06:00 pO2 38 mm/Hg (30-55) 11/29/18 05:40 VBG pH 7.38 (7.32-7.43) 11/29/18 05:40 VBG pCO2 50.0 (40-60) 11/29/18 05:40 VBG HCO3 29.6 mmol/l (21-28) H 11/29/18 05:40 VBG Total CO2 31.1 mmol.L (22-28) H 11/29/18 05:40 VBG O2 Sat (Calc) 70.4 % (40-65) H 11/29/18 05:40 VBG Base Excess 3.4 mmol/L (0.0-2.0) H 11/29/18 05:40 VBG Potassium 4.2 mmol/L (3.6-5.2) 11/29/18 05:40 Sodium 134.0 mmol/L (132-148) 11/29/18 05:40 Chloride 100.0 mmol/L (98-107) 11/29/18 05:40 Glucose 119 mg/dl (65-105) H 11/29/18 05:40 Lactate 1.9 mmol/L (0.7-2.1) 11/29/18 05:40 FiO2 21.0 % 11/29/18 05:40 Crit Value Called To Travis doty 11/28/18 18:20 Crit Value Called By Johnna 11/28/18 18:20 Blood Gas Notified Time 1825 11/28/18 18:20 Sodium 138 mmol/L (132-148) 12/01/18 06:00 Potassium 4.6 mmol/L (3.6-5.0) 12/01/18 06:00 Chloride 103 mmol/L (98-107) 12/01/18 06:00 Carbon Dioxide 29 mmol/L (21-33) 12/01/18 06:00 Anion Gap 11 (10-20) 12/01/18 06:00 BUN 25 mg/dL (7-21) H 12/01/18 06:00 Creatinine 0.9 mg/dl (0.7-1.2) 12/01/18 06:00 Est GFR ( Amer) > 60 12/01/18 06:00 Est GFR (Non-Af Amer) > 60 12/01/18 06:00 Random Glucose 92 mg/dL (70-110) 12/01/18 06:00 Hemoglobin A1c 5.2 % (4.2-6.5) 11/29/18 06:05 Calcium 8.9 mg/dL (8.4-10.5) 12/01/18 06:00 Phosphorus 2.8 mg/dL (2.5-4.5) 11/29/18 06:05 Magnesium 2.3 mg/dL (1.7-2.2) H 11/29/18 06:05 Iron 24 ug/dL (45-180) L 11/29/18 10:30 TIBC 371 ug/dL (265-497) 11/29/18 10:30 % Saturation 6 % (20-55) L 11/29/18 10:30 Ferritin 28.7 ng/mL 11/29/18 10:30 Total Bilirubin 0.8 mg/dL (0.2-1.3) 12/01/18 06:00 AST 69 U/L (14-36) H D 12/01/18 06:00 ALT 34 U/L (7-56) 12/01/18 06:00 Alkaline Phosphatase 117 U/L (38-126) 12/01/18 06:00 Ammonia 21 umol/L (9-33) 11/29/18 05:40 Total Protein 7.2 g/dL (5.8-8.3) 12/01/18 06:00 Albumin 3.1 g/dL (3.0-4.8) 12/01/18 06:00 Globulin 4.1 gm/dL 12/01/18 06:00 Albumin/Globulin Ratio 0.7 (1.1-1.8) L 12/01/18 06:00 Triglycerides 58 mg/dL (35-160) 11/29/18 06:05 Cholesterol 52 mg/dL (130-200) L 11/29/18 06:05 LDL Cholesterol Direct < 30 mg/dL (0-129) 11/29/18 06:05 HDL Cholesterol 19 mg/dL (29-60) L 11/29/18 06:05 Alpha Fetoprotein 1.7 ng/mL (0.0-7.5) 11/30/18 06:00 Vitamin B12 996 pg/mL (239-931) H 11/29/18 10:30 Folate 7.2 ng/mL 11/29/18 10:30 Procalcitonin 0.20 NG/ML (0.19-0.49) 11/29/18 06:05 Free T4 1.02 ng/dL (0.78-2.19) 11/29/18 10:30 Free T3 pg/mL 1.92 pg/mL (2.77-5.27) L 11/29/18 10:30 TSH 3rd Generation 0.35 mIU/mL (0.46-4.68) L 11/29/18 06:05 Venous Blood Potassium 4.2 mmol/L (3.6-5.2) 11/29/18 05:40 Urine Color Yellow (YELLOW) 11/28/18 23:17 Urine Appearance Clear (CLEAR) 11/28/18 23:17 Urine pH 6.0 (4.7-8.0) 11/28/18 23:17 Ur Specific [place] >= 1.030 (1.005-1.035) 11/28/18 23:17 Urine Protein Trace mg/dL (<30 mg/dL) H 11/28/18 23:17 Urine Glucose (UA) Negative mg/dL (NEGATIVE) 11/28/18 23:17 Urine Ketones Negative mg/dL (NEGATIVE) 11/28/18 23:17 Urine Blood Small (NEGATIVE) H 11/28/18 23:17 Urine Nitrate Negative (NEGATIVE) 11/28/18 23:17 Urine Bilirubin Negative (NEGATIVE) 11/28/18 23:17 Urine Urobilinogen 0.2 E.U./dL (<1 E.U./dL) 11/28/18 23:17 Ur Leukocyte Esterase Trace Ross/uL (NEGATIVE) H 11/28/18 23:17 Urine RBC 0 - 2 /hpf (0-2) 11/28/18 23:17 Urine WBC 2 - 5 /hpf (0-6) 11/28/18 23:17 Ur Epithelial Cells 3 - 4 /hpf (0-5) 11/28/18 23:17 Urine Bacteria Small /hpf (NONE) 11/28/18 23:17 Fluid Source Peritoneal/ascites 11/30/18 11:50 Fluid Appearance Clear (CLEAR) 11/30/18 11:50 Fluid WBC 319.0 /uL (0.0-300.0) H 11/30/18 11:50 Fluid RBC 370.0 /uL (0.0-0.0) H 11/30/18 11:50 Fluid Tot Cell Count 100 (0-0) H 11/30/18 11:50 Fluid Mononuclear Cell 79.6 % (0-0) H 11/30/18 11:50 Fl Polymorphonucl Cell 20.4 % (0-0) H 11/30/18 11:50 Fluid Comment Color yellow 11/30/18 11:50 HIV 1&2 Ag/Ab, 4th Gen Nonreactive (Nonreactive) 11/29/18 06:05 Ur L.pneumophila Ag Negative (NEGATIVE) 11/28/18 23:17 - Date & Time of H&P Date of H&P: 11/28/18 Time of H&P: 18:58 Discharge Exam - Head Exam Head Exam: ATRAUMATIC, NORMAL INSPECTION - Eye Exam Eye Exam: EOMI, PERRL - Respiratory Exam Respiratory Exam: Wheezes. absent: Rales, Rhonchi, Respiratory Distress - Cardiovascular Exam Cardiovascular Exam: REGULAR RHYTHM, RRR, +S1, +S2. absent: Gallop, Rubs - GI/Abdominal Exam GI & Abdominal Exam: Distended, Normal Bowel Sounds, Soft. absent: Tenderness - Extremities Exam Extremities exam: full ROM, normal capillary refill, normal inspection - Neurological Exam Neurological exam: Alert, CN II-XII Intact, Oriented x3 - Skin Skin Exam: Dry, Intact, Normal Color Discharge Plan - Follow Up Plan Condition: GOOD Disposition: HOME/ ROUTINE Referrals: FAMILY PROVIDER,NO [Primary Care Provider] -
[2018-12-01 09:41] LABS: PLATELET ESTIMATE LOW (NORMAL)
[2018-12-01 09:57] LABS: PLATELET COUNT MANUAL 54 K/mm3 (120-450)
[2018-12-01] MEDS: levoFLOXacin 500 MG TAB PO SCH (10:23)
[2018-12-01] MEDS: MethylPREDNISolone 40 mg Vial IVP SCH (10:36)
[2018-12-01] MEDS: guaiFENesin-DM 600-30 mg ER Tab PO SCH ×2 (10:36→17:45)
[2018-12-01] MEDS: Levothyroxine 50 MCG TAB PO SCH (10:36)
[2018-12-01] MEDS: Vancomycin 1gm in NS 250ml 1 GM/250 ML BAG IVPB SCH (10:37)
--- NOTE | 2018-12-01 13:51 | CP.PCM.PN ---
<Ja Villalobos - Last Filed: 12/01/18 13:45> Subjective - Date & Time of Evaluation Date of Evaluation: 12/01/18 Time of Evaluation: 13:45 - Subjective Subjective: Ja Villalobos, PGY-1, Internal Medicine Progress Note for Dr. Chan Patient seen and evaluated at bedside. Patient had no acute overnight events. Patient today reports shortness of breath, cough with yellow sputum, reports much improved abdominal distension but denies abdominal pain, nausea, vomiting, constipation, diarrhea, dysuria, or hematuria. 12-point ROS was unremarkable except for what was mentioned above. Objective - Vital Signs/Intake and Output Vital Signs (last 24 hours): Temp Pulse Resp BP Pulse Ox 97.9 F 69 22 170/70 H 96 12/01/18 06:00 12/01/18 06:00 12/01/18 06:00 12/01/18 10:23 12/01/18 06:00 Intake and Output: 12/01/18 12/01/18 06:59 18:59 Intake Total 240 Balance 240 - Medications Medications: Current Medications Albuterol/Ipratropium (Duoneb 3 Mg/0.5 Mg (3 Ml) Ud) 3 ml IH Q2H PRN PRN Reason: Shortness of Breath Last Admin: 11/29/18 22:15 Dose: 3 ml Albuterol/Ipratropium (Duoneb 3 Mg/0.5 Mg (3 Ml) Ud) 3 ml IH [id number] [facility] Last Admin: 12/01/18 08:10 Dose: 3 ml Budesonide (Pulmicort Respules) 0.5 mg IH [id number] [facility] Last Admin: 12/01/18 08:10 Dose: 0.5 mg Docusate Sodium (Colace) 100 mg PO BID [facility] Last Admin: 12/01/18 10:12 Dose: Not Given Famotidine (Pepcid) 20 mg PO HS [facility] Last Admin: 11/30/18 21:31 Dose: 20 mg Ferrous Sulfate (Feosol) 324 mg PO TID [facility] Last Admin: 12/01/18 13:18 Dose: 324 mg Furosemide (Lasix) 20 mg PO DAILY [facility] Last Admin: 12/01/18 10:23 Dose: 20 mg Guaifenesin/Dextromethorphan (Mucinex-Dm 600-30 Mg) 1 tab PO BID [facility] Last Admin: 12/01/18 10:36 Dose: 1 tab Hydroxyzine HCl (Atarax) 25 mg PO Q6H PRN PRN Reason: Allergy symptoms Meropenem (Merrem Iv 1 Gm Premix) 1 gm in 50 mls @ 100 mls/hr IVPB Q8 JOSE J; Protocol Stop: 12/06/18 22:01 Last Admin: 12/01/18 13:17 Dose: 100 mls/hr Vancomycin HCl (Vancomycin 1gm) 1 gm in 250 mls @ 167 mls/hr IVPB Q12H JOSE J; Protocol Stop: 12/07/18 22:01 Last Admin: 12/01/18 10:37 Dose: 167 mls/hr Ibuprofen (Motrin Tab) 400 mg PO Q12H PRN PRN Reason: Headache Last Admin: 12/01/18 08:09 Dose: 400 mg Levofloxacin (Levaquin) 500 mg PO DAILY JOSE J; Protocol Stop: 12/05/18 10:01 Last Admin: 12/01/18 10:23 Dose: 500 mg Levothyroxine Sodium (Synthroid) 50 mcg PO DAILY [facility] Last Admin: 12/01/18 10:36 Dose: 50 mcg Methadone HCl (Methadone) 30 mg PO DAILY [facility] Last Admin: 12/01/18 10:28 Dose: 30 mg Methadone HCl (Methadone) 5 mg PO DAILY [facility] Last Admin: 12/01/18 10:24 Dose: 5 mg Methylprednisolone (Solu-Medrol) 20 mg IVP DAILY [facility] Last Admin: 12/01/18 10:36 Dose: 20 mg Nicotine (Nicoderm Cq) 1 patch TD DAILY [facility] Last Admin: 12/01/18 10:13 Dose: Not Given Pantoprazole Sodium (Protonix Inj) 40 mg IVP DAILY [facility] Last Admin: 12/01/18 10:36 Dose: 40 mg Spironolactone (Aldactone) 25 mg PO BID [facility] Last Admin: 12/01/18 10:22 Dose: 25 mg - Labs Labs: 12/01/18 06:00 12/01/18 06:00 PT 19.0 SECONDS (9.4-12.5) H 12/01/18 06:00 INR 1.68 12/01/18 06:00 APTT 29.9 Seconds (26.9-38.3) 12/01/18 06:00 - Constitutional Appears: Well, Non-toxic, No Acute Distress - Head Exam Head Exam: ATRAUMATIC, NORMAL INSPECTION, NORMOCEPHALIC - Eye Exam Eye Exam: EOMI, PERRL - ENT Exam ENT Exam: Mucous Membranes Moist - Neck Exam Neck Exam: Full ROM - Respiratory Exam Respiratory Exam: Clear to Ausculation Bilateral, NORMAL BREATHING PATTERN - Cardiovascular Exam Cardiovascular Exam: REGULAR RHYTHM, RRR, +S1, +S2 - GI/Abdominal Exam GI & Abdominal Exam: improved distention, Soft, Normal Bowel Sounds. absent: Firm, Guarding, Tenderness - Extremities Exam Extremities Exam: Full ROM, Normal Capillary Refill, Normal Inspection - Neurological Exam Neurological Exam: Alert, Awake, CN II-XII Intact, Oriented x3 - Skin Skin Exam: Dry, Intact, Normal Color Assessment and Plan - Assessment and Plan (Free Text) Assessment: 58 year old female with past medical history of liver cirrhosis, hepatitis C, alcohol abuse, hypercholesterolemia, hypothyroidism presented with sepsis 2/2 to upper respiratory tract infection Plan: Sepsis likely 2/2 to URI vs. SBP -Patient continues to have wheezing on exam. -Chest CT 11/29: small focal area of consolidation with air bronchograms in l ingular segment of left upper lobe. Patchy ground glass interstitial infiltrate are seen in upper lobes bilaterally. Linear scarring see in both lung bases similar to prior CT -Blood culture negative for 48 hours -Sputum culture: few gram positive cocci -Urine legionella negative -Procal: 0.2 -HIV: negative -MRSA screen negative -Paracentesis performed to rule out SBP. Will follow up cell count to rule out SBP -Continue with vancomycin, meropenem, and levaquin day 4 History of Cirrhosis 2/2 Hepatitis C vs. alcohol abuse -Abdominal ultrasound on 11/28 shows appearance consistent with cirrhosis with nodular hepatic contour evident. Echogenic liver may be seen in setting of hepatic parenchymal disease or fatty infiltration. Mild to moderate abdominal ascites. Cholelithiasis. -MELD score: 17 with estimated 6% mortality in 3 months -Though patient had mildly elevated anti-smooth muscle Ab in the past, cirrhosis unlikely due to autoimmune cause. Likely 2/2 to hepatitis C vs. alcohol abuse -Patient currently has abdominal distension on exam likely 2/2 to ascites from cirrhosis. -Paracentesis performed on 11/[address] Garcia. Will obtain cell count, albumin, LDH for paracentesis. Limited workup as she has close follow up at [facility]. -Continue with aldactone 50 mg and lasix 20 mg daily Chronic Thrombocytopenia -Likely 2/2 to cirrhosis -Manual platelet count was 54. -Avoid hepatotoxic medications Microcytic Anemia -Hgb stable at 10s to 11s. Baseline in 10s to 11s -Iron decreased at 24, TIBC unremarkable at 371. % saturation decreased at 6 -Ferritin: 28.7 -Continue ferrous sulfate COPD -Continue with NC -Continue with duonebs, pulmicort -Continue solumedrol 20 mg daily Former opiod abuse -Will follow up UDS -Continue methadone 35 mg daily as confirmed with [facility] Tobacco abuse -Continue Nicotine patch -Counseled patient regarding tobacco cessation Hypothyroidism -TSH: 0.35 -Free T4: 1.02 -Free T3: 1.92 -Continue with home levothyroxine DVT prophylaxis: SCD GI prophylaxis: pepcid Patient plan discussed with Dr. Chan <Fide Chan - Last Filed: 12/02/18 13:31> Objective - Vital Signs/Intake and Output Vital Signs (last 24 hours): Temp Pulse Resp BP Pulse Ox 98.1 F 74 20 153/84 H 93 L 12/02/18 06:00 12/02/18 06:00 12/02/18 06:00 12/02/18 10:10 12/02/18 06:00 Intake and Output: 12/02/18 12/02/18 06:59 18:59 Intake Total 120 Balance 120 - Medications Medications: Current Medications Albuterol/Ipratropium (Duoneb 3 Mg/0.5 Mg (3 Ml) Ud) 3 ml IH Q2H PRN PRN Reason: Shortness of Breath Last Admin: 11/29/18 22:15 Dose: 3 ml Albuterol/Ipratropium (Duoneb 3 Mg/0.5 Mg (3 Ml) Ud) 3 ml IH [id number] [facility] Last Admin: 12/02/18 13:23 Dose: 3 ml Budesonide (Pulmicort Respules) 0.5 mg IH [id number] [facility] Last Admin: 12/02/18 08:13 Dose: 0.5 mg Docusate Sodium (Colace) 100 mg PO BID [facility] Last Admin: 12/02/18 10:08 Dose: 100 mg Famotidine (Pepcid) 20 mg PO HS [facility] Last Admin: 12/01/18 21:30 Dose: 20 mg Ferrous Sulfate (Feosol) 324 mg PO TID [facility] Last Admin: 12/02/18 10:08 Dose: 324 mg Furosemide (Lasix) 20 mg PO DAILY [facility] Last Admin: 12/02/18 10:10 Dose: 20 mg Guaifenesin/Dextromethorphan (Mucinex-Dm 600-30 Mg) 1 tab PO BID [facility] Last Admin: 12/02/18 10:11 Dose: 1 tab Hydroxyzine HCl (Atarax) 25 mg PO Q6H PRN PRN Reason: Allergy symptoms Ibuprofen (Motrin Tab) 400 mg PO Q12H PRN PRN Reason: Headache Last Admin: 12/01/18 08:09 Dose: 400 mg Levofloxacin (Levaquin) 500 mg PO DAILY [facility]; Protocol Stop: 12/05/18 10:01 Last Admin: 12/02/18 10:10 Dose: 500 mg Levothyroxine Sodium (Synthroid) 50 mcg PO DAILY [facility] Last Admin: 12/02/18 10:12 Dose: 50 mcg Methadone HCl (Methadone) 30 mg PO DAILY [facility] Last Admin: 12/02/18 10:10 Dose: 30 mg Methadone HCl (Methadone) 5 mg PO DAILY [facility] Last Admin: 12/02/18 10:11 Dose: 5 mg Methylprednisolone (Solu-Medrol) 20 mg IVP DAILY [facility] Last Admin: 12/02/18 10:11 Dose: 20 mg Nicotine (Nicoderm Cq) 1 patch TD DAILY [facility] Last Admin: 12/02/18 10:11 Dose: 1 patch Pantoprazole Sodium (Protonix Ec Tab) 40 mg PO 0600 [facility] Last Admin: 12/02/18 05:10 Dose: 40 mg Spironolactone (Aldactone) 25 mg PO BID [facility] Last Admin: 12/02/18 10:08 Dose: 25 mg - Labs Labs: 12/02/18 10:00 12/02/18 10:00 PT 19.0 SECONDS (9.4-12.5) H 12/01/18 06:00 INR 1.68 12/01/18 06:00 APTT 29.9 Seconds (26.9-38.3) 12/01/18 06:00 Attending/Attestation - Attestation I have personally seen and examined this patient.: Yes I have fully participated in the care of the patient.: Yes I have reviewed all pertinent clinical information, including history, physical exam and plan: Yes Notes (Text): Patient seen and examined by me with resident at approximately at 10:10AM on 12/01/18. Case including HPI, physical exam, and assessment and plan discussed with resident. Agree with above with following additions/corrections. Patient is a 58-year-old female past medical history significant for liver cirrhosis, hepatitis C, ascites with previous paracentesis, COPD on home oxygen at bedtime, alcohol abuse, tobacco abuse, drug abuse on methadone, hypertension, hypothyroidism, and hyperlipidemia that presented to the emergency room with cough and shortness of breath. Patient states she is feeling a little better. She did have a bowel movement. Abdomen feels better s/p paracentesis. States she is still with a productive cough which and is feeling short of breath. No nausea or vomiting. No dizziness or lightheadedness. No fevers or chills. No dysuria. Physical exam: General: Awake and alert lying in bed in no acute distress HEENT: Normocephalic, atraumatic. Extraocular muscles intact. Pupils equal and reactive, no scleral icterus. Oropharynx pink and moist. No pharyngeal erythema or exudate appreciated. Neck supple. Cardiovascular: Regular rhythm. Normal S1 and S2. No murmurs, rubs, or gallops appreciated Pulmonary: Normal respiratory effort. Decreased breath sounds. Positive expiratory wheezing. No rhonchi or rales appreciated Gastrointestinal: Soft, No abdominal tenderness. Improved distention. Positive bowel sounds all 4 quadrants. No guarding. Musculoskeletal: Moves all extremities. No calf tenderness. No edema appreciated. Central nervous system: AAO x3. No focal deficits appreciated. Dermatologic: Skin warm and dry. Assessment and plan: Patient is a 58-year-old female past medical history significant for liver cirrhosis, hepatitis C, ascites with previous paracentesis, COPD on home oxygen at bedtime, alcohol abuse, tobacco abuse, drug abuse on methadone, hypertension, hypothyroidism, and hyperlipidemia that presented to the emergency room with cough and shortness of breath. 1. Sepsis. Secondary to community acquired pneumonia. SBP ruled out. S/P paracentesis 11/30/18. Tachycardia resolved. Leukocytosis resolved. ID recommendations appreciated. Continue Merrem, Levaquin, and Vancomycin. Blood cultures with no growth to date. Chest CT per radiologist showed small focal area of consolidation with air bronchograms in the lingular segment of the left upper lobe, patchy groundglass interstitial infiltrate seen in the upper lobes bilaterally, linear scarring can be seen in both lung bases similar to previous abdominal CT on 02/20/2018. Chest xray per radiologist showed no active disease. Abdominal ultrasound per radiologist showed appearance consistent with cirrhosis with nodular hepatic contour evident, echogenic liver may be seen in setting of hepatic parenchymal disease or fatty infiltration, mild to moderate abdominal ascites, cholelithiasis. 2. Ascites. Liver cirrhosis. History of alcohol abuse and Hepatitis C. Patient follows with [facility] in [place], [place]. IR recommendations appreciated. S/P Paracentesis 11/30/18 with 2200 ml removed. Continue home aldactone and lasix. GI recommendations appreciated. Abdominal ultrasound as above. 3. Chronic thrombocytopenia. Secondary to liver cirrhosis. No signs of acute bleeding. Continue to monitor for now. 4. COPD exacerbation. Continue on O2 via nasal cannula. Continue nebulizer treatments and pulmicort. Continue solumedrol. Continue mucinex for cough. Counseled on tobacco cessation. 5. Constipation. Resolved. Continue to monitor. 6. Hypothyroidism. Continue home synthroid. 7. Tobacco abuse. Counseled at length on cessation. Continue nicotine patch. 8. History of drug abuse. Patient on Methadone. Confirmed with [facility] 9. GI/DVT prophylaxis. Pepcid/SCDS Case was discussed in detail with the patient regarding current diagnosis and treatment plan. All questions answered.
--- NOTE | 2018-12-01 14:00 | CP.PCM.PN ---
<Rakel Wyatt - Last Filed: 12/01/18 15:11> Subjective - Date & Time of Evaluation Date of Evaluation: 12/01/18 Time of Evaluation: 13:54 - Subjective Subjective: Gastroenterology Fellow/PGY6 Progress Note Patient notes feeling short of breath. Denies abdominal pain. Tolerating diet. Notes bowel movement yesterday. A 12-point review of systems negative except for as above. Objective - Vital Signs/Intake and Output Vital Signs (last 24 hours): Temp Pulse Resp BP Pulse Ox 97.9 F 69 22 170/70 H 96 12/01/18 06:00 12/01/18 06:00 12/01/18 06:00 12/01/18 10:23 12/01/18 06:00 Intake and Output: 12/01/18 12/01/18 06:59 18:59 Intake Total 240 Balance 240 - Medications Medications: Current Medications Albuterol/Ipratropium (Duoneb 3 Mg/0.5 Mg (3 Ml) Ud) 3 ml IH Q2H PRN PRN Reason: Shortness of Breath Last Admin: 11/29/18 22:15 Dose: 3 ml Albuterol/Ipratropium (Duoneb 3 Mg/0.5 Mg (3 Ml) Ud) 3 ml IH [id number] [facility] Last Admin: 12/01/18 08:10 Dose: 3 ml Budesonide (Pulmicort Respules) 0.5 mg IH [id number] [facility] Last Admin: 12/01/18 08:10 Dose: 0.5 mg Docusate Sodium (Colace) 100 mg PO BID [facility] Last Admin: 12/01/18 10:12 Dose: Not Given Famotidine (Pepcid) 20 mg PO HS [facility] Last Admin: 11/30/18 21:31 Dose: 20 mg Ferrous Sulfate (Feosol) 324 mg PO TID [facility] Last Admin: 12/01/18 13:18 Dose: 324 mg Furosemide (Lasix) 20 mg PO DAILY [facility] Last Admin: 12/01/18 10:23 Dose: 20 mg Guaifenesin/Dextromethorphan (Mucinex-Dm 600-30 Mg) 1 tab PO BID [facility] Last Admin: 12/01/18 10:36 Dose: 1 tab Hydroxyzine HCl (Atarax) 25 mg PO Q6H PRN PRN Reason: Allergy symptoms Meropenem (Merrem Iv 1 Gm Premix) 1 gm in 50 mls @ 100 mls/hr IVPB Q8 JOSE J; P rotocol Stop: 12/06/18 22:01 Last Admin: 12/01/18 13:17 Dose: 100 mls/hr Vancomycin HCl (Vancomycin 1gm) 1 gm in 250 mls @ 167 mls/hr IVPB Q12H JOSE J; Protocol Stop: 12/07/18 22:01 Last Admin: 12/01/18 10:37 Dose: 167 mls/hr Ibuprofen (Motrin Tab) 400 mg PO Q12H PRN PRN Reason: Headache Last Admin: 12/01/18 08:09 Dose: 400 mg Levofloxacin (Levaquin) 500 mg PO DAILY [facility]; Protocol Stop: 12/05/18 10:01 Last Admin: 12/01/18 10:23 Dose: 500 mg Levothyroxine Sodium (Synthroid) 50 mcg PO DAILY [facility] Last Admin: 12/01/18 10:36 Dose: 50 mcg Methadone HCl (Methadone) 30 mg PO DAILY [facility] Last Admin: 12/01/18 10:28 Dose: 30 mg Methadone HCl (Methadone) 5 mg PO DAILY [facility] Last Admin: 12/01/18 10:24 Dose: 5 mg Methylprednisolone (Solu-Medrol) 20 mg IVP DAILY [facility] Last Admin: 12/01/18 10:36 Dose: 20 mg Nicotine (Nicoderm Cq) 1 patch TD DAILY [facility] Last Admin: 12/01/18 10:13 Dose: Not Given Pantoprazole Sodium (Protonix Inj) 40 mg IVP DAILY [facility] Last Admin: 12/01/18 10:36 Dose: 40 mg Spironolactone (Aldactone) 25 mg PO BID [facility] Last Admin: 12/01/18 10:22 Dose: 25 mg - Labs Labs: 12/01/18 06:00 12/01/18 06:00 PT 19.0 SECONDS (9.4-12.5) H 12/01/18 06:00 INR 1.68 12/01/18 06:00 APTT 29.9 Seconds (26.9-38.3) 12/01/18 06:00 - Constitutional Appears: Non-toxic, No Acute Distress - Head Exam Head Exam: ATRAUMATIC, NORMOCEPHALIC - Eye Exam Eye Exam: EOMI, PERRL. absent: Scleral icterus Pupil Exam: PERRL. absent: Miosis, Mydriatic - ENT Exam ENT Exam: Mucous Membranes Moist, Normal Oropharynx - Neck Exam Neck Exam: Full ROM, Normal Inspection - Respiratory Exam Respiratory Exam: Clear to Ausculation Bilateral. absent: Rales, Rhonchi, Wheezes - Cardiovascular Exam Cardiovascular Exam: RRR, +S1, +S2. absent: Gallop, Rubs - GI/Abdominal Exam GI & Abdominal Exam: Soft, Normal Bowel Sounds. 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 Active treatment of decompensated cirrhosis 2/2 ascites. EGD 02/2018 with LAGB esophagitis, no varices, H. pylori negative gastritis, portal hypertensive gastropathy (PHG), gastric foci of intestinal metaplasia. Last colonoscopy 01/2018 with friable colonic mucosa, and three sub- cm sigmoid hyperplastic polyps with excellent bowel prep. Plan: -12/01 MELD-Na 14 -11/30 2.2 Liter paracentesis-no SBP -continue lasix 20 mg and spironolactone 50mg daily -reviewed U/S from 11/28- CBD 1.9cm new from prior imaging in 2018 with CBD 2mm -confirmed measurement with radiologist, LFTs stable -AFP 1.7 -on vancomycin, meropenem, levofloxacin for HCAP -on FeSO4- chronic iron deficiency -follows with [facility] liver transplant team- has appointment 03/27/19 for pre- transplant evaluation and workup -will benefit from earlier follow up for repeat liver protocol imaging, yearly EGD for variceal screening/PHG in setting of ongoing active alcohol use (three weeks ago) -will follow clinical course <Des Cool - Last Filed: 12/01/18 18:58> Objective - Vital Signs/Intake and Output Vital Signs (last 24 hours): Temp Pulse Resp BP Pulse Ox 97.8 F 78 20 144/78 95 12/01/18 16:29 12/01/18 16:29 12/01/18 16:29 12/01/18 16:29 12/01/18 16:29 Intake and Output: 12/01/18 12/01/18 06:59 18:59 Intake Total 240 Balance 240 - Medications Medications: Current Medications Albuterol/Ipratropium (Duoneb 3 Mg/0.5 Mg (3 Ml) Ud) 3 ml IH Q2H PRN PRN Reason: Shortness of Breath Last Admin: 11/29/18 22:15 Dose: 3 ml Albuterol/Ipratropium (Duoneb 3 Mg/0.5 Mg (3 Ml) Ud) 3 ml IH [id number] [facility] Last Admin: 12/01/18 13:58 Dose: 3 ml Budesonide (Pulmicort Respules) 0.5 mg IH [id number] [facility] Last Admin: 12/01/18 08:10 Dose: 0.5 mg Docusate Sodium (Colace) 100 mg PO BID [facility] Last Admin: 12/01/18 17:41 Dose: Not Given Famotidine (Pepcid) 20 mg PO HS [facility] Last Admin: 11/30/18 21:31 Dose: 20 mg Ferrous Sulfate (Feosol) 324 mg PO TID [facility] Last Admin: 12/01/18 17:44 Dose: 324 mg Furosemide (Lasix) 20 mg PO DAILY [facility] Last Admin: 12/01/18 10:23 Dose: 20 mg Guaifenesin/Dextromethorphan (Mucinex-Dm 600-30 Mg) 1 tab PO BID [facility] Last Admin: 12/01/18 17:45 Dose: 1 tab Hydroxyzine HCl (Atarax) 25 mg PO Q6H PRN PRN Reason: Allergy symptoms Ibuprofen (Motrin Tab) 400 mg PO Q12H PRN PRN Reason: Headache Last Admin: 12/01/18 08:09 Dose: 400 mg Levofloxacin (Levaquin) 500 mg PO DAILY [facility]; Protocol Stop: 12/05/18 10:01 Last Admin: 12/01/18 10:23 Dose: 500 mg Levothyroxine Sodium (Synthroid) 50 mcg PO DAILY [facility] Last Admin: 12/01/18 10:36 Dose: 50 mcg Methadone HCl (Methadone) 30 mg PO DAILY [facility] Last Admin: 12/01/18 10:28 Dose: 30 mg Methadone HCl (Methadone) 5 mg PO DAILY [facility] Last Admin: 12/01/18 10:24 Dose: 5 mg Methylprednisolone (Solu-Medrol) 20 mg IVP DAILY [facility] Last Admin: 12/01/18 10:36 Dose: 20 mg Nicotine (Nicoderm Cq) 1 patch TD DAILY [facility] Last Admin: 12/01/18 10:13 Dose: Not Given Pantoprazole Sodium (Protonix Inj) 40 mg IVP DAILY [facility] Last Admin: 12/01/18 10:36 Dose: 40 mg Spironolactone (Aldactone) 25 mg PO BID [facility] Last Admin: 12/01/18 17:44 Dose: 25 mg - Labs Labs: 12/01/18 06:00 12/01/18 06:00 PT 19.0 SECONDS (9.4-12.5) H 12/01/18 06:00 INR 1.68 12/01/18 06:00 APTT 29.9 Seconds (26.9-38.3) 12/01/18 06:00 Attending/Attestation - Attestation I have fully participated in the care of the patient.: Yes I have reviewed all pertinent clinical information, including history, physical exam and plan: Yes Notes (Text): 12/01/18 18:53 Decompensated ETOH/HCV cirrhosis Ascites, s/p paracentesis COPD - Low sodium diet as tolerated - Continue with diuretic therapy, monitor electrolytes - Patient has appointment at [facility] in March for further transplant evaluation - ETOH cessation - Abdominal US shows dilated CBD, patient currently asymptomatic with normal LFTs. Would benefit from additional abdominal imaging as outpatient. - Antibiotic therapy as per medical team - No further planned GI intervention at this time, will sign off case. Please reconsult as necessary, thank you.
--- NOTE | 2018-12-01 14:04 | CP.PCM.PCO ---
Physician Communication Note - Physician Communication Note Physician Communication Note: pt s/p paracentesis, continues with antibiotics - plan home tomorow per pmd Additional Comments - Additional Comments Additional Comments: pt with steriod wean, still has wheezing, plan for dc home tomorrow if clinical improvement per medical team. will continue to follow
--- NOTE | 2018-12-01 22:31 | PN ---
DATE: 12/01/2018 SUBJECTIVE: The patient is in bed, in no acute distress, nontoxic. PHYSICAL EXAMINATION: VITAL SIGNS: Temperature is 97, blood pressure is 140/70, respiratory rate 20, and heart rate of 78. HEENT: Unremarkable. NECK: Supple. LUNGS: Have decreased breath sounds. HEART: Normal S1 and S2. ABDOMEN: Soft. LABORATORY EXAMINATION: Reveals the white count is 110,000, hemoglobin of 10, BUN of 25, and creatinine of 0.9. Urinalysis is noted, wbc's 319 and improving. HIV is negative. Urine Legionella is negative. Microbiology: Ascitic fluid cultures, no growth. Nares, not detected. Urine culture is negative. Blood culture is negative. Kell De La O's note is reviewed and the patient is being weaned off the Cirrus because of continued wheezing. ASSESSMENT AND PLAN: This is a 58-year-old female with liver cirrhosis, status post paracentesis, hepatitis C, alcohol abuse, chronic obstructive lung disease, hyperlipidemia, presenting with cough, shortness of breath, sepsis, healthcare-associated pneumonia, positive CAT scan and we will discontinue vancomycin and meropenem. Today is day #4 of Levaquin. We will complete 5 to 7 days of Levaquin. QTc is 459. Malcolm Nelson MD
[2018-12-02] MEDS: Albuterol-Ipratrop 3 mg / 0.5 (3 ml) UD IH SCH ×4 (01:06→19:37)
[2018-12-02] MEDS: Pantoprazole 40 mg EC Tab PO SCH (05:10)
[2018-12-02 06:58] VITALS: PULSE 74; O2SAT 93
[2018-12-02] MEDS: Budesonide 0.5 mg/2 ml Inhal Susp UD IH SCH ×2 (08:13→19:38)
[2018-12-02] MEDS: levoFLOXacin 500 MG TAB PO SCH (10:10)
[2018-12-02] MEDS: guaiFENesin-DM 600-30 mg ER Tab PO SCH ×2 (10:11→17:38)
[2018-12-02] MEDS: MethylPREDNISolone 40 mg Vial IVP SCH (10:11)
[2018-12-02] MEDS: Levothyroxine 50 MCG TAB PO SCH (10:12)
[2018-12-02 10:27] LABS: BASO # 0.01 K/mm3 (0.0-2.0); BASO % 0.1 % (0.0-3.0); EOS % 0.4 % (1.5-5.0); HEMOGLOBIN 11.4 g/dL (12.0-16.0); LYMPH # 1.3 (1.2-3.4); MEAN CELL VOLUME 78.1 fl (80.0-105.0); MEAN CORPUSCULAR HGB CONC 30.7 g/dl (31.0-37.0); MONO # 1.6 (0.1-0.6); MONO % 16.5 % (1.0-6.0); RBC 4.75 10^6/uL (3.5-6.1); RED CELL DISTRIBUTION WIDTH 18.7 % (11.5-14.5); WHITE BLOOD COUNT 9.5 10^3/uL (4.5-11.0)
[2018-12-02 10:34] LABS: PLATELET COUNT 45 10^3/uL (120.0-450.0)
[2018-12-02 10:35] LABS: ALB/GLOB RATIO 0.7 (1.1-1.8); ALBUMIN 2.9 g/dL (3.0-4.8); ALT/SGPT 40 U/L (7-56); AST/SGOT 53 U/L (14-36); BLOOD UREA NITROGEN 23 mg/dL (7-21); CALCIUM 8.6 mg/dL (8.4-10.5); GFR NON-AFRICAN AMERICAN > 60
--- NOTE | 2018-12-02 16:29 | CP.PCM.PN ---
<Ja Villalobos - Last Filed: 12/02/18 16:22> Subjective - Date & Time of Evaluation Date of Evaluation: 12/02/18 Time of Evaluation: 16:22 - Subjective Subjective: Ja Villalobos, PGY-1, Internal Medicine Progress Note for Dr. Chan Patient seen and evaluated at bedside. Patient had no acute overnight events. Patient today reports shortness of breath, cough with yellow sputum, reports much improved abdominal distension but denies abdominal pain, nausea, vomiting, constipation, diarrhea, dysuria, or hematuria. 12-point ROS was unremarkable except for what was mentioned above. Objective - Vital Signs/Intake and Output Vital Signs (last 24 hours): Temp Pulse Resp BP Pulse Ox 98.1 F 74 20 153/84 H 93 L 12/02/18 06:00 12/02/18 06:00 12/02/18 06:00 12/02/18 10:10 12/02/18 06:00 Intake and Output: 12/02/18 12/02/18 06:59 18:59 Intake Total 120 Balance 120 - Medications Medications: Current Medications Albuterol/Ipratropium (Duoneb 3 Mg/0.5 Mg (3 Ml) Ud) 3 ml IH Q2H PRN PRN Reason: Shortness of Breath Last Admin: 11/29/18 22:15 Dose: 3 ml Albuterol/Ipratropium (Duoneb 3 Mg/0.5 Mg (3 Ml) Ud) 3 ml IH [id number] [facility] Last Admin: 12/02/18 13:23 Dose: 3 ml Budesonide (Pulmicort Respules) 0.5 mg IH [id number] [facility] Last Admin: 12/02/18 08:13 Dose: 0.5 mg Docusate Sodium (Colace) 100 mg PO BID [facility] Last Admin: 12/02/18 10:08 Dose: 100 mg Famotidine (Pepcid) 20 mg PO HS [facility] Last Admin: 12/01/18 21:30 Dose: 20 mg Ferrous Sulfate (Feosol) 324 mg PO TID [facility] Last Admin: 12/02/18 15:25 Dose: 324 mg Furosemide (Lasix) 20 mg PO DAILY [facility] Last Admin: 12/02/18 10:10 Dose: 20 mg Guaifenesin/Dextromethorphan (Mucinex-Dm 600-30 Mg) 1 tab PO BID [facility] Last Admin: 12/02/18 10:11 Dose: 1 tab Hydroxyzine HCl (Atarax) 25 mg PO Q6H PRN PRN Reason: Allergy symptoms Ibuprofen (Motrin Tab) 400 mg PO Q12H PRN PRN Reason: Headache Last Admin: 12/01/18 08:09 Dose: 400 mg Levofloxacin (Levaquin) 500 mg PO DAILY [facility]; Protocol Stop: 12/05/18 10:01 Last Admin: 12/02/18 10:10 Dose: 500 mg Levothyroxine Sodium (Synthroid) 50 mcg PO DAILY [facility] Last Admin: 12/02/18 10:12 Dose: 50 mcg Methadone HCl (Methadone) 30 mg PO DAILY [facility] Last Admin: 12/02/18 10:10 Dose: 30 mg Methadone HCl (Methadone) 5 mg PO DAILY [facility] Last Admin: 12/02/18 10:11 Dose: 5 mg Methylprednisolone (Solu-Medrol) 20 mg IVP DAILY [facility] Last Admin: 12/02/18 10:11 Dose: 20 mg Nicotine (Nicoderm Cq) 1 patch TD DAILY [facility] Last Admin: 12/02/18 10:11 Dose: 1 patch Pantoprazole Sodium (Protonix Ec Tab) 40 mg PO 0600 [facility] Last Admin: 12/02/18 05:10 Dose: 40 mg Spironolactone (Aldactone) 25 mg PO BID [facility] Last Admin: 12/02/18 10:08 Dose: 25 mg - Labs Labs: 12/02/18 10:00 12/02/18 10:00 PT 19.0 SECONDS (9.4-12.5) H 12/01/18 06:00 INR 1.68 12/01/18 06:00 APTT 29.9 Seconds (26.9-38.3) 12/01/18 06:00 - Constitutional Appears: Well, Non-toxic, No Acute Distress - Head Exam Head Exam: ATRAUMATIC, NORMAL INSPECTION, NORMOCEPHALIC - Eye Exam Eye Exam: EOMI, PERRL - ENT Exam ENT Exam: Mucous Membranes Moist - Neck Exam Neck Exam: Full ROM - Respiratory Exam Respiratory Exam: Diffuse Wheezes, no sign of respiratory distress at this time - Cardiovascular Exam Cardiovascular Exam: REGULAR RHYTHM, RRR, +S1, +S2 - GI/Abdominal Exam GI & Abdominal Exam: improved distention, Soft, Normal Bowel Sounds. absent: Firm, Guarding, Tenderness - Extremities Exam Extremities Exam: Full ROM, Normal Capillary Refill, Normal Inspection - Neurological Exam Neurological Exam: Alert, Awake, CN II-XII Intact, Oriented x3 - Skin Skin Exam: Dry, Intact, Normal Color Assessment and Plan - Assessment and Plan (Free Text) Assessment: 58 year old female with past medical history of liver cirrhosis, hepatitis C, alcohol abuse, hypercholesterolemia, hypothyroidism presented with sepsis 2/2 to upper respiratory tract infection Plan: Sepsis likely 2/2 to URI vs. SBP -Patient continues to have wheezing on exam. -Chest CT 11/29: small focal area of consolidation with air bronchograms in lingular segment of left upper lobe. Patchy ground glass interstitial infiltrate are seen in upper lobes bilaterally. Linear scarring see in both lung bases similar to prior CT -Blood culture negative for 72 hours -Sputum culture: few gram positive cocci -Urine legionella negative -Procal: 0.2 -HIV: negative -MRSA screen negative -Paracentesis performed to rule out SBP. PMN<250, Ascites fluid culture ne gative, thus, unlikely SBP -Continue with levaquin day 5. Stopped vancomycin, merrem History of Cirrhosis 2/2 Hepatitis C vs. alcohol abuse -Abdominal ultrasound on 11/28 shows appearance consistent with cirrhosis with nodular hepatic contour evident. Echogenic liver may be seen in setting of hepatic parenchymal disease or fatty infiltration. Mild to moderate abdominal a scites. Cholelithiasis. -MELD score: 17 with estimated 6% mortality in 3 months -Though patient had mildly elevated anti-smooth muscle Ab in the past, cirrhosis unlikely due to autoimmune cause. Likely 2/2 to hepatitis C vs. alcohol abuse -Patient currently has improved abdominal distension after paracentesis -Paracentesis performed on 11/[address] Garcia. PMN<250. Ascites fluid culture negative. Unlikely SBP. Limited workup as she has close follow up at [facility]. -Continue with aldactone 50 mg and lasix 20 mg daily Chronic Thrombocytopenia -Likely 2/2 to cirrhosis -Avoid hepatotoxic medications Microcytic Anemia -Hgb stable at 10s to 11s. Baseline in 10s to 11s -Iron decreased at 24, TIBC unremarkable at 371. % saturation decreased at 6 -Ferritin: 28.7 -Continue ferrous sulfate COPD -Continue with NC -Continue with duonebs, pulmicort -Continue solumedrol 20 mg daily Former opiod abuse -Will follow up UDS -Continue methadone 35 mg daily as confirmed with [facility] Tobacco abuse -Continue Nicotine patch -Counseled patient regarding tobacco cessation Hypothyroidism -TSH: 0.35 -Free T4: 1.02 -Free T3: 1.92 -Continue with home levothyroxine DVT prophylaxis: SCD GI prophylaxis: pepcid Patient plan discussed with Dr. Chan <Fide Chan - Last Filed: 12/03/18 07:31> Objective - Vital Signs/Intake and Output Vital Signs (last 24 hours): Temp Pulse Resp BP Pulse Ox 98.1 F 74 20 153/84 H 93 L 12/02/18 06:00 12/02/18 06:00 12/02/18 06:00 12/02/18 10:10 12/02/18 06:00 Intake and Output: 12/03/18 12/03/18 06:59 18:59 Intake Total 1160 Balance 1160 - Medications Medications: Current Medications Albuterol/Ipratropium (Duoneb 3 Mg/0.5 Mg (3 Ml) Ud) 3 ml IH Q2H PRN PRN Reason: Shortness of Breath Last Admin: 11/29/18 22:15 Dose: 3 ml Albuterol/Ipratropium (Duoneb 3 Mg/0.5 Mg (3 Ml) Ud) 3 ml IH [id number] [facility] Last Admin: 12/03/18 01:27 Dose: 3 ml Budesonide (Pulmicort Respules) 0.5 mg IH [id number] [facility] Last Admin: 12/02/18 19:38 Dose: 0.5 mg Docusate Sodium (Colace) 100 mg PO BID [facility] Last Admin: 12/02/18 17:38 Dose: 100 mg Famotidine (Pepcid) 20 mg PO HS [facility] Last Admin: 12/02/18 22:11 Dose: 20 mg Ferrous Sulfate (Feosol) 324 mg PO TID [facility] Last Admin: 12/02/18 17:38 Dose: 324 mg Furosemide (Lasix) 20 mg PO DAILY [facility] Last Admin: 12/02/18 10:10 Dose: 20 mg Guaifenesin/Dextromethorphan (Mucinex-Dm 600-30 Mg) 1 tab PO BID [facility] Last Admin: 12/02/18 17:38 Dose: 1 tab Hydroxyzine HCl (Atarax) 25 mg PO Q6H PRN PRN Reason: Allergy symptoms Ibuprofen (Motrin Tab) 400 mg PO Q12H PRN PRN Reason: Headache Last Admin: 12/01/18 08:09 Dose: 400 mg Levofloxacin (Levaquin) 500 mg PO DAILY [facility]; Protocol Stop: 12/05/18 10:01 Last Admin: 12/02/18 10:10 Dose: 500 mg Levothyroxine Sodium (Synthroid) 50 mcg PO DAILY [facility] Last Admin: 12/02/18 10:12 Dose: 50 mcg Methadone HCl (Methadone) 30 mg PO DAILY [facility] Last Admin: 12/02/18 10:10 Dose: 30 mg Methadone HCl (Methadone) 5 mg PO DAILY [facility] Last Admin: 12/02/18 10:11 Dose: 5 mg Methylprednisolone (Solu-Medrol) 20 mg IVP DAILY [facility] Last Admin: 12/02/18 10:11 Dose: 20 mg Nicotine (Nicoderm Cq) 1 patch TD DAILY [facility] Last Admin: 12/02/18 10:11 Dose: 1 patch Pantoprazole Sodium (Protonix Ec Tab) 40 mg PO 0600 [facility] Last Admin: 12/03/18 06:29 Dose: 40 mg Spironolactone (Aldactone) 25 mg PO BID [facility] Last Admin: 12/02/18 17:38 Dose: 25 mg - Labs Labs: 12/02/18 10:00 12/02/18 10:00 PT 19.0 SECONDS (9.4-12.5) H 12/01/18 06:00 INR 1.68 12/01/18 06:00 APTT 29.9 Seconds (26.9-38.3) 12/01/18 06:00 Attending/Attestation - Attestation I have personally seen and examined this patient.: Yes I have fully participated in the care of the patient.: Yes I have reviewed all pertinent clinical information, including history, physical exam and plan: Yes Notes (Text): Patient seen and examined by me with resident at approximately at 10:20AM on 12/02/18. Case including HPI, physical exam, and assessment and plan discussed with resident. Agree with above with following additions/corrections. Patient is a 58-year-old female past medical history significant for liver cirrhosis, hepatitis C, ascites with previous paracentesis, COPD on home oxygen at bedtime, alcohol abuse, tobacco abuse, drug abuse on methadone, hypertension, hypothyroidism, and hyperlipidemia that presented to the emergency room with cough and shortness of breath. Patient states she is feeling ok. Still feels short of breath and feels she is wheezing. Still with a productive cough. Patient denies abdominal pain. Patient is having bowel movements. No nausea or vomiting. No dizziness or lightheadedness. No fevers or chills. No dysuria. Physical exam: General: Awake and alert lying in bed in no acute distress HEENT: Normocephalic, atraumatic. Extraocular muscles intact. Pupils equal and reactive, no scleral icterus. Oropharynx pink and moist. No pharyngeal erythema or exudate appreciated. Neck supple. Cardiovascular: Regular rhythm. Normal S1 and S2. No murmurs, rubs, or gallops appreciated Pulmonary: Normal respiratory effort. Decreased breath sounds. Positive expiratory wheezing. No rhonchi or rales appreciated Gastrointestinal: Soft, No abdominal tenderness. Improved distention. Positive bowel sounds all 4 quadrants. No guarding. Musculoskeletal: Moves all extremities. No calf tenderness. No edema appreciated. Central nervous system: AAO x3. No focal deficits appreciated. Dermatologic: Skin warm and dry. Assessment and plan: Patient is a 58-year-old female past medical history significant for liver cirrhosis, hepatitis C, ascites with previous paracentesis, COPD on home oxygen at bedtime, alcohol abuse, tobacco abuse, drug abuse on methadone, hypertension, hypothyroidism, and hyperlipidemia that presented to the emergency room with cough and shortness of breath. 1. Sepsis. Secondary to community acquired pneumonia. SBP ruled out. S/P paracentesis 11/30/18. Tachycardia resolved. Leukocytosis resolved. ID recommendations appreciated. Continue Levaquin for 5-7 days per ID. Blood cultures with no growth to date. Chest CT per radiologist showed small focal area of consolidation with air bronchograms in the lingular segment of the left upper lobe, patchy groundglass interstitial infiltrate seen in the upper lobes bilaterally, linear scarring can be seen in both lung bases similar to previous abdominal CT on 02/20/2018. Chest xray per radiologist showed no active disease. Abdominal ultrasound per radiologist showed appearance consistent with cirrhosis with nodular hepatic contour evident, echogenic liver may be seen in setting of hepatic parenchymal disease or fatty infiltration, mild to moderate abdominal ascites, cholelithiasis. 2. Ascites. Liver cirrhosis. History of alcohol abuse and Hepatitis C. Continue home aldactone and lasix. S/P Paracentesis 11/30/18 with 2200 ml removed. GI recommendations appreciated. Abdominal ultrasound as above. Patient follows with the [facility] in [place], [place]. IR recommendations appreciated. 3. Chronic thrombocytopenia. Secondary to liver cirrhosis. No signs of acute ble eding. Continue to monitor for now. 4. COPD exacerbation. Continue on O2 via nasal cannula. Continue nebulizer treatments and pulmicort. Continue solumedrol. Continue mucinex for cough. Counseled on tobacco cessation. 5. Constipation. Resolved. Continue to monitor. 6. Hypothyroidism. Continue home synthroid. 7. Tobacco abuse. Counseled at length on cessation. Continue nicotine patch. 8. History of drug abuse. Patient on Methadone. Confirmed with [facility] 9. GI/DVT prophylaxis. Pepcid/SCDS Case was discussed in detail with the patient regarding current diagnosis and treatment plan. All questions answered.
--- NOTE | 2018-12-02 22:44 | PN ---
DATE: 12/02/2018 SUBJECTIVE: The patient is in bed, in no acute distress, nontoxic. PHYSICAL EXAMINATION: VITAL SIGNS: Temperature is 98, blood pressure is 150/80, respiratory rate 20, heart rate of 74. HEENT: Unremarkable. NECK: Supple. LUNGS: Have decreased breath sounds. HEART: Normal S1, S2. ABDOMEN: Soft. LABORATORY EXAMINATION: Reveals the patient to have a white count of 9.5, a hemoglobin of 11, platelets of 45. Chemistries are noted. BUN of 23, creatinine of 0.9. Urinalysis is noted. Microbiology reveals ascitic fluid. There is no growth. Sputum cultures no growth. Naris is not detected. Blood cultures negative. Urine cultures negative. ASSESSMENT AND PLAN: A 58-year-old female with liver cirrhosis status post paracentesis, hepatitis C, alcohol abuse, chronic obstructive lung disease, hyperlipidemia, presenting with cough and shortness of breath and sepsis with healthcare-associated pneumonia, positive CAT scan, currently today is day #5 of Levaquin. Would complete 5-7 days of by mouth Levaquin. We will follow with you. Malcolm Nelson MD
[2018-12-03] MEDS: Albuterol-Ipratrop 3 mg / 0.5 (3 ml) UD IH SCH ×3 (01:27→13:38)
[2018-12-03] MEDS: Pantoprazole 40 mg EC Tab PO SCH (06:29)
[2018-12-03] MEDS: Budesonide 0.5 mg/2 ml Inhal Susp UD IH SCH (08:16)
[2018-12-03 08:23] VITALS: RESP 22; TEMP 97.7
[2018-12-03] MEDS: Levothyroxine 50 MCG TAB PO SCH (09:48)
[2018-12-03] MEDS: MethylPREDNISolone 40 mg Vial IVP SCH (09:48)
[2018-12-03] MEDS: guaiFENesin-DM 600-30 mg ER Tab PO SCH (09:48)
[2018-12-03 09:50] VITALS: BP 136/80
[2018-12-03] MEDS: levoFLOXacin 500 MG TAB PO SCH (09:58)
[2018-12-03 10:19] LABS: BASO # 0.01 K/mm3 (0.0-2.0); BASO % 0.1 % (0.0-3.0); EOS # 0.1 (0.0-0.7); EOS % 1.3 % (1.5-5.0); HEMOGLOBIN 12.2 g/dL (12.0-16.0); LYMPH # 1.8 (1.2-3.4); MEAN CELL VOLUME 75.8 fl (80.0-105.0); MEAN CORPUSCULAR HGB CONC 31.7 g/dl (31.0-37.0); MONO # 1.4 (0.1-0.6); MONO % 13.3 % (1.0-6.0); RBC 5.08 10^6/uL (3.5-6.1); RED CELL DISTRIBUTION WIDTH 19.3 % (11.5-14.5); WHITE BLOOD COUNT 10.2 10^3/uL (4.5-11.0)
[2018-12-03 10:24] LABS: ALB/GLOB RATIO 0.8 (1.1-1.8); ALT/SGPT 38 U/L (7-56); AST/SGOT 43 U/L (14-36); BLOOD UREA NITROGEN 20 mg/dL (7-21); CALCIUM 8.8 mg/dL (8.4-10.5); GFR NON-AFRICAN AMERICAN > 60
[2018-12-03 10:52] LABS: PLATELET COUNT 35 10^3/uL (120.0-450.0)
--- NOTE | 2018-12-03 14:23 | CP.PCM.DIS ---
<VanceaprilJa toscano - Last Filed: 12/03/18 13:57> Provider - Provider Date of Admission: 11/28/18 16:13 Attending physician: Fide Chan DO Primary care physician: NEDA FAMILY PROVIDER Consults: 11/28/18 17:23 Infectious Disease Consult Routine Comment: Consulting Provider: Malcolm Nleson Consulting Physician: Malcolm Nelson Reason for Consult: COPD exac/thrombocytopenia Physician Consult Routine Comment: Consulting Provider: Manav Garcia Consulting Physician: Manav Garcia Reason for Consult: Paracentesis 11/29/18 00:44 Transition In Care/Readmission Reduction Routine Comment: Physician Instructions: Reason For Exam: COPD exacerbation Time Spent in preparation of Discharge (in minutes): 60 Hospital Course - Lab Results Lab Results: Micro Results 11/30/18 11:50 Ascitic Fluid Gram Stain - Final 11/30/18 11:50 Ascitic Fluid Anaerobic Culture - Final NO ANAEROBES ISOLATED. 11/30/18 11:50 Ascitic Fluid Body Fluid Culture - Preliminary NO GROWTH AFTER 3 DAYS 11/28/18 17:16 Blood-Venous Blood Culture - Preliminary NO GROWTH AFTER 4 DAYS 11/28/18 14:30 Blood-Venous Blood Culture - Preliminary NO GROWTH AFTER 4 DAYS 11/29/18 06:28 Sputum Gram Stain - Final 11/29/18 06:28 Sputum Sputum Culture - Final NORMAL ORAL REYNA 11/29/18 06:28 Naris MRSA Culture (Admit) - Final MRSA NOT DETECTED 11/28/18 23:17 Urine,Clean Catch Urine Culture - Final No Growth (<1,000 CFU/ML) Most Recent Lab Values WBC 10.2 10^3/uL (4.5-11.0) 12/03/18 10:00 RBC 5.08 10^6/uL (3.5-6.1) 12/03/18 10:00 Hgb 12.2 g/dL (12.0-16.0) 12/03/18 10:00 Hct 38.5 % (36.0-48.0) 12/03/18 10:00 MCV 75.8 fl (80.0-105.0) L 12/03/18 10:00 MCH 24.0 pg (25.0-35.0) L 12/03/18 10:00 MCHC 31.7 g/dl (31.0-37.0) 12/03/18 10:00 RDW 19.3 % (11.5-14.5) H 12/03/18 10:00 Plt Count 35 10^3/uL (120.0-450.0) L* 12/03/18 10:00 Manual Plt Count 54 K/mm3 (120-450) L 12/01/18 06:00 Neut % (Auto) 67.3 % (50.0-68.0) 12/03/18 10:00 Lymph % (Auto) 18.0 % (22.0-35.0) L 12/03/18 10:00 [place] % (Auto) 13.3 % (1.0-6.0) H 12/03/18 10:00 Eos % (Auto) 1.3 % (1.5-5.0) L 12/03/18 10:00 Baso % (Auto) 0.1 % (0.0-3.0) 12/03/18 10:00 Lymph # (Auto) 1.8 (1.2-3.4) 12/03/18 10:00 [place] # (Auto) 1.4 (0.1-0.6) H 12/03/18 10:00 Eos # (Auto) 0.1 (0.0-0.7) 12/03/18 10:00 Baso # (Auto) 0.01 K/mm3 (0.0-2.0) 12/03/18 10:00 Absolute Neuts (auto) 6.85 (1.4-6.5) H 12/03/18 10:00 Platelet Evaluation Low (NORMAL) 12/01/18 06:00 Retic Count 2.06 % (0.5-1.5) H 11/29/18 10:30 PT 19.0 SECONDS (9.4-12.5) H 12/01/18 06:00 INR 1.68 12/01/18 06:00 APTT 29.9 Seconds (26.9-38.3) 12/01/18 06:00 pO2 38 mm/Hg (30-55) 11/29/18 05:40 VBG pH 7.38 (7.32-7.43) 11/29/18 05:40 VBG pCO2 50.0 (40-60) 11/29/18 05:40 VBG HCO3 29.6 mmol/l (21-28) H 11/29/18 05:40 VBG Total CO2 31.1 mmol.L (22-28) H 11/29/18 05:40 VBG O2 Sat (Calc) 70.4 % (40-65) H 11/29/18 05:40 VBG Base Excess 3.4 mmol/L (0.0-2.0) H 11/29/18 05:40 VBG Potassium 4.2 mmol/L (3.6-5.2) 11/29/18 05:40 Sodium 134.0 mmol/L (132-148) 11/29/18 05:40 Chloride 100.0 mmol/L (98-107) 11/29/18 05:40 Glucose 119 mg/dl (65-105) H 11/29/18 05:40 Lactate 1.9 mmol/L (0.7-2.1) 11/29/18 05:40 FiO2 21.0 % 11/29/18 05:40 Crit Value Called To Travis doty 11/28/18 18:20 Crit Value Called By Johnna 11/28/18 18:20 Blood Gas Notified Time 1825 11/28/18 18:20 Sodium 135 mmol/L (132-148) 12/03/18 10:00 Potassium 3.8 mmol/L (3.6-5.0) 12/03/18 10:00 Chloride 100 mmol/L (98-107) 12/03/18 10:00 Carbon Dioxide 29 mmol/L (21-33) 12/03/18 10:00 Anion Gap 10 (10-20) 12/03/18 10:00 BUN 20 mg/dL (7-21) 12/03/18 10:00 Creatinine 0.9 mg/dl (0.7-1.2) 12/03/18 10:00 Est GFR ( Amer) > 60 12/03/18 10:00 Est GFR (Non-Af Amer) > 60 12/03/18 10:00 Random Glucose 123 mg/dL (70-110) H 12/03/18 10:00 Hemoglobin A1c 5.2 % (4.2-6.5) 11/29/18 06:05 Calcium 8.8 mg/dL (8.4-10.5) 12/03/18 10:00 Phosphorus 2.8 mg/dL (2.5-4.5) 11/29/18 06:05 Magnesium 2.3 mg/dL (1.7-2.2) H 11/29/18 06:05 Iron 24 ug/dL (45-180) L 11/29/18 10:30 TIBC 371 ug/dL (265-497) 11/29/18 10:30 % Saturation 6 % (20-55) L 11/29/18 10:30 Ferritin 28.7 ng/mL 11/29/18 10:30 Total Bilirubin 0.9 mg/dL (0.2-1.3) 12/03/18 10:00 AST 43 U/L (14-36) H 12/03/18 10:00 ALT 38 U/L (7-56) 12/03/18 10:00 Alkaline Phosphatase 113 U/L (38-126) 12/03/18 10:00 Ammonia 21 umol/L (9-33) 11/29/18 05:40 Total Protein 7.1 g/dL (5.8-8.3) 12/03/18 10:00 Albumin 3.0 g/dL (3.0-4.8) 12/03/18 10:00 Globulin 4.0 gm/dL 12/03/18 10:00 Albumin/Globulin Ratio 0.8 (1.1-1.8) L 12/03/18 10:00 Triglycerides 58 mg/dL (35-160) 11/29/18 06:05 Cholesterol 52 mg/dL (130-200) L 11/29/18 06:05 LDL Cholesterol Direct < 30 mg/dL (0-129) 11/29/18 06:05 HDL Cholesterol 19 mg/dL (29-60) L 11/29/18 06:05 Alpha Fetoprotein 1.7 ng/mL (0.0-7.5) 11/30/18 06:00 Vitamin B12 996 pg/mL (239-931) H 11/29/18 10:30 Folate 7.2 ng/mL 11/29/18 10:30 Procalcitonin 0.20 NG/ML (0.19-0.49) 11/29/18 06:05 Free T4 1.02 ng/dL (0.78-2.19) 11/29/18 10:30 Free T3 pg/mL 1.92 pg/mL (2.77-5.27) L 11/29/18 10:30 TSH 3rd Generation 0.35 mIU/mL (0.46-4.68) L 11/29/18 06:05 Venous Blood Potassium 4.2 mmol/L (3.6-5.2) 11/29/18 05:40 Urine Color Yellow (YELLOW) 11/28/18 23:17 Urine Appearance Clear (CLEAR) 11/28/18 23:17 Urine pH 6.0 (4.7-8.0) 11/28/18 23:17 Ur Specific [place] >= 1.030 (1.005-1.035) 11/28/18 23:17 Urine Protein Trace mg/dL (<30 mg/dL) H 11/28/18 23:17 Urine Glucose (UA) Negative mg/dL (NEGATIVE) 11/28/18 23:17 Urine Ketones Negative mg/dL (NEGATIVE) 11/28/18 23:17 Urine Blood Small (NEGATIVE) H 11/28/18 23:17 Urine Nitrate Negative (NEGATIVE) 11/28/18 23:17 Urine Bilirubin Negative (NEGATIVE) 11/28/18 23:17 Urine Urobilinogen 0.2 E.U./dL (<1 E.U./dL) 11/28/18 23:17 Ur Leukocyte Esterase Trace Ross/uL (NEGATIVE) H 11/28/18 23:17 Urine RBC 0 - 2 /hpf (0-2) 11/28/18 23:17 Urine WBC 2 - 5 /hpf (0-6) 11/28/18 23:17 Ur Epithelial Cells 3 - 4 /hpf (0-5) 11/28/18 23:17 Urine Bacteria Small /hpf (NONE) 11/28/18 23:17 Fluid Source Peritoneal/ascites 11/30/18 11:50 Fluid Appearance Clear (CLEAR) 11/30/18 11:50 Fluid WBC 319.0 /uL (0.0-300.0) H 11/30/18 11:50 Fluid RBC 370.0 /uL (0.0-0.0) H 11/30/18 11:50 Fluid Tot Cell Count 100 (0-0) H 11/30/18 11:50 Fluid Mononuclear Cell 79.6 % (0-0) H 11/30/18 11:50 Fl Polymorphonucl Cell 20.4 % (0-0) H 11/30/18 11:50 Fluid Comment Color yellow 11/30/18 11:50 HIV 1&2 Ag/Ab, 4th Gen Nonreactive (Nonreactive) 11/29/18 06:05 Ur L.pneumophila Ag Negative (NEGATIVE) 11/28/18 23:17 - Hospital Course Hospital Course: Ja Villalobos, PGY-1, Internal Medicine Discharge Summary for Chan 58 year old female with past medical history of liver cirrhosis, Hep C, alcohol abuse, hypercholesterolemia, hypothyroidism, COPD on home 5L O2 initially presented with complaints of cough with productive clear sputum, congestion, and shortness of breath for 2 days prior to admission. Patient had associated chest pain due to cough, fevers, and chills. She denies any sick contacts, myalgias, fevers, or chills. She also reports noticing her abdomen enlarging and her shortness of breath was associated with these symptoms. She has been following a all source collection manager [facility] for liver care and reports she is on the transplant list. Chest X ray on admission showed no acute disease. Patient received rocephin and azithromycin in the emergency department. Chest CT on 11/29 showed small focal area of consolidation with air bronchograms in lingular segment of left upper lobe. Patchy ground glass interstitial infiltrate were seen in upper lobes bilaterally. Linear scarring was seen in both lung bases. Patient was subsequently stopped on rocephin and azithromycin and was started on vancomycin, meropenem, and levaquin. Sputum culture showed few gram positive cocci, but blood culture and urine legionella were negative. HIV was also negative. As blood cultures continued to be negative for 3 days, patient's vancomycin and merrem were stopped and patient was continued on levaquin for goal treatment of 7 days. For patient's COPD exacerbation, patient received duonebs, pulmicort, and solumedrol in the emergency department and was continued on duonebs, pulmicort, and solumedrol 20 mg IV. Patient continued to have wheezing and symptoms of cough with sputum throughout the admission. Symptoms started to improved today. Patient's abdomen was distended on admission. Abdominal Ultrasound confirmed nodular hepatic contour signifying cirrhosis. Mild to moderate ascites was also seen. Patient was started on aldactone 25 mg BID and lasix 20 mg daily. Patient was covered empirically with rocephin initially for SBP. Patient also presented with thrombocytopenia. Dr. Garcia was consulted for paracentesis, however, goal platelet count was for more than 50. Paracentesis was performed on 12/01 as manual platelet count was found to be 63. Limited workup was performed including cell count, albumin, and LDH. PMN was less than 250, thus, SBP was ruled out as the source of possible infection. Patient was found to be stable and ready for discharge. Patient was told to take all home medications and start feosol, new dose of spironolactone, spiriva, dulera, and one day of levaquin. Patient was told to follow up with Dr. Byrd within 3 to days and to follow up with her all source collection manager in [facility] within 1 week. Patient was told to refrain from tobacco use. Patient was told to return to the emergency room if she had any new or concerning symptoms. Discharge Diagnoses Sepsis Rule out Pneumonia Cirrhosis Hepatitis C History of Alcohol Abuse Chronic Thrombocytopenia Microcytic Anemia COPD Former opiod abuse Tobacco abuse Hypothyroidism - Date & Time of H&P Date of H&P: 11/28/18 Time of H&P: 18:58 Discharge Exam - Head Exam Head Exam: ATRAUMATIC, NORMOCEPHALIC - Eye Exam Eye Exam: EOMI, Normal appearance Pupil Exam: NORMAL ACCOMODATION, PERRL - Respiratory Exam Respiratory Exam: Wheezes, NORMAL BREATHING PATTERN. absent: Rales, Rhonchi, Stridor - Cardiovascular Exam Cardiovascular Exam: REGULAR RHYTHM, RRR, +S1, +S2. absent: Clicks, Gallop, Systolic Murmur - GI/Abdominal Exam GI & Abdominal Exam: Distended, Normal Bowel Sounds, Soft. absent: Tenderness - Extremities Exam Extremities exam: full ROM, normal capillary refill, normal inspection - Neurological Exam Neurological exam: Alert, CN II-XII Intact, Normal Gait, Oriented x3 - Psychiatric Exam Psychiatric exam: Normal Affect, Normal Mood Discharge Plan - Discharge Medications Prescriptions: Albuterol 0.083% [Albuterol 0.083% Inhal Carole (2.5 mg/3 ml) UD] 2.5 mg IH Q6H PRN #30 neb PRN Reason: Shortness Of Breath Albuterol HFA [Ventolin HFA 90 mcg/actuation (8 g)] 1 puff IH Q6H PRN #1 inhaler PRN Reason: Shortness Of Breath Ferrous Sulfate [Feosol] 324 mg PO TID #21 ect guaiFENesin/Dextromethorphan [Mucinex-DM 600-30 mg] 1 tab PO BID #14 tab levoFLOXacin 500 mg in D5W [Levaquin 500MG] 500 mg IVPB DAILY 1 Days #1 bag Mometasone/Formoterol [Dulera] 1 kim IH BID #1 inh predniSONE [predniSONE Tab] See Taper PO DAILY #18 tab Spironolactone 50 mg PO DAILY 30 Days #30 tablet Tiotropium [place] Inhaler [Spiriva Inhalation Handihaler Device] 1 inhaler INH DAILY 30 Days #1 inhaler - Follow Up Plan Condition: GOOD Disposition: HOME/ ROUTINE Instructions: Pneumonia in Adults, Abdominal Paracentesis, Blood in the Urine (Hematuria), Adult (DC), Preventing Falls, Fluid in the Belly (Ascites) (DC) Additional Instructions: 1. Please resume home medications as prescribed. Please note the following changes -Please take feosol 324 mg three times a day (this is iron for iron deficiency). This may make you constipated. Please use over the counter stool softners or laxatives if needed. -Please stop home spinolactone 25 mg twice a day. Your Sprinolactone dose was changed to 50 mg daily. New prescription has been given to you. -Please stop pulmicort nebulizer -Please take spiriva 18 mcg 2 inhalations daily and dulera 1 inhalation every 12 hours -Please take levaquin 500 mg once, tomorrow, to finish your 7 day course of antibiotics. 2. Follow up with your primary care physician, Dr. Byrd within 3 to 5 days. 3. Follow up with your all source collection manager (stomach doctor) at [facility] in [facility] within one week. 4. Please refrain from tobacco use. 5. Please go to the emergency room if your symptoms return or you experience any new concerning symptoms. Referrals: Saniya Byrd MD [Non-Staff] - <Fide Chan - Last Filed: 12/03/18 18:23> Provider - Provider Date of Admission: 11/28/18 16:13 Attending physician: Fide Chan DO Primary care physician: NO FAMILY PROVIDER Consults: 11/28/18 17:23 Infectious Disease Consult Routine Comment: Consulting Provider: Malcolm Nelson Consulting Physician: Malcolm Nelson Reason for Consult: COPD exac/thrombocytopenia Physician Consult Routine Comment: Consulting Provider: Manav Garcia Consulting Physician: Manav Garcia Reason for Consult: Paracentesis 11/29/18 00:44 Transition In Care/Readmission Reduction Routine Comment: Physician Instructions: Reason For Exam: COPD exacerbation Hospital Course - Lab Results Lab Results: Micro Results 11/28/18 17:16 Blood-Venous Blood Culture - Final NO GROWTH AFTER 5 DAYS 11/28/18 17:16 Blood-Venous Gram Stain - Final TEST NOT PERFORMED 11/28/18 14:30 Blood-Venous Blood Culture - Final NO GROWTH AFTER 5 DAYS 11/28/18 14:30 Blood-Venous Gram Stain - Final TEST NOT PERFORMED 11/30/18 11:50 Ascitic Fluid Gram Stain - Final 11/30/18 11:50 Ascitic Fluid Anaerobic Culture - Final NO ANAEROBES ISOLATED. 11/30/18 11:50 Ascitic Fluid Body Fluid Culture - Preliminary NO GROWTH AFTER 3 DAYS 11/29/18 06:28 Sputum Gram Stain - Final 11/29/18 06:28 Sputum Sputum Culture - Final NORMAL ORAL REYNA 11/29/18 06:28 Naris MRSA Culture (Admit) - Final MRSA NOT DETECTED 11/28/18 23:17 Urine,Clean Catch Urine Culture - Final No Growth (<1,000 CFU/ML) Most Recent Lab Values WBC 10.2 10^3/uL (4.5-11.0) 12/03/18 10:00 RBC 5.08 10^6/uL (3.5-6.1) 12/03/18 10:00 Hgb 12.2 g/dL (12.0-16.0) 12/03/18 10:00 Hct 38.5 % (36.0-48.0) 12/03/18 10:00 MCV 75.8 fl (80.0-105.0) L 12/03/18 10:00 MCH 24.0 pg (25.0-35.0) L 12/03/18 10:00 MCHC 31.7 g/dl (31.0-37.0) 12/03/18 10:00 RDW 19.3 % (11.5-14.5) H 12/03/18 10:00 Plt Count 35 10^3/uL (120.0-450.0) L* 12/03/18 10:00 Manual Plt Count 54 K/mm3 (120-450) L 12/01/18 06:00 Neut % (Auto) 67.3 % (50.0-68.0) 12/03/18 10:00 Lymph % (Auto) 18.0 % (22.0-35.0) L 12/03/18 10:00 [place] % (Auto) 13.3 % (1.0-6.0) H 12/03/18 10:00 Eos % (Auto) 1.3 % (1.5-5.0) L 12/03/18 10:00 Baso % (Auto) 0.1 % (0.0-3.0) 12/03/18 10:00 Lymph # (Auto) 1.8 (1.2-3.4) 12/03/18 10:00 [place] # (Auto) 1.4 (0.1-0.6) H 12/03/18 10:00 Eos # (Auto) 0.1 (0.0-0.7) 12/03/18 10:00 Baso # (Auto) 0.01 K/mm3 (0.0-2.0) 12/03/18 10:00 Absolute Neuts (auto) 6.85 (1.4-6.5) H 12/03/18 10:00 Platelet Evaluation Low (NORMAL) 12/01/18 06:00 Retic Count 2.06 % (0.5-1.5) H 11/29/18 10:30 PT 19.0 SECONDS (9.4-12.5) H 12/01/18 06:00 INR 1.68 12/01/18 06:00 APTT 29.9 Seconds (26.9-38.3) 12/01/18 06:00 pO2 38 mm/Hg (30-55) 11/29/18 05:40 VBG pH 7.38 (7.32-7.43) 11/29/18 05:40 VBG pCO2 50.0 (40-60) 11/29/18 05:40 VBG HCO3 29.6 mmol/l (21-28) H 11/29/18 05:40 VBG Total CO2 31.1 mmol.L (22-28) H 11/29/18 05:40 VBG O2 Sat (Calc) 70.4 % (40-65) H 11/29/18 05:40 VBG Base Excess 3.4 mmol/L (0.0-2.0) H 11/29/18 05:40 VBG Potassium 4.2 mmol/L (3.6-5.2) 11/29/18 05:40 Sodium 134.0 mmol/L (132-148) 11/29/18 05:40 Chloride 100.0 mmol/L (98-107) 11/29/18 05:40 Glucose 119 mg/dl (65-105) H 11/29/18 05:40 Lactate 1.9 mmol/L (0.7-2.1) 11/29/18 05:40 FiO2 21.0 % 11/29/18 05:40 Crit Value Called To Travis doty 11/28/18 18:20 Crit Value Called By Johnna 11/28/18 18:20 Blood Gas Notified Time 1825 11/28/18 18:20 Sodium 135 mmol/L (132-148) 12/03/18 10:00 Potassium 3.8 mmol/L (3.6-5.0) 12/03/18 10:00 Chloride 100 mmol/L (98-107) 12/03/18 10:00 Carbon Dioxide 29 mmol/L (21-33) 12/03/18 10:00 Anion Gap 10 (10-20) 12/03/18 10:00 BUN 20 mg/dL (7-21) 12/03/18 10:00 Creatinine 0.9 mg/dl (0.7-1.2) 12/03/18 10:00 Est GFR ( Amer) > 60 12/03/18 10:00 Est GFR (Non-Af Amer) > 60 12/03/18 10:00 Random Glucose 123 mg/dL (70-110) H 12/03/18 10:00 Hemoglobin A1c 5.2 % (4.2-6.5) 11/29/18 06:05 Calcium 8.8 mg/dL (8.4-10.5) 12/03/18 10:00 Phosphorus 2.8 mg/dL (2.5-4.5) 11/29/18 06:05 Magnesium 2.3 mg/dL (1.7-2.2) H 11/29/18 06:05 Iron 24 ug/dL (45-180) L 11/29/18 10:30 TIBC 371 ug/dL (265-497) 11/29/18 10:30 % Saturation 6 % (20-55) L 11/29/18 10:30 Ferritin 28.7 ng/mL 11/29/18 10:30 Total Bilirubin 0.9 mg/dL (0.2-1.3) 12/03/18 10:00 AST 43 U/L (14-36) H 12/03/18 10:00 ALT 38 U/L (7-56) 12/03/18 10:00 Alkaline Phosphatase 113 U/L (38-126) 12/03/18 10:00 Ammonia 21 umol/L (9-33) 11/29/18 05:40 Total Protein 7.1 g/dL (5.8-8.3) 12/03/18 10:00 Albumin 3.0 g/dL (3.0-4.8) 12/03/18 10:00 Globulin 4.0 gm/dL 12/03/18 10:00 Albumin/Globulin Ratio 0.8 (1.1-1.8) L 12/03/18 10:00 Triglycerides 58 mg/dL (35-160) 11/29/18 06:05 Cholesterol 52 mg/dL (130-200) L 11/29/18 06:05 LDL Cholesterol Direct < 30 mg/dL (0-129) 11/29/18 06:05 HDL Cholesterol 19 mg/dL (29-60) L 11/29/18 06:05 Alpha Fetoprotein 1.7 ng/mL (0.0-7.5) 11/30/18 06:00 Vitamin B12 996 pg/mL (239-931) H 11/29/18 10:30 Folate 7.2 ng/mL 11/29/18 10:30 Procalcitonin 0.20 NG/ML (0.19-0.49) 11/29/18 06:05 Free T4 1.02 ng/dL (0.78-2.19) 11/29/18 10:30 Free T3 pg/mL 1.92 pg/mL (2.77-5.27) L 11/29/18 10:30 TSH 3rd Generation 0.35 mIU/mL (0.46-4.68) L 11/29/18 06:05 Venous Blood Potassium 4.2 mmol/L (3.6-5.2) 11/29/18 05:40 Urine Color Yellow (YELLOW) 11/28/18 23:17 Urine Appearance Clear (CLEAR) 11/28/18 23:17 Urine pH 6.0 (4.7-8.0) 11/28/18 23:17 Ur Specific [place] >= 1.030 (1.005-1.035) 11/28/18 23:17 Urine Protein Trace mg/dL (<30 mg/dL) H 11/28/18 23:17 Urine Glucose (UA) Negative mg/dL (NEGATIVE) 11/28/18 23:17 Urine Ketones Negative mg/dL (NEGATIVE) 11/28/18 23:17 Urine Blood Small (NEGATIVE) H 11/28/18 23:17 Urine Nitrate Negative (NEGATIVE) 11/28/18 23:17 Urine Bilirubin Negative (NEGATIVE) 11/28/18 23:17 Urine Urobilinogen 0.2 E.U./dL (<1 E.U./dL) 11/28/18 23:17 Ur Leukocyte Esterase Trace Ross/uL (NEGATIVE) H 11/28/18 23:17 Urine RBC 0 - 2 /hpf (0-2) 11/28/18 23:17 Urine WBC 2 - 5 /hpf (0-6) 11/28/18 23:17 Ur Epithelial Cells 3 - 4 /hpf (0-5) 11/28/18 23:17 Urine Bacteria Small /hpf (NONE) 11/28/18 23:17 Fluid Source Peritoneal/ascites 11/30/18 11:50 Fluid Appearance Clear (CLEAR) 11/30/18 11:50 Fluid WBC 319.0 /uL (0.0-300.0) H 11/30/18 11:50 Fluid RBC 370.0 /uL (0.0-0.0) H 11/30/18 11:50 Fluid Tot Cell Count 100 (0-0) H 11/30/18 11:50 Fluid Mononuclear Cell 79.6 % (0-0) H 11/30/18 11:50 Fl Polymorphonucl Cell 20.4 % (0-0) H 11/30/18 11:50 Fluid Comment Color yellow 11/30/18 11:50 HIV 1&2 Ag/Ab, 4th Gen Nonreactive (Nonreactive) 11/29/18 06:05 Ur L.pneumophila Ag Negative (NEGATIVE) 11/28/18 23:17 Attending/Attestation - Attestation I have personally seen and examined this patient.: Yes I have fully participated in the care of the patient.: Yes I have reviewed all pertinent clinical information, including history, physical exam and plan: Yes Notes (Text): Please note this DC summary is for 12/03/18 Patient seen and examined by me with resident at approximately 9AM on 12/03/18. Case including discharge plan discussed with resident. Agree with above with following additions/corrections. Patient is a 58-year-old female past medical history significant for liver cirrhosis, hepatitis C, ascites with previous paracentesis, COPD on home oxygen at bedtime, alcohol abuse, tobacco abuse, drug abuse on methadone, hypertension, hypothyroidism, and hyperlipidemia that presented to the emergency room with cough and shortness of breath. Please see H&P for full details. Patient was found to have sepsis secondary to community-acquired pneumonia, ascites secondary to liver cirrhosis, history of alcohol abuse and hepatitis C, chronic thrombocytopenia, COPD exacerbation, constipation, hypothyroidism, tobacco abuse, history of drug abuse. Chest CT per radiologist showed small focal area of consolidation with air bronchograms in the lingular segment of the left upper lobe, patchy groundglass interstitial infiltrate seen in the upper lobes bilaterally, linear scarring can be seen in both lung bases similar to previous abdominal CT on 02/20/2018. Chest xray per radiologist showed no active disease. Abdominal ultrasound per radiologist showed appearance consistent with cirrhosis with nodular hepatic contour evident, echogenic liver may be seen in setting of hepatic parenchymal disease or fatty infiltration, mild to moderate abdominal ascites, cholelithiasis. Patient was seen by infectious disease doctor. WBC on admission was 22.7. WBC on discharge was 10.2. Patient was treated with Merrem, Levaquin, and vancomycin. Cultures showed no growth. Tachycardia resolved. SBP was ruled out. Patient was switched to Levaquin only. Patient was also found to have ascites and had paracentesis with IR on 11/30/2018 with 2.2 L removed. Patient was continued on Aldactone and Lasix. GI was following. Patient does follow at [facility] in [facility] for her liver cirrhosis. Patient was also found have chronic thrombocytopenia secondary to liver cirrhosis. She did not have any signs of acute bleeding. CBC was monitored. Patient was also found to have COPD exacerbation. Patient with chronic respiratory failure on home oxygen. Patient was continued on O2 via nasal cannula. Patient was also continued on nebulizer treatments and Pulmicort. Patient was continued on Solu-Medrol. Patient was treated with Mucinex for cough with improvement. Patient was also counseled at length on tobacco cessation. Patient was continued on home Synthroid for hypothyroidism. She was continued on home methadone for history of drug abuse. Patient remained afebrile. Patient was feeling much better. Patient was cleared for discharge by all consultants. Patient was discharged home. On day of discharge, patient stated she was feeling better. Shortness of breath improved. Cough improved. Patient denied headaches or dizziness. No chest pain or palpitations. No nausea, vomiting, or abdominal pain. Abdominal distention improved. Patient was tolerating diet well. No fevers or chills. No dysuria or burning with urination. Patient was having bowel movements. Physical exam: General: Awake and alert lying in bed in no acute distress HEENT: Normocephalic, atraumatic. Extraocular muscles intact. Pupils equal and reactive, no scleral icterus. Oropharynx pink and moist. No pharyngeal erythema or exudate appreciated. Neck supple. Cardiovascular: Regular rhythm. Normal S1 and S2. No murmurs, rubs, or gallops appreciated Pulmonary: Normal respiratory effort. Improved breath sounds. No rhonchi, rales, or wheezing appreciated. Gastrointestinal: Soft, No abdominal tenderness. Improved distention. Positive bowel sounds all 4 quadrants. No guarding. Musculoskeletal: Moves all extremities. No calf tenderness. No edema appreciated. Central nervous system: AAO x3. No focal deficits appreciated. Dermatologic: Skin warm and dry. Please see chart for full details. Follow up instructions: Patient to follow up with primary care doctor within 3-5 days. 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 within one week. Patient to take medications as prescribed. All instructions explained to the patient in detail. Patient both understands and agrees to all instructions. Written instructions also given. Time spent in discharging the patient including chart review, medication reconciliation, discussion with the patient, medical record administrator, consultants, and nursing staff was approximately 50 minutes. 12/03/18 18:23
--- NOTE | 2018-12-03 18:45 | PN ---
DATE: 12/03/2018 SUBJECTIVE: The patient is in bed, in no acute distress, nontoxic. No fevers and chills. PHYSICAL EXAMINATION: VITAL SIGNS: Temperature is 97, blood pressure is 140/70, respiratory rate of 18, and heart rate of 74. HEENT: Unremarkable. NECK: Supple. LUNGS: Decreased breath sounds. HEART: Normal S1 and S2. ABDOMEN: Soft and nontender. LABORATORY DATA: Laboratory examination reveals a white count of 10,000, hemoglobin of 12, and platelets of 35,000. Chemistries are noted. Microbiology is reviewed. ASSESSMENT AND PLAN: A 58-year-old female with liver cirrhosis status post paracentesis, hepatitis C, alcohol abuse, chronic obstructive lung disease, hyperlipidemia, presenting with cough and shortness of breath. 1. Sepsis. 2. Healthcare-associated pneumonia. Today is day #6 of Levaquin. Complete 7 days of Levaquin. The patient has tolerated the antibiotic well. We will follow with you. Malcolm Nelson MD
== END 2018-12-03 14:55 | disposition home or self-care (01) | DRG 871 ==
LOC: ED 13:14 → ERH 16:13 → 3RNO 19:27
PROVIDERS: ADMIT Internal Medicine; ATTEND Hospitalist
PROC: BW40ZZZ Ultrasonography of Abdomen (ICD-10-PCS; 2018-11-30)
PROC: 0W9G3ZX Drainage of Peritoneal Cavity, Percutaneous Approach, Diagnostic (ICD-10-PCS; principal; 2018-11-30 14:00)
DX: A41.9 Sepsis, unspecified organism (principal); J18.9 Pneumonia, unspecified organism; J96.10 Chronic respiratory failure, unspecified whether with hypoxia or hypercapnia; F11.20 Opioid dependence, uncomplicated; J44.1 Chronic obstructive pulmonary disease with (acute) exacerbation; J44.0 Chronic obstructive pulmonary disease with (acute) lower respiratory infection; K76.6 Portal hypertension; R18.8 Other ascites; J44.9 Chronic obstructive pulmonary disease, unspecified; E78.00 Pure hypercholesterolemia, unspecified; E03.9 Hypothyroidism, unspecified; B19.20 Unspecified viral hepatitis C without hepatic coma; Z79.899 Other long term (current) drug therapy; Z99.81 Dependence on supplemental oxygen; E78.5 Hyperlipidemia, unspecified; R50.9 Fever, unspecified; R07.89 Other chest pain; F10.10 Alcohol abuse, uncomplicated; Z76.82 Awaiting organ transplant status; E83.42 Hypomagnesemia; R14.0 Abdominal distension (gaseous); D69.6 Thrombocytopenia, unspecified; Y95 Nosocomial condition; K70.31 Alcoholic cirrhosis of liver with ascites; B18.2 Chronic viral hepatitis C; D50.9 Iron deficiency anemia, unspecified; D69.59 Other secondary thrombocytopenia; F17.210 Nicotine dependence, cigarettes, uncomplicated; I12.9 Hypertensive chronic kidney disease with stage 1 through stage 4 chronic kidney disease, or unspecified chronic kidney disease; J06.9 Acute upper respiratory infection, unspecified; K31.89 Other diseases of stomach and duodenum; K59.00 Constipation, unspecified; K74.60 Unspecified cirrhosis of liver; K83.8 Other specified diseases of biliary tract; N18.9 Chronic kidney disease, unspecified; Z82.49 Family history of ischemic heart disease and other diseases of the circulatory system; Z86.19 Personal history of other infectious and parasitic diseases; Z87.01 Personal history of pneumonia (recurrent)